=== PATIENT | female | born 1940 | race Caucasian/White ===

== ENCOUNTER → 2020-07-12 13:21 | Outpatient (CLI) | payer MEDICARE, OTHER, SELFPAY ==
--- NOTE | ~2020-07-12 | XR_ITS ---
XR_[id number]_CR DATE: 07/12/2020 13:42 INDICATION: Neck pain TECHNIQUE: AP, open-mouth, lateral, swimmer views COMPARISON: None FINDINGS: C1 and C2 are normally aligned and the odontoid process is intact. There is approximately 2.7 mm anterolisthesis at C3-4. No fracture or dislocation or locked facet or prevertebral soft tissue swelling is detected. Moderate degenerative disc disease at C4-5 and C5-6 and C7. There is degenerative change at the apophyseal and uncovertebral joints. Osteopenia. Aortic arch calcification. IMPRESSION: Prominent degenerative change Reviewed, dictated and finalized at [facility]. Reviewed, dictated and finalized at [facility]. [employer]
== END ==
PROVIDERS: PCP Internal Medicine; Visit Provider Nurse Practitioner
DX: M50.30 Other cervical disc degeneration, unspecified cervical region (principal)
CPT/HCPCS: 72040

== ENCOUNTER 2020-08-29 09:57 | Inpatient (IN) | payer MEDICARE, OTHER, SELFPAY ==
[2020-08-29] VITALS (17 sets, daily range): BP systolic 159–245; BP diastolic 49–95; PULSE 72–86; RESP 14–29; TEMP 35.9–36.9; O2SAT 89–100; BMI 42.7
--- NOTE | ~2020-08-29 | XR_ITS ---
XR chest 2V 08/29/2020 10:26 Indication: Shortness of breath. CHF Procedure: 2 view chest Comparison: Comparison to multiple prior studies sequentially, with oldest reviewed study dated /oh 07/2017. Findings: Borderline heart size. There is airspace disease throughout the right lung. Small right ple ural effusion. No pneumothorax. There is atherosclerosis. No acute osseous abnormality. Impression: 1: Diffuse right-sided airspace disease, which most likely represents pneumonia versus asymmetric tl ma. Reviewed, dictated and finalized at [facility]. Impression: 1: Diffuse right-sided airspace disease, which most likely represents pneumonia versus asymmetric edema.
--- NOTE | ~2020-08-29 | US_ITS ---
EXAMINATION: US venous doppler [facility] DATE: 08/30/2020 10:04 INDICATION: Lower limb swelling TECHNIQUE: Grayscale ultrasound images without and with compression and Doppler ultrasound images of the bilateral lower extremity veins were obtained. COMPARISON: None. FINDINGS: The visualized portions of right common femoral vein, profunda (deep) femoral vein, femoral vein, pop liteal vein, posterior tibial veins, peroneal veins, gastrocnemius vein and greater saphenous vein ou tflow are patent. The visualized portions of left common femoral vein, profunda femoral vein, femoral vein, popliteal v ein, posterior tibial veins, peroneal veins, gastrocnemius vein and greater saphenous vein outflow ar e patent. IMPRESSION: 1. No deep venous thrombosis in either lower limb. Reviewed, dictated and finalized at [facility].
--- NOTE | 2020-08-29 10:01 | ECG_ITS ---
Measurements Intervals [place] Rate: 82 P: 142 NE: 156 QRS: -24 QRSD: 81 T: 41 QT: 364 QTc: 426 Interpretive Statements SINUS OR ECTOPIC ATRIAL RHYTHM POOR R WAVE PROGRESSION, ANTERIOR LEADS BORDERLINE T WAVE ABNORMALITY- INF/HIGH LAT LEADS BASELINE ARTIFACT- I, III, AVR, AVL, AVF BORDERLINE ECG Electronically Signed On 08-29-2020 10:59:17 CDT by Bert Spence D.O.
--- NOTE | 2020-08-29 10:34 | ED.GENADULT ---
HPI - General Adult General Chief complaint: Shortness of Breath/Dyspnea Stated complaint: SOB Time Seen by Provider: 08/29/20 10:12 Source: RN notes reviewed History of Present Illness HPI narrative: Patient presents emergency department from home for shortness of breath. Patient states she has had progressive shortness of breath over the past 5 days associated with a nonproductive cough states shortness of breath is worse with exertion and laying flat. Patient states that she has been out of her medications for the past 5 days and has been unable to get them filled including her Lasix she denies any fevers or chills chest pain abdominal pain nausea vomiting or any other symptoms. Patient was satting in the upper 80s on room air Related Data Home Medications Medication Instructions Recorded Confirmed bumetanide 2 mg tablet 2 mg PO DAILY 05/11/19 07/12/20 cholecalciferol (vitamin D3) 1,250 50,000 unit PO MONTHLY tablet 05/11/19 07/12/20 mcg (50,000 unit) tablet metolazone 5 mg tablet 5 mg PO DAILY 05/11/19 07/12/20 Allergies Allergy/AdvReac Type Severity Reaction Status Date / Time adhesive tape Allergy Mild Unknown Verified 08/29/20 10:37 morphine Allergy Unknown Unknown Verified 08/29/20 10:37 Contrast Media Allergy Mild Unknown Uncoded 08/29/20 10:37 Review of Systems Review of Systems: Narrative: Gen.: Denies fevers or chills ENT: Denies congestion Respiratory: See HPI CV: Denies chest pain or palpitations GI: Denies abdominal pain nausea, emesis or diarrhea Musculoskeletal: Denies back pain or muscle pain Neuro: Denies numbness, tingling, weakness or focal weakness Skin: Denies rash Except as documented, all other systems reviewed and negative [facility] Past Medical History Medical History (Updated 08/29/20 @ 14:20 by Gee Atwood DO) Anemia in chronic kidney 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, NYHA class 1 Cholecystectomy planned Chronic kidney disease, stage 3 Diabetes mellitus with diabetic autonomic neuropathy, with long-term current use of insulin Diabetic retinopathy Essential tremor Hx of completed stroke Hypertension Secondary hyperparathyroidism Vitamin D deficiency Surgical History Surgical History H/O cataract extraction Total knee replacement status Family History Family History Mother Family history of diabetes mellitus in first degree relative Diabetes mellitus Sibling Family history of diabetes mellitus in first degree relative Diabetes mellitus Father Family history of heart disease in male family member before age 55 Patient's father is Family history of cardiovascular disease Social History Social History Tobacco type: cigarettes Smoking end date: 06/08/79 Alcohol intake: never Exam Narrative: Exam Narrative: APPEARANCE: No acute distress, nontoxic, resting in bed EYES: EOMI HEENT: Normocephalic, atraumatic, OMM RESPIRATORY: No respiratory distress crackles in bilateral lower lung barnes no wheezing CARDIOVASCULAR: Regular rate and rhythm without murmurs rubs or gallops. ABDOMINAL: Soft, nontender, nondistended, no rebound or guarding MUSCULOSKELETAl: Moves all extremities. No clubbing, cyanosis 3+ edema in bilateral lower extremities NEURO: Awake and alert. Following commands, speech normal, no focal deficits SKIN:: Warm, dry. No rashes lesions or abrasions PSYCHIATRIC: Normal affect/mood, Course Course Emergency Course: Discussed with Dr. Rivera presentation and work-up agrees with consult at this time Discussed with JULISSA Cárdenas for Dr. Coulter presentation work-up agrees with admission. At this time we discussed the lab results and patient been admitted for the past 5 days feels this is likely congestive heart failure not infectious process Discussed wit
--- NOTE | 2020-08-29 10:39 | PC.NURSE ---
Medications not updated as pt is unsure about current medications. Pt has a list but is unsure. Pt has not been taking medications past [address] won't refill them without seeing me . Pt has only been taking her Insulin.
[2020-08-29 11:06] LABS: Basophils Percent Auto 0.2 % (0.2-1.2); Eosinophils Absolute Auto 0.1 K/mm3 (0-0.3); Eosinophils Percent Auto 0.4 % (0-4.4); Hematocrit 31.9 % (37.0-47.0); Hemoglobin 10.3 g/dL (12.0-15.0); Immature Granulocyte Absolute 0.05 K/mm3 (0.00-0.031); Immature Granulocyte Percent A 0.4 % (0-0.5); Lymphocytes Percent Auto 5.9 % (18.3-44.2); Mean Corpuscular HGB Conc 32.3 g/dl (32-36); Mean Corpuscular Hemoglobin 31.4 pg (26-34); Mean Corpuscular Volume 97.3 fl (80-100); Mean Platelet Volume 10.1 fl (7.4-10.4); Monocytes Absolute Auto 0.8 K/mm3 (0.1-0.6); Monocytes Percent Auto 6.1 % (2.6-8.5); Neutrophils Absolute Auto 11.8 K/mm3 (1.3-6.7); Platelet Count Result 192 k/mm3 (150-375); Red Blood Count 3.28 M/mm3 (4.2-5.4); Red Cell Distribution Width 12.3 % (11.5-14.5); White Blood Count 13.6 K/mm3 (4.5-10.0)
[2020-08-29] MEDS: hydrALAZINE HCL 20 MG/ML VIAL 10 MG IV PUSH ×2 (11:08→23:21)
[2020-08-29 11:17] LABS: Anion Gap 5 mmol/L (8-16); Blood Urea Nitrogen 74 mg/dL (7-17); Calcium 8.3 mg/dL (8.4-10.2); Carbon Dioxide 28 mmol/L (22-30); Chloride 100 mmol/L (98-107); Estimated CRCL calculation 19 ml/min; Estimated Glomerular Filt Rate 19; Glucose 327 mg/dL (65-105); Lactic Acid Reflex 0.8 mmol/L (0.7-2.1); Potassium 4.7 mmol/L (3.4-5.0); Sodium 133 mmol/L (137-145)
[2020-08-29 12:12] LABS: Troponin I 0.286 ng/mL (0.000-0.034)
[2020-08-29 12:13] LABS: NT Pro B Type Natriuretic Pept 14500 PG/ML (5-100)
[2020-08-29] MEDS: ASPIRIN 81 MG CHEWABLE TABLET 324 MG PO (12:29)
[2020-08-29] MEDS: FUROSEMIDE INJ 40 MG/4 ML VIAL IV PUSH (12:30)
--- NOTE | 2020-08-29 14:00 | PC.NURSE ---
Addendum entered by Cecelia Rodriguez RN 08/29/20 14:43: Patient arrived on floor at 1420. Original Note: This patient, Waleska Tse, was admitted to IMU Room 205-02. Patient/family oriented to hospital policies and general routines including ID bracelet, bed and alarms, visiting hours, pain management, procedures, bathroom and other care routines, personal items, smoking policy, room service/diet, and visiting hours. Information on how to activate the Rapid Response Team has been discussed. Patient/Family are encouraged to report perceived risks to care and to ask questions if they do not understand what they are told or what they should do.
--- NOTE | 2020-08-29 17:26 | PM.CNCAR ---
Assessment and Plan Assessment and plan (1) Acute diastolic CHF (congestive heart failure): Code(s): I50.31 - Acute diastolic (congestive) heart failure Status: Acute Assessment and Plan: Patient prevents volume overload with SOB secondary to CHF, secondary to running out of her medications and also uncontrolled hypertension. IV diuretics; agree e=w/ Bumex 1 mg BID. Daily BMP (2) Uncontrolled hypertension: Code(s): I10 - Essential (primary) hypertension Status: Acute Assessment and Plan: Resume home meds and follow. (3) Elevated troponin: Code(s): R77.8 - Other specified abnormalities of plasma proteins Status: Acute Assessment and Plan: Elevated troponins but flat, noncardiac troponin rise secondary to physiologic stress. (4) Noncompliance with medication regimen: Code(s): Z91.14 - Patient's other noncompliance with medication regimen Status: Acute Assessment and Plan: Patient states she was unable to refill her medications. I think there must of been a miscommunication but encouraged the patient to enlist the help of her son if she when she hastrouble getting medications, and call again the doctor's office to obtain medications. Discuss the deleterious effects of uncontrolled hypertension on heart and kidney function. (5) Chronic kidney disease, stage 4 (severe): Code(s): N18.4 - Chronic kidney disease, stage 4 (severe) Status: Acute Assessment and Plan: Followed by Dr. Pemberton, appears stable. History of Present Illness History of Present Illness Consult date/time: 08/29/20 17:26 Consult reason: congestive heart failure Reason For Visit: CHF, elevated troponin, hypertensive urgency Narrative: Ms. Waleska Tse is a 79-year-old white female whom I was asked to see at the request of hospitalist for my advice and opinion regarding her congestive heart failure in consultation. Ms. Tse came to the emergency room this morning for shortness of breath over the last 5 days with ARRIAGA walking from room to room, a non productive cough and orthopnea. She has had a lot of swelling in the last few weeks and thinks she has gained 20 lb in the last 1 or 2 months.. She ran out of her diuretic and blood pressure medications 7 days ago. Per the patient, she sees Dr. Pemberton every 3 months but when she ran out of her medications his office refused to fill them without seeing her again. On admission she had an O2 sat in the 80s, an initial blood pressure was 245/85 mmHg. She was given 10 mg hydralazine IV push, aspirin and 40 mg of furosemide IV push. Blood pressure is now 184/53 and O2 sat is 100%. She was originally seen in March 2018 and acute CHF when she stopped taking her diuretics. I have followed the patient in the past, last being seen in June 2018, for chronic systolic and diastolic heart failure. Ejection fraction was 33% but had improved to 51%. History of hypertension, diabetes, stroke taking aspirin and Plavix, CKD stage [address] Pemberton. Has had some drug intolerances in the past, with swelling on amlodipine, did not tolerate hydralazine or clonidine from certain reasons, and reluctant to use Jose inhibitors ARB because of the renal insufficiency. Review of Systems Constitutional: Constitutional: Reports fatigue, Reports lethargy and Reports weakness Eyes: Eyes: Reports no additional eye complaints ENT: Denies nasal congestion Cardiovascular: Cardiovascular: Denies chest pain, Reports pedal edema, Reports leg edema and Denies lightheadedness Gastrointestina
[2020-08-29 18:02] LABS: Troponin I 0.232 ng/mL (0.000-0.034)
[2020-08-29 18:35] LABS: Alanine Aminotransferase 13 U/L (4-35); Albumin Level 3.5 g/dL (3.5-5.1); Alkaline Phosphatase 106 U/L (38-126); Aspartate Amino Transferase 17 U/L (14-36); Bilirubin,Total 1.1 mg/dL (0.2-1.3); Magnesium 2.6 mg/dL (1.6-2.3)
[2020-08-29 18:40] LABS: CRP 21.8 mg/dL (<1.0)
[2020-08-29] MEDS: BUMETANIDE INJ 1 MG/4 ML VIAL IV PUSH (18:44)
--- NOTE | 2020-08-29 18:45 | PM.IMHP ---
H&P: HPI History of Present Illness Date/Time: 08/29/20 18:45 <Melia Quezada PA-C - Last Filed: 08/29/20 21:40> Chief Complaint: Shortness of breath. <Melia Quezada PA-C - Last Filed: 08/29/20 21:40> Narrative: This is a 79-year-old female with combined systolic and diastolic congestive heart failure, chronic kidney disease, diabetes, hypertension, anemia, and several other comorbidities who presented to the emergency department earlier today from home with complaints of shortness of breath. She has been out of her medications for about 4 to 5 days as reportedly her doctor would not refill them until she is seen in the office though she apparently does not have an appointment until January! In any event over the past 6 to 8 weeks she has gained nearly 25 pounds and she also reports orthopnea, progressive dyspnea on lesser and lesser exertion, and increasing lower extremity edema. In the emergency department a chest x-ray showed right-sided airspace disease compatible with asymmetric edema versus pneumonia. With further questioning she does endorse a mild, nonproductive cough, occasional rhinorrhea, and a decrease in appetite. She had loose stools for a couple of days recently but that has since resolved. She denies fever, chills, and sweats. No headache, sinus congestion, otalgia, or odynophagia. No dysphagia or concerns for aspiration. She has not had chest or pleuritic pain, palpitations, nausea, or vomiting. No myalgias or arthralgias. She denies sick contacts and exposure to those positive for COVID-19. <Melia Quezada PA-C - Last Filed: 08/29/20 21:40> Review of Systems Review of Systems: Narrative: Twelve systems were reviewed with pertinent positives and negatives as per HPI. She denies fall. No syncope or near syncope. Urine output has been unchanged. No dysuria hematuria. Except as documented, all other systems were reviewed and are negative. <Melia Quezada PA-C - Last Filed: 08/29/20 21:40> [facility] Past Medical History Medical History: Medical History Anemia in chronic kidney disease Anxiety Arthritis Cerebrovascular accident With mild right-sided weakness and expressive aphasia. Chronic kidney disease, stage 4 (severe) Combined systolic and diastolic congestive heart failure Echocardiogram in 03/27/2018 showed moderate global LV systolic dysfunction with a measured EF of 33%, grade 2 diastolic dysfunction, moderate RV hypokinesis, and severe pulmonary hypertension (65 mmHg). Diabetic retinopathy Essential tremor Gastroesophageal reflux disease Hiatal hernia Hypertension Insulin dependent type 2 diabetes mellitus Hemoglobin A1c was 9.1% in 05/2020. Secondary hyperparathyroidism Vitamin D deficiency <Melia Quezada PA-C - Last Filed: 08/29/20 21:40> Surgical History Surgical History: Surgical History History of appendectomy History of cataract extraction History of cholecystectomy History of left knee replacement History of tonsillectomy Status post LASIK surgery <Melia Quezada PA-C - Last Filed: 08/29/20 21:40> Family History Family History: Family History Mother Family history of diabetes mellitus in first degree relative Diabetes mellitus Sibling Family history of diabetes mellitus in first degree relative Diabetes mellitus Father Family history of heart disease in male family member before age 55 Patient's father is Family history of cardiovascular disease <Melia Quezada PA-C - Last Filed: 08/29/20 21:40> Social History Social History: Social History (Updated 08/29/20 @ 21:33 by Melia Quezada PA-C) Social History: Surrogate decision maker: tanya Rodney. Code status: Full code. Lives with son and [id number] in [facility]
[2020-08-29] MEDS: HEPARIN SODIUM 5,000 UNITS/ML VIAL 5000 UNITS SUB-Q (20:22)
[2020-08-29] MEDS: carvediloL 25 MG TABLET PO (20:23)
[2020-08-29] MEDS: LORazepam (*CRX) 1 MG TABLET PO (20:23)
[2020-08-29] MEDS: INSULIN GLARGINE (*BKC) 100 UNITS/ML 6 UNITS SUB-Q (20:29)
[2020-08-29 20:39] LABS: Glucose Point of Care 328 (65-105)
[2020-08-29 23:47] LABS: Add Urine Microscopic? YES; Appearance Urine Clear (Clear); Bilirubin Urine Negative (Negative); Blood Urine Negative (Negative); Color Urine Straw (Yellow); Glucose Urine UA 3+ mg/dL (Negative); Ketones Urine Negative (Negative); Leukocyte Esterase Ur Negative LEU/UL (Negative); Mucus Urine Rare /lpf; Nitrate Urine Negative (Negative); Protein Urine 2+ mg/dL (Negative); RBC Urine 0-2 /hpf (0-2); Specific Grav Ur 1.007 (1.001-1.035); Squamous Epithelial Cell Urine Occasional /hpf (Few); Urobilinogen Urine Negative mg/dL (<2.0); WBC Urine 0-3 /hpf
[2020-08-30] VITALS (13 sets, daily range): BP systolic 135–168; BP diastolic 41–62; PULSE 68–78; RESP 18–20; TEMP 36.1–36.8; O2SAT 93–98
[2020-08-30 05:10] LABS: Hematocrit 30.3 % (37.0-47.0); Hemoglobin 9.7 g/dL (12.0-15.0); Mean Corpuscular Hemoglobin 31.4 pg (26-34); Mean Corpuscular Volume 98.1 fl (80-100); Mean Platelet Volume 10.5 fl (7.4-10.4); Platelet Count Result 200 k/mm3 (150-375); Red Blood Count 3.09 M/mm3 (4.2-5.4); Red Cell Distribution Width 12.5 % (11.5-14.5); White Blood Count 9.7 K/mm3 (4.5-10.0)
[2020-08-30 05:47] LABS: Alanine Aminotransferase 11 U/L (4-35); Albumin Level 3.1 g/dL (3.5-5.1); Alkaline Phosphatase 90 U/L (38-126); Anion Gap 6 mmol/L (8-16); Aspartate Amino Transferase 13 U/L (14-36); Bilirubin,Total 0.7 mg/dL (0.2-1.3); Blood Urea Nitrogen 79 mg/dL (7-17); CRP 23.5 mg/dL (<1.0); Calcium 8.1 mg/dL (8.4-10.2); Carbon Dioxide 30 mmol/L (22-30); Chloride 99 mmol/L (98-107); Estimated CRCL calculation 22 ml/min; Estimated Glomerular Filt Rate 19; Glucose 372 mg/dL (65-105); Lactate Dehydrogenase 329 U/L (313-618); Magnesium 2.6 mg/dL (1.6-2.3); Phosphorus 3.6 mg/dL (2.5-4.5); Potassium 4.4 mmol/L (3.4-5.0); Sodium 135 mmol/L (137-145)
[2020-08-30] MEDS: metOLazone 5 MG TABLET PO (08:02)
[2020-08-30] MEDS: HEPARIN SODIUM 5,000 UNITS/ML VIAL 5000 UNITS SUB-Q ×2 (08:02→20:39)
[2020-08-30] MEDS: carvediloL 25 MG TABLET PO ×2 (08:02→20:38)
[2020-08-30] MEDS: BUMETANIDE INJ 1 MG/4 ML VIAL IV PUSH ×2 (08:02→17:30)
[2020-08-30] MEDS: INSULIN GLARGINE (*BKC) 100 UNITS/ML 51 UNITS SUB-Q (08:04)
[2020-08-30] MEDS: INSULIN ASPART (*BKC) 100 UNITS/ML SUB-Q ×2 (08:04→12:29)
[2020-08-30 08:08] LABS: Glucose Point of Care 333 (65-105)
--- NOTE | 2020-08-30 08:46 | PM.PNCARD ---
Progress Note: A&P Assessment and Plan (1) Acute diastolic CHF (congestive heart failure): Code(s): I50.31 - Acute diastolic (congestive) heart failure Status: Acute Assessment and Plan: Patient prevents volume overload with SOB secondary to CHF, secondary to running out of her medications and also uncontrolled hypertension. Continue Bumex 1 mg IV push BID. Daily BMP Increase activity. Out of bed. (2) Uncontrolled hypertension: Code(s): I10 - Essential (primary) hypertension Status: Acute Assessment and Plan: Resumed home meds and follow. Just takes carvedilol and Bumex /metolazone at home for hypertension. Will not be enough to control hypertension in this range. Will add hydralazine 25 mg p.o. b.i.d.. (3) Elevated troponin: Code(s): R77.8 - Other specified abnormalities of plasma proteins Status: Acute Assessment and Plan: Elevated troponins but flat, noncardiac troponin rise secondary to physiologic stress. Echo pending but no other cardiac testing recommended at this point. (4) Noncompliance with medication regimen: Code(s): Z91.14 - Patient's other noncompliance with medication regimen Status: Acute Assessment and Plan: Patient states she was unable to refill her medications. I think there must of been a miscommunication but encouraged the patient to enlist the help of her son if she when she hastrouble getting medications, and call again the doctor's office to obtain medications. Discuss the deleterious effects of uncontrolled hypertension on heart and kidney function. (5) Chronic kidney disease, stage 4 (severe): Code(s): N18.4 - Chronic kidney disease, stage 4 (severe) Status: Acute Assessment and Plan: Followed by Dr. Pemberton, appears stable so far with IV diuretics. Subjective Date/time seen: 08/30/20 08:46 Interval history: Follow-up for CHF, volume overload, and uncontrolled hypertension due to medication noncompliance. She was unable to refill her medications for 7 days prior to admission. Elevated troponins but flat curve thought to be in a noncardiac troponin rise secondary to physiologic stress. Possible community-acquired pneumonia. CKD stage [address] Pemberton. Home meds resumed, started on Bumex 1 mg IV push b.i.d. Date of service 08/30/2020: Slept better last night, no orthopnea. Urinating more. Arthritis is bothering her. Appears unsure of her home medications. Blood pressure 140-180/50-60. Remains on O2. Diuresed some. Review of Systems Constitutional: Constitutional: Denies difficulty sleeping and Reports weakness Eyes: Eyes: Reports no additional eye complaints ENT: Denies nasal congestion Cardiovascular: Cardiovascular: Denies chest pain, Reports pedal edema and Reports leg edema Respiratory: Respiratory: Reports cough and Denies dyspnea Gastrointestinal: Gastrointestinal: Denies abdominal pain Genitourinary: Genitourinary: Denies hematuria Musculoskeletal: Musculoskeletal: Reports back pain and Reports arthralgias Integumentary/Breasts: Skin/Breast: Denies rash Neurologic: Denies confusion Psychiatric: Psychiatric: Reports no additional psychiatric complaints Exam Narrative: Exam Narrative: No distress, getting echo done. Const: General: comfortable and no acute distress HENMT: General nose exam: no epistaxis Eyes: EOM: EOMs intact bilaterally Neck: Neck: supple Resp: Effort & Inspection: normal respiratory effort Auscultation: rales (Scattered rales in bases) Cardio: Rate: regular rate GI: GI Palp: Yes Soft to palpation and Yes Firmness to palpation present (GI) (Obese) Skin: General skin exam: no rashes
[2020-08-30] MEDS: hydrALAZINE HCL 25 MG TABLET PO ×2 (10:21→17:30)
[2020-08-30 12:59] LABS: Glucose Point of Care 278 (65-105)
--- NOTE | 2020-08-30 14:10 | PC.NURSE ---
This patient, Waleska Tse, was transferred to [[id number] ] on 08/30/20 at 1411. Personal belongings sent with patient. Report given to [QUYEN Jones @ [phone] ]. Appropriate documentation sent with patient.
--- NOTE | 2020-08-30 14:15 | PC.NURSE ---
This patient, Waleska Tse, was received from IMU on 08/30/20 at 1415 Reprot received from Mervat . Patient/family oriented to unit policies and routines
--- NOTE | 2020-08-30 15:15 | PM.IMPN ---
Progress Note: A&P Assessment and Plan (1) Hypoxia: Code(s): R09.02 - Hypoxemia Status: Acute Assessment and Plan: Secondary to right-sided airspace disease, pulmonary edema verses pneumonia or combination thereof. Diurese with Bumex 1 milligram b.i.d. Wean oxygen as tolerated. 08/30/20 15:15 patient is 79-year-old female with history of CHF chronic kidney disease and hypertension apparently patient had not been on her medication as he was not able to see her physician and had not taken any of her medication presented emergency depart with complaint shortness of breath lower extremity swelling and and orthopnea, patient was satting in the 80s on room air patient denies any complains of chest pain palpitation fever or chills, patient was seen by water purifier suspect patient has acute diastolic congestive heart failure and started the patient on IV Bumex to diurese the patient, and also had elevated hypertension as she had not taken her medications for sometime, her home medications were resumed, and cardiac echo is ordered, today patient states is feeling much better compared to when she arrived, will follow-up cardiac echo, will have a PT OT evaluate the patient and further recommendation to follow, will continue to monitor (2) Combined systolic and diastolic congestive heart failure: Code(s): I50.40 - Unspecified combined systolic (congestive) and diastolic (congestive) heart failure Status: Inactive Assessment and Plan: Decompensated CHF likely secondary to missed medications and uncontrolled high blood pressure. Judicious IV diuresis. Monitor volume status with I/O and daily weights. (3) Hypertensive urgency: Code(s): I16.0 - Hypertensive urgency Status: Acute Assessment and Plan: The patient has been out of her medications for the last 4 days. Blood pressures should improve with diuresis and resuming antihypertensives. Continue to monitor blood pressures closely to ensure improvement. (4) Elevated troponin: Code(s): R77.8 - Other specified abnormalities of plasma proteins Status: Acute Assessment and Plan: The patient is not having chest pain, likely elevated due to hypertensive urgency and CHF in the setting of renal failure. Trend troponins to peak. Echocardiogram in a.m. Monitor on telemetry overnight. (5) Chronic kidney disease, stage 4 (severe): Code(s): N18.4 - Chronic kidney disease, stage 4 (severe) Status: Deleted Assessment and Plan: Baseline creatinine seems to be around 2.30. Monitor renal function closely while diuresing. Followed by Dr. Pemberton. (6) Anemia in chronic kidney disease: Code(s): N18.9 - Chronic kidney disease, unspecified; D63.1 - Anemia in chronic kidney disease Status: Acute Assessment and Plan: Hemoglobin and hematocrit are stable on review of previous labs. (7) Insulin dependent type 2 diabetes mellitus: Code(s): E11.9 - Type 2 diabetes mellitus without complications; Z79.4 - penitentiary (current) use of insulin Status: Acute Assessment and Plan: Hemoglobin A1c was 9.1% in 05/2020. Continue basal insulin. Initiate sliding scale insulin, Accu-Cheks, and hypoglycemic protocol. (8) Community acquired pneumonia: Code(s): J18.9 - Pneumonia, unspecified organism Status: Acute Assessment and Plan: Chest x-ray shows asymmetrical edema versus pneumonia or combination there of. Given elevated WBC and CRP will start antibiotics. Subjective Date/time seen: 08/30/20 15:15 patient is 79-year-old female with history of CHF chronic kidney disease and hypertension apparently patient had not been on her medication as he was not able to see her physician and had not taken any of her medication presented emergency depart with complaint shortness of breath lower extremity swelling and and orthopnea, patient was satting in the 80s o
[2020-08-30 17:15] LABS: Glucose Point of Care 173 (65-105)
--- NOTE | 2020-08-30 18:04 | ECHO_ITS ---
Patient Info Name: Waleska Tse Age: 79 years : 1940 Gender: Female Ht: 65 in Wt: 257 lbs BSA: 2.37 m2 HR: 1 bpm BP: 138 / 47 mmHg Technical Quality: Good Exam Date: 08/30/2020 8:26 AM Exam Location: [facility] Patient Status: Outpatient Admit Date: 08/29/2020 Staff Ordering Physician: Melia Quezada PA-C Radar Repairer: David Hightower RDCS, RT Attending Provider: Brook Coulter MD Referring Physician: Pilar WATTS; Exam Type: CA echo dop color flow w con Study Info Indications I10 - Essential (primary) hypertension I50.9 - Heart failure, unspecified Complete two-dimensional, color flow and Doppler transthoracic echocardiogram is performed with contrast to opacify the left ventricle and to improve the deliniation of the left ventricle endocardial borders. Contrast/Agitated Saline Contrast/Ag. Saline: Definity Amount: 1.00 ml Administered By: Rhonda Schmid RN Summary 1. Left ventricular systolic function is hyperdynamic, estimated at >70%. 2. There is moderately increased left ventricular wall thickness. 3. Left atrial chamber dimension is severely enlarged. 4. There is moderate aortic valve sclerosis. 5. There is no aortic valve stenosis. 6. There is mild mitral valve regurgitation. Also moderate mitral stenosis. Mean gradient 6 mmHg. 7. There is severe mitral valve calcification. 8. There is mild tricuspid valve regurgitation. 9. Moderate pulmonary hypertension, estimated pulmonary arterial systolic pressure is 57 mmHg. 10. There is moderate mitral valve stenosis. Left Ventricle Left ventricular chamber dimension is normal. Left ventricular systolic function is hyperdynamic, estimated at >70%. There is moderately increased left ventricular wall thickness. Left ventricular septal wall motion is normal. The left ventricular diastolic function is abnormal. Right Ventricle Right ventricular chamber dimension is normal. Right ventricular systolic function is normal. Left Atria Left atrial chamber dimension is severely enlarged. Right Atria Right atrial chamber dimension is normal. Atrial Septum Intact interatrial septum visualized by color flow imaging. Aortic Valve The aortic valve is trileaflet. There is moderate aortic valve sclerosis. There is no aortic valve stenosis. There is no aortic valve regurgitation. Pulmonic Valve The pulmonic valve is normal. There is no pulmonic valve stenosis. There is no pulmonic regurgitation. Mitral Valve The mitral valve has normal leaflets. There is moderate mitral valve stenosis. There is mild mitral valve regurgitation. Also moderate mitral stenosis. Mean gradient 6 mmHg. There is severe mitral valve calcification. Tricuspid Valve The tricuspid valve leaflets are normal. There is no significant tricuspid valve stenosis. There is mild tricuspid valve regurgitation. Moderate pulmonary hypertension, estimated pulmonary arterial systolic pressure is 57 mmHg. Pericardium/Pleural The pericardium appears normal. There is no pericardial effusion. Inferior Vena Cava Dilated inferior vena cava with >50% collapse upon inspiration consistent with elevated right atrial pressure, 10 mmHg. Aorta The aortic root size at the sinus of Valsalva is normal. The prox ascending aorta size is normal. Left Ventricular Outflow Tract Na
[2020-08-30] MEDS: INSULIN GLARGINE (*BKC) 100 UNITS/ML 6 UNITS SUB-Q (20:41)
[2020-08-30] MEDS: LORazepam (*CRX) 1 MG TABLET PO (20:44)
[2020-08-30 21:02] LABS: Glucose Point of Care 170 (65-105)
[2020-08-31 05:47] LABS: Hematocrit 29.9 % (37.0-47.0); Hemoglobin 9.5 g/dL (12.0-15.0); Mean Corpuscular HGB Conc 31.8 g/dl (32-36); Mean Corpuscular Hemoglobin 30.7 pg (26-34); Mean Corpuscular Volume 96.8 fl (80-100); Platelet Count Result 232 k/mm3 (150-375); Red Blood Count 3.09 M/mm3 (4.2-5.4); Red Cell Distribution Width 12.3 % (11.5-14.5)
[2020-08-31 05:59] LABS: Anion Gap 5 mmol/L (8-16); Blood Urea Nitrogen 86 mg/dL (7-17); Calcium 8.1 mg/dL (8.4-10.2); Carbon Dioxide 31 mmol/L (22-30); Chloride 102 mmol/L (98-107); Estimated CRCL calculation 19 ml/min; Estimated Glomerular Filt Rate 16; Glucose 106 mg/dL (65-105); Sodium 138 mmol/L (137-145)
[2020-08-31 06:00] VITALS: BP 124/53; PULSE 66; RESP 18; TEMP 36.2; O2SAT 96
[2020-08-31 07:13] LABS: Glucose Point of Care 113 (65-105)
[2020-08-31 08:00] VITALS: BP 153/45; PULSE 69; RESP 17; TEMP 35.9; O2SAT 97
[2020-08-31] MEDS: metOLazone 5 MG TABLET PO (08:02)
[2020-08-31] MEDS: BUMETANIDE INJ 1 MG/4 ML VIAL IV PUSH ×2 (08:03→17:09)
[2020-08-31] MEDS: hydrALAZINE HCL 25 MG TABLET PO ×2 (08:03→17:08)
[2020-08-31] MEDS: carvediloL 25 MG TABLET PO ×2 (08:03→20:33)
[2020-08-31] MEDS: HEPARIN SODIUM 5,000 UNITS/ML VIAL 5000 UNITS SUB-Q ×2 (08:03→20:33)
[2020-08-31 08:14] VITALS: PULSE 64; RESP 18; O2SAT 95
[2020-08-31] MEDS: LORazepam (*CRX) 0.5 MG TABLET PO ×3 (09:15→20:32)
[2020-08-31] MEDS: INSULIN GLARGINE (*BKC) 100 UNITS/ML 51 UNITS SUB-Q (09:17)
[2020-08-31 12:27] LABS: Glucose Point of Care 197 (65-105)
--- NOTE | 2020-08-31 13:01 | PM.PNCARD ---
Progress Note: A&P Additional Plan A 79-year-old woman with: Hypertension chronic kidney disease and admission with volume overload due to noncompliance with medication. Patient does not have LV systolic dysfunction on recent echo. Medications have been resumed and she is responding although still somewhat volume overloaded. Hydralazine added for additional antihypertensive benefit. The patient follows with Dr. Pemberton regarding her chronic kidney disease and the principal issue here is I believe related to her chronic renal failure rather than heart failure. In any event I will recommend transitioning her back to oral Bumex starting tomorrow. She is on room air and hopefully can be discharged in the next 24-48 hours. Amauri Jones MD [facility] Subjective Date/time seen: Date of service: 08/31/20 13:01 Interval history: Follow-up for CHF, volume overload, and uncontrolled hypertension due to medication noncompliance. She was unable to refill her medications for 7 days prior to admission. Elevated troponins but flat curve thought to be in a noncardiac troponin rise secondary to physiologic stress. Possible community-acquired pneumonia. CKD stage [address] Pemberton. Home meds resumed, started on Bumex 1 mg IV push b.i.d. Date of service 08/30/2020: Slept better last night, no orthopnea. Urinating more. Arthritis is bothering her. Appears unsure of her home medications. Blood pressure 140-180/50-60. Remains on O2. Diuresed some. Date of service: Patient is eating her lunch does not have any cardiovascular complaints she is noticing some occasional muscle cramping. Exam Narrative: Exam Narrative: No distress, getting echo done. Const: General: comfortable, no acute distress and uncomfortable (Anxious); No confusion Orientation/consciousness: No confusion HENMT: General nose exam: no epistaxis Eyes: EOM: EOMs intact bilaterally Neck: Neck: supple and no JVD (Obese neck, difficult to examine) Thyroid: thyroid normal Carotids: no bruits Lymphatic: lymphadenopathy not noted Resp: Effort & Inspection: normal respiratory effort Auscultation: rales (Scattered rales in bases) and diminished lung sounds Cardio: Rate: regular rate Rhythm: regular rhythm Heart sounds: no murmurs Other: Pedal pulses are diminished GI: Inspection: non-distended Skin: General skin exam: normal color and no rashes or lesions noted Neuro: General: No confusion Cognition (Neuro): normal cognition Speech: normal speech Motor exam (neuro): Normal motor muscle tone present throughout Other: Unsure of her medications, may have some cognitive dysfunction. Extrem: General: edema and pedal edema Other: Moderate lower extremity edema Psych: Affect: Anxious affect present Objective Data Vital Signs Vital Signs: Vital Signs - 24 hr 08/30/20 17:30 08/30/20 17:32 08/30/20 20:00 Temperature Pulse Rate 69 71 Respiratory Rate Blood Pressure 167/51 H Pulse Oximetry 95 98 08/30/20 20:17 08/30/20 20:38 08/30/20 22:00 Temperature 36.1 C L Pulse Rate 71 71 Respiratory Rate 20 Blood Pressure 152/41 H Pulse Oximetry 93 98 08/31/20 06:00 08/31/20 08:00 08/31/20 08:14 Temperature 36.2 C L 35.9 C L Pulse Rate 66 69 64 Respiratory Rate 18 17 18 Blood Pressure 124/53 L 153/45 H Pulse Oximetry 96 97 95 Intake/Output Intake/Output: Intake & Output 08/28/20 08/29/20 08/30/20 08/31/20 23:59 23:59 23:59 23:59 Intake Total 490 1110 500 Output Total 1150 100 500 Balance -660 1010 0 Meds/Results Medications: Active Medications Generic Name Dose Route Start Last Admin Trade Name Freq PRN Reason Stop Dose Admin Bumetanide 1 mg 08/29/20 18:30 08/31/20 08:03 Bumetanide Inj 1 Mg/4 Ml Vial IV PUSH 1 mg BID JULIO Administration Carvedilol 25 mg 08/29/20 21:00 08/31/20 08:03 Carvedilol 25 Mg Tablet PO 25 mg Q12HR JULIO Administration Dextrose 12.5 gm 08/29/20 17:54 Dextros
--- NOTE | 2020-08-31 13:12 | PM.IMPN ---
Progress Note: A&P Assessment and Plan (1) Combined systolic and diastolic congestive heart failure: Qualifiers: Heart failure chronicity: acute on chronic Qualified Code(s): I50.43 - Acute on chronic combined systolic (congestive) and diastolic (congestive) heart failure Code(s): I50.40 - Unspecified combined systolic (congestive) and diastolic (congestive) heart failure Status: Acute Assessment and Plan: Decompensated CHF likely secondary to missed medications and uncontrolled high blood pressure. Appreciate cardiology recommendations. Has been diuresed with IV bumex. Noted plan to transition back to oral Bumex tomorrow. Monitor volume status with I/O and daily weights. (2) Hypoxia: Code(s): R09.02 - Hypoxemia Status: Resolved Assessment and Plan: Tolerating room air during my encounter. Suspect related to volume overload, see above. Improving with the current treatment. (3) Hypertensive urgency: Code(s): I16.0 - Hypertensive urgency Status: Acute Assessment and Plan: Suspect related to patient being out of her medications for several days prior to arrival. BPs reviewed. Have improved with diuresis and hydralazine has been added. Appreciate cardiology input. (4) Elevated troponin: Code(s): R77.8 - Other specified abnormalities of plasma proteins Status: Acute Assessment and Plan: The patient is not having chest pain, likely elevated due to hypertensive urgency and CHF in the setting of renal failure. Cardiology following. ACS not suspected. Will monitor. (5) Chronic kidney disease, stage 4 (severe): Code(s): N18.4 - Chronic kidney disease, stage 4 (severe) Status: Deleted Assessment and Plan: CKD followed by Dr Pemberton. Continue to monitor renal function, fluctuating. (6) Anemia in chronic kidney disease: Qualifiers: Chronic kidney disease stage: stage 4 (severe) Qualified Code(s): N18.4 - Chronic kidney disease, stage 4 (severe); D63.1 - Anemia in chronic kidney disease Code(s): N18.9 - Chronic kidney disease, unspecified; D63.1 - Anemia in chronic kidney disease Status: Acute Assessment and Plan: H&H low but stable. No evidence of acute bleeding. Monitor CBC. 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 Blood sugars appropriate this morning. Continue basal insulin. Continue sliding scale insulin, Accu-Cheks, and hypoglycemic protocol. (8) Community acquired pneumonia: Qualifiers: Laterality: unspecified laterality Qualified Code(s): J18.9 - Pneumonia, unspecified organism Code(s): J18.9 - Pneumonia, unspecified organism Status: Suspected Assessment and Plan: Chest x-ray shows asymmetrical edema versus pneumonia or combination there of. Leukocytosis on admission is now resolved. Afebrile. Continue azithromycin and rocephin (day 3). Subjective Date/time seen: 08/31/20 1200 Interval history: Ms. Tse is a 79yo F admitted with CHF, volume overload, uncontrolled hypertension. She reports feeling better today. She feels her shortness of breath and swelling are improving. Has not yet been up with therapy. She denies chest pain. Able to sleep some last night. No nausea, vomiting. Notified later by RN patient has increased anxiety. Review of Systems Review of Systems: All systems reviewed & are unremarkab
[2020-08-31] MEDS: ACETAMINOPHEN 325 MG TABLET 650 MG PO (14:17)
--- NOTE | 2020-08-31 15:09 | PC.NURSE ---
On 08/31/20, the student, [Arian Jaffe], provided care and completed [facility]. I have reviewed the student's documentation and agree with the findings.
[2020-08-31 16:48] LABS: Glucose Point of Care 235 (65-105)
[2020-08-31] MEDS: INSULIN ASPART (*BKC) 100 UNITS/ML SUB-Q (17:09)
[2020-08-31 19:25] VITALS: BP 155/86; PULSE 66; RESP 20; TEMP 36.1; O2SAT 94
[2020-08-31 20:29] LABS: Glucose Point of Care 287 (65-105)
[2020-08-31 20:33] VITALS: PULSE 68
[2020-08-31] MEDS: INSULIN GLARGINE (*BKC) 100 UNITS/ML 6 UNITS SUB-Q (20:37)
[2020-08-31 22:00] VITALS: BP 118/42; PULSE 68; RESP 18; TEMP 36.7; O2SAT 97
[2020-09-01 05:11] LABS: Basophils Percent Auto 0.5 % (0.2-1.2); Eosinophils Absolute Auto 0.3 K/mm3 (0-0.3); Eosinophils Percent Auto 3.5 % (0-4.4); Hematocrit 30.6 % (37.0-47.0); Hemoglobin 9.8 g/dL (12.0-15.0); Immature Granulocyte Absolute 0.03 K/mm3 (0.00-0.031); Immature Granulocyte Percent A 0.4 % (0-0.5); Lymphocytes Absolute Auto 1.27 K/mm3 (0.9-3.2); Lymphocytes Percent Auto 15.4 % (18.3-44.2); Mean Corpuscular Hemoglobin 31.3 pg (26-34); Mean Corpuscular Volume 97.8 fl (80-100); Mean Platelet Volume 10.1 fl (7.4-10.4); Monocytes Absolute Auto 0.7 K/mm3 (0.1-0.6); Neutrophils Absolute Auto 5.9 K/mm3 (1.3-6.7); Neutrophils Percent Auto 72.2 % (45.5-73.1); Platelet Count Result 234 k/mm3 (150-375); Red Blood Count 3.13 M/mm3 (4.2-5.4); Red Cell Distribution Width 12.5 % (11.5-14.5); White Blood Count 8.2 K/mm3 (4.5-10.0)
[2020-09-01 05:22] LABS: Alanine Aminotransferase 10 U/L (4-35); Alkaline Phosphatase 82 U/L (38-126); Anion Gap 6 mmol/L (8-16); Aspartate Amino Transferase 16 U/L (14-36); Bilirubin,Total 0.2 mg/dL (0.2-1.3); Blood Urea Nitrogen 88 mg/dL (7-17); Calcium 7.7 mg/dL (8.4-10.2); Carbon Dioxide 27 mmol/L (22-30); Chloride 100 mmol/L (98-107); Estimated CRCL calculation 20 ml/min; Estimated Glomerular Filt Rate 17; Glucose 215 mg/dL (65-105); Magnesium 2.6 mg/dL (1.6-2.3); Potassium 3.7 mmol/L (3.4-5.0); Sodium 133 mmol/L (137-145)
[2020-09-01 06:00] VITALS: BP 145/48; PULSE 64; RESP 18; TEMP 36.8; O2SAT 96
[2020-09-01 08:05] LABS: Glucose Point of Care 167 (65-105)
[2020-09-01 08:16] VITALS: PULSE 64
[2020-09-01] MEDS: carvediloL 25 MG TABLET PO ×2 (08:16→20:26)
[2020-09-01] MEDS: hydrALAZINE HCL 25 MG TABLET PO ×2 (08:16→16:37)
[2020-09-01] MEDS: metOLazone 5 MG TABLET PO (08:16)
[2020-09-01] MEDS: LORazepam (*CRX) 0.5 MG TABLET PO ×2 (08:20→20:26)
[2020-09-01] MEDS: INSULIN GLARGINE (*BKC) 100 UNITS/ML 51 UNITS SUB-Q (08:21)
[2020-09-01] MEDS: HEPARIN SODIUM 5,000 UNITS/ML VIAL 5000 UNITS SUB-Q ×2 (08:24→20:29)
[2020-09-01] MEDS: BUMETANIDE 1 MG TABLET PO ×2 (08:24→16:37)
--- NOTE | 2020-09-01 08:43 | PM.PNCARD ---
Progress Note: A&P Assessment and Plan (1) Acute diastolic CHF (congestive heart failure): Code(s): I50.31 - Acute diastolic (congestive) heart failure Status: Acute Assessment and Plan: Patient prevents volume overload with SOB secondary to CHF, secondary to running out of her medications and also uncontrolled hypertension. DC IV Bumex. Transition to oral Bumex 1 mg p.o. b.i.d. KCl 40 mEq p.o. x1 Daily BMP Increase activity. Out of bed. (2) Uncontrolled hypertension: Code(s): I10 - Essential (primary) hypertension Status: Acute Assessment and Plan: Resumed home meds and follow. Just takes carvedilol and Bumex /metolazone at home for hypertension. Will not be enough to control hypertension in this range. Blood pressure is better controlled (3) Elevated troponin: Code(s): R77.8 - Other specified abnormalities of plasma proteins Status: Acute Assessment and Plan: Elevated troponins but flat, noncardiac troponin rise secondary to physiologic stress. (4) Noncompliance with medication regimen: Code(s): Z91.14 - Patient's other noncompliance with medication regimen Status: Acute Assessment and Plan: Patient states she was unable to refill her medications. I think there must of been a miscommunication but encouraged the patient to enlist the help of her son if she when she hastrouble getting medications, and call again the doctor's office to obtain medications. Discuss the deleterious effects of uncontrolled hypertension on heart and kidney function. (5) Chronic kidney disease, stage 4 (severe): Code(s): N18.4 - Chronic kidney disease, stage 4 (severe) Status: Acute Assessment and Plan: Followed by Dr. Pemberton Subjective Date/time seen: 09/01/20 08:43 Interval history: Follow-up for CHF, volume overload, and uncontrolled hypertension due to medication noncompliance. She was unable to refill her medications for 7 days prior to admission. Elevated troponins but flat curve thought to be in a noncardiac troponin rise secondary to physiologic stress. Possible community-acquired pneumonia. CKD stage [address] Pemberton. Home meds resumed, started on Bumex 1 mg IV push b.i.d. Date of service 09/01 21: She continues to feel better. Her legs are less swollen. She denies any chest pain. Less short of breath. Review of Systems Constitutional: Constitutional: Denies difficulty sleeping, Reports fatigue, Reports lethargy and Reports weakness Eyes: Eyes: Reports no additional eye complaints ENT: Denies nasal congestion Cardiovascular: Cardiovascular: Denies chest pain, Reports pedal edema, Reports leg edema, Denies lightheadedness and Denies dyspnea Respiratory: Respiratory: Reports cough and Denies dyspnea Gastrointestinal: Gastrointestinal: Denies abdominal pain, Denies hematochezia and Reports diarrhea (Two days of diarrhea which have resolved) Genitourinary: Genitourinary: Denies hematuria and Denies dysuria Musculoskeletal: Musculoskeletal: Reports back pain and Reports arthralgias Integumentary/Breasts: Skin/Breast: Denies rash Neurologic: Denies confusion and Reports weakness Psychiatric: Psychiatric: Reports no additional psychiatric complaints, Reports anxiety and Denies confusion Endocrine: Endocrine: Reports fatigue Exam Narrative: Exam Narrative: No distress, getting echo done. Const: General: comfortable and no acute distress; No confusion Orientation/consciousness: No confusion HENMT: General nose exam: no epistaxis Eyes: EOM: EOMs intact bilaterally Neck: Neck: supple and no JVD (Obese neck, difficult to examine) Thyroid: thyroid normal Carot
[2020-09-01] MEDS: POTASSIUM CHLORIDE 20 MEQ TABLET 40 MEQ PO (09:52)
--- NOTE | 2020-09-01 12:10 | PM.IMPN ---
Progress Note: A&P Assessment and Plan (1) Combined systolic and diastolic congestive heart failure: Qualifiers: Heart failure chronicity: acute on chronic Qualified Code(s): I50.43 - Acute on chronic combined systolic (congestive) and diastolic (congestive) heart failure Code(s): I50.40 - Unspecified combined systolic (congestive) and diastolic (congestive) heart failure Status: Acute Assessment and Plan: Decompensated CHF likely secondary to missed medications and uncontrolled high blood pressure. Appreciate cardiology recommendations. Has been diuresed with IV bumex. Transition back to oral bumex tomorrow per cardiology recommendations. Monitor today, increase activity and anticipate possible discharge tomorrow. Monitor volume status with I/O and daily weights. (2) Hypoxia: Code(s): R09.02 - Hypoxemia Status: Resolved Assessment and Plan: Tolerating room air during my encounter. Suspect related to volume overload, see above. Improving with the current treatment. (3) Hypertensive urgency: Code(s): I16.0 - Hypertensive urgency Status: Acute Assessment and Plan: Suspect related to patient being out of her medications for several days prior to arrival. BPs reviewed. Have improved with diuresis and hydralazine has been added. Appreciate cardiology input. (4) Elevated troponin: Code(s): R77.8 - Other specified abnormalities of plasma proteins Status: Acute Assessment and Plan: The patient is not having chest pain, likely was elevated due to hypertensive urgency and CHF in the setting of renal failure. Cardiology following. ACS not suspected. Will monitor. (5) Chronic kidney disease, stage 4 (severe): Code(s): N18.4 - Chronic kidney disease, stage 4 (severe) Status: Deleted Assessment and Plan: CKD followed by Dr Pemberton. Continue to monitor renal function, fluctuating. (6) Anemia in chronic kidney disease: Qualifiers: Chronic kidney disease stage: stage 4 (severe) Qualified Code(s): N18.4 - Chronic kidney disease, stage 4 (severe); D63.1 - Anemia in chronic kidney disease Code(s): N18.9 - Chronic kidney disease, unspecified; D63.1 - Anemia in chronic kidney disease Status: Acute Assessment and Plan: H&H low but stable. No evidence of acute bleeding. Monitor CBC. (7) Insulin dependent type 2 diabetes mellitus: Code(s): E11.9 - Type 2 diabetes mellitus without complications; Z79.4 - snf (current) use of insulin Status: Acute Assessment and Plan: Hemoglobin A1c was 9.1% in 05/2020. Blood sugars appropriate this morning. Continue basal insulin. Continue sliding scale insulin, Accu-Cheks, and hypoglycemic protocol. (8) Community acquired pneumonia: Qualifiers: Laterality: unspecified laterality Qualified Code(s): J18.9 - Pneumonia, unspecified organism Code(s): J18.9 - Pneumonia, unspecified organism Status: Suspected Assessment and Plan: Chest x-ray shows asymmetrical edema versus pneumonia or combination there of. Leukocytosis on admission is now resolved. Afebrile. Continue azithromycin and rocephin (day 4). Subjective Date/time seen: 09/01/20 12:00 Interval history: Ms. Tse is a 79yo F admitted with CHF, volume overload, uncontrolled hypertension. She is feeling better. Shortness of breath improved. Swelling fluctuates; at present she has more swelling than yesterday but she is sitting in chair. No chest pain. Eating well, tolerating meals without nausea or vomiting. Review of Syst
[2020-09-01 12:29] LABS: Glucose Point of Care 289 (65-105)
[2020-09-01] MEDS: INSULIN ASPART (*BKC) 100 UNITS/ML SUB-Q ×2 (12:36→17:18)
[2020-09-01] MEDS: BENZONATATE 100 MG CAPSULE PO ×2 (12:36→16:37)
[2020-09-01 14:00] VITALS: BP 153/46; PULSE 71; RESP 16; TEMP 35.7; O2SAT 98
[2020-09-01 17:20] LABS: Glucose Point of Care 278 (65-105)
[2020-09-01] MEDS: INSULIN GLARGINE (*BKC) 100 UNITS/ML 6 UNITS SUB-Q (20:19)
[2020-09-01 20:26] VITALS: PULSE 68
[2020-09-01 21:12] LABS: Glucose Point of Care 305 (65-105)
[2020-09-01 22:00] VITALS: BP 131/40; PULSE 70; RESP 20; TEMP 36.2; O2SAT 98
[2020-09-01] MEDS: AZITHROMYCIN 250 MG TABLET PO (22:23)
[2020-09-02] MEDS: SALINE 0.65% NAS SOLN 44 ML BTL 1 SPRAY NASAL ×2 (01:57→09:32)
[2020-09-02 05:46] LABS: Anion Gap 7 mmol/L (8-16); Blood Urea Nitrogen 89 mg/dL (7-17); Calcium 7.6 mg/dL (8.4-10.2); Carbon Dioxide 29 mmol/L (22-30); Chloride 100 mmol/L (98-107); Estimated CRCL calculation 20 ml/min; Estimated Glomerular Filt Rate 17; Glucose 187 mg/dL (65-105); Potassium 3.8 mmol/L (3.4-5.0); Sodium 136 mmol/L (137-145)
[2020-09-02 06:00] VITALS: BP 151/54; PULSE 67; RESP 20; TEMP 36.1; O2SAT 98
--- NOTE | 2020-09-02 08:59 | PM.PNCARD ---
Progress Note: A&P Assessment and Plan (1) Acute diastolic CHF (congestive heart failure): Code(s): I50.31 - Acute diastolic (congestive) heart failure Status: Acute Assessment and Plan: Patient prevents volume overload with SOB secondary to CHF, secondary to running out of her medications and also uncontrolled hypertension. Continue oral Bumex 1 mg p.o. b.i.d. Will give a dose of IV Bumex 1 mg today. Legs are more swollen Daily BMP Increase activity. Out of bed. (2) Uncontrolled hypertension: Code(s): I10 - Essential (primary) hypertension Status: Acute Assessment and Plan: Resumed home meds and follow. Just takes carvedilol and Bumex /metolazone at home for hypertension. Will not be enough to control hypertension in this range. Blood pressure is better controlled (3) Elevated troponin: Code(s): R77.8 - Other specified abnormalities of plasma proteins Status: Acute Assessment and Plan: Elevated troponins but flat, noncardiac troponin rise secondary to physiologic stress. (4) Noncompliance with medication regimen: Code(s): Z91.14 - Patient's other noncompliance with medication regimen Status: Acute Assessment and Plan: Patient states she was unable to refill her medications. I think there must of been a miscommunication but encouraged the patient to enlist the help of her son if she when she hastrouble getting medications, and call again the doctor's office to obtain medications. Discuss the deleterious effects of uncontrolled hypertension on heart and kidney function. (5) Chronic kidney disease, stage 4 (severe): Code(s): N18.4 - Chronic kidney disease, stage 4 (severe) Status: Acute Assessment and Plan: Followed by Dr. Pemberton Subjective Date/time seen: 09/02/20 08:59 Interval history: Follow-up for CHF, volume overload, and uncontrolled hypertension due to medication noncompliance. She was unable to refill her medications for 7 days prior to admission. Elevated troponins but flat curve thought to be in a noncardiac troponin rise secondary to physiologic stress. Possible community-acquired pneumonia. CKD stage [address] Pemberton. Home meds resumed, started on Bumex 1 mg IV push b.i.d. Date of service 09/01 20: She continues to feel better. Her legs are less swollen. She denies any chest pain. Less short of breath. Date of service 09/02/2020: Her shortness of breath is better. Legs are still swollen significantly. No edema Review of Systems Constitutional: Constitutional: Denies difficulty sleeping, Reports fatigue, Reports lethargy and Reports weakness Eyes: Eyes: Reports no additional eye complaints ENT: Denies nasal congestion Cardiovascular: Cardiovascular: Denies chest pain, Reports pedal edema, Reports leg edema, Denies lightheadedness and Denies dyspnea Respiratory: Respiratory: Reports cough and Denies dyspnea Gastrointestinal: Gastrointestinal: Denies abdominal pain, Denies hematochezia and Reports diarrhea (Two days of diarrhea which have resolved) Genitourinary: Genitourinary: Denies hematuria and Denies dysuria Musculoskeletal: Musculoskeletal: Reports back pain and Reports arthralgias Integumentary/Breasts: Skin/Breast: Denies rash Neurologic: Denies confusion and Reports weakness Psychiatric: Psychiatric: Reports no additional psychiatric complaints, Reports anxiety and Denies confusion Endocrine: Endocrine: Reports fatigue Exam Narrative: Exam Narrative: No distress, getting echo done. Const: General: comfortable and no acute distress; No confusion Orientation/consciousness: No confusion HENMT: General nose exam: no epist
[2020-09-02 09:03] LABS: Glucose Point of Care 132 (65-105)
[2020-09-02 09:30] VITALS: BP 148/45; PULSE 67
[2020-09-02] MEDS: hydrALAZINE HCL 25 MG TABLET PO (09:31)
[2020-09-02] MEDS: BENZONATATE 100 MG CAPSULE PO ×2 (09:31→12:53)
[2020-09-02] MEDS: metOLazone 5 MG TABLET PO (09:31)
[2020-09-02] MEDS: LORazepam (*CRX) 0.5 MG TABLET PO (09:31)
[2020-09-02] MEDS: carvediloL 25 MG TABLET PO (09:31)
[2020-09-02] MEDS: BUMETANIDE 1 MG TABLET PO (09:32)
[2020-09-02] MEDS: HEPARIN SODIUM 5,000 UNITS/ML VIAL 5000 UNITS SUB-Q (09:43)
[2020-09-02] MEDS: INSULIN GLARGINE (*BKC) 100 UNITS/ML 51 UNITS SUB-Q (09:54)
[2020-09-02] MEDS: BUMETANIDE INJ 1 MG/4 ML VIAL IV PUSH (11:07)
[2020-09-02 12:47] LABS: Glucose Point of Care 295 (65-105)
[2020-09-02] MEDS: INSULIN ASPART (*BKC) 100 UNITS/ML SUB-Q (12:52)
--- NOTE | 2020-09-02 13:13 | PM.DS ---
DS: Admitting Diagnosis Admitting Diagnosis Admitting Diagnosis: CHF exacerbation DS: Discharge Diagnosis Discharge Diagnosis (1) Combined systolic and diastolic congestive heart failure: Qualifiers: Heart failure chronicity: acute on chronic Qualified Code(s): I50.43 - Acute on chronic combined systolic (congestive) and diastolic (congestive) heart failure Code(s): I50.40 - Unspecified combined systolic (congestive) and diastolic (congestive) heart failure Status: Acute Assessment and Plan: Date of Admission 08/29/20 Date of Discharge 09/02/20 Ms. Tse is an 80yo F with history of CHF, hypertension, CKD, chronic anemia, insulin dependent type 2 diabetes who presented to the ED for evaluation of shortness of breath. She admits she ran out of her blood pressure and diuretic medications several days prior to arrival and had not been taking them. She presented with shortness of breath and lower extremity edema. She was evaluated by cardiology and diuresed with IV bumex twice daily. Her swelling and shortness of breath improved. Blood pressures elevated on arrival, improved with resuming her home medications and cardiology added oral hydralazine as well for better BP control. She worked with PT/OT and home health services to continue such were arranged. She was overall improved with the therapy outlined above and hemodynamically stable for discharge 09/02/20. Decompensated CHF likely secondary to missed medications and uncontrolled high blood pressure. Medication changes managed by cardiology service. She was diuresed with IV bumex and transitioned back to her oral bumex prior to discharge. (2) Hypertensive urgency: Code(s): I16.0 - Hypertensive urgency Status: Acute Assessment and Plan: Suspect related to patient being out of her medications for several days prior to arrival. BP improved with diuresis and hydralazine was added by cardiology service. (3) Elevated troponin: Code(s): R77.8 - Other specified abnormalities of plasma proteins Status: Acute Assessment and Plan: The patient is not having chest pain, likely was elevated due to hypertensive urgency and CHF in the setting of renal failure. Cardiology followed. ACS not suspected. (4) Chronic kidney disease, stage 4 (severe): Code(s): N18.4 - Chronic kidney disease, stage 4 (severe) Status: Deleted Assessment and Plan: CKD followed by Dr Pemberton. Continue to monitor renal function, fluctuating. (5) Anemia in chronic kidney disease: Qualifiers: Chronic kidney disease stage: stage 4 (severe) Qualified Code(s): N18.4 - Chronic kidney disease, stage 4 (severe); D63.1 - Anemia in chronic kidney disease Code(s): N18.9 - Chronic kidney disease, unspecified; D63.1 - Anemia in chronic kidney disease Status: Acute Assessment and Plan: H&H low but stable. No evidence of acute bleeding. 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 Maintained on basal insulin and SSI, monitored with accu-cheks ACHS. (7) Community acquired pneumonia: Qualifiers: Laterality: unspecified laterality Qualified Code(s): J18.9 - Pneumonia, unspecified organism Code(s): J18.9 - Pneumonia, unspecified organism Status: Suspected Assessment and Plan: Chest x-ray shows asymmetrical edema versus pneumonia or combination there of. Leukocytosis on admission is now resolve
[2020-09-02 14:00] VITALS: BP 144/44; PULSE 69; RESP 16; TEMP 36.3; O2SAT 100
--- NOTE | 2020-09-06 13:38 | PC.NURSE ---
Blood cx are negative.
== END 2020-09-02 14:27 | disposition home health service (06) | DRG 291 ==
LOC: ANHED 12:27 → ANHIMU 13:34 → ANH2MED 08-30 15:51 → ANHIMU 09-03 17:46 → ANH2MED 09-03 17:46
PROVIDERS: Physician Assistant; Admitting Provider Family Medicine; Emergency Provider Emergency Medicine; PCP Internal Medicine; Visit Provider Physician Assistant
DX: I13.0 Hypertensive heart and chronic kidney disease with heart failure and stage 1 through stage 4 chronic kidney disease, or unspecified chronic kidney disease (principal); I50.43 Acute on chronic combined systolic (congestive) and diastolic (congestive) heart failure; J18.9 Pneumonia, unspecified organism; N18.4 Chronic kidney disease, stage 4 (severe); N25.81 Secondary hyperparathyroidism of renal origin; I69.351 Hemiplegia and hemiparesis following cerebral infarction affecting right dominant side; Z91.14 Patient's other noncompliance with medication regimen; I69.320 Aphasia following cerebral infarction; E11.22 Type 2 diabetes mellitus with diabetic chronic kidney disease; I16.0 Hypertensive urgency; D63.1 Anemia in chronic kidney disease; E11.43 Type 2 diabetes mellitus with diabetic autonomic (poly)neuropathy; E11.319 Type 2 diabetes mellitus with unspecified diabetic retinopathy without macular edema; R79.89 Other specified abnormal findings of blood chemistry; K21.9 Gastro-esophageal reflux disease without esophagitis; E55.9 Vitamin D deficiency, unspecified; Z96.652 Presence of left artificial knee joint; Z79.4 Long term (current) use of insulin; Z98.42 Cataract extraction status, left eye; Z98.41 Cataract extraction status, right eye; Z90.49 Acquired absence of other specified parts of digestive tract; Z87.891 Personal history of nicotine dependence
CPT/HCPCS: 36415; 71046; 80048; 80053; 80076; 81001; 82728; 82948; 83605; 83615; 83735; 83880; 84100; 84145; 84443; 84484; 85025; 85027; 86140; 87040; 93005; 93970; 96365; 96366; 96375; 96376; 97110; 97116; 97161; 97165; 97530; 99285; A9270; C8929; G0378; J0360; J0456; J0696; J1644; J1815; J1940

== ENCOUNTER 2021-02-21 01:21 | Inpatient (IN) | payer MEDICARE, OTHER, SELFPAY ==
[2021-02-21] VITALS (26 sets, daily range): BP systolic 150–206; BP diastolic 51–102; PULSE 64–108; RESP 18–31; TEMP 36.1–37; O2SAT 90–100; BMI 50.8
--- NOTE | ~2021-02-21 | XR_ITS ---
EXAMINATION: XR chest 1V portable DATE: 02/21/2021 02:12 INDICATION: Shortness of breath TECHNIQUE: frontal view of the chest was obtained. COMPARISON: Chest radiograph dated 08/29/2020 FINDINGS: Pulmonary vascular congestion and mild perihilar opacities an increased interstitial pattern in the r ight lower lung zone consistent with mild pulmonary edema. No pleural effusion or pneumothorax. The c ardiomediastinal silhouette is normal. IMPRESSION: 1. Pulmonary vascular congestion and likely pulmonary edema. Reviewed, dictated and finalized at location A.
--- NOTE | ~2021-02-21 | XR_ITS ---
EXAMINATION: XR chest 1V portable DATE: 02/22/2021 06:53 INDICATION: Shortness of breath. TECHNIQUE: frontal view of the chest was obtained. COMPARISON: Chest radiograph dated 02/21/2021 FINDINGS: Pulmonary vascular congestion with increased perihilar predominant interstitial pattern. Increasing o pacities in the right infrahilar region. No pneumothorax or definitive pleural effusion. The cardiome diastinal silhouette is normal. IMPRESSION: 1. Pulmonary vascular congestion with perihilar interstitial opacities and increasing right infrahila r opacity most likely related to increasing pulmonary edema although differential includes pneumonia. Reviewed, dictated and finalized at location A. IMPRESSION: 1. Pulmonary vascular congestion with perihilar interstitial opacities and incr easing right infrahilar opacity most likely related to increasing pulmonary tl ma although differential includes pneumonia.
--- NOTE | 2021-02-21 01:24 | ECG_ITS ---
Measurements Intervals [place] Rate: 94 P: 57 MD: 174 QRS: -19 QRSD: 77 T: 32 QT: 335 QTc: 421 Interpretive Statements SINUS RHYTHM POSSIBLE LEFT ATRIAL ENLARGEMENT DELAYED PRECORDIAL R/S TRANSITION LEFT VENTRICULAR HYPERTROPHY AND ST-T CHANGE BASELINE ARTIFACT- I, II, III, AVR, AVL, AVF, V1, V3-V6 BORDERLINE ECG Electronically Signed On 02-21-2021 7:52:32 CDT by Bert Spence D.O.
--- NOTE | 2021-02-21 01:27 | ED.SOB ---
HPI - SOB/Dyspnea General Chief Complaint: Shortness of Breath/Dyspnea Stated Complaint: difficulty breathing Time Seen by Provider: 02/21/21 01:24 Source: patient, family and EMS Mode of arrival: EMS Limitations: clinical condition History of Present Illness HPI Narrative: The patient is an 80 year old female with a past medical history of combined systolic and diastolic congestive heart failure, EF 33%, chronic kidney disease, diabetes, hypertension, anemia, who presents for evaluation of shortness of breath. Patient reportedly has had increasing lower extremity edema over past several days, with acute onset shortness of breath suddenly tonight, with audible wheezing noticed by family members. EMS was called when patient began to struggle to breathe per daughter in law at bedside. Patient lives at home with son and [id number]. Patient has been compliant with her antihypertensives. Patient follows with Dr. Rivera with cardiology. Last admission for congestive heart failure was in August 2020. Patient denies chest pain. She has wheezing and shortness of breath. Patient is in acute respiratory failure with tachypnea, hypoxemia, use of accessory muscles to breathe at the time of initial assessment, thus history is limited as patient is only able to respond in 1-2 words at a time. No known history of Covid infection. She is not vaccinated for Covid. No recent sick contacts. Family states that she is not vaccinated because she doesn't go anywhere. Patient was given albuterol treatment and placed on oxygen in route by EMS. Related Data Home Medications Medication Instructions Recorded Confirmed ergocalciferol (vitamin D2) 50,000 unit PO WEEKLY 08/29/20 01/15/21 fluticasone propionate 50 1 spray INTRANASAL DAILY g 09/20/20 01/15/21 mcg/actuation nasal spray,suspension furosemide 40 mg tablet 40 mg PO BID 09/20/20 01/15/21 potassium chloride 10 mEq 10 meq PO DAILY 01/15/21 01/15/21 capsule,extended release Allergies Allergy/AdvReac Type Severity Reaction Status Date / Time adhesive tape Allergy Mild Blister Verified 02/21/21 01:32 iohexol Allergy Unknown Vomiting Verified 02/21/21 01:32 [From contrast - CT, X-RAY] morphine AdvReac Intermediate Vomiting Verified 02/21/21 01:32 Review of Systems Review of Systems: ROS unobtainable: Yes unobtainable due to medical condition (Limited secondary to respiratory distress) [facility] Past Medical History Medical History Anemia in chronic kidney disease Anxiety Arthritis Cerebrovascular accident With mild right-sided weakness and expressive aphasia. Chronic kidney disease, stage 4 (severe) Combined systolic and diastolic congestive heart failure Echocardiogram in 03/27/2018 showed moderate global LV systolic dysfunction with a measured EF of 33%, grade 2 diastolic dysfunction, moderate RV hypokinesis, and severe pulmonary hypertension (65 mmHg). Diabetic retinopathy Essential tremor Gastroesophageal reflux disease Hiatal hernia Hypertension Insulin dependent type 2 diabetes mellitus Hemoglobin A1c was 9.1% in 05/2020. Secondary hyperparathyroidism Vitamin D deficiency Surgical History Surgical History History of appendectomy History of cataract extraction History of cholecystectomy History of left knee replacement History of tonsillectomy Status post LASIK surgery Family History Family History Mother Family history of diabetes mellitus in first degree relative Diabetes mellitus Sibling Family history of diabetes mellitus in first degree relative Diabetes mellitus Father Family history of heart disease in male family member before age 55 Patient's father is Family history of cardiovascular disease Social History Social History (Reviewed 02/21/21 @ 01:32 by Nicky Guerra MD
[2021-02-21] MEDS: NITROGLYCERIN SL 0.4 MG TABLET SUBLINGUAL (01:46)
[2021-02-21] MEDS: methylPREDNISolone SOD SUCC 125 MG VIAL IV PUSH (01:47)
[2021-02-21] MEDS: FUROSEMIDE INJ 40 MG/4 ML VIAL IV PUSH ×2 (01:51→12:27)
[2021-02-21] MEDS: MAGNESIUM SULF 2 GM/WATER 50ML 2 GM/50 ML BAG IVPB (01:55)
[2021-02-21 02:03] LABS: Alveolar/Arterial O2 Gradient 72.4 mmHg; Base Excess ABG -0.8 mEq/l (+/-2.0); Carboxyhemoglobin 0.2 % THb (0-2.0); Fractional Inspired Oxygen 32 %; HCO3 ABG 24.2 mEq/l (22.0-26.0); Methemoglobin ABG 0.2 %THb (0-1.5); Oxygen Content ABG 16.9 %vol (16.0-22.0); Oxygen Saturation ABG 97.9 % (95.0-100.0); Oxyhemoglobin 96.7 % THb (90.0-100.0); PCO2 ABG 41.2 mmHg (35.0-45.0); PO2 ABG 107.6 mmHg (80.0-100.0); PO2 FiO2 Ratio Arterial Blood 3.36 %; Reduced Hemoglobin 2.9 %THb (0-5.0); Total Hemoglobin 12.3 g/dL (12.0-18.0); pH ABG 7.386 (7.350-7.450)
[2021-02-21 02:04] LABS: Device NASAL CANNULA; Modified Allen's Test Pass; Site Drawn RIGHT RADIAL
[2021-02-21 02:11] LABS: Basophils Percent Auto 0.3 % (0.2-1.2); Eosinophils Absolute Auto 0.2 K/mm3 (0-0.3); Eosinophils Percent Auto 1.5 % (0-4.4); Hematocrit 31.6 % (37.0-47.0); Hemoglobin 9.9 g/dL (12.0-15.0); Immature Granulocyte Absolute 0.03 K/mm3 (0.00-0.031); Immature Granulocyte Percent A 0.3 % (0-0.5); Lymphocytes Absolute Auto 1.01 K/mm3 (0.9-3.2); Lymphocytes Percent Auto 8.7 % (18.3-44.2); Mean Corpuscular HGB Conc 31.3 g/dl (32-36); Mean Corpuscular Volume 102.3 fl (80-100); Mean Platelet Volume 9.5 fl (7.4-10.4); Monocytes Absolute Auto 0.7 K/mm3 (0.1-0.6); Monocytes Percent Auto 6.1 % (2.6-8.5); Neutrophils Absolute Auto 9.7 K/mm3 (1.3-6.7); Neutrophils Percent Auto 83.1 % (45.5-73.1); Platelet Count Result 220 k/mm3 (150-375); Red Blood Count 3.09 M/mm3 (4.2-5.4); Red Cell Distribution Width 12.6 % (11.5-14.5); White Blood Count 11.6 K/mm3 (4.5-10.0)
[2021-02-21 02:24] LABS: Lactic Acid Reflex 0.8 mmol/L (0.7-2.1)
[2021-02-21 02:25] LABS: Prothrombin Time 12.9 Seconds (11.1-14.7)
[2021-02-21 02:26] LABS: Partial Thromboplastin Time 37.1 SECONDS (22.3-36.8)
[2021-02-21 02:30] LABS: Alanine Aminotransferase 14 U/L (4-35); Albumin Level 4.3 g/dL (3.5-5.1); Alkaline Phosphatase 148 U/L (38-126); Anion Gap 11 mmol/L (8-16); Aspartate Amino Transferase 26 U/L (14-36); Bilirubin,Total 0.7 mg/dL (0.2-1.3); Blood Urea Nitrogen 57 mg/dL (7-17); Calcium 8.7 mg/dL (8.4-10.2); Carbon Dioxide 27 mmol/L (22-30); Chloride 102 mmol/L (98-107); Estimated Glomerular Filt Rate 19; Glucose 201 mg/dL (65-110); Potassium 4.9 mmol/L (3.4-5.0); Sodium 140 mmol/L (137-145)
[2021-02-21 02:41] LABS: NT Pro B Type Natriuretic Pept 8850 pg/mL (5-100); Troponin I 0.022 ng/mL (0.000-0.034)
[2021-02-21] MEDS: NITROGLYCERIN OINTMENT 1 INCH DOSE TRANSDERM (02:57)
--- NOTE | 2021-02-21 03:14 | PM.IMHP ---
H&P: HPI History of Present Illness Date/Time: 02/21/21 03:14 Chief Complaint: Shortness of breath Narrative: This is an 80-year-old female with past medical history significant for hypertension, coronary artery disease, chronic kidney disease, asthma, hypertension. Patient presented to the emergency room via EMS due to worsening shortness of breath. Upon arrival to emergency room patient was found to have a systolic blood pressure in the 200 and in severe respiratory distress. At the time of my visit patient was wearing BiPAP machine hence most of the history has been obtained upon reviewing emergency room medical records as well as from prior visits. Preliminary workup was significant for brain natriuretic peptide of 8000, creatinine of 2.5, chest x-ray with diffuse infiltrates. Patient was swabbed for COVID as well. Review of Systems Review of Systems: ROS unobtainable: Yes unobtainable due to medical condition (Wearing BiPAP) PMFSH Past Medical History Medical History Anemia in chronic kidney disease Anxiety Arthritis Cerebrovascular accident With mild right-sided weakness and expressive aphasia. Chronic kidney disease, stage 4 (severe) Combined systolic and diastolic congestive heart failure Echocardiogram in 03/27/2018 showed moderate global LV systolic dysfunction with a measured EF of 33%, grade 2 diastolic dysfunction, moderate RV hypokinesis, and severe pulmonary hypertension (65 mmHg). Diabetic retinopathy Essential tremor Gastroesophageal reflux disease Hiatal hernia Hypertension Insulin dependent type 2 diabetes mellitus Hemoglobin A1c was 9.1% in 05/2020. Secondary hyperparathyroidism Vitamin D deficiency Surgical History Surgical History History of appendectomy History of cataract extraction History of cholecystectomy History of left knee replacement History of tonsillectomy Status post LASIK surgery Family History Family History Mother Family history of diabetes mellitus in first degree relative Diabetes mellitus Sibling Family history of diabetes mellitus in first degree relative Diabetes mellitus Father Family history of heart disease in male family member before age 55 Patient's father is Family history of cardiovascular disease Social History Social History Social History: Surrogate decision maker: tanya Rodney. Code status: Full code. Lives with son and [id number] in [place], has at personal helper, Soha. 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 Smoking packs per day: 2 Smoking cigarettes per day: 40.0 Years smoked: 2 Smoking pack-years: 4.00 Smoking status: Former smoker Tobacco type: cigarettes Second hand tobacco smoke exposure: No Smoking end date: 06/08/79 Alcohol intake: never Substance use: never Additional living arrangements comments: The patient lives in [place]. Additional occupation/education comments: Retired. Spiritual care concerns: No Meds Home Medications and Allergies Home Medications Medication Instructions Recorded Confirmed Type ergocalciferol (vitamin D2) 50,000 unit PO WEEKLY 08/29/20 01/15/21 History metolazone 5 mg PO DAILY 30 Days #30 tablet 09/02/20 01/15/21 Rx fluticasone propionate 50 1 spray INTRANASAL DAILY g 09/20/20 01/15/21 History mcg/actuation nasal spray,suspension furosemide 40 mg tablet 40 mg PO BID 09/20/20 01/15/21 History clopidogrel 75 mg tablet 75 mg PO DAILY #90 tablet 12/17/20 01/15/21 Rx potassium chloride 10 mEq 10 meq PO DAILY 01/15/21 01/15/21 History capsule,extended release insulin glargine 100 unit/mL (3 See Rx Instructions .ROUTE 01/17/21 Rx mL) subcutaneous pe
[2021-02-21 04:03] LABS: Glucose Point of Care 210 mg/dl (65-105)
[2021-02-21] MEDS: methylPREDNISolone SOD SUCC 125 MG VIAL 60 MG IV PUSH ×4 (05:54→23:02)
--- NOTE | 2021-02-21 06:29 | PC.NURSE ---
This patient, Waleska Tse, was admitted to IMU Room 203-01. Patient/family oriented to hospital policies and general routines including ID bracelet, bed and alarms, visiting hours, pain management, procedures, bathroom and other care routines, personal items, smoking policy, room service/diet, and visiting hours. Information on how to activate the Rapid Response Team has been discussed. Patient/Family are encouraged to report perceived risks to care and to ask questions if they do not understand what they are told or what they should do.
[2021-02-21 07:10] LABS: Troponin I 0.037 ng/mL (0.000-0.034)
[2021-02-21] MEDS: HEPARIN SODIUM 5,000 UNITS/ML VIAL 5000 UNITS SUB-Q ×2 (08:53→21:08)
[2021-02-21] MEDS: CLOPIDOGREL BISULFATE 75 MG TABLET PO (08:53)
[2021-02-21] MEDS: carvediloL 25 MG TABLET PO ×2 (08:53→21:08)
[2021-02-21] MEDS: FLUTICASONE PROPIONATE 0.05% NA SPR 16 GM BTL (*BKC) 1 SPRAY NASAL (08:53)
[2021-02-21] MEDS: INSULIN GLARGINE (*BKC) 100 UNITS/ML 51 UNITS SUB-Q (08:57)
[2021-02-21] MEDS: IPRATROPIUM BR 0.02% INH SOLN 0.5 MG/2.5 ML VIAL INHALATION ×2 (09:16→20:44)
[2021-02-21] MEDS: ALBUTEROL SULFATE NEB 2.5 MG/0.5 ML INH 5 MG INHALATION ×2 (09:16→20:44)
--- NOTE | 2021-02-21 09:41 | P.PNIM_ITS ---
Progress Note: A&P Assessment and Plan (1) Hypertensive emergency: Code(s): I16.1 - Hypertensive emergency Status: Acute Assessment and Plan: * BP on admission 206/102 * Current blood pressure is 159/83 * Continue home carvedilol 25mg * Admit to IMU, may be able to transfer out * Nitro patch * Trend BP * Consider medications changes (2) Flash pulmonary edema: Code(s): J81.0 - Acute pulmonary edema Status: Acute Assessment and Plan: * Likely secondary to hypertension * Lasix 40mg IV BID * Daily I's and O's * Chest xray Pulmonary vascular congestion and likely pulmonary edema. (3) Acute exacerbation of CHF (congestive heart failure): Code(s): I50.9 - Heart failure, unspecified Status: Acute Assessment and Plan: * Echo from 08/30/20 shows EF of >70% with left vent wall thickening, left atrial dimension is severely enlarged * repeat echo * Cardiology consult thank you * urinary Lopes for accurate I&O * Aggressive diuresis * strict intake and output * Lasix 40mg IV BID * Bipap (4) Pneumonia: Code(s): J18.9 - Pneumonia, unspecified organism Status: Acute Assessment and Plan: * Not convinced about PNA * Chest xray shows pulmonary congestion * blood cultures pending * stop IV Rocephin and Zithromax for now * WBC slightly elevated at 11.6 * trend labs (5) Combined systolic and diastolic congestive heart failure: Qualifiers: Heart failure chronicity: acute on chronic Qualified Code(s): I50.43 - Acute on chronic combined systolic (congestive) and diastolic (congestive) heart failure Code(s): I50.40 - Unspecified combined systolic (congestive) and diastolic (congestive) heart failure Status: Acute Assessment and Plan: * Diuresing * See above (6) Chronic kidney disease, stage 4 (severe): Code(s): N18.4 - Chronic kidney disease, stage 4 (severe) Status: Acute Assessment and Plan: * BUN/CR 57/2.50 * BUN and creatinine at patient's baseline * trend labs * labs in the am (7) Insulin dependent type 2 diabetes mellitus: Code(s): E11.9 - Type 2 diabetes mellitus without complications; 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 Status: Acute Assessment and Plan: * Glucose on labs 201 * Accu-Cheks AC and HS * Resume Lantus 6 units HS * Hypoglycemia protocol * Trend labs * adjust medications as needed (8) Diabetes mellitus with diabetic autonomic neuropathy, with long-term current use of insulin: Code(s): E11.43 - Type 2 diabetes mellitus with diabetic autonomic (poly)neuropathy; 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 Patient is feeling a lot better. She was o
--- NOTE | 2021-02-21 09:41 | PM.IMPN ---
Progress Note: A&P Assessment and Plan (1) Hypertensive emergency: Code(s): I16.1 - Hypertensive emergency Status: Acute Assessment and Plan: BP on admission 206/102 Current blood pressure is 159/83 Continue home carvedilol 25mg Admit to IMU, may be able to transfer out Nitro patch Trend BP Consider medications changes (2) Flash pulmonary edema: Code(s): J81.0 - Acute pulmonary edema Status: Acute Assessment and Plan: Likely secondary to hypertension Lasix 40mg IV BID Daily I's and O's Chest xray Pulmonary vascular congestion and likely pulmonary edema. (3) Acute exacerbation of CHF (congestive heart failure): Code(s): I50.9 - Heart failure, unspecified Status: Acute Assessment and Plan: Echo from 08/30/20 shows EF of >70% with left vent wall thickening, left atrial dimension is severely enlarged repeat echo Cardiology consult thank you long Lopes for accurate I&O Aggressive diuresis strict intake and output Lasix 40mg IV BID Bipap (4) Pneumonia: Code(s): J18.9 - Pneumonia, unspecified organism Status: Acute Assessment and Plan: Not convinced about PNA Chest xray shows pulmonary congestion blood cultures pending stop IV Rocephin and Zithromax for now WBC slightly elevated at 11.6 trend labs (5) Combined systolic and diastolic congestive heart failure: Qualifiers: Heart failure chronicity: acute on chronic Qualified Code(s): I50.43 - Acute on chronic combined systolic (congestive) and diastolic (congestive) heart failure Code(s): I50.40 - Unspecified combined systolic (congestive) and diastolic (congestive) heart failure Status: Acute Assessment and Plan: Diuresing See above (6) Chronic kidney disease, stage 4 (severe): Code(s): N18.4 - Chronic kidney disease, stage 4 (severe) Status: Acute Assessment and Plan: BUN/CR 57/2.50 BUN and creatinine at patient's baseline trend labs labs in the am (7) Insulin dependent type 2 diabetes mellitus: Code(s): E11.9 - Type 2 diabetes mellitus without complications; 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 Status: Acute Assessment and Plan: Glucose on labs 201 Accu-Cheks AC and HS Resume Lantus 6 units HS Hypoglycemia protocol Trend labs adjust medications as needed (8) Diabetes mellitus with diabetic autonomic neuropathy, with long-term current use of insulin: Code(s): E11.43 - Type 2 diabetes mellitus with diabetic autonomic (poly)neuropathy; Z79.4 - nursing home (current) use of insulin Status: Acute Assessment and Plan: On no treatment Better glycemic control (9) Elevated troponin: Code(s): R77.8 - Other specified abnormalities of plasma proteins Status: Acute Assessment and Plan: Troponin 0.022 in ED, 0.037 this am repeat 0.0174 No cardiac ischemia Not cardiac related Probably from severe hypertension and CHF exacerbation Time Spent With Patient Time with patient: Greater than 35 minutes Subjective Date/time seen: 02/21/21 09:41 Interval history: Patient is an 80 year old female that is here for CHF exacerbation. Patient is feeling a lot better. She was on bipap prior to walking into the room. She was able to come off of bipap and placed on room air which she was sating 95% at that time. She explained to me that she has had three strokes 3 years ago. She denies being short of breath or having any chest pain. She did say that she had a slight headache. She also stated that the wheezing is getting better and that she was hungry. She also has not been out of bed and she was going to eat. she did have a cough that was not productive. She denied nausea, vomiting, abdominal pain, weakness, fatigue, fevers, sweats, or chills. Iteresting side note. Patient
[2021-02-21 09:49] LABS: Glucose Point of Care 265 mg/dl (65-105)
[2021-02-21 12:16] LABS: Troponin I 0.017 ng/mL (0.000-0.034)
--- NOTE | 2021-02-21 12:38 | PM.CNCAR ---
Assessment and Plan Assessment and plan (1) Chronic kidney disease, stage 4 (severe): Code(s): N18.4 - Chronic kidney disease, stage 4 (severe) Status: Acute Assessment and Plan: Stable (2) Combined systolic and diastolic congestive heart failure: Qualifiers: Heart failure chronicity: acute on chronic Qualified Code(s): I50.43 - Acute on chronic combined systolic (congestive) and diastolic (congestive) heart failure Code(s): I50.40 - Unspecified combined systolic (congestive) and diastolic (congestive) heart failure Status: Acute Assessment and Plan: Acute exacerbation worsened by not taking her diuretics. Also hypertensive BP likely another etiology. Continue IV diuretics. Continue carvedilol. No Jose or Arb at this point because of kidney disease. Echo is pending (3) Hypertensive emergency: Code(s): I16.1 - Hypertensive emergency Status: Acute Assessment and Plan: Improved (4) Elevated troponin: Code(s): R77.8 - Other specified abnormalities of plasma proteins Status: Acute Assessment and Plan: Not related to ACS/acute plaque rupture. Likely secondary to high blood pressure in kidney disease (5) Noncompliance with medication regimen: Code(s): Z91.14 - Patient's other noncompliance with medication regimen Status: Acute Assessment and Plan: Encourage compliance. She did not take her diuretics for at least 1 day a couple of days ago prior to becoming short of breath History of Present Illness History of Present Illness Consult date/time: 02/21/21 12:38 Requesting physician: Nicky Guerra MD Consult reason: congestive heart failure Reason For Visit: Flash pulmonary edema, Pneumonia Narrative: Date of service 02/21/2021 Reason for consultation flash pulmonary edema, CHF Requesting provider: Dr. Guerra History: Patient is an 80-year-old female who has a past history of hypertension coronary disease chronic kidney disease, hypertension, diastolic congestive Heart failure, noncompliance who presented to hospital because of 3 day history of worsening shortness of breath. She could not lay flat. She had orthopnea and paroxysmal nocturnal dyspnea. She was in severe respiratory distress by the time she arrived in the emergency department via EMS. She was started on BiPAP in her creatinine was 2.5 and chest x-ray showed diffuse infiltrates consistent with CHF. BNP was 8000. She denies any chest pain, syncope, presyncope, edema or palpitations. She was started on IV diuretics and she is feeling better today. She is still on BiPAP but wishes to taken off in order to eat. She does admit that she did not take her diuretics for at least 1 day a couple of days ago Review of Systems Review of Systems: All systems reviewed & are unremarkable except as noted in HPI and below Constitutional: Constitutional: Reports weakness Eyes: Eyes: Denies blurry vision ENT: Reports Normal hearing present Cardiovascular: Cardiovascular: Denies chest pain Respiratory: Respiratory: Reports dyspnea Gastrointestinal: Gastrointestinal: Denies abdominal pain Genitourinary: Genitourinary: Denies flank pain Musculoskeletal: Musculoskeletal: Denies neck pain Integumentary/Breasts: Skin/Breast: Denies dry skin Neurologic: Denies headache(s) Psychiatric: Psychiatric: Denies anxiety Endocrine: Endocrine: Denies fatigue Hematologic/Lymphatic: Hematologic/Lymphatic: Denies easy bleeding Allergic/Immunologic: Allergic/Immunologic: Denies GI upset with certain foods PMFSH Past Medical History Medical History Anemia in chronic kidney disease Anxiety Arthritis Cerebrovascular accident With mild right-sided weakness and expressive aphasia. Chronic kidney disease, stage 4 (severe) Combined systolic and diastolic congestive heart failure Echocardiogram in 03/27/2018 showed
--- NOTE | 2021-02-21 13:43 | PC.NURSE ---
[facility] flyer was given to patient.
[2021-02-21 14:12] LABS: Glucose Point of Care 297 mg/dl (65-105)
[2021-02-21 16:34] LABS: Troponin I 0.014 ng/mL (0.000-0.034)
[2021-02-21 17:42] LABS: Glucose Point of Care 314 mg/dl (65-105)
[2021-02-21 19:52] LABS: SARS-CoV-2 RNA PCR Negative
[2021-02-21 20:08] LABS: Glucose Point of Care 385 mg/dl (65-105)
[2021-02-21] MEDS: LORazepam (*CRX) 1 MG TABLET 2 MG PO (21:08)
[2021-02-21] MEDS: INSULIN GLARGINE (*BKC) 100 UNITS/ML 6 UNITS SUB-Q (21:16)
[2021-02-21] MEDS: amLODIPine BESYLATE 5 MG TABLET 10 MG PO (22:53)
[2021-02-21] MEDS: INSULIN ASPART (*BKC) 100 UNITS/ML 8 UNITS SUB-Q (22:54)
[2021-02-22] VITALS (23 sets, daily range): BP systolic 142–212; BP diastolic 52–96; PULSE 67–98; RESP 18–30; TEMP 36.2–37.2; O2SAT 86–98
--- NOTE | 2021-02-22 | ECHO_ITS ---
Patient Info Name: Waleska Tse Age: 80 years : 1940 Gender: Female Ht: 63 in Wt: 286 lbs BSA: 2.48 m2 HR: 88 bpm BP: 212 / 66 mmHg Heart Rhythm: Sinus Rhythm Exam Date: 02/22/2021 9:34 AM Exam Location: [facility] Patient Status: Inpatient Admit Date: 02/21/2021 Staff Ordering Physician: Lowell [place] [employer] Control Operator: David Hightower RDCS, RT Attending Provider: Melisa Dill MD Referring Physician: Aubrey SARAVIA; Exam Type: CA echo dop color flow w con Study Info Indications R06.00 - Dyspnea, unspecified Complete two-dimensional, color flow and Doppler transthoracic echocardiogram is performed with contrast to opacify the left ventricle and to improve the deliniation of the left ventricle endocardial borders. Summary 1. Left ventricular chamber dimension is normal. 2. Left ventricular systolic function is normal, estimated at 65-70%. 3. There is moderately increased left ventricular wall thickness. 4. The left ventricular diastolic function is abnormal. 5. Left atrial chamber dimension is mildly enlarged. 6. There is mild aortic valve stenosis with a peak velocity of 179.85 cm/s, mean gradient of 6 mmHg, and aortic valve area of 2.04 cm2. 7. There is mild aortic valve calcification. 8. There is moderate mitral valve stenosis. 9. There is mild to moderate mitral valve regurgitation. 10. The mitral valve annulus is severely calcified. 11. There is moderate tricuspid valve regurgitation. 12. Severe pulmonary hypertension, estimated pulmonary arterial systolic pressure is 94 mmHg. Left Ventricle Left ventricular chamber dimension is normal. Left ventricular systolic function is normal, estimated at 65-70%. There is moderately increased left ventricular wall thickness. The left ventricular diastolic function is abnormal. Right Ventricle Right ventricular chamber dimension is normal. Right ventricular systolic function is normal. Left Atria Left atrial chamber dimension is mildly enlarged. Right Atria Right atrial chamber dimension is normal. Atrial Septum Intact interatrial septum visualized by color flow imaging. Aortic Valve The aortic valve is trileaflet. There is mild aortic valve stenosis with a peak velocity of 179.85 cm/s, mean gradient of 6 mmHg, and aortic valve area of 2.04 cm2. There is trace aortic valve regurgitation. There is mild aortic valve calcification. Pulmonic Valve The pulmonic valve is normal. There is no pulmonic valve stenosis. There is trace pulmonic regurgitation. Mitral Valve The mitral valve has thickened leaflets. There is moderate mitral valve stenosis. There is mild to moderate mitral valve regurgitation. The mitral valve annulus is severely calcified. Tricuspid Valve The tricuspid valve leaflets are normal. There is no significant tricuspid valve stenosis. There is moderate tricuspid valve regurgitation. Severe pulmonary hypertension, estimated pulmonary arterial systolic pressure is 94 mmHg. Pericardium/Pleural The pericardium appears normal. There is no pericardial effusion. Inferior Vena Cava Dilated inferior vena cava with <50% collapse upon inspiration consistent with elevated right atrial pressure, 10 mmHg. Aorta The aortic root size at the sinus of Valsalva is normal. There is mild aortic atherosclerosis. Left Ventricular Outflow Tract Name Value
[2021-02-22] MEDS: IPRATROPIUM BR 0.02% INH SOLN 0.5 MG/2.5 ML VIAL INHALATION ×4 (01:41→20:29)
[2021-02-22] MEDS: ALBUTEROL SULFATE NEB 2.5 MG/0.5 ML INH 5 MG INHALATION ×4 (01:42→20:29)
[2021-02-22 04:00] LABS: Glucose Point of Care 326 mg/dl (65-105)
[2021-02-22 05:53] LABS: Hematocrit 28.6 % (37.0-47.0); Hemoglobin 9.1 g/dL (12.0-15.0); Immature Granulocyte Absolute 0.04 K/mm3 (0.00-0.031); Immature Granulocyte Percent A 0.7 % (0-0.5); Lymphocytes Absolute Auto 0.39 K/mm3 (0.9-3.2); Lymphocytes Percent Auto 7.2 % (18.3-44.2); Mean Corpuscular HGB Conc 31.8 g/dl (32-36); Mean Corpuscular Hemoglobin 32.2 pg (26-34); Mean Corpuscular Volume 101.1 fl (80-100); Mean Platelet Volume 9.8 fl (7.4-10.4); Monocytes Absolute Auto 0.1 K/mm3 (0.1-0.6); Monocytes Percent Auto 2.2 % (2.6-8.5); Neutrophils Absolute Auto 4.9 K/mm3 (1.3-6.7); Neutrophils Percent Auto 89.9 % (45.5-73.1); Platelet Count Result 223 k/mm3 (150-375); Red Blood Count 2.83 M/mm3 (4.2-5.4); Red Cell Distribution Width 12.3 % (11.5-14.5); White Blood Count 5.4 K/mm3 (4.5-10.0)
[2021-02-22] MEDS: methylPREDNISolone SOD SUCC 125 MG VIAL 60 MG IV PUSH ×4 (06:22→23:51)
[2021-02-22 06:23] LABS: Alanine Aminotransferase 18 U/L (4-35); Albumin Level 3.8 g/dL (3.5-5.1); Alkaline Phosphatase 102 U/L (38-126); Anion Gap 11 mmol/L (8-16); Aspartate Amino Transferase 21 U/L (14-36); Bilirubin,Total 0.5 mg/dL (0.2-1.3); Blood Urea Nitrogen 68 mg/dL (7-17); Calcium 8.5 mg/dL (8.4-10.2); Carbon Dioxide 27 mmol/L (22-30); Chloride 98 mmol/L (98-107); Estimated CRCL calculation 19 ml/min; Estimated Glomerular Filt Rate 16; Glucose 337 mg/dL (65-110); Magnesium 3.1 mg/dL (1.6-2.3); Potassium 4.5 mmol/L (3.4-5.0); Sodium 136 mmol/L (137-145)
[2021-02-22] MEDS: hydrALAZINE HCL 20 MG/ML VIAL 10 MG IV PUSH (07:27)
[2021-02-22 08:58] LABS: Glucose Point of Care 353 mg/dl (65-105)
--- NOTE | 2021-02-22 09:56 | P.PNIM_ITS ---
Progress Note: A&P Assessment and Plan (1) Hypertensive emergency: Code(s): I16.1 - Hypertensive emergency Status: Acute Assessment and Plan: * Seems to be more controlled at this time * BP on admission 206/102 * Current blood pressure is 153/53 * Continue home carvedilol 25mg * Admit to IMU, may be able to transfer out * Trend BP * Consider medications changes (2) Flash pulmonary edema: Code(s): J81.0 - Acute pulmonary edema Status: Acute Assessment and Plan: * Likely secondary to hypertension * Lasix 40mg IV BID * Daily I's and O's * Chest xray Pulmonary vascular congestion and likely pulmonary edema. (3) Acute exacerbation of CHF (congestive heart failure): Code(s): I50.9 - Heart failure, unspecified Status: Acute Assessment and Plan: * Acute on chronic combined systolic and diastolic heart failure * Noted to be noncompliant with medications * Echo from 08/30/20 shows EF of >70% with left vent wall thickening, left atrial dimension is severely enlarged * repeat echo EF >90%, left wall thickness, left atrial thickness * Cardiology consult thank you * urinary Lopes for accurate I&O * Aggressive diuresis * strict intake and output * Lasix 40mg IV BID * Bipap probably can be DC'd (4) Pneumonia: Code(s): J18.9 - Pneumonia, unspecified organism Status: Acute Assessment and Plan: * Not convinced about PNA * Chest xray shows pulmonary congestion * Repeat chest xray showed increasing pulmonary edema, possibly PNA. * No symptoms noted * blood cultures NGTD * stop IV Rocephin and Zithromax for now * WBC normal today at 5.4 * trend labs (5) Combined systolic and diastolic congestive heart failure: Qualifiers: Heart failure chronicity: acute on chronic Qualified Code(s): I50.43 - Acute on chronic combined systolic (congestive) and diastolic (congestive) heart failure Code(s): I50.40 - Unspecified combined systolic (congestive) and diastolic (congestive) heart failure Status: Acute Assessment and Plan: * Diuresing * See above (6) Chronic kidney disease, stage 4 (severe): Code(s): N18.4 - Chronic kidney disease, stage 4 (severe) Status: Acute Assessment and Plan: * BUN/CR 57/2.90 * BUN and creatinine at patient's baseline * Baseline 2.5-3 * Consider Nephrology if Cr continues to climb * trend labs * labs in the am (7) Insulin dependent type 2 diabetes mellitus: Code(s): E11.9 - Type 2 diabetes mellitus without complications; 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 Status: Acute Assessment and Plan: * Glucose on labs 337 * Accu-Cheks AC and HS * Resume Lantus 6 units HS, and 51 units am * Insulin sliding scale * Hypoglycemia protocol * Trend labs * adjust medications as needed (8) Diabetes mellitus with diabetic autonomic neuropathy, with long-term current use of insulin: Code(s): E11.43 - Type 2 diabetes mellitus with diabetic autonomic (poly)neuropathy; 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
--- NOTE | 2021-02-22 09:56 | PM.IMPN ---
Progress Note: A&P Assessment and Plan (1) Hypertensive emergency: Code(s): I16.1 - Hypertensive emergency Status: Acute Assessment and Plan: Seems to be more controlled at this time BP on admission 206/102 Current blood pressure is 153/53 Continue home carvedilol 25mg Admit to IMU, may be able to transfer out Trend BP Consider medications changes (2) Flash pulmonary edema: Code(s): J81.0 - Acute pulmonary edema Status: Acute Assessment and Plan: Likely secondary to hypertension Lasix 40mg IV BID Daily I's and O's Chest xray Pulmonary vascular congestion and likely pulmonary edema. (3) Acute exacerbation of CHF (congestive heart failure): Code(s): I50.9 - Heart failure, unspecified Status: Acute Assessment and Plan: Acute on chronic combined systolic and diastolic heart failure Noted to be noncompliant with medications Echo from 08/30/20 shows EF of >70% with left vent wall thickening, left atrial dimension is severely enlarged repeat echo EF >90%, left wall thickness, left atrial thickness Cardiology consult thank you long Lopes for accurate I&O Aggressive diuresis strict intake and output Lasix 40mg IV BID Bipap probably can be DC'd (4) Pneumonia: Code(s): J18.9 - Pneumonia, unspecified organism Status: Acute Assessment and Plan: Not convinced about PNA Chest xray shows pulmonary congestion Repeat chest xray showed increasing pulmonary edema, possibly PNA. No symptoms noted blood cultures NGTD stop IV Rocephin and Zithromax for now WBC normal today at 5.4 trend labs (5) Combined systolic and diastolic congestive heart failure: Qualifiers: Heart failure chronicity: acute on chronic Qualified Code(s): I50.43 - Acute on chronic combined systolic (congestive) and diastolic (congestive) heart failure Code(s): I50.40 - Unspecified combined systolic (congestive) and diastolic (congestive) heart failure Status: Acute Assessment and Plan: Diuresing See above (6) Chronic kidney disease, stage 4 (severe): Code(s): N18.4 - Chronic kidney disease, stage 4 (severe) Status: Acute Assessment and Plan: BUN/CR 57/2.90 BUN and creatinine at patient's baseline Baseline 2.5-3 Consider Nephrology if Cr continues to climb trend labs labs in the am (7) Insulin dependent type 2 diabetes mellitus: Code(s): E11.9 - Type 2 diabetes mellitus without complications; Z79.4 - group home (current) use of insulin Status: Acute Assessment and Plan: Glucose on labs 337 Accu-Cheks AC and HS Resume Lantus 6 units HS, and 51 units am Insulin sliding scale Hypoglycemia protocol Trend labs adjust medications as needed (8) Diabetes mellitus with diabetic autonomic neuropathy, with long-term current use of insulin: Code(s): E11.43 - Type 2 diabetes mellitus with diabetic autonomic (poly)neuropathy; Z79.4 - group home (current) use of insulin Status: Acute Assessment and Plan: On no treatment Better glycemic control (9) Elevated troponin: Code(s): R77.8 - Other specified abnormalities of plasma proteins Status: Acute Assessment and Plan: Troponin 0.022 in ED, 0.037 this am repeat 0.0174, and remained flat Cardiology following No cardiac ischemia Not cardiac related Probably from severe hypertension and CHF exacerbation Subjective Date/time seen: 02/22/21 07:00 Interval history: Patient is an 80 year old female that is here for shortness of breath. She is laying in bed rest at time of visit. She states that she is feeling ok. She denies having any nausea, vomiting, or abdominal pain. She did state that he appetite is better and that she has been eating. She denies having any chest pain or shortness of breath. She denies having
--- NOTE | 2021-02-22 10:00 | PM.PNCARD ---
Progress Note: A&P Assessment and Plan (1) Chronic kidney disease, stage 4 (severe): Code(s): N18.4 - Chronic kidney disease, stage 4 (severe) Status: Acute Assessment and Plan: Continue close monitoring with IV diuresis. BUN/Cr 68/2.9 (57/2.5). (2) Combined systolic and diastolic congestive heart failure: Qualifiers: Heart failure chronicity: acute on chronic Qualified Code(s): I50.43 - Acute on chronic combined systolic (congestive) and diastolic (congestive) heart failure Code(s): I50.40 - Unspecified combined systolic (congestive) and diastolic (congestive) heart failure Status: Acute Assessment and Plan: Acute exacerbation worsened by not taking her diuretics. Also hypertensive BP likely another etiology. Continue IV diuretics with close monitoring of renal function. Fluid balance -1.2L since admission. Continue carvedilol. No Jose or Arb at this point because of kidney disease. Echo is pending (3) Hypertensive emergency: Code(s): I16.1 - Hypertensive emergency Status: Acute Assessment and Plan: Improved (4) Elevated troponin: Code(s): R77.8 - Other specified abnormalities of plasma proteins Status: Acute Assessment and Plan: Not related to ACS/acute plaque rupture. Likely secondary to high blood pressure in kidney disease (5) Noncompliance with medication regimen: Code(s): Z91.14 - Patient's other noncompliance with medication regimen Status: Acute Assessment and Plan: Encourage compliance. She did not take her diuretics for at least 1 day a couple of days ago prior to becoming short of breath Subjective Date/time seen: 02/22/21 10:00 Date of service 02/22/21: Feeling better today. She is not experiencing shortness of breath. Mild LE edema. Complaining of cough. Review of Systems Review of Systems: All systems reviewed & are unremarkable except as noted in HPI and below Constitutional: Constitutional: Denies fatigue, Denies headache(s) and Reports weakness Eyes: Eyes: Denies blurry vision ENT: Reports Normal hearing present, Denies headache(s) and Denies neck pain Cardiovascular: Cardiovascular: Denies chest pain and Reports dyspnea Respiratory: Respiratory: Reports dyspnea Gastrointestinal: Gastrointestinal: Denies abdominal pain Genitourinary: Genitourinary: Denies flank pain Musculoskeletal: Musculoskeletal: Denies neck pain Integumentary/Breasts: Skin/Breast: Denies dry skin Neurologic: Reports Normal hearing present, Denies headache(s) and Reports weakness Psychiatric: Psychiatric: Denies anxiety Endocrine: Endocrine: Denies fatigue Hematologic/Lymphatic: Hematologic/Lymphatic: Denies easy bleeding Allergic/Immunologic: Allergic/Immunologic: Denies GI upset with certain foods Exam Narrative: Alert and oriented and appears stated age Const: General: comfortable and no acute distress HENMT: General nose exam: Normal nares present Eyes: Sclera: sclerae normal Neck: Neck: supple and no JVD Resp: Effort & Inspection: normal respiratory effort Auscultation: crackles (bases) bilateral Cardio: Rate: regular rate Rhythm: regular rhythm GI: Inspection: non-distended Skin: General skin exam: normal color Neuro: Cranial nerves: Yes Normal hearing present Speech: normal speech Extrem: General: normal to inspection and no edema Right lower extremity: edema (mild ) Details: non-pitting Left lower extremity: edema (mild) Details: non-pitting Psych: Mental Status: mental status grossly normal Objective Data Vital Signs Vital Signs: Vital Signs - 24 hr 02/21/21 12:00 02/21/21 13:51 02/21/21 14:00 Temperature 36.8 C Pulse Rate 77 82 81 Respiratory Rate 20 18 Blood Pressure 156/62 H Pulse Oximetry 95 97 02/21/21 16:00 02/21/21 18:00 02/21/21 20:00 Temperature 36.1 C L 36.5 C Pulse Rate 87 94 104 H Respiratory Rate 22 H 22 H Blood Pressure 17
[2021-02-22] MEDS: FLUTICASONE PROPIONATE 0.05% NA SPR 16 GM BTL (*BKC) 1 SPRAY NASAL (10:09)
[2021-02-22] MEDS: FUROSEMIDE INJ 40 MG/4 ML VIAL IV PUSH ×2 (10:10→17:24)
[2021-02-22] MEDS: CLOPIDOGREL BISULFATE 75 MG TABLET PO (10:10)
[2021-02-22] MEDS: carvediloL 25 MG TABLET PO ×2 (10:10→21:01)
[2021-02-22] MEDS: INSULIN GLARGINE (*BKC) 100 UNITS/ML 51 UNITS SUB-Q (10:16)
[2021-02-22] MEDS: HEPARIN SODIUM 5,000 UNITS/ML VIAL 5000 UNITS SUB-Q ×2 (10:25→21:01)
[2021-02-22] MEDS: PERFLUTREN LIPID MICROSPHERES 1.5 ML VIAL DILUTED TO 10 ML TOTAL VOLUME IV PUSH (10:27)
[2021-02-22 11:43] LABS: Glucose Point of Care 359 mg/dl (65-105)
[2021-02-22] MEDS: INSULIN ASPART (*BKC) 100 UNITS/ML SUB-Q ×2 (12:07→17:23)
--- NOTE | 2021-02-22 14:48 | PC.NURSE ---
This patient, Waleska Nadia Chelechrist, was received from [IMU ] on 02/22/21 at 1452. Patient oriented to unit policies and routines
[2021-02-22 16:50] LABS: Glucose Point of Care 441 mg/dl (65-105)
[2021-02-22] MEDS: INSULIN ASPART (*BKC) 100 UNITS/ML 6 UNITS SUB-Q (17:23)
[2021-02-22] MEDS: LORazepam (*CRX) 1 MG TABLET 2 MG PO (21:01)
[2021-02-22] MEDS: INSULIN GLARGINE (*BKC) 100 UNITS/ML 6 UNITS SUB-Q (21:02)
[2021-02-22] MEDS: INSULIN ASPART (*BKC) 100 UNITS/ML 10 UNITS SUB-Q (21:26)
[2021-02-22 21:37] LABS: Glucose Point of Care 416 mg/dl (65-105)
[2021-02-23] VITALS (19 sets, daily range): BP systolic 151–166; BP diastolic 51–59; PULSE 60–88; RESP 16–20; TEMP 35.3–36.9; O2SAT 92–97
[2021-02-23 00:01] LABS: Glucose Point of Care 326 mg/dl (65-105)
[2021-02-23] MEDS: IPRATROPIUM BR 0.02% INH SOLN 0.5 MG/2.5 ML VIAL INHALATION ×4 (01:56→19:53)
[2021-02-23] MEDS: ALBUTEROL SULFATE NEB 2.5 MG/0.5 ML INH 5 MG INHALATION ×4 (01:56→19:52)
[2021-02-23] MEDS: methylPREDNISolone SOD SUCC 125 MG VIAL 60 MG IV PUSH ×2 (05:56→12:33)
[2021-02-23] MEDS: hydrALAZINE HCL 20 MG/ML VIAL 10 MG IV PUSH (06:02)
[2021-02-23 06:23] LABS: Hematocrit 28.1 % (37.0-47.0); Immature Granulocyte Absolute 0.06 K/mm3 (0.00-0.031); Lymphocytes Absolute Auto 0.38 K/mm3 (0.9-3.2); Lymphocytes Percent Auto 6.2 % (18.3-44.2); Mean Corpuscular Hemoglobin 31.8 pg (26-34); Mean Corpuscular Volume 99.3 fl (80-100); Mean Platelet Volume 9.5 fl (7.4-10.4); Monocytes Absolute Auto 0.1 K/mm3 (0.1-0.6); Monocytes Percent Auto 1.9 % (2.6-8.5); Neutrophils Absolute Auto 5.6 K/mm3 (1.3-6.7); Neutrophils Percent Auto 90.9 % (45.5-73.1); Platelet Count Result 231 k/mm3 (150-375); Red Blood Count 2.83 M/mm3 (4.2-5.4); Red Cell Distribution Width 12.5 % (11.5-14.5); White Blood Count 6.2 K/mm3 (4.5-10.0)
[2021-02-23 06:34] LABS: Alanine Aminotransferase 13 U/L (4-35); Albumin Level 3.6 g/dL (3.5-5.1); Alkaline Phosphatase 87 U/L (38-126); Anion Gap 10 mmol/L (8-16); Aspartate Amino Transferase 15 U/L (14-36); Bilirubin,Total 0.3 mg/dL (0.2-1.3); Blood Urea Nitrogen 87 mg/dL (7-17); Calcium 8.4 mg/dL (8.4-10.2); Carbon Dioxide 28 mmol/L (22-30); Chloride 99 mmol/L (98-107); Estimated CRCL calculation 17 ml/min; Estimated Glomerular Filt Rate 14; Glucose 235 mg/dL (65-110); Potassium 4.2 mmol/L (3.4-5.0); Sodium 137 mmol/L (137-145)
[2021-02-23] MEDS: INSULIN ASPART (*BKC) 100 UNITS/ML SUB-Q ×3 (08:50→17:31)
[2021-02-23] MEDS: INSULIN GLARGINE (*BKC) 100 UNITS/ML 51 UNITS SUB-Q (08:51)
[2021-02-23] MEDS: CLOPIDOGREL BISULFATE 75 MG TABLET PO (08:54)
[2021-02-23] MEDS: carvediloL 25 MG TABLET PO ×2 (08:54→20:56)
[2021-02-23] MEDS: FUROSEMIDE INJ 40 MG/4 ML VIAL IV PUSH ×2 (08:55→17:33)
[2021-02-23] MEDS: HEPARIN SODIUM 5,000 UNITS/ML VIAL 5000 UNITS SUB-Q ×2 (08:55→20:57)
[2021-02-23 09:12] LABS: Glucose Point of Care 203 mg/dl (65-105)
--- NOTE | 2021-02-23 12:31 | PM.PNCARD ---
Progress Note: A&P Additional Plan 80-year-old woman with chronic kidney disease with the absence of diuretics become volume overloaded. Explained to the patient today that if she discontinues her diuretics like this this is the expected response. She thought her diuretics were causing her to have coughing and so she stopped her medication because she thought it was a side effect of that. I told her that her heart function looks fine on echo her of left ventricular systolic function is not depressed. We do not have any other specific cardiac recommendations. I would of course indicate that close follow-up with her certified nurse midwife after discharge is very important. Amauri Jones MD [facility] Subjective Date/time seen: Date of service: 02/23/21 12:31 Interval history: Follow-up visit in this 80-year-old woman with: Picture of recurrent volume overload primarily related to advanced chronic kidney disease and non adherence with diuretics. The patient had this same situation about 6 months ago when she was hospitalized. Her left ventricular function then and again the this time remains nicely preserved. She has very poor kidney disease and without diuretics she will become volume overloaded. Today she reports to be feeling better day by day her breathing is now comfortable lower extremity edema seems to be improving Exam Narrative: Alert and oriented and appears stated age Const: General: comfortable and no acute distress HENMT: General nose exam: Normal nares present Eyes: Sclera: sclerae normal Neck: Neck: supple and no JVD Chest: Other: No reproducible chest wall pain to palpation Resp: Effort & Inspection: normal respiratory effort Other: Breath sounds are diminished but otherwise largely clear Cardio: Rate: regular rate Rhythm: regular rhythm GI: Inspection: non-distended Skin: General skin exam: normal color Neuro: Cranial nerves: Yes Normal hearing present Speech: normal speech Extrem: General: normal to inspection and no edema Right lower extremity: edema (mild ) Details: non-pitting Left lower extremity: edema (mild) Details: non-pitting Psych: Mental Status: mental status grossly normal Objective Data Vital Signs Vital Signs: Vital Signs - 24 hr 02/22/21 12:46 02/22/21 14:05 02/22/21 14:17 Temperature 36.6 C Pulse Rate 75 82 81 Respiratory Rate 20 18 18 Blood Pressure 142/53 H Pulse Oximetry 96 02/22/21 16:00 02/22/21 20:00 02/22/21 20:32 Temperature 37.1 C Pulse Rate 81 84 83 Respiratory Rate 20 18 Blood Pressure 145/96 H Pulse Oximetry 86 L 95 02/22/21 20:41 02/22/21 20:54 02/22/21 21:01 Temperature 36.7 C Pulse Rate 82 85 85 Respiratory Rate 18 18 Blood Pressure 156/52 H Pulse Oximetry 95 96 02/22/21 23:51 02/23/21 00:00 02/23/21 01:55 Temperature 36.2 C L Pulse Rate 85 80 85 Respiratory Rate 18 18 Blood Pressure 159/71 H Pulse Oximetry 94 02/23/21 02:04 02/23/21 04:00 02/23/21 05:56 Temperature 36.3 C L Pulse Rate 78 75 80 Respiratory Rate 18 16 Blood Pressure 166/59 H Pulse Oximetry 96 02/23/21 08:00 02/23/21 08:54 02/23/21 09:41 Temperature Pulse Rate 74 60 88 Respiratory Rate 20 Blood Pressure Pulse Oximetry 92 02/23/21 09:52 Temperature Pulse Rate 76 Respiratory Rate 20 Blood Pressure Pulse Oximetry Intake/Output Intake/Output: Intake & Output 02/20/21 02/21/21 02/22/21 02/23/21 23:59 23:59 23:59 23:59 Intake Total 858 536 440 Output Total 1285 0080 606 [id number] -178 -670 -703 Meds/Results Medications: Active Medications Generic Name Dose Route Start Last Admin Trade Name Freq PRN Reason Stop Dose Admin Acetaminophen 650 mg 02/21/21 02:42 Acetaminophen 325 Mg Tablet PO Q4H PRN Mild Pain (1-3) or Fever Albuterol 5 mg 02/21/21 08:00 02/23/21 09:41 Albuterol Sulfate Neb 2.5 Mg/0.5 Ml Inh INHALATION 5 mg Q6HRT JULIO Administration Carvedilol 2
[2021-02-23 12:40] LABS: Glucose Point of Care 260 mg/dl (65-105)
--- NOTE | 2021-02-23 14:01 | P.PNIM_ITS ---
Progress Note: A&P Assessment and Plan (1) Hypertensive emergency: Code(s): I16.1 - Hypertensive emergency Status: Acute Assessment and Plan: * Seems to be more controlled at this time * BP on admission 206/102 * 02/23 BP 166/59 * Continue current regiemen (2) Acute exacerbation of CHF (congestive heart failure): Qualifiers: Heart failure type: diastolic Qualified Code(s): I50.33 - Acute on chronic diastolic (congestive) heart failure Code(s): I50.9 - Heart failure, unspecified Status: Acute Assessment and Plan: * Acute on chronic combined systolic and diastolic heart failure * Likely due to non-adherence to antihypertensive medications * Echo from 08/30/20 shows EF of >70% with left vent wall thickening, left atrial dimension is severely enlarged * repeat echo EF >90%, left wall thickness, left atrial thickness * 02/23 I/O since admission 1845/3650 * Lasix 40mg IV BID (3) Chronic kidney disease, stage 4 (severe): Code(s): N18.4 - Chronic kidney disease, stage 4 (severe) Status: Acute Assessment and Plan: * BUN/CR 57/2.90 * BUN and creatinine at patient's baseline * Baseline 2.5-3 * 02/23 creatinine 3.1 (4) Diabetes mellitus with diabetic autonomic neuropathy, with long-term current use of insulin: Qualifiers: Diabetes mellitus type: type 2 Qualified Code(s): E11.43 - Type 2 diabetes mellitus with diabetic autonomic (poly)neuropathy; Z79.4 - [facility] (current) use of insulin Code(s): E11.43 - Type 2 diabetes mellitus with diabetic autonomic (poly)neuropathy; Z79.4 - [facility] (current) use of insulin Status: Acute Assessment and Plan: * Basal and SSI * 02/23 BS reviewed and adequate (5) Elevated troponin: Code(s): R77.8 - Other specified abnormalities of plasma proteins Status: Acute Assessment and Plan: * Troponin 0.022 in ED, 0.037 this am * repeat 0.0174, and remained flat * Cardiology following * No cardiac ischemia * Not cardiac related * Probably from severe hypertension and CHF exacerbation Subjective Date/time seen: 02/23/21 14:01 Interval history: 02/23 visit: F/u for a/c diastolic chf in the setting of ckd and non-adherence to diuretic regimen. Feels much better. Denied pain. Tolerated diet. Much less sob with exertion. No gi/gu c/o. Review of Systems Review of Systems: All systems reviewed & are unremarkable except as noted in HPI and below Exam Narrative: HEENT: PERRL, sclerae nonicteric, pharyngeal mucosa pink and intact NECK: No JVD CHEST: Clear to auscultation. Normal effort. HEART: NL S1/S2, regular, no murmur ABDOMEN: BS+, soft, nontender, no mass, no bruits EXTREMITIES: No cyanosis, TRACE PRETIBIAL EDEMA NEUROLOGIC: CN intact and symmetric to inspection. MUSCULOSKELETAL: Tone and strength symmetric. PSYCH: Alert. Oriented to person, place, and time. Objective Data Vital Signs Vital Signs: Vital Signs - 24 hr 02/22/21 14:05 02/22/21 14:17 02/22/21 16:00 Temperature 98.8 F Pulse Rate 82 81 81 Respiratory Rate 18 18 20 Blood Pressure 145/96 H Pulse Oximetry 86 L 02/22/21 20:00 02/22/21 20:32 02/22/21 20:41 Temperature Pulse Rate 84 83 82 Respiratory Rate 18 18 Blood Pressure Pul
--- NOTE | 2021-02-23 14:01 | PM.IMPN ---
Progress Note: A&P Assessment and Plan (1) Hypertensive emergency: Code(s): I16.1 - Hypertensive emergency Status: Acute Assessment and Plan: Seems to be more controlled at this time BP on admission 206/102 02/23 BP 166/59 Continue current regiemen (2) Acute exacerbation of CHF (congestive heart failure): Qualifiers: Heart failure type: diastolic Qualified Code(s): I50.33 - Acute on chronic diastolic (congestive) heart failure Code(s): I50.9 - Heart failure, unspecified Status: Acute Assessment and Plan: Acute on chronic combined systolic and diastolic heart failure Likely due to non-adherence to antihypertensive medications Echo from 08/30/20 shows EF of >70% with left vent wall thickening, left atrial dimension is severely enlarged repeat echo EF >90%, left wall thickness, left atrial thickness 02/23 I/O since admission 1845/3650 Lasix 40mg IV BID (3) Chronic kidney disease, stage 4 (severe): Code(s): N18.4 - Chronic kidney disease, stage 4 (severe) Status: Acute Assessment and Plan: BUN/CR 57/2.90 BUN and creatinine at patient's baseline Baseline 2.5-3 02/23 creatinine 3.1 (4) Diabetes mellitus with diabetic autonomic neuropathy, with long-term current use of insulin: Qualifiers: Diabetes mellitus type: type 2 Qualified Code(s): E11.43 - Type 2 diabetes mellitus with diabetic autonomic (poly)neuropathy; 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 Code(s): E11.43 - Type 2 diabetes mellitus with diabetic autonomic (poly)neuropathy; Z79.4 - senior living (current) use of insulin Status: Acute Assessment and Plan: Basal and SSI 02/23 BS reviewed and adequate (5) Elevated troponin: Code(s): R77.8 - Other specified abnormalities of plasma proteins Status: Acute Assessment and Plan: Troponin 0.022 in ED, 0.037 this am repeat 0.0174, and remained flat Cardiology following No cardiac ischemia Not cardiac related Probably from severe hypertension and CHF exacerbation Subjective Date/time seen: 02/23/21 14:01 Interval history: 02/23 visit: F/u for a/c diastolic chf in the setting of ckd and non-adherence to diuretic regimen. Feels much better. Denied pain. Tolerated diet. Much less sob with exertion. No gi/gu c/o. Review of Systems Review of Systems: All systems reviewed & are unremarkable except as noted in HPI and below Exam Narrative: HEENT: PERRL, sclerae nonicteric, pharyngeal mucosa pink and intact NECK: No JVD CHEST: Clear to auscultation. Normal effort. HEART: NL S1/S2, regular, no murmur ABDOMEN: BS+, soft, nontender, no mass, no bruits EXTREMITIES: No cyanosis, TRACE PRETIBIAL EDEMA NEUROLOGIC: CN intact and symmetric to inspection. MUSCULOSKELETAL: Tone and strength symmetric. PSYCH: Alert. Oriented to person, place, and time. Objective Data Vital Signs Vital Signs: Vital Signs - 24 hr 02/22/21 14:05 02/22/21 14:17 02/22/21 16:00 Temperature 98.8 F Pulse Rate 82 81 81 Respiratory Rate 18 18 20 Blood Pressure 145/96 H Pulse Oximetry 86 L 02/22/21 20:00 02/22/21 20:32 02/22/21 20:41 Temperature Pulse Rate 84 83 82 Respiratory Rate 18 18 Blood Pressure Pulse Oximetry 95 95 02/22/21 20:54 02/22/21 21:01 02/22/21 23:51 Temperature 98.1 F 97.2 F L Pulse Rate 85 85 85 Respiratory Rate 18 18 Blood Pressure 156/52 H 159/71 H Pulse Oximetry 96 94 02/23/21 00:00 02/23/21 01:55 02/23/21 02:04 Temperature Pulse Rate 80 85 78 Respiratory Rate 18 18 Blood Pressure Pulse Oximetry 02/23/21 04:00 02/23/21 05:56 02/23/21 08:00 Temperature 97.3 F L Pulse Rate 75 80 74 Respiratory Rate 16 Blood Pressure 166/59 H Pulse Oximetry 96 02/23/21 08:54 02/23/21 09:41 02/23/21 09:52 Temperature Pulse Rate 60 88 76 Respiratory Rate 20 20 Blood Pressure Pulse Oximetry 92
[2021-02-23 17:47] LABS: Glucose Point of Care 298 mg/dl (65-105)
[2021-02-23] MEDS: LORazepam (*CRX) 1 MG TABLET 2 MG PO (20:56)
[2021-02-23 22:06] LABS: Glucose Point of Care 344 mg/dl (65-105)
[2021-02-23] MEDS: INSULIN GLARGINE (*BKC) 100 UNITS/ML 6 UNITS SUB-Q (22:20)
[2021-02-23] MEDS: INSULIN ASPART (*BKC) 100 UNITS/ML 6 UNITS SUB-Q (23:35)
[2021-02-24] VITALS (13 sets, daily range): BP systolic 156; BP diastolic 56; PULSE 64–81; RESP 16–18; TEMP 36.8; O2SAT 93–98
[2021-02-24] MEDS: ALBUTEROL SULFATE NEB 2.5 MG/0.5 ML INH 5 MG INHALATION ×3 (01:58→14:26)
[2021-02-24] MEDS: IPRATROPIUM BR 0.02% INH SOLN 0.5 MG/2.5 ML VIAL INHALATION ×3 (01:58→14:26)
[2021-02-24 06:04] LABS: Albumin Level 3.2 g/dL (3.5-5.1); Anion Gap 9 mmol/L (8-16); Blood Urea Nitrogen 105 mg/dL (7-17); Calcium 7.6 mg/dL (8.4-10.2); Carbon Dioxide 26 mmol/L (22-30); Chloride 100 mmol/L (98-107); Estimated CRCL calculation 17 ml/min; Estimated Glomerular Filt Rate 14; Glucose 257 mg/dL (65-110); Phosphorus 5.6 mg/dL (2.5-4.5); Potassium 3.8 mmol/L (3.4-5.0); Sodium 135 mmol/L (137-145)
[2021-02-24 08:12] LABS: Glucose Point of Care 204 mg/dl (65-105)
[2021-02-24] MEDS: FLUTICASONE PROPIONATE 0.05% NA SPR 16 GM BTL (*BKC) 1 SPRAY NASAL (08:36)
[2021-02-24] MEDS: carvediloL 25 MG TABLET PO (08:36)
[2021-02-24] MEDS: CLOPIDOGREL BISULFATE 75 MG TABLET PO (08:36)
[2021-02-24] MEDS: FUROSEMIDE INJ 40 MG/4 ML VIAL IV PUSH (08:36)
[2021-02-24] MEDS: INSULIN ASPART (*BKC) 100 UNITS/ML SUB-Q ×2 (08:37→12:10)
[2021-02-24] MEDS: INSULIN GLARGINE (*BKC) 100 UNITS/ML 51 UNITS SUB-Q (08:39)
[2021-02-24] MEDS: HEPARIN SODIUM 5,000 UNITS/ML VIAL 5000 UNITS SUB-Q (08:43)
--- NOTE | 2021-02-24 10:52 | P.DS_ITS ---
DS: Admitting Diagnosis Discharge Date February 24, 2021 Admitting Diagnosis Acute on chronic diastolic congestive heart failure with hypertensive urgency and pulmonary edema DS: Discharge Diagnosis Discharge Diagnosis (1) Hypertensive emergency: Code(s): I16.1 - Hypertensive emergency Status: Acute Assessment and Plan: * Seems to be more controlled at this time * BP on admission 206/102 * 02/23 BP 166/59, 02/24 156/56 * Continue current regiemen (2) Acute exacerbation of CHF (congestive heart failure): Qualifiers: Heart failure type: diastolic Qualified Code(s): I50.33 - Acute on chronic diastolic (congestive) heart failure Code(s): I50.9 - Heart failure, unspecified Status: Acute Assessment and Plan: * Acute on chronic combined systolic and diastolic heart failure * Likely due to non-adherence to antihypertensive medications * Echo from 08/30/20 shows EF of >70% with left vent wall thickening, left atrial dimension is severely enlarged * repeat echo EF >90%, left wall thickness, left atrial thickness * 02/23 I/O since admission 184/3649 * Lasix 40mg IV BID transitioned 02/24 to 40mg bid with prn metalozone (3) Chronic kidney disease, stage 4 (severe): Code(s): N18.4 - Chronic kidney disease, stage 4 (severe) Status: Acute Assessment and Plan: * BUN/CR 57/2.90 * BUN and creatinine at patient's baseline * Baseline 2.5-3 * 02/23 creatinine 3.1, 02/24 stable at 3.1 (4) Diabetes mellitus with diabetic autonomic neuropathy, with long-term current use of insulin: Qualifiers: Diabetes mellitus type: type 2 Qualified Code(s): E11.43 - Type 2 diabetes mellitus with diabetic autonomic (poly)neuropathy; Z79.4 - [facility] (current) use of insulin Code(s): E11.43 - Type 2 diabetes mellitus with diabetic autonomic (poly)neuropathy; 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 Status: Acute Assessment and Plan: * Basal and SSI * 02/23 BS reviewed and adequate (5) Elevated troponin: Code(s): R77.8 - Other specified abnormalities of plasma proteins Status: Acute Assessment and Plan: * Troponin 0.022 in ED, 0.037 this am * repeat 0.0174, and remained flat * Cardiology following * No cardiac ischemia * Not cardiac related * Probably from severe hypertension and CHF exacerbation DS: Summary Hospital Course Reason for hospitalization: Shortness of breath Hospital Course: Patient presented emergency department with shortness of breath was found to be in pulmonary edema with markedly elevated blood pressures noted below. She responded well to resumption of the medications she taking anti hypertensives she was given furosemide 40 mg IV. She diuresed total of over 2700 mL negative fluid balance during her hospital stay. By day of discharge she was tolerating her diet. She was not requiring supplemental oxygen. She was able to walk across the room with physical therapy without issues. Time Spent with Patient Time attestation: Total time spent providing and/or coordinating discharge services: Exam Narrative: HEENT: PERRL, sclerae nonicteric, pharyngeal mucosa pink and intact NECK: No JVD CHEST: Clear to auscultation. Normal effort. HEART: NL S1/S2, regular, no murmur ABDOMEN: BS+, soft, nontender, no mass, no bruits EXTREMITIES: No cyanosis, TRACE PRETIBIAL EDEMA NEUROLOGIC: CN intact and symmetric to inspection. MUSCULOSKELETAL: Tone and strength symmetric.
--- NOTE | 2021-02-24 10:52 | PM.DS ---
DS: Admitting Diagnosis Discharge Date February 24, 2021 Admitting Diagnosis Acute on chronic diastolic congestive heart failure with hypertensive urgency and pulmonary edema DS: Discharge Diagnosis Discharge Diagnosis (1) Hypertensive emergency: Code(s): I16.1 - Hypertensive emergency Status: Acute Assessment and Plan: Seems to be more controlled at this time BP on admission 206/102 02/23 BP 166/59, 02/24 156/56 Continue current regiemen (2) Acute exacerbation of CHF (congestive heart failure): Qualifiers: Heart failure type: diastolic Qualified Code(s): I50.33 - Acute on chronic diastolic (congestive) heart failure Code(s): I50.9 - Heart failure, unspecified Status: Acute Assessment and Plan: Acute on chronic combined systolic and diastolic heart failure Likely due to non-adherence to antihypertensive medications Echo from 08/30/20 shows EF of >70% with left vent wall thickening, left atrial dimension is severely enlarged repeat echo EF >90%, left wall thickness, left atrial thickness 02/23 I/O since admission 1845/3650 Lasix 40mg IV BID transitioned 02/24 to 40mg bid with prn metalozone (3) Chronic kidney disease, stage 4 (severe): Code(s): N18.4 - Chronic kidney disease, stage 4 (severe) Status: Acute Assessment and Plan: BUN/CR 57/2.90 BUN and creatinine at patient's baseline Baseline 2.5-3 02/23 creatinine 3.1, 02/24 stable at 3.1 (4) Diabetes mellitus with diabetic autonomic neuropathy, with long-term current use of insulin: Qualifiers: Diabetes mellitus type: type 2 Qualified Code(s): E11.43 - Type 2 diabetes mellitus with diabetic autonomic (poly)neuropathy; Z79.4 - long term 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 care 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 (current) use of insulin Code(s): E11.43 - Type 2 diabetes mellitus with diabetic autonomic (poly)neuropathy; Z79.4 - assisted (current) use of insulin Status: Acute Assessment and Plan: Basal and SSI 02/23 BS reviewed and adequate (5) Elevated troponin: Code(s): R77.8 - Other specified abnormalities of plasma proteins Status: Acute Assessment and Plan: Troponin 0.022 in ED, 0.037 this am repeat 0.0174, and remained flat Cardiology following No cardiac ischemia Not cardiac related Probably from severe hypertension and CHF exacerbation DS: Summary Hospital Course Reason for hospitalization: Shortness of breath Hospital Course: Patient presented emergency department with shortness of breath was found to be in pulmonary edema with markedly elevated blood pressures noted below. She responded well to resumption of the medications she taking antihypertensives she was given furosemide 40 mg IV. She diuresed total of over 2700 mL negative fluid balance during her hospital stay. By day of discharge she was tolerating her diet. She was not requiring supplemental oxygen. She was able to walk across the room with physical therapy without issues. Time Spent with Patient Time attestation: Total time spent providing and/or coordinating discharge services: Exam Narrative: HEENT: PERRL, sclerae nonicteric, pharyngeal mucosa pink and intact NECK: No JVD CHEST: Clear to auscultation. Normal effort. HEART: NL S1/S2, regular, no murmur ABDOMEN: BS+, soft, nontender, no mass, no bruits EXTREMITIES: No cyanosis, TRACE PRETIBIAL EDEMA NEUROLOGIC: CN intact and symmetric to inspection. MUSCULOSKELETAL: Tone and strength symmetric. PSYCH: Alert. Oriented to person, place, and time. DS: Data Data Completed and Pending Labs on day of discharge: Labs from last 24 hours 02/24/21 02/24/21 02/23/21 08:00 05:22 20:59 Sodium 135 L Potassium 3.8 Chloride 100 Carbon Dioxide 26 Anion Gap 9 BUN 105 H D Creatinine 3.10 H Estim Creat Clear Calc 17 Estimated GFR 14 L Glucose 257 H POC Capillary Glucose 204 H 344 H Calcium 7.6 L Phosphorus 5.6
[2021-02-24 12:07] LABS: Glucose Point of Care 201 mg/dl (65-105)
== END 2021-02-24 17:00 | disposition home or self-care (01) | DRG 291 ==
LOC: ANHED 02:32 → ANHIMU 06:33 → ANH3MED 02-23 00:47 → ANHIMU 02-27 09:31
PROVIDERS: Nurse Practitioner; Admitting Provider Internal Medicine; Emergency Provider Emergency Medicine; PCP Internal Medicine; Visit Provider Internal Medicine
DX: I13.0 Hypertensive heart and chronic kidney disease with heart failure and stage 1 through stage 4 chronic kidney disease, or unspecified chronic kidney disease (principal); I50.43 Acute on chronic combined systolic (congestive) and diastolic (congestive) heart failure; I16.1 Hypertensive emergency; N18.4 Chronic kidney disease, stage 4 (severe); G81.91 Hemiplegia, unspecified affecting right dominant side; N25.81 Secondary hyperparathyroidism of renal origin; E11.22 Type 2 diabetes mellitus with diabetic chronic kidney disease; E11.42 Type 2 diabetes mellitus with diabetic polyneuropathy; D63.1 Anemia in chronic kidney disease; M19.90 Unspecified osteoarthritis, unspecified site; E11.319 Type 2 diabetes mellitus with unspecified diabetic retinopathy without macular edema; K21.9 Gastro-esophageal reflux disease without esophagitis; K44.9 Diaphragmatic hernia without obstruction or gangrene; E55.9 Vitamin D deficiency, unspecified; I25.10 Atherosclerotic heart disease of native coronary artery without angina pectoris; Z96.652 Presence of left artificial knee joint; I69.320 Aphasia following cerebral infarction; Z79.4 Long term (current) use of insulin; Z90.49 Acquired absence of other specified parts of digestive tract; Z98.42 Cataract extraction status, left eye; Z98.41 Cataract extraction status, right eye; Z87.891 Personal history of nicotine dependence; Z91.14 Patient's other noncompliance with medication regimen
CPT/HCPCS: 36415; 36600; 71045; 80053; 80069; 82375; 82805; 82948; 83050; 83605; 83735; 83880; 84484; 85025; 85610; 85730; 87040; 93005; 93306; 94002; 94640; 96365; 96375; 97110; 97116; 97162; 97165; 97530; 97535; 99285; A9270; C8929; C9803; J0360; J0456; J0696; J1644; J1815; J1940; J2930; J3475; Q9957; U0003; U0005

== ENCOUNTER 2021-06-06 07:36 | Inpatient (IN) | payer MEDICARE, OTHER, SELFPAY ==
[2021-06-06] VITALS (14 sets, daily range): BP systolic 132–168; BP diastolic 72–110; PULSE 75–135; RESP 18–22; TEMP 36.7–37.2; O2SAT 98–100; BMI 52.0
--- NOTE | ~2021-06-06 | XR_ITS ---
EXAMINATION: XR chest 1V portable EXAM DATE: 06/14/2021 06:19 INDICATION: CHF. TECHNIQUE: Portable AP frontal chest x-ray was obtained. There is no prior study for comparison. FINDINGS: The cardiac silhouette is enlarged. Cardiac silhouette is stable in size compared to prior exam. Small bilateral pleural effusions. There is pulmonary vascular congestion. There may be mild pu lmonary edema. No pneumothorax. There is no significant interval change. IMPRESSION: Findings consistent with CHF exacerbation unchanged. Reviewed, dictated and finalized at location [facility]
--- NOTE | ~2021-06-06 | US_ITS ---
EXAMINATION: US venous doppler [facility] DATE: 06/14/2021 17:11 INDICATION: Congestive heart failure. Limb swelling. TECHNIQUE: Grayscale ultrasound images without and with compression and Doppler ultrasound images of the bilateral lower extremity veins were obtained. COMPARISON: None. FINDINGS: The visualized portions of right common femoral vein, profunda (deep) femoral vein, femoral vein, pop liteal vein, posterior tibial veins, peroneal veins, gastrocnemius vein and greater saphenous vein ou tflow are patent. The visualized portions of left common femoral vein, profunda femoral vein, femoral vein, popliteal v ein, posterior tibial veins, peroneal veins, gastrocnemius vein and greater saphenous vein outflow ar e patent. IMPRESSION: 1. No deep venous thrombosis in either lower limb. Reviewed, dictated and finalized at location B. L MACHINE TENDER
--- NOTE | ~2021-06-06 | XR_ITS ---
XR chest 2V DATE: 06/11/2021 08:01 INDICATION: Shortness of breath TECHNIQUE: AP and lateral views COMPARISON: 06/06/2021 portable AP chest FINDINGS: Cardiomegaly. Aortic calcification. Mild pulmonary vascular congestion is again noted. Ther e is mild infiltrate or atelectasis involving the mid and primarily lower lung zones and suggestion o f small pleural effusions. Diffuse osteopenia. IMPRESSION: No significant change since 06/06/2021 Reviewed, dictated and finalized at location A. ORATE ASSOCIATE ATTORNEY
--- NOTE | ~2021-06-06 | XR_ITS ---
EXAMINATION: XR fl guide central line place EXAM DATE: 06/20/2021 14:08 INDICATION: Insert Tunneled Dialysis Cath TECHNIQUE: Fluoroscopy used during Tunneled dialysis catheter placement performed by Dr. Kenny Nathan MD. Radiologist was not present for the imaging or procedure. Total fluoroscopic time of 2 4 seconds. The DAP for this procedure was 0.18 mGym2. A total of 2 images sent to PACS from the [facility]. FINDINGS: Frontal image demonstrates catheter tip projecting over the cavoatrial junction, expected position. Correlate with procedure note. IMPRESSION: Fluoroscopy used during XR fl guide central line place. Reviewed, dictated and finalized at location A. SORTER
--- NOTE | ~2021-06-06 | US_ITS ---
EXAMINATION: US venous doppler [facility] DATE: 06/14/2021 17:12 INDICATION: Left upper limb swelling. TECHNIQUE: Grayscale images without and with compression and Doppler images of the left upper extremi ty veins were obtained. COMPARISON: None. FINDINGS: The left internal jugular vein, subclavian vein, axillary vein, brachial vein, basilic vein, cephalic vein and ulnar vein are patent. The region of the left renal vein is unable to assess due to an IV a ccess site. IMPRESSION: 1. Patent left upper extremity veins. No evidence of venous thrombosis. Reviewed, dictated and finalized at location B. N APPRENTICE
--- NOTE | ~2021-06-06 | NM_ITS ---
EXAMINATION: NM pulmonary perfusion DATE: 06/14/2021 15:58 INDICATION: Shortness of breath. TECHNIQUE: 5 mCi Tc-99m MAA was administered intravenously for perfusion images. Scintigraphic image s of the chest were obtained. COMPARISON: Chest 06/14/2021 FINDINGS: Sensitivity and specificity are decreased by obesity. Perfusion images show matched small and moderat e sized defects in the right lower lobe. There are matched moderate sized and large defects in left l ower lobe. IMPRESSION: 1. Nondiagnostic (intermediate probability for pulmonary embolism). Reviewed, dictated and finalized at location A. MANAGER
--- NOTE | ~2021-06-06 | XR_ITS ---
EXAMINATION: XR chest port-a-cath/central DATE: 06/20/2021 14:47 INDICATION: Tunneled dialysis catheter insertion TECHNIQUE: frontal view of the chest was obtained. COMPARISON: Chest radiograph dated 06/24/2021 FINDINGS: Large-bore dual-lumen tunneled right internal jugular central venous catheter with distal tip near th e superior cavoatrial junction. Pulmonary vascular congestion without daily pulmonary edema. No pleur al effusion or pneumothorax. Cardiomegaly. IMPRESSION: 1. Right internal jugular central venous catheter tip at the superior cavoatrial junction. No pneumot horax. 2. Cardiomegaly with pulmonary vascular congestion. Reviewed, dictated and finalized at location A. ICAL FACULTY IMPRESSION: 1. Right internal jugular central venous catheter tip at the superior cavoatria l junction. No pneumothorax. 2. Cardiomegaly with pulmonary vascular congestion.
--- NOTE | ~2021-06-06 | XR_ITS ---
EXAMINATION: XR chest 1V portable EXAM DATE: 06/06/2021 08:25 INDICATION: Shortness of breath. TECHNIQUE: Portable AP frontal chest x-ray was obtained. Comparison is made to prior examination from 02/22/21. FINDINGS: There is mild cardiomegaly. Pulmonary vascular congestion. There is indistinct reticulation with a bibasal predominance which may indicate pulmonary edema. Small pleural effusion suspected. Fi ndings most consistent with CHF exacerbation. Pneumonia not excludable. No pneumothorax. There are mi ld bony degenerative changes. IMPRESSION: Findings consistent with CHF exacerbation. Reviewed, dictated and finalized at location A. R PLUMBER
--- NOTE | ~2021-06-06 | US_ITS ---
EXAMINATION: US renal BI DATE: 06/10/2021 12:10 INDICATION: Elevated creatinine. Abnormal kidney function tests. TECHNIQUE: Multiple ultrasound grayscale images of the kidneys were obtained. COMPARISON: Ultrasound 03/10/2018 FINDINGS: The right kidney measures 9.2 x 4.8 x 4.9 cm. The left kidney measures 12.0 x 6.0 x 5.7 cm. The left kidney is not well visualized. The kidneys demonstrate normal parenchymal echogenicity. There is no h ydronephrosis. The bladder is normal. IMPRESSION: 1. Normal kidney sizes. No hydronephrosis. Reviewed, dictated and finalized at location A. CONSULTANT
--- NOTE | 2021-06-06 07:44 | ECG_ITS ---
Rate 75 HI 156 QRSd 77 QT 388 QTc 436 --[place]-- P 66 QRS -16 T 12 SINUS RHYTHM BASELINE ARTIFACT- I, II, III, AVR, AVL, AVF, V1-V6 BORDERLINE ECG Electronically Signed On 06-06-2021 13:39:56 ENVIRONMENTAL INTERN by Bert WOODARD
[2021-06-06 08:05] LABS: Basophils Percent Auto 0.4 % (0.2-1.2); Eosinophils Absolute Auto 0.1 K/mm3 (0-0.3); Hematocrit 31.4 % (37.0-47.0); Hemoglobin 9.7 g/dL (12.0-15.0); Immature Granulocyte Absolute 0.05 K/mm3 (0.00-0.031); Immature Granulocyte Percent A 0.5 % (0-0.5); Lymphocytes Absolute Auto 1.01 K/mm3 (0.9-3.2); Mean Corpuscular HGB Conc 30.9 g/dl (32-36); Mean Corpuscular Hemoglobin 30.1 pg (26-34); Mean Corpuscular Volume 97.5 fl (80-100); Mean Platelet Volume 9.5 fl (7.4-10.4); Monocytes Absolute Auto 0.6 K/mm3 (0.1-0.6); Monocytes Percent Auto 5.9 % (2.6-8.5); Neutrophils Absolute Auto 8.3 K/mm3 (1.3-6.7); Neutrophils Percent Auto 82.2 % (45.5-73.1); Platelet Count Result 235 k/mm3 (150-375); Red Blood Count 3.22 M/mm3 (4.2-5.4); Red Cell Distribution Width 13.2 % (11.5-14.5); White Blood Count 10.1 K/mm3 (4.5-10.0)
[2021-06-06 08:06] LABS: INR 1.2; Prothrombin Time 15.4 Seconds (11.1-14.7)
[2021-06-06 08:08] LABS: Partial Thromboplastin Time 33.2 SECONDS (22.3-36.8)
[2021-06-06 08:12] LABS: Alanine Aminotransferase 16 U/L (4-35); Albumin Level 3.8 g/dL (3.5-5.1); Alkaline Phosphatase 117 U/L (38-126); Anion Gap 6 mmol/L (8-16); Aspartate Amino Transferase 24 U/L (14-36); Bilirubin,Total 0.8 mg/dL (0.2-1.3); Blood Urea Nitrogen 38 mg/dL (7-17); Calcium 8.3 mg/dL (8.4-10.2); Carbon Dioxide 28 mmol/L (22-30); Chloride 105 mmol/L (98-107); Estimated Glomerular Filt Rate 19; Glucose 214 mg/dL (65-110); Potassium 5.3 mmol/L (3.4-5.0); Sodium 139 mmol/L (137-145)
[2021-06-06 08:28] LABS: NT Pro B Type Natriuretic Pept 24100 pg/mL (5-100); Troponin I 0.038 ng/mL (0.000-0.034)
[2021-06-06] MEDS: FUROSEMIDE INJ 40 MG/4 ML VIAL IV PUSH ×2 (09:40→18:14)
--- NOTE | 2021-06-06 09:45 | ECG_ITS ---
Rate 133 KS 0 QRSd 78 QT 281 QTc 419 --[place]-- P QRS -13 T 41 ATRIAL FIBRILLATION WITH RAPID VENTRICULAR RESPONSE VENTRICULAR PREMATURE COMPLEX BORDERLINE ST-T WAVE ABNORMALITY- DIFFUSE LEADS BASELINE ARTIFACT- I, II, III, AVR, AVL ,AVF ABNORMAL ECG Electronically Signed On 06-06-2021 12:29:40 TAILOR FITTER by Bert WOODARD
--- NOTE | 2021-06-06 09:54 | PC.NURSE ---
Assessed patient vitals at this time. change to patient HR noted. Dr. Bo updated on this. New EKG ordered and obtained. Will continue to monitor.
[2021-06-06] MEDS: dilTIAZem HCl INJ 25 MG/5 ML VIAL 10 MG IV PUSH (10:07)
[2021-06-06] MEDS: dilTIAZem 100 MG/100 ML 100 MG/100 ML BAG IV CONT (10:52)
--- NOTE | 2021-06-06 10:59 | ED.SOB ---
HPI - SOB/Dyspnea General Chief Complaint: Shortness of Breath/Dyspnea Stated Complaint: sob Time Seen by Provider: 06/06/21 07:48 Source: patient Mode of arrival: EMS Limitations: no limitations History of Present Illness HPI Narrative: 80-year-old with a history of hypertension, CHF, diabetes presently residing at the shelter was brought in by ambulance with complaints of shortness of breath which started approximately a week ago but got worse this morning. As per the EMS her SPO2 was in the 80s. She was placed on a CPAP and later transferred her to the ER. Upon arrival she is states she is feeling much better she denied any chest pain. No history of fever or chills she states she has been taking her medications as prescribed. She also states her legs are been swollen and having difficulty in walking. MD elicited complaint: shortness of breath Pertinent past history: congestive heart failure Onset (ago): week(s) (1) Severity: moderate Exacerbating factors: lying flat Relieving factors: oxygen Known history of: congestive heart failure Associated symptoms: denies other symptoms Related Data Home oxygen amount: none Home Medications Medication Instructions Recorded Confirmed ergocalciferol (vitamin D2) 50,000 unit PO WEEKLY 08/29/20 03/13/21 fluticasone propionate 50 1 spray INTRANASAL DAILY g 09/20/20 03/13/21 mcg/actuation nasal spray,suspension furosemide 40 mg tablet 40 mg PO BID 09/20/20 03/13/21 Allergies Allergy/AdvReac Type Severity Reaction Status Date / Time adhesive tape Allergy Mild Blister Verified 03/13/21 09:46 iohexol Allergy Unknown Vomiting Verified 03/13/21 09:46 [From contrast - CT, X-RAY] morphine AdvReac Intermediate Vomiting Verified 03/13/21 09:46 Review of Systems Review of Systems: All systems reviewed & are unremarkable except as noted in HPI and below Constitutional: Constitutional: Reports no additional constitutional complaints Eyes: Eyes: Reports no additional eye complaints ENT: Reports system reviewed and no additional complaints, except as documented Cardiovascular: Cardiovascular: Reports as per HPI Respiratory: Respiratory: Reports as per HPI Gastrointestinal: Gastrointestinal: Reports no additional gastrointestinal complaints Musculoskeletal: Musculoskeletal: Reports as per HPI Neurologic: Reports system reviewed and no additional complaints, except as documented Psychiatric: Psychiatric: Reports no additional psychiatric complaints Hematologic/Lymphatic: Hematologic/Lymphatic: Reports no additional hematologic/lymphatic complaints PMF Past Medical History Medical History Anemia in chronic kidney disease Anxiety Arthritis Cerebrovascular accident With mild right-sided weakness and expressive aphasia. Chronic kidney disease, stage 4 (severe) Combined systolic and diastolic congestive heart failure Echocardiogram in 03/27/2018 showed moderate global LV systolic dysfunction with a measured EF of 33%, grade 2 diastolic dysfunction, moderate RV hypokinesis, and severe pulmonary hypertension (65 mmHg). Diabetic retinopathy Essential tremor Gastroesophageal reflux disease Hiatal hernia Hypertension Insulin dependent type 2 diabetes mellitus Hemoglobin A1c was 9.1% in 05/2020. Secondary hyperparathyroidism Vitamin D deficiency Surgical History Surgical History History of appendectomy History of cataract extraction History of cholecystectomy History of left knee replacement History of tonsillectomy Status post LASIK surgery Family History Family History Mother Family history of diabetes mellitus in first degree relative Diabetes mellitus Sibling Family history of diabetes mellitus in first degree relative Diabetes mellitus Father Family history of heart disease in male family member
[2021-06-06 11:27] LABS: Glucose Point of Care 200 mg/dl (65-105)
--- NOTE | 2021-06-06 13:38 | PM.CNCAR ---
Assessment and Plan Assessment and plan (1) Atrial fibrillation with rapid ventricular response: Code(s): I48.91 - Unspecified atrial fibrillation <ADRIANA Sanderson - Last Filed: 06/06/21 14:50> Status: Acute <Unique Autumn ADRIANA Mcgregor - Last Filed: 06/06/21 14:50> Assessment and Plan: This is a new problem. She presented to the emergency department in sinus rhythm and subsequently was noted to be in atrial fibrillation with rapid ventricular response. She is completely asymptomatic with this. She has been given a diltiazem bolus and now is on a diltiazem drip. Her rate is not controlled with this. Discontinue diltiazem Give amiodarone bolus followed by drip, hopefully this will convert her back to normal rhythm. [id number] score 8, high risk. Anticoagulation is recommended. Lovenox for anticoagulation for now. Confirmed dosing with pharmacy for patient with renal impairment, creatinine clearance less than 30. Dose recommended by pharmacy 30 mg daily. Transition to DOAC at some point. Check TSH Consider echocardiogram if she converts back to sinus rhythm or her rate is better controlled. Continue to monitor on telemetry <ADRIANA Sanderson - Last Filed: 06/06/21 14:50> (2) Combined systolic and diastolic congestive heart failure: Qualifiers: Heart failure chronicity: acute on chronic Qualified Code(s): I50.43 - Acute on chronic combined systolic (congestive) and diastolic (congestive) heart failure <ADRIANA Sanderson - Last Filed: 06/06/21 14:50> Code(s): I50.40 - Unspecified combined systolic (congestive) and diastolic (congestive) heart failure <ADRIANA Sanderson - Last Filed: 06/06/21 14:50> Status: Acute <ADRIANA Sanderson - Last Filed: 06/06/21 14:50> Assessment and Plan: History of systolic and diastolic dysfunction. Presents with symptoms of acute CHF exacerbation. Progressive shortness of breath, swelling, orthopnea over the past couple of weeks. She has been given IV diuretics in the emergency department and her breathing has improved. Continue IV furosemide, 40 mg IV b.i.d. for now. Monitor renal function electrolytes with daily BMP Daily weights Accurate I&O Compression stockings 1500 cc fluid restriction <ADRIANA Sanderson - Last Filed: 06/06/21 14:50> (3) Chronic kidney disease, stage 4 (severe): Code(s): N18.4 - Chronic kidney disease, stage 4 (severe) <ADRIANA Sanderson - Last Filed: 06/06/21 14:50> Status: Acute <ADRIANA Sanderson - Last Filed: 06/06/21 14:50> Assessment and Plan: Followed by Dr. Pemberton. <ADRIANA Sanderson - Last Filed: 06/06/21 14:50> (4) Uncontrolled hypertension: Code(s): I10 - Essential (primary) hypertension <ADRIANA Sanderson - Last Filed: 06/06/21 14:50> Status: Acute <ADRIANA Sanderson - Last Filed: 06/06/21 14:50> Assessment and Plan: She is significantly hypertensive with a systolic blood pressure in the 180s currently. On terazosin at home. This should be restarted. <ADRIANA Sanderson - Last Filed: 06/06/21 14:50> (5) Elevated troponin: Code(s): R77.8 - Other specified abnormalities of plasma proteins <ADRIANA Sanderson - Last Filed: 06/06/21 14:50> Status: Acute <ADRIANA Sanderson - Last Filed: 06/06/21 14:50> Assessment and Plan: Mildly elevated. Not likely to be related to ACS. Probably related to tachycardia and volume overload. She is not experiencing any chest pain at this time. EKG is without any ischemic changes <ADRIANA Sanderson - Last Filed: 06/06/21 14:50> Additional Plan I have seen and examined the patient and agree with the assessment and plan of the nurse practitioner. This is 80-year-old female with past history of congestive heart failure, chronic kidney disease, diabetes, hypertension and prev
[2021-06-06] MEDS: AMIODARONE 360 MG/D5W 200 ML 360 MG/200 ML BAG 33.33 MG IV CONT (14:38)
[2021-06-06] MEDS: AMIODARONE 150 MG/D5W 100 ML 150 MG/100 ML BAG 600 MG IV CONT (15:01)
--- NOTE | 2021-06-06 16:03 | ADMGEN ---
This patient, Waleska Tse, was admitted to IMU Room 200-01. Patient/family oriented to hospital policies and general routines including ID bracelet, bed and alarms, visiting hours, pain management, procedures, bathroom and other care routines, personal items, smoking policy, room service/diet, and visiting hours. Information on how to activate the Rapid Response Team has been discussed. Patient/Family are encouraged to report perceived risks to care and to ask questions if they do not understand what they are told or what they should do.
--- NOTE | 2021-06-06 16:56 | PM.IMHP ---
H&P: HPI History of Present Illness Date/Time: 06/06/21 16:56 Patient is a 80-year-old female with past medical history of insulin-dependent diabetes (A1c year ago was 9.1), multiple CVA with residual right-sided weakness, and congestive heart failure with reduced EF 33%, stage IV CKD following Dr. Pemberton presents to the ED with complaints of dyspnea on exertion. Patient has been feeling dyspneic over last 2 weeks and has noticed increased body weight. She had a scale to measure weight but does not take extra diuretics. She lives with her son and [id number]. She has not drive and activity is somewhat limited after multiple strokes. She uses a walker at baseline. She has multiple CVAs on Plavix. She does not recall ever having AFib diagnosis. Appears to be new onset. Patient has significant orthopnea. In the ED: Patient was started on diltiazem drip for AFib with RVR, Cardiology was consulted switching to amiodarone drip. Since placed on couple L of oxygen for O2 saturation 80s on room air. In the EMS she was placed on CPAP which ER provider weaned to 4 L oxygen by nasal cannula. Notes state that patient lives in a [facility]. Patient states she lives with her son and [id number]. Patient to be admitted to IMU for further management of AFib with RVR and congestive heart failure exacerbation. Chief Complaint: Dyspnea on exertion Review of Systems Review of Systems: Constitutional: No Fever, No Chills, No Night Sweats, endorses fatigue and malaise ENT/Mouth: No Hearing Changes, No Ear Pain, No Nasal Congestion, No Sinus Pain, No Hoarseness, No sore throat, No Rhinorrhea, No Swallowing Difficulty Eyes: No Eye Pain, No Redness, No Vision Changes Cardiovascular: No Chest Pain, No Palpitations, she endorses peripheral edema lower extremities, dyspnea on exertion, orthopnea Respiratory: No Cough, No Sputum, No Wheezing. Endorses shortness of breath Gastrointestinal: No Nausea, No Vomiting, No Diarrhea, No Constipation, No Abdominal Pain, No Heartburn, No Hematochezia, No Melena Genitourinary: No Dysuria, No Urinary Frequency, No Hematuria, No Urinary Incontinence, No Urgency Musculoskeletal: No Arthralgias, No Myalgias, No Joint Swelling, No Joint Stiffness, No Back Pain Skin: No Skin Lesions, No Pruritis, No Hair Changes Neuro: No Weakness, No Numbness, No Paresthesias, No Loss of Consciousness, No Syncope, No Dizziness, No Headache Psych: No Anxiety/Panic, No Depression, No Insomnia Heme: No Bruising, No Bleeding Lymph: No Adenopathy Endocrine: No Polyuria, No Polydipsia, No Temperature Intolerance PMF Past Medical History Medical History Anemia in chronic kidney disease Anxiety Arthritis Cerebrovascular accident With mild right-sided weakness and expressive aphasia. Chronic kidney disease, stage 4 (severe) Combined systolic and diastolic congestive heart failure Echocardiogram in 03/27/2018 showed moderate global LV systolic dysfunction with a measured EF of 33%, grade 2 diastolic dysfunction, moderate RV hypokinesis, and severe pulmonary hypertension (65 mmHg). Diabetic retinopathy Essential tremor Gastroesophageal reflux disease Hiatal hernia Hypertension Insulin dependent type 2 diabetes mellitus Hemoglobin A1c was 9.1% in 05/2020. Secondary hyperparathyroidism Vitamin D deficiency Surgical History Surgical History History of appendectomy History of cataract extraction History of cholecystectomy History of left knee replacement History of tonsillectomy Status post LASIK surgery Family History Family History Mother Family history of diabetes mellitus in first degree relative Diabetes mellitus Sibling Family history of diabetes mellitus in first degree relative Diabetes mellitus Father Family history of heart disease in male
[2021-06-06 17:02] LABS: Glucose Point of Care 282 mg/dl (65-105)
[2021-06-06 18:00] LABS: Hemoglobin A1C 6.6 % (<5.7)
[2021-06-06] MEDS: INSULIN ASPART (*BKC) 100 UNITS/ML SUB-Q (18:12)
[2021-06-06 18:53] LABS: Troponin I 0.044 ng/mL (0.000-0.034)
[2021-06-06 20:06] LABS: Anion Gap 7 mmol/L (8-16); Blood Urea Nitrogen 43 mg/dL (7-17); Calcium 8.2 mg/dL (8.4-10.2); Carbon Dioxide 24 mmol/L (22-30); Chloride 107 mmol/L (98-107); Cholesterol 131 mg/dL (0-200); Estimated CRCL calculation 21 ml/min; Estimated Glomerular Filt Rate 19; Glucose 290 mg/dL (65-110); HDL Direct 42 mg/dL; Potassium 5.8 mmol/L (3.4-5.0); Sodium 138 mmol/L (137-145); Triglycerides 94 mg/dL (<150)
[2021-06-06 20:17] LABS: LDL Cholesterol Direct 75 mg/dL
[2021-06-06 20:48] LABS: Glucose Point of Care 261 mg/dl (65-105)
[2021-06-06] MEDS: AMIODARONE 360 MG/D5W 200 ML 360 MG/200 ML BAG 16.67 MG IV CONT (21:09)
[2021-06-06] MEDS: LORazepam (*CRX) 1 MG TABLET 2 MG PO (21:34)
[2021-06-06] MEDS: APIXABAN 2.5 MG TABLET PO (21:35)
[2021-06-06] MEDS: TERAZOSIN HCL 1 MG CAPSULE 2 MG PO (21:35)
[2021-06-07] VITALS (15 sets, daily range): BP systolic 124–160; BP diastolic 70–101; PULSE 57–126; RESP 12–30; TEMP 36.2–37.2; O2SAT 96–100
[2021-06-07 07:01] LABS: Hematocrit 28.3 % (37.0-47.0); Hemoglobin 8.7 g/dL (12.0-15.0); Mean Corpuscular HGB Conc 30.7 g/dl (32-36); Mean Corpuscular Hemoglobin 30.9 pg (26-34); Mean Corpuscular Volume 100.4 fl (80-100); Mean Platelet Volume 9.6 fl (7.4-10.4); Platelet Count Result 169 k/mm3 (150-375); Red Blood Count 2.82 M/mm3 (4.2-5.4); Red Cell Distribution Width 13.3 % (11.5-14.5); White Blood Count 6.5 K/mm3 (4.5-10.0)
[2021-06-07 07:23] LABS: Anion Gap 7 mmol/L (8-16); Blood Urea Nitrogen 40 mg/dL (7-17); Carbon Dioxide 27 mmol/L (22-30); Chloride 105 mmol/L (98-107); Estimated CRCL calculation 21 ml/min; Estimated Glomerular Filt Rate 18; Glucose 223 mg/dL (65-110); Magnesium 2.3 mg/dL (1.6-2.3); Sodium 139 mmol/L (137-145)
[2021-06-07 08:01] LABS: Glucose Point of Care 189 mg/dl (65-105)
[2021-06-07] MEDS: AMIODARONE 360 MG/D5W 200 ML 360 MG/200 ML BAG 16.67 MG IV CONT ×2 (09:12→21:12)
[2021-06-07] MEDS: CLOPIDOGREL BISULFATE 75 MG TABLET PO (09:13)
[2021-06-07] MEDS: FUROSEMIDE INJ 40 MG/4 ML VIAL IV PUSH (09:13)
[2021-06-07] MEDS: APIXABAN 2.5 MG TABLET PO ×2 (09:13→21:11)
[2021-06-07] MEDS: metOLazone 5 MG TABLET PO (09:13)
[2021-06-07] MEDS: INSULIN GLARGINE (*BKC) 100 UNITS/ML 50 UNITS SUB-Q (09:14)
--- NOTE | 2021-06-07 10:56 | PM.PNCARD ---
Progress Note: A&P Additional Plan 80-year-old woman with diastolic noncompliance chronically who enters the hospital with worsening shortness of breath. She now also has been found to have paroxysmal atrial fibrillation. She is receiving intravenous amiodarone in hopes of converting her medically to sinus rhythm. Systemic anticoagulation with apixaban has been initiated as well. I believe today we can [place] transition her back to oral furosemide. I will plan to keep the IV amiodarone running as long she is in AFib. If she medically converse we will transition her to oral dosage. If she does not medically convert then we will anticipate electrical cardioversion on Thursday Amauri Jones MD [facility] Subjective Date/time seen: Date of service: 06/07/21 10:56 Interval history: Follow-up visit in this 80-year-old woman with: Chronic diastolic left ventricular systolic dysfunction. She entered the hospital with some shortness of breath mild fluid overload. Interestingly while she was in the emergency room she reverted from sinus rhythm to AFib with RVR. Intravenous amiodarone has been started yesterday to try to restore sinus rhythm. As of this time she still is in atrial fibrillation with controlled response. Systemic anticoagulation with apixaban has also been started. Today she looks and feels comfortable her breathing is better. Still receiving IV furosemide. Exam Const: General: comfortable and no acute distress Other: Pleasant morbidly obese lady head of the bed elevated at about 45? in no distress HENMT: Mouth: Yes moist mucous membranes Eyes: Sclera: sclerae normal Pupils: Equal, round and reactive pupils present Neck: Neck: supple Other: Cannot assess JVD given her body habitus Resp: Auscultation: clear to auscultation bilaterally Cardio: Rhythm: abnormal rhythm irregularly irregular GI: GI Palp: Yes Soft to palpation Auscultation: normal bowel sounds Skin: General skin exam: normal color Neuro: Cognition (Neuro): normal cognition Extrem: Other: Markedly obese little if any pitting edema Objective Data Vital Signs Vital Signs: Vital Signs - 24 hr 06/06/21 13:45 06/06/21 14:18 06/06/21 14:38 Temperature Pulse Rate 110 H 93 133 H Respiratory Rate 20 18 Blood Pressure 132/78 137/94 H 142/73 H Pulse Oximetry 99 99 06/06/21 15:01 06/06/21 16:00 06/06/21 16:16 Temperature 36.7 C Pulse Rate 122 H 99 135 H Respiratory Rate 18 Blood Pressure 151/94 H 156/75 H Pulse Oximetry 100 06/06/21 20:00 06/06/21 21:09 06/06/21 23:51 Temperature 36.9 C 37.2 C Pulse Rate 101 H 115 H 110 H Respiratory Rate 19 20 Blood Pressure 138/78 142/72 H Pulse Oximetry 100 100 06/07/21 00:00 06/07/21 03:45 06/07/21 04:00 Temperature 37.2 C Pulse Rate 115 H 101 H 108 H Respiratory Rate 20 Blood Pressure 124/81 Pulse Oximetry 100 98 06/07/21 08:00 06/07/21 10:10 Temperature 36.2 C L Pulse Rate 105 H 112 H Respiratory Rate 12 Blood Pressure 138/80 Pulse Oximetry 100 Intake/Output Intake/Output: Intake & Output 06/04/21 06/05/21 06/06/21 06/07/21 23:59 23:59 23:59 23:59 Intake Total 440 480 Output Total 450 Balance 440 30 Meds/Results Medications: Active Medications Generic Name Dose Route Start Last Admin Trade Name Freq PRN Reason Stop Dose Admin Acetaminophen 650 mg 06/06/21 17:27 Acetaminophen 325 Mg Tablet PO Q4H PRN Mild Pain (1-3) or Fever Apixaban 2.5 mg 06/06/21 21:00 06/07/21 09:13 Apixaban 2.5 Mg Tablet PO 2.5 mg Q12HR JULIO Administration Bisacodyl 5 mg 06/06/21 17:27 Bisacodyl 5 Mg Tablet Ec PO DAILY PRN Constipation Clopidogrel Bisulfate 75 mg 06/07/21 09:00 06/07/21 09:13 Clopidogrel Bisulfate 75 Mg Tablet PO 75 mg QAM JULIO Administration Dextrose 12.5 gm 06/06/21 16:55 Dextrose 50% 25 Gm/50 Ml Syringe IV PUSH PRN PRN Hypoglycemia Protocol Fl
[2021-06-07 12:55] LABS: Glucose Point of Care 269 mg/dl (65-105)
[2021-06-07] MEDS: INSULIN ASPART (*BKC) 100 UNITS/ML SUB-Q ×2 (13:00→17:41)
--- NOTE | 2021-06-07 14:34 | PM.IMPN ---
Progress Note: A&P Assessment and Plan (1) Elevated troponin: Code(s): R77.8 - Other specified abnormalities of plasma proteins Status: Acute (2) Atrial fibrillation with rapid ventricular response: Code(s): I48.91 - Unspecified atrial fibrillation Status: Acute (3) Hypertensive emergency: Code(s): I16.1 - Hypertensive emergency Status: Acute (4) Acute exacerbation of CHF (congestive heart failure): Qualifiers: Heart failure type: diastolic Qualified Code(s): I50.33 - Acute on chronic diastolic (congestive) heart failure Code(s): I50.9 - Heart failure, unspecified Status: Acute Additional Plan # AFib with RVR -likely secondary to fluid overload, continue amiodarone drip, if she converts was switched to p.o., if not plan for cardioversion Thursday -paroxysmal atrial fibrillation -anticoagulation started Eliquis -heart rate still AFib RVR 120 -likely etiology for previous strokes, paroxysmal atrial fibrillation. Has patient has history of multiple strokes # CHF exacerbation -fluid overloaded, continue diuresis IV Lasix changed to p.o. Lasix 40 mg b.i.d. -will get echocardiogram months AFib rate slows down # elevated troponin -no chest pain, troponin likely secondary to RVR # essential hypertension -likely worsening secondary to fluid overload, continue diuresis and anticipate blood pressure improved # other chronic conditions -insulin-dependent type 2 diabetes: Checking hemoglobin A1c, continue home Lantus 50 units q.a.m., 6 units q.h.s., sliding scale insulin, -history of CVA: Continue home Plavix Diet: Diabetic, heart healthy with 1500 cc fluid restriction DVT prophylaxis: Eliquis Code status: Full code Disposition: On amiodarone drip in IMU Subjective Date/time seen: 06/07/21 14:34 Patient seen and examined. Patient is still in AFib with RVR, continuing amiodarone. Diuretics have been changed from IV to p.o. 40 mg b.i.d.. Reviewed notes from Cardiology. If patient does not convert by Thursday, plan for cardioversion. Patient states her breathing is better, is diuresing well. Patient denies fever, chills, nausea, vomiting, diarrhea, chest pain, abdominal pain. Review of Systems Review of Systems: All systems reviewed & are unremarkable except as noted in HPI and below Exam Narrative: - GENERAL: Morbidly obese pleasant elderly woman breathing comfortably on 2 L oxygen via nasal cannula. - EYES: EOMI. Anicteric. - HENT: Moist mucous membranes. - LUNGS: Clear to auscultation bilaterally, breathing comfortably on 2 L oxygen by nasal cannula. - CARDIOVASCULAR: Heart rate irregularly irregular. - ABDOMEN: Soft, non-tender and non-distended. No palpable masses. - EXTREMITIES: 3+ peripheral edema lower extremities, thickening of skin from chronic edema - NEUROLOGIC: No focal neurological deficits. CN II-XII grossly intact. Right upper extremity strength is weaker than left upper extremity. - PSYCHIATRIC: Awake, Alert and oriented. Appropriate mood and affect. Sometime she is slow to respond, patient states that she has been that way since her strokes. - SKIN: No rashes or lesions. Warm. - LYMPH: No cervical lymphadenopathy. Objective Data Vital Signs Vital Signs: Vital Signs - 24 hr 06/06/21 14:38 06/06/21 15:01 06/06/21 16:00 Temperature 36.7 C Pulse Rate 133 H 122 H 99 Respiratory Rate 18 Blood Pressure 142/73 H 151/94 H 156/75 H Pulse Oximetry 100 06/06/21 16:16 06/06/21 20:00 06/06/21 21:09 Temperature 36.9 C Pulse Rate 135 H 101 H 115 H Respiratory Rate 19 Blood Pressure 138/78 Pulse Oximetry 100 06/06/21 23:51 06/07/21 00:00 06/07/21 03:45 Temperature 37.2 C 37.2 C Pulse Rate 110 H 115 H 101 H Respiratory Rate 20 20 Blood Pressure 142/72 H 124/81 Pulse Oximetry 100 100 06/07/21 04:00 06/07/21 08:00 06/07/21 10:10 Temperature 36.2 C L Pulse Rate 108 H 105 H 112 H Respiratory Rate 12 Blood Pressure
[2021-06-07 16:26] LABS: Anion Gap 6 mmol/L (8-16); Blood Urea Nitrogen 46 mg/dL (7-17); Calcium 7.9 mg/dL (8.4-10.2); Carbon Dioxide 30 mmol/L (22-30); Chloride 102 mmol/L (98-107); Estimated CRCL calculation 18 ml/min; Estimated Glomerular Filt Rate 15; Glucose 238 mg/dL (65-110); Potassium 5.1 mmol/L (3.4-5.0); Sodium 138 mmol/L (137-145)
[2021-06-07 17:37] LABS: Glucose Point of Care 201 mg/dl (65-105)
[2021-06-07] MEDS: FUROSEMIDE 40 MG TABLET PO (17:41)
[2021-06-07 19:59] LABS: Glucose Point of Care 184 mg/dl (65-105)
[2021-06-07] MEDS: LORazepam (*CRX) 1 MG TABLET 2 MG PO (21:10)
[2021-06-07] MEDS: TERAZOSIN HCL 1 MG CAPSULE 2 MG PO (21:11)
[2021-06-08] VITALS (16 sets, daily range): BP systolic 151–184; BP diastolic 46–71; PULSE 65–92; RESP 12–22; TEMP 36.1–37.1; O2SAT 97–100
[2021-06-08 01:37] LABS: Glucose Point of Care 81 mg/dl (65-105)
[2021-06-08 05:32] LABS: Hematocrit 26.9 % (37.0-47.0); Hemoglobin 8.2 g/dL (12.0-15.0); Mean Corpuscular HGB Conc 30.5 g/dl (32-36); Mean Corpuscular Hemoglobin 30.5 pg (26-34); Mean Platelet Volume 10.2 fl (7.4-10.4); Platelet Count Result 184 k/mm3 (150-375); Red Blood Count 2.69 M/mm3 (4.2-5.4); Red Cell Distribution Width 13.2 % (11.5-14.5); White Blood Count 7.2 K/mm3 (4.5-10.0)
[2021-06-08 05:44] LABS: Anion Gap 8 mmol/L (8-16); Blood Urea Nitrogen 48 mg/dL (7-17); Calcium 7.7 mg/dL (8.4-10.2); Carbon Dioxide 25 mmol/L (22-30); Chloride 105 mmol/L (98-107); Estimated CRCL calculation 17 ml/min; Estimated Glomerular Filt Rate 14; Glucose 115 mg/dL (65-110); Magnesium 2.4 mg/dL (1.6-2.3); Potassium 4.5 mmol/L (3.4-5.0); Sodium 138 mmol/L (137-145)
[2021-06-08 08:14] LABS: Glucose Point of Care 102 mg/dl (65-105)
[2021-06-08] MEDS: INSULIN GLARGINE (*BKC) 100 UNITS/ML 50 UNITS SUB-Q (08:47)
[2021-06-08] MEDS: CLOPIDOGREL BISULFATE 75 MG TABLET PO (08:48)
[2021-06-08] MEDS: FUROSEMIDE 40 MG TABLET PO (08:48)
[2021-06-08] MEDS: APIXABAN 2.5 MG TABLET PO ×2 (08:48→21:05)
[2021-06-08] MEDS: metOLazone 5 MG TABLET PO (08:48)
--- NOTE | 2021-06-08 10:48 | PM.PNCARD ---
Progress Note: A&P Additional Plan 80-year-old patient with diastolic dysfunction and development of acute atrial fibrillation. She has converted to sinus rhythm with amiodarone intravenously. Will switch her to an oral dosage of will 400 mg daily with an eye towards reducing that to 200 mg in 3 or 4 weeks. Systemic anticoagulation will be continued. Amauri Jones MD [facility] Subjective Date/time seen: Date of service: 06/08/21 10:48 Interval history: Follow-up visit in this 80-year-old woman with: Chronic diastolic left ventricular systolic dysfunction. She entered the hospital with some shortness of breath mild fluid overload. Interestingly while she was in the emergency room she reverted from sinus rhythm to AFib with RVR. Intravenous amiodarone has been started yesterday to try to restore sinus rhythm. As of this time she still is in atrial fibrillation with controlled response. Systemic anticoagulation with apixaban has also been started. 06/08/2021: Patient is feeling better today still short of breath with modest activity but has converted to sinus rhythm with intravenous amiodarone. She was very pleased to hear that she will not require DC cardioversion. Exam Const: General: comfortable and no acute distress; No confusion Orientation/consciousness: No confusion Other: Pleasant morbidly obese lady head of the bed elevated at about 45? in no distress HENMT: Head: normal to inspection and normocephalic Mouth: Yes moist mucous membranes Eyes: General: appearance normal, both eyes and all related structures Sclera: sclerae normal Pupils: Equal, round and reactive pupils present Neck: Neck: supple Carotids: no bruits Other: Cannot assess JVD given her body habitus Resp: Auscultation: clear to auscultation bilaterally and rales (1/[address] bilaterally) bilateral Cardio: Rate: regular rate Rhythm: regular rhythm GI: Auscultation: normal bowel sounds Skin: General skin exam: normal color Neuro: General: No confusion Cranial nerves: Yes Equal, round and reactive pupils present and Yes Normal hearing present Cognition (Neuro): normal cognition Extrem: General: abnormal to inspection, edema (Moderate bilateral pedal and pretibial edema) and pedal edema Other: Markedly obese little if any pitting edema Psych: Mental Status: mental status grossly normal Objective Data Vital Signs Vital Signs: Vital Signs - 24 hr 06/07/21 12:00 06/07/21 12:10 06/07/21 14:00 Temperature 36.6 C Pulse Rate 126 H 119 H 57 L Respiratory Rate 30 H Blood Pressure 149/101 H Pulse Oximetry 100 06/07/21 16:00 06/07/21 18:00 06/07/21 20:00 Temperature 36.8 C 37.1 C Pulse Rate 63 62 61 Respiratory Rate 26 H 24 H Blood Pressure 156/70 H 155/72 H Pulse Oximetry 100 98 06/07/21 21:05 06/07/21 21:12 06/07/21 22:00 Temperature Pulse Rate 62 64 72 Respiratory Rate Blood Pressure Pulse Oximetry 06/07/21 23:24 06/08/21 00:00 06/08/21 02:00 Temperature 36.9 C Pulse Rate 66 65 69 Respiratory Rate 22 H Blood Pressure 160/74 H Pulse Oximetry 97 98 06/08/21 04:00 06/08/21 04:15 06/08/21 06:00 Temperature 37.1 C Pulse Rate 71 71 67 Respiratory Rate 22 H Blood Pressure 158/71 H Pulse Oximetry 98 97 06/08/21 08:00 06/08/21 09:42 06/08/21 10:00 Temperature 36.1 C L Pulse Rate 67 77 Respiratory Rate 18 Blood Pressure 151/55 H Pulse Oximetry 97 99 Intake/Output Intake/Output: Intake & Output 06/05/21 06/06/21 06/07/21 06/08/21 23:59 23:59 23:59 23:59 Intake Total 440 1360 550 Output Total 750 700 Balance 440 610 -150 Meds/Results Medications: Active Medications Generic Name Dose Route Start Last Admin Trade Name Freq PRN Reason Stop Dose Admin Acetaminophen 650 mg 06/06/21 17:27 Acetaminophen 325 Mg Tablet PO Q4H PRN Mild Pain (1-3) or Fever Apixaban 2.5 mg 06/06/21 21:00 06/08/21 08:48 Apixaban 2.5 Mg Tablet
[2021-06-08] MEDS: AMIODARONE HCL 200 MG TABLET 400 MG PO (13:00)
[2021-06-08 13:04] LABS: Glucose Point of Care 175 mg/dl (65-105)
--- NOTE | 2021-06-08 14:56 | PM.IMPN ---
Progress Note: A&P Assessment and Plan (1) Elevated troponin: Code(s): R77.8 - Other specified abnormalities of plasma proteins Status: Acute (2) Atrial fibrillation with rapid ventricular response: Code(s): I48.91 - Unspecified atrial fibrillation Status: Acute (3) Hypertensive emergency: Code(s): I16.1 - Hypertensive emergency Status: Acute (4) Acute exacerbation of CHF (congestive heart failure): Qualifiers: Heart failure type: diastolic Qualified Code(s): I50.33 - Acute on chronic diastolic (congestive) heart failure Code(s): I50.9 - Heart failure, unspecified Status: Acute Additional Plan # paroxysmal atrial fibrillation, RVR resolved -likely secondary to fluid overload, now that she is in normal sinus rhythm stopping amiodarone drip and starting 400 mg amiodarone p.o. daily -anticoagulation continue Eliquis -heart rate converted to normal sinus rhythm low 60s -likely etiology for previous strokes, paroxysmal atrial fibrillation. Has patient has history of multiple strokes # CHF exacerbation -fluid overloaded, continue diuresis IV Lasix changed to p.o. Lasix 40 mg b.i.d., +230mL fluid balance -will get echocardiogram months AFib rate slows down # elevated troponin -no chest pain, troponin likely secondary to RVR # essential hypertension -likely worsening secondary to fluid overload, continue diuresis and anticipate blood pressure improved # other chronic conditions -insulin-dependent type 2 diabetes: Checking hemoglobin A1c, continue home Lantus 50 units q.a.m., 6 units q.h.s., sliding scale insulin, -history of CVA: Continue home Plavix Diet: Diabetic, heart healthy with 1500 cc fluid restriction DVT prophylaxis: Eliquis Code status: Full code Disposition: Moving to [facility], PT and OT evaluation for disposition Subjective Date/time seen: 06/08/21 14:56 Patient seen and examined. He is doing well today with no new complaints. He converted to normal sinus rhythm on the amiodarone drip. Stopping the amiodarone drip drip and starting p.o. amiodarone 400 mg daily. She will be moved out of the IMU to [facility]. She will work with PT and OT to help evaluate disposition plan. Patient denies fever, chills, nausea, vomiting, diarrhea, chest pain, shortness of breath. Review of Systems Review of Systems: All systems reviewed & are unremarkable except as noted in HPI and below Exam Narrative: - GENERAL: Morbidly obese pleasant elderly woman breathing comfortably on 2 L oxygen via nasal cannula. - EYES: EOMI. Anicteric. - HENT: Moist mucous membranes. - LUNGS: Clear to auscultation bilaterally, breathing comfortably on 2 L oxygen by nasal cannula. - CARDIOVASCULAR: Heart rate irregularly irregular. - ABDOMEN: Soft, non-tender and non-distended. No palpable masses. - EXTREMITIES: 3+ peripheral edema lower extremities, thickening of skin from chronic edema - NEUROLOGIC: No focal neurological deficits. CN II-XII grossly intact. Right upper extremity strength is weaker than left upper extremity. - PSYCHIATRIC: Awake, Alert and oriented. Appropriate mood and affect. - SKIN: No rashes or lesions. Warm. - LYMPH: No cervical lymphadenopathy. Objective Data Vital Signs Vital Signs: Vital Signs - 24 hr 06/07/21 16:00 06/07/21 18:00 06/07/21 20:00 Temperature 36.8 C 37.1 C Pulse Rate 63 62 61 Respiratory Rate 26 H 24 H Blood Pressure 156/70 H 155/72 H Pulse Oximetry 100 98 06/07/21 21:05 06/07/21 21:12 06/07/21 22:00 Temperature Pulse Rate 62 64 72 Respiratory Rate Blood Pressure Pulse Oximetry 06/07/21 23:24 06/08/21 00:00 06/08/21 02:00 Temperature 36.9 C Pulse Rate 66 65 69 Respiratory Rate 22 H Blood Pressure 160/74 H Pulse Oximetry 97 98 06/08/21 04:00 06/08/21 04:15 06/08/21 06:00 Temperature 37.1 C Pulse Rate 71 71 67 Respiratory Rate 22 H Blood Pressure 158/71 H Pulse Oximetry 98 97 06/08/21
[2021-06-08 15:13] LABS: Anion Gap 6 mmol/L (8-16); Blood Urea Nitrogen 51 mg/dL (7-17); Carbon Dioxide 28 mmol/L (22-30); Chloride 103 mmol/L (98-107); Estimated CRCL calculation 17 ml/min; Estimated Glomerular Filt Rate 14; Glucose 220 mg/dL (65-110); Potassium 4.5 mmol/L (3.4-5.0); Sodium 137 mmol/L (137-145)
[2021-06-08 16:49] LABS: Glucose Point of Care 205 mg/dl (65-105)
[2021-06-08 20:13] LABS: Glucose Point of Care 180 mg/dl (65-105)
[2021-06-08] MEDS: LORazepam (*CRX) 1 MG TABLET 2 MG PO (21:05)
[2021-06-08] MEDS: TERAZOSIN HCL 1 MG CAPSULE 2 MG PO (21:06)
[2021-06-09] VITALS (18 sets, daily range): BP systolic 118–167; BP diastolic 50–87; PULSE 69–158; RESP 16–26; TEMP 36.1–36.9; O2SAT 97–100
[2021-06-09 03:42] LABS: Glucose Point of Care 104 mg/dl (65-105)
[2021-06-09 04:54] LABS: Magnesium 2.1 mg/dL (1.6-2.3)
[2021-06-09] MEDS: AMIODARONE HCL 200 MG TABLET 400 MG PO ×3 (05:51→22:03)
--- NOTE | 2021-06-09 07:47 | PM.PNCARD ---
Progress Note: A&P Additional Plan 80-year-old lady with paroxysmal atrial fibrillation being loaded with amiodarone. Yesterday she was in sinus rhythm today she is back in AFib although asymptomatic with this. I am going to raise her amiodarone dosage up to 400 mg q.8 hours in hopes of affecting medical cardioversion. It looks like this lady will probably be going in and out of AFib for a while while amiodarone treatment is initiated. This will probably go on for the next month or 2. She does not have to be hospitalized while we are loading her with oral amiodarone. Consider discharge in the next 24-48 hours if she is clinically stable. While she is in the hospital we can advance the dosage of amiodarone to 1200 mg daily Amauri Jones MD [facility] Subjective Date/time seen: Date of service:06/09/21 07:47 Interval history: Follow-up visit in this 80-year-old woman with: Chronic diastolic left ventricular systolic dysfunction. She entered the hospital with some shortness of breath mild fluid overload. Interestingly while she was in the emergency room she reverted from sinus rhythm to AFib with RVR. Intravenous amiodarone has been started yesterday to try to restore sinus rhythm. As of this time she still is in atrial fibrillation with controlled response. Systemic anticoagulation with apixaban has also been started. 06/08/2021: Patient is feeling better today still short of breath with modest activity but has converted to sinus rhythm with intravenous amiodarone. She was very pleased to hear that she will not require DC cardioversion. 06/09/2021: Patient remains asymptomatic this morning. Apparently at about 0 500 she reverted back to atrial fibrillation. She is symptomaticaly unaware of this. No shortness of breath Exam Const: General: comfortable and no acute distress Other: Morbidly obese elderly lady wearing nasal cannula oxygen resting in bed no complaints HENMT: Mouth: Yes moist mucous membranes Eyes: Sclera: sclerae normal Neck: Neck: supple Carotids: bruit Other: Difficult to assess JVD given her body habitus. No bruits Resp: Effort & Inspection: normal respiratory effort Other: Breath sounds are relatively clear this morning Cardio: Rhythm: abnormal rhythm irregularly irregular GI: GI Palp: Yes Soft to palpation Auscultation: normal bowel sounds Skin: General skin exam: normal color Neuro: Cognition (Neuro): normal cognition Objective Data Vital Signs Vital Signs: Vital Signs - 24 hr 06/08/21 08:00 06/08/21 09:42 06/08/21 10:00 Temperature 36.1 C L Pulse Rate 67 77 Respiratory Rate 18 Blood Pressure 151/55 H Pulse Oximetry 97 99 06/08/21 12:00 06/08/21 14:00 06/08/21 16:00 Temperature 36.3 C L 36.4 C Pulse Rate 69 76 70 Respiratory Rate 12 18 Blood Pressure 161/65 H 184/46 H Pulse Oximetry 98 98 06/08/21 18:00 06/08/21 19:32 06/08/21 20:00 Temperature 36.4 C Pulse Rate 92 80 78 Respiratory Rate 17 Blood Pressure 166/67 H Pulse Oximetry 100 06/08/21 22:00 06/08/21 23:29 06/09/21 00:00 Temperature 36.6 C Pulse Rate 81 77 82 Respiratory Rate 18 Blood Pressure 153/46 H Pulse Oximetry 100 06/09/21 02:00 06/09/21 03:13 06/09/21 05:51 Temperature 36.9 C Pulse Rate 75 76 132 H Respiratory Rate 16 Blood Pressure 157/51 H Pulse Oximetry 97 Intake/Output Intake/Output: Intake & Output 06/06/21 06/07/21 06/08/21 06/09/21 23:59 23:59 23:59 23:59 Intake Total 440 1360 1270 330 Output Total 750 1050 650 Balance 440 610 220 -320 Meds/Results Medications: Active Medications Generic Name Dose Route Start Last Admin Trade Name Frandy PRN Reason Stop Dose Admin Acetaminophen 650 mg 06/06/21 17:27 Acetaminophen 325 Mg Tablet PO Q4H PRN Mild Pain (1-3) or Fever Amiodarone HCl 400 mg 06/09/21 07:45 Amiodarone Hcl 200 Mg Tablet PO Q8H [facility] Amlodipine Besylate 5 mg 06/08/21 16:25 Amlodipin
[2021-06-09 08:09] LABS: Glucose Point of Care 164 mg/dl (65-105)
[2021-06-09] MEDS: CLOPIDOGREL BISULFATE 75 MG TABLET PO (09:31)
[2021-06-09] MEDS: APIXABAN 2.5 MG TABLET PO ×2 (09:31→22:04)
[2021-06-09] MEDS: amLODIPine BESYLATE 5 MG TABLET PO (09:31)
[2021-06-09] MEDS: FUROSEMIDE 40 MG TABLET PO ×2 (09:31→17:45)
[2021-06-09] MEDS: INSULIN GLARGINE (*BKC) 100 UNITS/ML 50 UNITS SUB-Q (09:34)
[2021-06-09] MEDS: metOLazone 5 MG TABLET PO (09:34)
[2021-06-09 12:20] LABS: Glucose Point of Care 256 mg/dl (65-105)
[2021-06-09] MEDS: INSULIN ASPART (*BKC) 100 UNITS/ML SUB-Q (14:17)
--- NOTE | 2021-06-09 15:31 | PM.IMPN ---
Progress Note: A&P Assessment and Plan (1) Elevated troponin: Code(s): R77.8 - Other specified abnormalities of plasma proteins Status: Acute (2) Atrial fibrillation with rapid ventricular response: Code(s): I48.91 - Unspecified atrial fibrillation Status: Acute (3) Hypertensive emergency: Code(s): I16.1 - Hypertensive emergency Status: Acute (4) Acute exacerbation of CHF (congestive heart failure): Qualifiers: Heart failure type: diastolic Qualified Code(s): I50.33 - Acute on chronic diastolic (congestive) heart failure Code(s): I50.9 - Heart failure, unspecified Status: Acute Additional Plan # paroxysmal atrial fibrillation with RVR -likely secondary to fluid overload, she had converted to normal sinus rhythm on amiodarone drip then switched to 400 mg of p.o. amiodarone daily, then went back into AFib with RVR, now increasing to 400 mg t.i.d. as per Cardiology -anticoagulation continue Eliquis -when heart rate converted she was in 60s -likely etiology for previous strokes, paroxysmal atrial fibrillation. Has patient has history of multiple strokes # heart failure with preserved ejection fraction -fluid overloaded, continue diuresis IV Lasix changed to p.o. Lasix 40 mg b.i.d., +230mL fluid balance -will get echocardiogram months AFib rate slows down -previous echocardiogram 02/21/2021: Left ventricle systolic function 65-70%, abnormal left ventricular diastolic function # elevated troponin -no chest pain, troponin likely secondary to RVR, supply demand mismatch # essential hypertension -likely worsening secondary to fluid overload, continue diuresis and anticipate blood pressure improved # other chronic conditions -insulin-dependent type 2 diabetes: hemoglobin A1c 6.6, continue home Lantus 50 units q.a.m., 6 units q.h.s., sliding scale insulin, -history of CVA: Continue home Plavix Diet: Diabetic, heart healthy with 1500 cc fluid restriction DVT prophylaxis: Eliquis Code status: Full code Disposition: Med tele, PT and OT evaluation, will likely watch for next 24-48 hours while her heart rate still in AFib Subjective Date/time seen: 06/09/21 15:31 Patient seen examined. She has no new complaints. This morning she was went back into AFib with RVR at 5:30 a.m. cardiology increasing amiodarone to 400 mg t.i.d.. We will see if she can be controlled with this regimen. We will continue monitoring for next 24-48 hours. Her O2 saturation is 99% on 2 L oxygen by nasal cannula, hopefully we can come off the oxygen completely. She denies fever, chills, nausea, vomiting, diarrhea, chest pain, shortness of breath. Review of Systems Review of Systems: All systems reviewed & are unremarkable except as noted in HPI and below Exam Narrative: - GENERAL: Morbidly obese pleasant elderly woman breathing comfortably on 2 L oxygen via nasal cannula. - EYES: EOMI. Anicteric. - HENT: Moist mucous membranes. - LUNGS: Clear to auscultation bilaterally, breathing comfortably on 2 L oxygen by nasal cannula. - CARDIOVASCULAR: Heart rate irregularly irregular. - ABDOMEN: Soft, non-tender and non-distended. No palpable masses. - EXTREMITIES: 3+ peripheral edema lower extremities, thickening of skin from chronic edema - NEUROLOGIC: No focal neurological deficits. CN II-XII grossly intact. Right upper extremity strength is weaker than left upper extremity. - PSYCHIATRIC: Awake, Alert and oriented. Appropriate mood and affect. - SKIN: No rashes or lesions. Warm. - LYMPH: No cervical lymphadenopathy. Objective Data Vital Signs Vital Signs: Vital Signs - 24 hr 06/08/21 16:00 06/08/21 18:00 06/08/21 19:32 Temperature 36.4 C 36.4 C Pulse Rate 70 92 80 Respiratory Rate 18 17 Blood Pressure 184/46 H 166/67 H Pulse Oximetry 98 100 06/08/21 20:00 06/08/21 22:00 06/08/21 23:29 Temperature 36.6 C Pulse Rate 78 81 77 Respiratory Rate 18 Blood Pressure 153/46 H Pulse Oximetr
[2021-06-09 15:32] LABS: Anion Gap 4 mmol/L (8-16); Blood Urea Nitrogen 51 mg/dL (7-17); Calcium 7.9 mg/dL (8.4-10.2); Carbon Dioxide 31 mmol/L (22-30); Chloride 102 mmol/L (98-107); Estimated CRCL calculation 18 ml/min; Estimated Glomerular Filt Rate 15; Glucose 230 mg/dL (65-110); Potassium 4.2 mmol/L (3.4-5.0); Sodium 137 mmol/L (137-145)
[2021-06-09 17:06] LABS: Glucose Point of Care 192 mg/dl (65-105)
[2021-06-09 21:57] LABS: Glucose Point of Care 165 mg/dl (65-105)
[2021-06-09] MEDS: TERAZOSIN HCL 1 MG CAPSULE 2 MG PO (22:04)
[2021-06-09] MEDS: LORazepam (*CRX) 1 MG TABLET 2 MG PO (22:05)
[2021-06-10] VITALS (14 sets, daily range): BP systolic 140–186; BP diastolic 41–54; PULSE 65–85; RESP 16–24; TEMP 36.1–36.8; O2SAT 93–100
--- NOTE | 2021-06-10 | ECHO_ITS ---
Patient Info Name: Waleska Tse Age: 80 years : 1940 Gender: Female Ht: 62 in Wt: 289 lbs BSA: 2.48 m2 HR: 72 bpm BP: 186 / 61 mmHg Heart Rhythm: Sinus Rhythm Technical Quality: Poor, Other Exam Date: 06/10/2021 2:56 PM Exam Location: [facility] Exam Room: 200 Patient Status: Inpatient Admit Date: 06/06/2021 Staff Ordering Physician: Unique Mcgregor [employer]ns[employer] Analyst: Vandana Sifuentes RDCS Attending Provider: Gage Cole MD Referring Physician: Meche BRYAN; Exam Type: CA echo dop color flow w con Study Info Indications - CHF AFIB NEW ONSET Complete two-dimensional, color flow and Doppler transthoracic echocardiogram is performed with contrast to opacify the left ventricle and to improve the deliniation of the left ventricle endocardial borders. Contrast/Agitated Saline Contrast/Ag. Saline: Definity Amount: 1.00 ml Existing IV Access: Yes IV Access Condition: patent with no signs of infiltration Summary 1. Left ventricular chamber dimension is normal. 2. Left ventricular systolic function is normal, estimated at 65-70%. 3. There is moderately increased left ventricular wall thickness. 4. The left ventricular diastolic function is grade II diastolic dysfunction. 5. Right ventricular chamber dimension is mildly enlarged. 6. Left atrial chamber dimension is severely enlarged. 7. Right atrial chamber dimension is moderately enlarged. 8. There is mild mitral valve stenosis. 9. There is mild mitral valve regurgitation. 10. There is mild tricuspid valve regurgitation. 11. Severe pulmonary hypertension, estimated pulmonary arterial systolic pressure is 84 mmHg. 12. Dilated inferior vena cava with <50% collapse upon inspiration consistent with elevated right atrial pressure, 10 mmHg. Left Ventricle Left ventricular chamber dimension is normal. Left ventricular systolic function is normal, estimated at 65-70%. There is moderately increased left ventricular wall thickness. The left ventricular diastolic function is grade II diastolic dysfunction. Right Ventricle Right ventricular chamber dimension is mildly enlarged. Right ventricular systolic function is normal. Left Atria Left atrial chamber dimension is severely enlarged. Right Atria Right atrial chamber dimension is moderately enlarged. Aortic Valve The aortic valve is not well visualized. There is no aortic valve stenosis. There is no aortic valve regurgitation. There is mild aortic valve calcification. Pulmonic Valve The pulmonic valve is not well visualized. There is trace pulmonic regurgitation. Mitral Valve The mitral valve has calcified leaflets. There is mild mitral valve stenosis. There is mild mitral valve regurgitation. The mitral valve annulus is severely calcified. Tricuspid Valve The tricuspid valve leaflets are normal. There is mild tricuspid valve regurgitation. Severe pulmonary hypertension, estimated pulmonary arterial systolic pressure is 84 mmHg. Pericardium/Pleural The pericardium appears not well visualized. Inferior Vena Cava Dilated inferior vena cava with <50% collapse upon inspiration consistent with elevated right atrial pressure, 10 mmHg. Aorta The aortic root size at the sinus of Valsalva is normal. There is moderate aortic atherosclerosis. Left Ventricular Outflow Tract Name
[2021-06-10] MEDS: AMIODARONE HCL 200 MG TABLET 400 MG PO ×3 (05:58→21:32)
[2021-06-10] MEDS: amLODIPine BESYLATE 5 MG TABLET PO ×2 (08:58→12:48)
[2021-06-10] MEDS: CLOPIDOGREL BISULFATE 75 MG TABLET PO (08:58)
[2021-06-10] MEDS: FUROSEMIDE 40 MG TABLET PO ×2 (08:58→17:11)
[2021-06-10] MEDS: APIXABAN 2.5 MG TABLET PO ×2 (08:59→20:05)
[2021-06-10] MEDS: metOLazone 5 MG TABLET PO (08:59)
--- NOTE | 2021-06-10 09:11 | P.PNCA_ITS ---
Progress Note: A&P Assessment and Plan (1) Atrial fibrillation with rapid ventricular response: Code(s): I48.91 - Unspecified atrial fibrillation <ADRIANA Sanderson - Last Filed: 06/10/21 10:22> Status: Acute <ADRIANA Sanderson - Last Filed: 06/10/21 10:22> Assessment and Plan: This is a new problem. She presented to the emergency department in sinus rhythm and subsequently was noted to be in atrial fibrillation with rapid ventricular response. Initially converted to normal sinus rhythm on IV amiodarone but reverted back to atrial fibrillation with RVR yesterday. She was asymptomatic with this. Her oral amiodarone dosage was increased in hopes of chemically converting her back to normal sinus rhythm which has been successful. * Continue loading dose of amiodarone today * Decrease amiodarone to 200mg daily starting tomorrow * Continue anticoagulation with apixaban 2.5mg b.i.d (dose adjusted for age, renal function) * Monitor for bleeding (also on plavix for h/o strokes) * Continue to monitor on telemetry <ADRIANA Sanderson - Last Filed: 06/10/21 10:22> (2) Combined systolic and diastolic congestive heart failure: Qualifiers: Heart failure chronicity: acute on chronic Qualified Code(s): I50.43 - Acute on chronic combined systolic (congestive) and diastolic (congestive) heart failure <ADRIANA Sanderson - Last Filed: 06/10/21 10:22> Code(s): I50.40 - Unspecified combined systolic (congestive) and diastolic (congestive) heart failure <ADRIANA Sanderson - Last Filed: 06/10/21 10:22> Status: Acute <ADRIANA Sanderson - Last Filed: 06/10/21 10:22> Assessment and Plan: History of systolic and diastolic dysfunction. Presents with symptoms of acute CHF exacerbation. Progressive shortness of breath, swelling, orthopnea over the past couple of weeks. * Improved with diuresis * Continue diuresis with furosemide 40mg b.i.d. * Monitor renal function electrolytes with daily BMP * Daily weights * Accurate I&O * Compression stockings * 1500cc fluid restriction <ADRIANA Sanderson - Last Filed: 06/10/21 10:22> (3) Chronic kidney disease, stage 4 (severe): Code(s): N18.4 - Chronic kidney disease, stage 4 (severe) <ADRIANA Sanderson - Last Filed: 06/10/21 10:22> Status: Acute <ADRIANA Sanderson - Last Filed: 06/10/21 10:22> Assessment and Plan: Followed by Dr. Pemberton. <ADRIANA Sanderson - Last Filed: 0 06/10/21 10:22> (4) Uncontrolled hypertension: Code(s): I10 - Essential (primary) hypertension <ADRIANA Sanderson - Last Filed: 06/10/21 10:22> Status: Acute <ADRIANA Sanderson - Last Filed: 06/10/21 10:22> Assessment and Plan: Improved since admission with resumption of home meds, but remains above goal. Increase amlodipine to 10 mg daily. <ADRIANA Sanderson - Last Filed: 06/10/21 10:22> (5) Elevated troponin: Code(s): R77.8 - Other specified abnormalities of plasma proteins <ADRIANA Sanderson - Last Filed: 06/10/21 10:22> Status: Acute <ADRIANA Sanderson - Last Filed: 06/10/21 10:22> Assessment and Plan: Mildly elevated. Not likely to be related to ACS. Probably related to tachycardia and volume overload. She is not experiencing any chest pain at this time. EKG is without any ischemic changes <ADRIANA Sanderson - Last Filed: 06/10/21 10:22> Additional Plan Attending Addendum: I personally seen and examined this patient at bedside. I agree with the above documentation and plan of care as outlined.
--- NOTE | 2021-06-10 09:11 | PM.PNCARD ---
Progress Note: A&P Assessment and Plan (1) Atrial fibrillation with rapid ventricular response: Code(s): I48.91 - Unspecified atrial fibrillation <ADRIANA Sanderson - Last Filed: 06/10/21 10:22> Status: Acute <ADRIANA Sanderson - Last Filed: 06/10/21 10:22> Assessment and Plan: This is a new problem. She presented to the emergency department in sinus rhythm and subsequently was noted to be in atrial fibrillation with rapid ventricular response. Initially converted to normal sinus rhythm on IV amiodarone but reverted back to atrial fibrillation with RVR yesterday. She was asymptomatic with this. Her oral amiodarone dosage was increased in hopes of chemically converting her back to normal sinus rhythm which has been successful. Continue loading dose of amiodarone today Decrease amiodarone to 200mg daily starting tomorrow Continue anticoagulation with apixaban 2.5mg b.i.d (dose adjusted for age, renal function) Monitor for bleeding (also on plavix for h/o strokes) Continue to monitor on telemetry <ADRIANA Sanderson - Last Filed: 06/10/21 10:22> (2) Combined systolic and diastolic congestive heart failure: Qualifiers: Heart failure chronicity: acute on chronic Qualified Code(s): I50.43 - Acute on chronic combined systolic (congestive) and diastolic (congestive) heart failure <ADRIANA Sanderson - Last Filed: 06/10/21 10:22> Code(s): I50.40 - Unspecified combined systolic (congestive) and diastolic (congestive) heart failure <ADRIANA Sanderson - Last Filed: 06/10/21 10:22> Status: Acute <ADRIANA Sanderson - Last Filed: 06/10/21 10:22> Assessment and Plan: History of systolic and diastolic dysfunction. Presents with symptoms of acute CHF exacerbation. Progressive shortness of breath, swelling, orthopnea over the past couple of weeks. Improved with diuresis Continue diuresis with furosemide 40mg b.i.d. Monitor renal function electrolytes with daily BMP Daily weights Accurate I&O Compression stockings 1500cc fluid restriction <ADRIANA Sanderson Last Filed: 06/10/21 10:22> (3) Chronic kidney disease, stage 4 (severe): Code(s): N18.4 - Chronic kidney disease, stage 4 (severe) <Unique CoxERICA maloneDiana - Last Filed: 06/10/21 10:22> Status: Acute <Unique CoxERICA maloneDiana - Last Filed: 06/10/21 10:22> Assessment and Plan: Followed by Dr. Pemberton. <Unique ZunigaHerb MecheERICA maloneEliseoC - Last Filed: 06/10/21 10:22> (4) Uncontrolled hypertension: Code(s): I10 - Essential (primary) hypertension <Unique ZunigaHerb MecheERICA maloneDiana - Last Filed: 06/10/21 10:22> Status: Acute <Unique CoxERICA maloneDiana - Last Filed: 06/10/21 10:22> Assessment and Plan: Improved since admission with resumption of home meds, but remains above goal. Increase amlodipine to 10 mg daily. <Unique ZunigaHerb MecheERICA maloneDiana - Last Filed: 06/10/21 10:22> (5) Elevated troponin: Code(s): R77.8 - Other specified abnormalities of plasma proteins <Unique ZunigaHerb MecheERICA maloneDiana - Last Filed: 06/10/21 10:22> Status: Acute <Unique CoxERICA maloneDiana - Last Filed: 06/10/21 10:22> Assessment and Plan: Mildly elevated. Not likely to be related to ACS. Probably related to tachycardia and volume overload. She is not experiencing any chest pain at this time. EKG is without any ischemic changes <Unique Autumn MecheERICA maloneEliseoAlisa - Last Filed: 06/10/21 10:22> Additional Plan Attending Addendum: I personally seen and examined this patient at bedside. I agree with the above documentation and plan of care as outlined. -patient feeling a little better since this morning still feels quite tired and shortness of breath with activity. Her O2 was weaned off earlier today, however. No chest pain or palpitations. BP remains elevated, terazosin increased. She remains on amlodipine 10 mg daily, metolazone 5 mg daily, furosemide 4
[2021-06-10 09:15] LABS: Glucose Point of Care 75 mg/dl (65-105)
[2021-06-10] MEDS: INSULIN GLARGINE (*BKC) 100 UNITS/ML 50 UNITS SUB-Q (09:15)
--- NOTE | 2021-06-10 10:23 | PM.CNNEP ---
Assessment and Plan Assessment and plan (1) Chronic kidney disease, stage 4 (severe): Code(s): N18.4 - Chronic kidney disease, stage 4 (severe) Status: Acute Assessment and Plan: the patient has chronic kidney disease. This is most likely due to hypertension and diabetes. Her baseline creatinine runs between 2.4 and 2.7. The patient has acute kidney injury. Her creatinine dat with diuretics. It remains high at 3.0. There may be a component of pre renal azotemia due to the atrial fibrillation and the decreased cardiac output. Even without the atrial fibrillation her ejection fraction was low at 33% so with the atrial fibrillation her EF is probably even lower. This may lead to chronic pre renal azotemia. Under this circumstance diuretics would be expected to make the creatinine go up but we can't let her walk around in heart failure either so we would have to be satisfied with a higher creatinine to keep her out of heart failure. On the other hand if she stays in sinus rhythm her function may be better and so we may be able to decrease the diuretics once she is back in the euvolemic state. There other causes of elevated creatinine as well including obstruction, rhabdomyolysis, and We can get tests to check for these. allergic interstitial nephritis is less likely in this clinical scenario. Glomerulonephritis is also unlikely in this clinical scenario. Will check urine for electrolytes and check a renal ultrasound. Will see how she does since she is back in sinus rhythm now (2) Atrial fibrillation with rapid ventricular response: Code(s): I48.91 - Unspecified atrial fibrillation Status: Acute Assessment and Plan: rate is well controlled. She was in sinus rhythm at the moment I saw her. (3) Uncontrolled hypertension: Code(s): I10 - Essential (primary) hypertension Status: Acute Assessment and Plan: Blood pressure is high. She is currently on amlodipine 10 mg per day. Heart rate is too low to add a beta-phil. She is already on diuretics including metolazone which should help her blood pressure. With the higher creatinine I hesitate to add an ROLANDO-inhibitor or ARB. Will add clonidine. (4) Acute exacerbation of CHF (congestive heart failure): Qualifiers: Heart failure type: diastolic Qualified Code(s): I50.33 - Acute on chronic diastolic (congestive) heart failure Code(s): I50.9 - Heart failure, unspecified Status: Acute Assessment and Plan: On diuretics. 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 She also has anemia of chronic kidney disease, arthritis, vitamin-D deficiency, diabetes, hypertension, GERD, congestive heart failure with an EF of 33%, tremor, stroke. The patient came in the hospital because of shortness of breath. she had associated edema as well. No chest pain. She says that the swelling had been gradually worsening for the last couple of weeks or so but then the shortness of breath worsened as well and so came to the ER. In the ER she was was found to have volume overload by exam and x-ray. She was in atrial fibrillation which is new and this had a rapid ventricular rate. She was treated with diltiazem drip, amiodarone, given oxygen, and supportive care. I for she needed a CPAP but after diuretics her oxygenation improved and so now she is just on nasal cannula. Her baseline cre
--- NOTE | 2021-06-10 11:27 | PM.IMPN ---
Progress Note: A&P Additional Plan # paroxysmal atrial fibrillation, converted to normal sinus rhythm -likely secondary to fluid overload, she had converted to normal sinus rhythm on amiodarone drip then switched to 400 mg of p.o. amiodarone daily, then went back into AFib with RVR, now 400 mg t.i.d. as per Cardiology, likely due for 1 more day then switched back down to 200 mg daily amiodarone -anticoagulation continue Eliquis, renal dose -converted to normal sinus rhythm on the higher dose of amiodarone -likely etiology for previous strokes, paroxysmal atrial fibrillation. Has patient has history of multiple strokes # exacerbation of heart failure with preserved ejection fraction -fluid overloaded, continue P.O. Lasix 40 mg b.i.d. -previous echocardiogram 02/21/2021: Left ventricle systolic function 65-70%, abnormal left ventricular diastolic function # elevated troponin -no chest pain, troponin likely secondary to RVR, supply demand mismatch # essential hypertension -likely worsening secondary to fluid overload -we have added amlodipine 10 mg daily, now adding clonidine as her Nephrology. Patient unable to have Jose or Arb because of her kidney function, heart rate is too slow for beta-phil. # CKD stage 4 now 5? -consult Dr. Pemberton nephrology -as patient's kidney function worsens she may need dialysis soon -unclear how much of this is acute pre renal from the diuresis -nephrology ordering renal ultrasound and urine lytes # other chronic conditions -insulin-dependent type 2 diabetes: hemoglobin A1c 6.6, continue home Lantus 50 units q.a.m., 6 units q.h.s., sliding scale insulin, -history of CVA: Continue home Plavix Diet: Diabetic, heart healthy with 1500 cc fluid restriction DVT prophylaxis: Eliquis Code status: Full code Disposition: Med tele, PT and OT evaluation, will likely watch for next 24 hours while her heart rate still in AFib Subjective Date/time seen: 06/10/21 11:27 Patient seen and examined. She converted back to sinus rhythm this morning on the loading amiodarone dose of 1200 mg daily, possibly switch to 200 mg tomorrow as per Cardiology. She is on anticoagulation with Eliquis. Dr. Pemberton consulted for her CKD stage 4 now stage 5 may be needing dialysis soon. Otherwise she has been weaned down to room air. Patient is hypertensive which we started her on amlodipine 10 mg daily. Her heart rate is low 60s, holding off on adding beta-phil, with her creatinine unable to do Jose or Arb, mutuel teller adding clonidine. Patient denies fever, chills, nausea, vomiting, diarrhea. She feels some dyspnea on exertion. Review of Systems Review of Systems: All systems reviewed & are unremarkable except as noted in HPI and below Exam Narrative: - GENERAL: Morbidly obese pleasant elderly woman breathing comfortably on 2 L oxygen via nasal cannula. - EYES: EOMI. Anicteric. - HENT: Moist mucous membranes. - LUNGS: Clear to auscultation bilaterally, breathing comfortably on 2 L oxygen by nasal cannula. - CARDIOVASCULAR: Regular rate regular rhythm, no murmurs auscultated - ABDOMEN: Soft, non-tender and non-distended. No palpable masses. - EXTREMITIES: 3+ peripheral edema lower extremities, thickening of skin from chronic edema - NEUROLOGIC: No focal neurological deficits. CN II-XII grossly intact. Right upper extremity strength is weaker than left upper extremity. - PSYCHIATRIC: Awake, Alert and oriented. Appropriate mood and affect. - SKIN: No rashes or lesions. Warm. - LYMPH: No cervical lymphadenopathy. Objective Data Vital Signs Vital Signs: Vital Signs - 24 hr 06/09/21 12:00 06/09/21 14:00 06/09/21 14:18 Temperature 36.2 C L Pulse Rate 123 H 85 79 Respiratory Rate 20 Blood Pressure 118/81 Pulse Oximetry 99 06/09/21 16:00 06/09/21 20:00 06/09/21 21:00 Temperature 36.3 C L 36.7 C Pulse Rate 69 70 Respiratory Rate 26 H 24 H Blood Pressure 149/76 H 167/50 H Pulse Oximetry 100 99 98 06/09/21
[2021-06-10 12:02] LABS: Creatine Kinase 47 U/L (30-135)
[2021-06-10] MEDS: TERAZOSIN HCL 1 MG CAPSULE 2 MG PO ×2 (12:48→17:11)
[2021-06-10 12:52] LABS: Iron 28 ug/dL (37-170)
[2021-06-10 12:56] LABS: Glucose Point of Care 109 mg/dl (65-105)
[2021-06-10 13:07] LABS: Percent Iron Saturation 10 % (20-50)
[2021-06-10] MEDS: PERFLUTREN LIPID MICROSPHERES 1.5 ML VIAL DILUTED TO 10 ML TOTAL VOLUME (15:31)
[2021-06-10 16:16] LABS: Creatinine Urine 70.6 mg/dL; Total Protein Urine Random 76 mg/dL; Ur Ttl Prot Creatinine Ratio 1.08 mg/mg (0-0.20)
[2021-06-10 16:21] LABS: Sodium Urine Random 75 meq/L
[2021-06-10 17:27] LABS: Glucose Point of Care 100 mg/dl (65-105)
--- NOTE | 2021-06-10 18:25 | PC.NURSE ---
This patient, Waleska Tse, was transferred to [[id number]] on 06/10/21 at 1825. Personal belongings sent with patient. Report given to [QUYEN Jones @ [phone] ]. Appropriate documentation sent with patient.
--- NOTE | 2021-06-10 18:58 | PC.NURSE ---
This patient, Waleska Tse, was received from IMU on 06/10/21 at 1858. Patient/family oriented to unit policies and routines
[2021-06-10] MEDS: LORazepam (*CRX) 1 MG TABLET 2 MG PO (20:05)
[2021-06-10 20:37] LABS: Glucose Point of Care 93 mg/dl (65-105)
[2021-06-11] VITALS (14 sets, daily range): BP systolic 119–156; BP diastolic 50–62; PULSE 68–143; RESP 16–18; TEMP 36.1–36.3; O2SAT 92–94
[2021-06-11 01:46] LABS: Glucose Point of Care 80 mg/dl (65-105)
[2021-06-11] MEDS: METOPROLOL TARTRATE INJ 5 MG/5 ML VIAL IV PUSH ×2 (01:56→14:28)
[2021-06-11 05:26] LABS: Hematocrit 27.1 % (37.0-47.0); Hemoglobin 8.3 g/dL (12.0-15.0); Mean Corpuscular HGB Conc 30.6 g/dl (32-36); Mean Corpuscular Hemoglobin 30.4 pg (26-34); Mean Corpuscular Volume 99.3 fl (80-100); Mean Platelet Volume 9.8 fl (7.4-10.4); Platelet Count Result 202 k/mm3 (150-375); Red Blood Count 2.73 M/mm3 (4.2-5.4); Red Cell Distribution Width 13.4 % (11.5-14.5)
[2021-06-11] MEDS: AMIODARONE HCL 200 MG TABLET 400 MG PO ×3 (05:39→21:18)
[2021-06-11 05:40] LABS: Anion Gap 6 mmol/L (8-16); Blood Urea Nitrogen 53 mg/dL (7-17); Calcium 7.8 mg/dL (8.4-10.2); Carbon Dioxide 31 mmol/L (22-30); Chloride 101 mmol/L (98-107); Estimated CRCL calculation 17 ml/min; Estimated Glomerular Filt Rate 14; Glucose 107 mg/dL (65-110); Magnesium 2.3 mg/dL (1.6-2.3); Phosphorus 3.9 mg/dL (2.5-4.5); Sodium 138 mmol/L (137-145)
--- NOTE | 2021-06-11 05:56 | PM.PNNEP ---
Progress Note: A&P Assessment and Plan (1) Chronic kidney disease, stage 4 (severe): Code(s): N18.4 - Chronic kidney disease, stage 4 (severe) Status: Acute Assessment and Plan: the patient has chronic kidney disease. This is most likely due to hypertension and diabetes. Her baseline creatinine runs between 2.4 and 2.7. The patient has acute kidney injury. Her creatinine dat with diuretics. it dat a bit from yesterday to 3.2. Renal ultrasound is normal. Urine electrolytes are non pre renal , however she is on diuretics. there a couple of possibilities. One is at her atrial fibrillation has cause decreased cardiac output and is causing pre renal azotemia. Increase diuretics necessitated by her volume overload has made her creatinine go up. The other is that her renal function has deteriorated and that is why she developed volume overload and this is what caused her atrial fibrillation. At this point will see how she does with sinus rhythm for a couple of days. We may need to be satisfied with a higher creatinine to keep her out of fluid overload. At this point her GFR is 14. If she is able to function at this level then that would be fine. We will need dialysis education and plans for access but this can all be done as an outpatient. Depending on fluid status, if she needs more diuretics, this may drive her GFR down further and necessitate inpatient dialysis. I am hoping to avoid this. Will check a chest x-ray. She continues on diuretics. (2) Atrial fibrillation with rapid ventricular response: Code(s): I48.91 - Unspecified atrial fibrillation Status: Acute Assessment and Plan: rate is well controlled. She was in sinus rhythm at the moment I saw her. (3) Uncontrolled hypertension: Code(s): I10 - Essential (primary) hypertension Status: Acute Assessment and Plan: Blood pressure is improved this a.m.. She is currently on amlodipine 10 mg per day. she is on terazosin as well. This dose was increased yesterday and her blood pressure seems better (4) Acute exacerbation of CHF (congestive heart failure): Qualifiers: Heart failure type: diastolic Qualified Code(s): I50.33 - Acute on chronic diastolic (congestive) heart failure Code(s): I50.9 - Heart failure, unspecified Status: Acute Assessment and Plan: On diuretics. Will recheck a chest x-ray (5) Insulin dependent type 2 diabetes mellitus: Code(s): E11.9 - Type 2 diabetes mellitus without complications; Z79.4 - [facility] (current) use of insulin Status: Acute Assessment and Plan: on Accu-Cheks and sliding-scale insulin Subjective Date/time seen: 06/11/21 05:56 Interval history: Patient says she feels a little better. She did have a run of fast heart rate last night and received some medication for that this morning her rhythm is regular and her rate is good. she is still swollen but she says she is much better than she had been at home. Breathing is okay Review of Systems Cardiovascular: Cardiovascular: Reports no additional cardiovascular complaints Respiratory: Respiratory: Reports no additional respiratory complaints Gastrointestinal: Gastrointestinal: Reports no additional gastrointestinal complaints Genitourinary: Genitourinary: Reports no additional female genitourinary complaints Exam Narrative: WDWN in NAD skin no rash head ncat lungs clear cor reg no rub or gallop abd BS+ nontender and soft ext 2+ edema. Objective Data Vital Signs Vital Signs: Vital Signs - 24 hr 06/10/21 05:58 06/10/21 06:00 06/10/21 08:00 Temperature 36.2 C L Pulse Rate 80 80 67 Respiratory Rate 24 H Blood Pressure 186/48 H Pulse Oximetry 94 06/10/21 12:00 06/10/21 13:51 06/10/21 16:00 Temperature 36.5 C 36.1 C L Pulse Rate 77 73 76 Respiratory Rate 20 24 H Blood Pressure 186
[2021-06-11 07:47] LABS: Glucose Point of Care 85 mg/dl (65-105)
[2021-06-11] MEDS: TERAZOSIN HCL 1 MG CAPSULE 2 MG PO ×2 (08:58→17:51)
[2021-06-11] MEDS: APIXABAN 2.5 MG TABLET PO ×2 (08:58→21:19)
[2021-06-11] MEDS: CLOPIDOGREL BISULFATE 75 MG TABLET PO (08:58)
[2021-06-11] MEDS: amLODIPine BESYLATE 5 MG TABLET 10 MG PO (08:58)
[2021-06-11] MEDS: metOLazone 5 MG TABLET PO (08:59)
[2021-06-11] MEDS: FUROSEMIDE 40 MG TABLET PO ×2 (08:59→17:51)
[2021-06-11] MEDS: INSULIN GLARGINE (*BKC) 100 UNITS/ML 15 UNITS SUB-Q (10:16)
[2021-06-11 11:31] LABS: Glucose Point of Care 152 mg/dl (65-105)
--- NOTE | 2021-06-11 13:03 | PCPTNOTE ---
Pt refused treatment this afternoon. She stated that she just doesnt' feel too well after eating lunch and asked if she could be seen tomorrow instead.
--- NOTE | 2021-06-11 14:10 | PM.IMPN ---
Progress Note: A&P Assessment and Plan (1) Elevated troponin: Code(s): R77.8 - Other specified abnormalities of plasma proteins Status: Acute (2) Atrial fibrillation with rapid ventricular response: Code(s): I48.91 - Unspecified atrial fibrillation Status: Acute (3) Hypertensive emergency: Code(s): I16.1 - Hypertensive emergency Status: Acute (4) Acute exacerbation of CHF (congestive heart failure): Qualifiers: Heart failure type: diastolic Qualified Code(s): I50.33 - Acute on chronic diastolic (congestive) heart failure Code(s): I50.9 - Heart failure, unspecified Status: Acute Additional Plan # paroxysmal atrial fibrillation, converted to normal sinus rhythm -likely secondary to fluid overload and obstructive sleep apnea, patient required IV labetalol overnight to help her go back to sinus rhythm. Was on 1200 mg of amiodarone daily -anticoagulation continue Eliquis, renal dose -converted to normal sinus rhythm on the higher dose of amiodarone -likely etiology for previous strokes, paroxysmal atrial fibrillation. Has patient has history of multiple strokes -ApneaLink ordered for tonight, likely needs CPAP for obstructive sleep apnea # exacerbation of heart failure with preserved ejection fraction -fluid overloaded, continue P.O. Lasix 40 mg b.i.d. with 5 mg metolazone daily -previous echocardiogram 02/21/2021: Left ventricle systolic function 65-70%, abnormal left ventricular diastolic function # elevated troponin -no chest pain, troponin likely secondary to RVR, supply demand mismatch # essential hypertension -likely worsening secondary to fluid overload -now amlodipine 10 mg daily. Patient unable to have Jose or Arb because of her kidney function, heart rate is too slow for beta-phil. -terazosin 2 mg b.i.d. # CKD stage 4 now 5? -consult Dr. Pemberton nephrology -as patient's kidney function worsens she may need dialysis soon -likely worsening from the diuresis -nephrology ordering renal ultrasound and urine lytes -worsening Cr up to 3.2 # other chronic conditions -insulin-dependent type 2 diabetes: hemoglobin A1c 6.6, continue insulin Lantus 6 units q.h.s., sliding scale insulin, changing home Lantus 50 units q.a.m. (yesterday got 25U in AM) to 15 units as patient is having lowering blood sugars -history of CVA: Continue home Plavix Diet: Diabetic, heart healthy with 1500 cc fluid restriction DVT prophylaxis: Eliquis Code status: Full code Disposition: Probably need skilled placement, PT OT to evaluate, continue telemetry on medical floor Subjective Date/time seen: 06/11/21 14:10 Patient seen examined. She has no new complaints. Overnight she needed IV push of labetalol as she was tachycardic in the 150s, this is despite being on the higher dose of amiodarone. He may not be safe to send her home on the lower dose of amiodarone today. Will continue therapy as is and follow Cardiology recommendations. She had negative fluid balance -310 last 24 hours. Creatinine continues to worsen up to 3.2, nephrology following. Patient denies fever, chills, nausea, vomiting, diarrhea. PT and OT to work with patient today help with disposition plan. Review of Systems Review of Systems: All systems reviewed & are unremarkable except as noted in HPI and below Exam Narrative: - GENERAL: Morbidly obese pleasant elderly woman breathing comfortably on room air - EYES: EOMI. Anicteric. - HENT: Moist mucous membranes. - LUNGS: Clear to auscultation bilaterally, no wheezing or rhonchi - CARDIOVASCULAR: Regular rate regular rhythm, no murmurs auscultated - ABDOMEN: Soft, non-tender and non-distended. No palpable masses. - EXTREMITIES: 3+ peripheral edema lower extremities, thickening of skin from chronic edema - NEUROLOGIC: No focal neurological deficits. CN II-XII grossly intact. Chronic right upper extremity weakness - PSYCHIATRIC: Awake, Alert and oriented. Appropriate mood a
--- NOTE | 2021-06-11 14:10 | PM.PNCARD ---
Progress Note: A&P Assessment and Plan (1) Atrial fibrillation with rapid ventricular response: Code(s): I48.91 - Unspecified atrial fibrillation Status: Acute Assessment and Plan: This is a new problem. She presented to the emergency department in sinus rhythm and subsequently was noted to be in atrial fibrillation with rapid ventricular response. Initially converted to normal sinus rhythm on IV amiodarone but reverted back to atrial fibrillation with RVR yesterday. She was asymptomatic with this. Her oral amiodarone dosage was increased in hopes of chemically converting her back to normal sinus rhythm which has been successful. Continue amiodarone 400 mg t.i.d. for now. She had recurrence of AFib with RVR symptomatic overnight now returning to sinus rhythm. Continue telemetry observation overnight. If recurrent atrial fibrillation may need to cautiously add beta-phil therapy. Continue anticoagulation with apixaban 2.5mg b.i.d (dose adjusted for age, renal function) Monitor for bleeding (also on plavix for h/o strokes) Screen for HO with apnea link overnight. Severe pulmonary hypertension noted on 2D echocardiogram today. LV systolic function is preserved. I would not advocate for discharge today particularly if she has recurrent atrial fibrillation with RVR. (2) Combined systolic and diastolic congestive heart failure: Qualifiers: Heart failure chronicity: acute on chronic Qualified Code(s): I50.43 - Acute on chronic combined systolic (congestive) and diastolic (congestive) heart failure Code(s): I50.40 - Unspecified combined systolic (congestive) and diastolic (congestive) heart failure Status: Acute Assessment and Plan: History of systolic and diastolic dysfunction. Presents with symptoms of acute CHF exacerbation. Progressive shortness of breath, swelling, orthopnea over the past couple of weeks. Improved with diuresis still mildly volume overloaded but fair. Continue diuresis with furosemide 40mg b.i.d. and metolazone 5 mg daily Monitor renal function electrolytes with daily BMP Daily weights Accurate I&O Compression stockings (3) Pulmonary HTN: Code(s): I27.20 - Pulmonary hypertension, unspecified Status: Acute Assessment and Plan: History of moderate pulmonary hypertension RVSP 57 mm Hg prior echocardiogram currently severe at 84 mm Hg. As above, will screen for HO with apnea link overnight. This may also be contributing to patient's shortness of breath. Recommendations to follow. (4) Chronic kidney disease, stage 4 (severe): Code(s): N18.4 - Chronic kidney disease, stage 4 (severe) Status: Acute Assessment and Plan: Followed by Dr. Pemberton. Creatinine slightly higher compared to yesterday 3.2 BUN 53. (5) Uncontrolled hypertension: Code(s): I10 - Essential (primary) hypertension Status: Acute Assessment and Plan: Improved since admission with resumption of home meds, but remains above goal. Continue Amlodipine 10 mg daily. (6) Elevated troponin: Code(s): R77.8 - Other specified abnormalities of plasma proteins Status: Acute Assessment and Plan: Mildly elevated. Not likely to be related to ACS. Probably related to tachycardia and volume overload. She is not experiencing any chest pain at this time. EKG is without any ischemic changes Subjective Date/time seen: Date of service: 06/11/21 14:10 Interval history: Follow-up visit in this 80-year-old woman with: Chronic diastolic left ventricular systolic dysfunction. She entered the hospital with some shortness of breath mild fluid overload. Interestingly while she was in the emergency room she reverted from sinus rhythm to AFib with RVR. Intravenous amiodarone has been started yesterday to try to restore sinus rhythm. As of this time she still is in atrial fibrillation with controlled response. Systemic anticoagulation with api
[2021-06-11 17:09] LABS: Glucose Point of Care 242 mg/dl (65-105)
[2021-06-11] MEDS: INSULIN ASPART (*BKC) 100 UNITS/ML SUB-Q (17:50)
[2021-06-11] MEDS: INSULIN GLARGINE (*BKC) 100 UNITS/ML 6 UNITS SUB-Q (21:17)
[2021-06-11] MEDS: LORazepam (*CRX) 1 MG TABLET 2 MG PO (21:18)
[2021-06-11 21:26] LABS: Glucose Point of Care 174 mg/dl (65-105)
[2021-06-12] VITALS (14 sets, daily range): BP systolic 146–164; BP diastolic 41–47; PULSE 60–77; RESP 16–20; TEMP 36.2–36.6; O2SAT 92–96
[2021-06-12 03:14] LABS: Glucose Point of Care 146 mg/dl (65-105)
[2021-06-12] MEDS: LORazepam INJ (*CRX) 2 MG/ML VIAL 1 MG IV PUSH (03:30)
[2021-06-12] MEDS: AMIODARONE HCL 200 MG TABLET 400 MG PO ×3 (06:04→21:08)
[2021-06-12 06:15] LABS: Albumin Level 3.2 g/dL (3.5-5.1); Anion Gap 8 mmol/L (8-16); Blood Urea Nitrogen 56 mg/dL (7-17); Calcium 7.7 mg/dL (8.4-10.2); Carbon Dioxide 27 mmol/L (22-30); Chloride 101 mmol/L (98-107); Estimated CRCL calculation 19 ml/min; Estimated Glomerular Filt Rate 16; Glucose 152 mg/dL (65-110); Magnesium 2.2 mg/dL (1.6-2.3); Phosphorus 4.1 mg/dL (2.5-4.5); Potassium 3.8 mmol/L (3.4-5.0); Sodium 136 mmol/L (137-145)
[2021-06-12 06:37] LABS: Hematocrit 27.4 % (37.0-47.0); Hemoglobin 8.4 g/dL (12.0-15.0); Mean Corpuscular HGB Conc 30.7 g/dl (32-36); Mean Corpuscular Volume 97.9 fl (80-100); Mean Platelet Volume 10.3 fl (7.4-10.4); Platelet Count Result 226 k/mm3 (150-375); Red Cell Distribution Width 13.5 % (11.5-14.5); White Blood Count 5.7 K/mm3 (4.5-10.0)
[2021-06-12 07:54] LABS: Glucose Point of Care 137 mg/dl (65-105)
[2021-06-12] MEDS: APIXABAN 2.5 MG TABLET PO ×2 (08:09→21:09)
[2021-06-12] MEDS: metOLazone 5 MG TABLET PO (08:09)
[2021-06-12] MEDS: TERAZOSIN HCL 1 MG CAPSULE 2 MG PO ×2 (08:09→16:35)
[2021-06-12] MEDS: CLOPIDOGREL BISULFATE 75 MG TABLET PO (08:09)
[2021-06-12] MEDS: FUROSEMIDE 40 MG TABLET PO ×2 (08:10→16:35)
[2021-06-12] MEDS: amLODIPine BESYLATE 5 MG TABLET 10 MG PO (08:10)
[2021-06-12] MEDS: INSULIN GLARGINE (*BKC) 100 UNITS/ML 15 UNITS SUB-Q (08:16)
--- NOTE | 2021-06-12 10:38 | PCOTNOTE ---
Attempted OT treatment, patient reports to tired to work with OT at this time and just wants to rest. Will follow and attempt at later time, RN notified.
[2021-06-12] MEDS: EPOETIN ALFA-EPBX 10,000 UNITS/ML VIAL 10000 UNITS SUB-Q (11:42)
--- NOTE | 2021-06-12 11:44 | PM.CNPUL ---
Assessment and Plan Assessment and plan (1) Pulmonary HTN: Code(s): I27.20 - Pulmonary hypertension, unspecified Status: Acute Assessment and Plan: Patient with a history of morbid obesity, BMI 52.8, diastolic and systolic heart failure with a history of fluid overload, new onset atrial fibrillation and history of pulmonary hypertension with PASP of 94 on 02/22/2021 and 57 on 08/30/2020. she currently is admitted for fluid overload and echocardiogram demonstrates PA SP of 84. She has improved with diuresis although her cumulative ins and outs demonstrates she has +180. Diuresis is limited by her chronic renal insufficiency and her creatinine is 2.9 today. She is followed by the renal team. She has no history of asthma. She has minimal tobacco use at 5 pack years quit 40 years ago and has no history of COPD. She has no history of daytime hypercarbia with a blood gas today demonstrating a pH of 7.44/44/63 and her serum bicarb Has remain less than 32 . she does not have obesity hypoventilation syndrome. Given her body habitus I suspect she does have obstructive sleep apnea but she will need an outpatient sleep study to confirm this to qualify for PAP therapy. I will not empirically start any PAP therapy as I have no way to monitor for treatment emergent central apnea. She does have nocturnal hypoxemia with saturations less than or equal to 88% at 17 minutes. I will initiate 2 L nasal cannula oxygen at night and repeat an overnight oximetry tonight. her TSH was 1.07 on 08/30/2020. I will repeat this. Will follow with you. History of Present Illness History of Present Illness Consult date: 06/12/21 Requesting physician: Wandy Hanson DO Reason for consult: dyspnea and obstructive sleep apnea Chief complaint: new opnset afib with tvt,chf Narrative: 06/12/2021: This is a new Pulmonary consultation for atrial fibrillation, pulmonary hypertension and possible obstructive sleep apnea. 80-year-old woman with a history of hypertension, CKD, congestive heart failure, morbid obesity with a BMI of 52.8, pulmonary hypertension with a PASP of 94 on 02/22/2021 and 57 on 08/30/2020 presented to the hospital o 06/06/2021 with 2 weeks worsening shortness of breath. Patient was found to be in fluid overload and new onset atrial fibrillation with rapid ventricular response. Cardiology has been managing her atrial fibrillation and now she is controlled with amiodarone. She has been diuresed with Lasix. She had an echo on 06/10/2021 with an LVEF of 65-70%, grade 2 diastolic dysfunction, mildly enlarged right ventricle, severely enlarged left atrium, moderately enlarged right atrium mild mitral valve stenosis, mild mitral valve regurgitation, mild tricuspid valve regurgitation with an estimated PA SP of 84. With the morbid obesity, atrial fibrillation and pulmonary hypertension I was consulted for possible obstructive sleep apnea. On 06/11/2021 patient had an apnea link on room air with an average saturation of 91%, lowest saturation was 79%. Time with saturation less than or equal to 88% was 17 minutes or 3% of the monitored time. Of note patient's AHI was 36.4. 06/12/2021: Today the patient tells me that she is breathing much better than when she was admitted. She is walking in her room in eating. She says her swelling is decreased. Her room air saturations are 93%. Patient had a room air blood gas with a pH of 7.44/44/63. The patient does have some daytime hypersomnia and takes 1 nap a day. She does not fall asleep when talking to people. She does not know if she snores. She lives with her son and daughter and she has never been told she stops breathing in her sleep. She has never been prescribed home oxygen. She has no morning headaches. And she has never had a sleep study. The patient has no infectious complaints. She denies fever, chills, rigors, chest pain, cough, phlegm production. The
[2021-06-12 12:03] LABS: Alveolar/Arterial O2 Gradient 34.3 mmHg; Base Excess ABG 4.2 mEq/l (+/-2.0); Carboxyhemoglobin 0.3 % THb (0-2.0); Fractional Inspired Oxygen 21 %; HCO3 ABG 28.8 mEq/l (22.0-26.0); Methemoglobin ABG 0.1 %THb (0-1.5); Oxygen Content ABG 12.5 %vol (16.0-22.0); Oxygen Saturation ABG 92.8 % (95.0-100.0); Oxyhemoglobin 91.6 % THb (90.0-100.0); PCO2 ABG 43.6 mmHg (35.0-45.0); PO2 ABG 63.2 mmHg (80.0-100.0); PO2 FiO2 Ratio Arterial Blood 3.01 %; Total Hemoglobin 9.7 g/dL (12.0-18.0); pH ABG 7.438 (7.350-7.450)
[2021-06-12 12:05] LABS: Device ROOM AIR; Site Drawn RIGHT BRACHIAL
[2021-06-12 12:12] LABS: Glucose Point of Care 188 mg/dl (65-105)
--- NOTE | 2021-06-12 12:28 | PM.PNCARD ---
Progress Note: A&P Assessment and Plan (1) Atrial fibrillation with rapid ventricular response: Code(s): I48.91 - Unspecified atrial fibrillation Status: Acute Assessment and Plan: New diagnosis. She presented to the emergency department in sinus rhythm and subsequently was noted to be in atrial fibrillation with rapid ventricular response. Initially converted to normal sinus rhythm on IV amiodarone but reverted back to atrial fibrillation with RVR yesterday. She was asymptomatic with this. Her oral amiodarone dosage was increased in hopes of chemically converting her back to normal sinus rhythm which has been successful. Continue amiodarone 400 mg but reduce to b.i.d. tomorrow heart rate permitting. Due to more frequent AFib recurrences add metoprolol 25 mg b.i.d.. Up titrate as tolerated. Continue telemetry. I expect she will continue with paroxysm is a of atrial fibrillation, however, will attempt to control rate as tolerated and frequency. Continue telemetry. Continue anticoagulation with apixaban 2.5mg b.i.d (dose adjusted for age, renal function) Monitor for bleeding (also on plavix for h/o strokes) Apnea link suggestive of severe HO. Importance of treatment explained with regards to CHF, atrial fibrillation, as well as pulmonary hypertension and quality of life. Patient verbalized understanding. LV systolic function is preserved. (2) Combined systolic and diastolic congestive heart failure: Qualifiers: Heart failure chronicity: acute on chronic Qualified Code(s): I50.43 - Acute on chronic combined systolic (congestive) and diastolic (congestive) heart failure Code(s): I50.40 - Unspecified combined systolic (congestive) and diastolic (congestive) heart failure Status: Acute Assessment and Plan: History of systolic and diastolic dysfunction. Presents with symptoms of acute CHF exacerbation. Progressive shortness of breath, swelling, orthopnea over the past couple of weeks. Improved with diuresis still mildly volume overloaded but fair. Continue diuresis but would prefer to increase Furosemide if Nephrology would be okay with this as she is essentially neutral if not slightly positive overall. Continue Metolazone 5 mg daily Monitor renal function electrolytes with daily BMP Daily weights Accurate I&O Compression stockings (3) Pulmonary HTN: Code(s): I27.20 - Pulmonary hypertension, unspecified Status: Acute Assessment and Plan: History of moderate pulmonary hypertension RVSP 57 mmHg on prior echocardiogram progressed currently severe at 84 mmHg. -Apnea link suggestive severe HO AHI 36. Given severe pulmonary hypertension, untreated HO and ongoing shortness of breath recommend pulmonology evaluation as she will require longitudinal care as an outpatient. Perhaps of indicated if any possibility of expediting support with noninvasive positive-pressure ventilation and discharge. (4) Chronic kidney disease, stage 4 (severe): Code(s): N18.4 - Chronic kidney disease, stage 4 (severe) Status: Acute Assessment and Plan: Followed by Dr. Pemberton. Appreciate his involvement and recommendations. Creatinine slightly improved to 2.9 today. Will prefer to increase diuretics, however, concern with regards to exacerbation renal failure. (5) Uncontrolled hypertension: Code(s): I10 - Essential (primary) hypertension Status: Acute Assessment and Plan: Improved since admission with resumption of home meds, but remains above goal. Continue Amlodipine 10 mg daily. (6) Elevated troponin: Code(s): R77.8 - Other specified abnormalities of plasma proteins Status: Acute Assessment and Plan: Mildly elevated. Not likely to be related to ACS. Probably related to tachycardia and volume overload. She is not experiencing any chest pain at this time. EKG is without any ischemic changes Subjective Date/time seen: Date of s
--- NOTE | 2021-06-12 13:20 | PM.IMPN ---
Progress Note: A&P Assessment and Plan (1) Pulmonary HTN: Code(s): I27.20 - Pulmonary hypertension, unspecified Status: Acute (2) Elevated troponin: Code(s): R77.8 - Other specified abnormalities of plasma proteins Status: Acute (3) Atrial fibrillation with rapid ventricular response: Code(s): I48.91 - Unspecified atrial fibrillation Status: Acute (4) Hypertensive emergency: Code(s): I16.1 - Hypertensive emergency Status: Acute (5) Flash pulmonary edema: Code(s): J81.0 - Acute pulmonary edema Status: Acute (6) Acute exacerbation of CHF (congestive heart failure): Qualifiers: Heart failure type: diastolic Qualified Code(s): I50.33 - Acute on chronic diastolic (congestive) heart failure Code(s): I50.9 - Heart failure, unspecified Status: Acute (7) Pneumonia: Code(s): J18.9 - Pneumonia, unspecified organism Status: Acute Additional Plan # paroxysmal atrial fibrillation, back and forth with normal sinus rhythm -likely secondary to obstructive sleep apnea and pulmonary hypertension -discuss bilingual manager, adding metoprolol 25 mg b.i.d., continue amiodarone t.i.d. and wean tomorrow -anticoagulation continue Eliquis, renal dose -likely etiology for previous strokes, paroxysmal atrial fibrillation -ApneaLink ordered for tonight, likely needs CPAP for obstructive sleep apnea -echocardiogram shows grade 2 diastolic dysfunction, normal EF 65-70% # severe obstructive sleep apnea # severe pulmonary hypertension -apnea link severe score AHI 36 -echocardiogram shows pulmonary hypertension estimated pulmonary arterial systolic pressure is 84 mmHg -consulted Dr. Epstein to help with CPAP and pulmonary hypertension -ABG ordered to see if patient has obesity hypoventilation syndrome # exacerbation of heart failure with preserved ejection fraction -fluid overloaded, continue P.O. Lasix 40 mg b.i.d. with 5 mg metolazone daily -previous echocardiogram 02/21/2021: Left ventricle systolic function 65-70%, abnormal left ventricular diastolic function -continue diuresis per Cardiology, will need to be careful as her kidney function is poor stage 4-5, Dr. Niecy donaldson -chest x-ray 06/11/2021 shows no significant change # elevated troponin, resolved -no chest pain, troponin likely secondary to RVR, supply demand mismatch # essential hypertension -likely worsening secondary to fluid overload -now amlodipine 10 mg daily. Patient unable to have Jose or Arb because of her kidney function, heart rate is too slow for beta-phil. -terazosin 2 mg b.i.d. # CKD stage 4 now 5? -consult Dr. Pemberton nephrology -as patient's kidney function worsens she may need dialysis soon -likely worsening from the diuresis -renal ultrasound: Normal kidneys, -stable creatinine, down 2.9 -kidney function appears to be secondary to the diuresis # other chronic conditions -insulin-dependent type 2 diabetes: hemoglobin A1c 6.6, continue insulin Lantus 6 units q.h.s., sliding scale insulin, changing home Lantus 50 units q.a.m. to 15 units as patient is having lowering blood sugars (doing well on 15u) -history of CVA: Continue home Plavix Diet: Diabetic, heart healthy with 1500 cc fluid restriction DVT prophylaxis: Eliquis Code status: Full code Disposition: Needs SNF, PT/OT to continue working, continue telemetry on medical floor Subjective Date/time seen: 06/12/21 13:20 Patient seen and examined. She states she is feeling okay no problems overnight. This morning when working with physical therapy every time she stands up her heart rate goes up to 150s. I discussed case with bilingual manager and the plan will be to start low-dose beta-phil on top of amiodarone, likely start weaning amiodarone tomorrow. Patient has pulmonary hypertension and obstructive sleep apnea is likely worsening her AFib making it difficult to control. Consulted bump grader operator Agustin about the pulmonary hype
[2021-06-12] MEDS: METOPROLOL TARTRATE 25 MG TABLET PO ×2 (14:29→21:09)
[2021-06-12 16:26] LABS: Glucose Point of Care 210 mg/dl (65-105)
--- NOTE | 2021-06-12 17:00 | PM.PNNEP ---
Progress Note: A&P Assessment and Plan (1) Chronic kidney disease, stage 4 (severe): Code(s): N18.4 - Chronic kidney disease, stage 4 (severe) Status: Acute Assessment and Plan: the patient has chronic kidney disease. This is most likely due to hypertension and diabetes. Her baseline creatinine runs between 2.4 and 2.7. The patient has acute kidney injury. Renal ultrasound is normal. Urine electrolytes are non pre renal , however she is on diuretics. Most likely this is due to decreased cardiac output from the atrial fibrillation, and affects from the diuretics. she is still on diuretics but her creatinine is down to 2.9 now. Her rhythm is better now. Perhaps that is why the creatinine is better. No symptoms of uremia. Hopefully renal function will improve with better cardiac rhythm. Chest x-ray still shows some fluid so will keep the diuretics going. If she develops uremia or creatinine worsened substantially then we can consider dialysis at that point but will hold off for now. (2) Atrial fibrillation with rapid ventricular response: Code(s): I48.91 - Unspecified atrial fibrillation Status: Acute Assessment and Plan: rate is well controlled. She was in sinus rhythm at the moment I saw her. (3) Uncontrolled hypertension: Code(s): I10 - Essential (primary) hypertension Status: Acute Assessment and Plan: Blood pressure is improved this a.m. She is currently on amlodipine 10 mg daily, and terazosin 2 mg twice a day. (4) Acute exacerbation of CHF (congestive heart failure): Qualifiers: Heart failure type: diastolic Qualified Code(s): I50.33 - Acute on chronic diastolic (congestive) heart failure Code(s): I50.9 - Heart failure, unspecified Status: Acute Assessment and Plan: On diuretics. 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 She still has some swelling. No shortness of breath or chest pain Exam Narrative: WDWN in NAD skin no rash or subcu nodules head ncat lungs clear to auscultation but decreased breath sounds at the bases cor reg no rub or gallop abd BS+ nontender and soft ext 2+ edema. Objective Data Vital Signs Vital Signs: Vital Signs - 24 hr 06/11/21 20:00 06/11/21 21:18 06/11/21 22:00 Temperature 36.2 C L Pulse Rate 71 70 73 Respiratory Rate 16 Blood Pressure 156/62 H Pulse Oximetry 94 06/11/21 22:58 06/12/21 00:00 06/12/21 04:00 Temperature Pulse Rate 69 73 Respiratory Rate Blood Pressure Pulse Oximetry 94 06/12/21 06:00 06/12/21 06:04 06/12/21 08:00 Temperature 36.3 C L Pulse Rate 77 73 75 Respiratory Rate 16 Blood Pressure 164/47 H Pulse Oximetry 93 06/12/21 12:00 06/12/21 14:28 06/12/21 14:29 Temperature 36.2 C L Pulse Rate 77 75 75 Respiratory Rate 20 Blood Pressure 155/42 H Pulse Oximetry 92 06/12/21 14:30 Temperature Pulse Rate 75 Respiratory Rate Blood Pressure Pulse Oximetry Intake/Output Intake/Output: Intake & Output 06/09/21 06/10/21 06/11/21 06/12/21 23:59 23:59 23:59 23:59 Intake Total 810 1020 640 830 Output Total 9838 004 3026 700 Balance -440 120 -660 130 Meds/Results Medications: Active Medications Generic Name Dose Route Start Last Admin Trade Name Freq PRN Reason Stop Dose Admin Acetaminophen 650 mg 06/06/21 17:27 Acetaminophen 325 Mg Tablet PO Q4H PRN Mild Pain (1-3) or Fever Amiodarone HCl 400 mg 06/09/21 14:00 06/12/21 14:30 Amiodarone Hcl 200 Mg Tablet PO 06/12/21 23:55 400 mg Q8H JULIO Admini
[2021-06-12] MEDS: INSULIN ASPART (*BKC) 100 UNITS/ML SUB-Q (18:18)
[2021-06-12] MEDS: INSULIN GLARGINE (*BKC) 100 UNITS/ML 6 UNITS SUB-Q (21:05)
[2021-06-12] MEDS: LORazepam (*CRX) 1 MG TABLET 2 MG PO (21:09)
[2021-06-12 21:41] LABS: Glucose Point of Care 204 mg/dl (65-105)
[2021-06-13] VITALS (17 sets, daily range): BP systolic 126–149; BP diastolic 54–83; PULSE 57–70; RESP 17–22; TEMP 35.9–37.1; O2SAT 87–100
--- NOTE | 2021-06-13 00:51 | PCRCNOTE ---
Pt was ordered overnight pulse oximetry night of 06/12/21. RT was unable to put apnea link on pt in time to get a full study due to emergencies elsewhere in hospital. Study to be performed night of 06/13/21.
[2021-06-13 07:44] LABS: Glucose Point of Care 134 mg/dl (65-105)
--- NOTE | 2021-06-13 08:17 | PCNWS ---
Weekly nutritional screen. Patient is tolerating current diet with adequate intake. No weight loss reported. No nutritional needs at this time.
[2021-06-13 08:27] LABS: Hemoglobin 8.2 g/dL (12.0-15.0); Mean Corpuscular HGB Conc 30.4 g/dl (32-36); Mean Corpuscular Hemoglobin 30.3 pg (26-34); Mean Corpuscular Volume 99.6 fl (80-100); Platelet Count Result 211 k/mm3 (150-375); Red Blood Count 2.71 M/mm3 (4.2-5.4); Red Cell Distribution Width 13.7 % (11.5-14.5); White Blood Count 5.3 K/mm3 (4.5-10.0)
[2021-06-13] MEDS: AMIODARONE HCL 200 MG TABLET 400 MG PO ×2 (08:32→16:42)
[2021-06-13] MEDS: TERAZOSIN HCL 1 MG CAPSULE 2 MG PO ×2 (08:32→16:42)
[2021-06-13] MEDS: metOLazone 5 MG TABLET PO (08:33)
[2021-06-13] MEDS: APIXABAN 2.5 MG TABLET PO ×2 (08:33→20:15)
[2021-06-13] MEDS: CLOPIDOGREL BISULFATE 75 MG TABLET PO (08:33)
[2021-06-13] MEDS: METOPROLOL TARTRATE 25 MG TABLET PO ×2 (08:33→20:15)
[2021-06-13] MEDS: FUROSEMIDE 40 MG TABLET PO ×2 (08:33→16:43)
[2021-06-13] MEDS: amLODIPine BESYLATE 5 MG TABLET 10 MG PO (08:33)
[2021-06-13] MEDS: INSULIN GLARGINE (*BKC) 100 UNITS/ML 15 UNITS SUB-Q (08:34)
[2021-06-13 08:41] LABS: Albumin Level 3.1 g/dL (3.5-5.1); Anion Gap 7 mmol/L (8-16); Blood Urea Nitrogen 58 mg/dL (7-17); Calcium 7.6 mg/dL (8.4-10.2); Carbon Dioxide 30 mmol/L (22-30); Chloride 101 mmol/L (98-107); Estimated CRCL calculation 15 ml/min; Estimated Glomerular Filt Rate 12; Glucose 130 mg/dL (65-110); Magnesium 2.3 mg/dL (1.6-2.3); Phosphorus 4.8 mg/dL (2.5-4.5); Potassium 3.9 mmol/L (3.4-5.0); Sodium 138 mmol/L (137-145)
[2021-06-13 09:30] LABS: Free T4 Free Thyroxine 1.68 ng/mL (0.78-2.19)
--- NOTE | 2021-06-13 09:45 | PM.PNCARD ---
Progress Note: A&P Assessment and Plan (1) Atrial fibrillation with rapid ventricular response: Code(s): I48.91 - Unspecified atrial fibrillation Status: Acute Assessment and Plan: New diagnosis. She presented to the emergency department in sinus rhythm and subsequently was noted to be in atrial fibrillation with rapid ventricular response. Initially converted to normal sinus rhythm on IV amiodarone but reverted back to atrial fibrillation with RVR yesterday. She was asymptomatic with this. Her oral amiodarone dosage was increased in hopes of chemically converting her back to normal sinus rhythm which has been successful. Continue amiodarone 400 mg b.i.d.. Reduce to 400mg daily in 3 days for 1 week then 200mg daily thereafter. Continue metoprolol 25 mg b.i.d. which has significantly reduced AFib recurrence. I expect she will continue with paroxysms of atrial fibrillation. Continue anticoagulation with apixaban 2.5mg b.i.d (dose adjusted for age, renal function) Monitor for bleeding (also on plavix for h/o strokes) Apnea link suggestive of severe HO. Importance of treatment once again discussed with regards to CHF, atrial fibrillation, as well as pulmonary hypertension and quality of life. Patient verbalized understanding. LV systolic function is preserved. (2) Combined systolic and diastolic congestive heart failure: Qualifiers: Heart failure chronicity: acute on chronic Qualified Code(s): I50.43 - Acute on chronic combined systolic (congestive) and diastolic (congestive) heart failure Code(s): I50.40 - Unspecified combined systolic (congestive) and diastolic (congestive) heart failure Status: Acute Assessment and Plan: History of systolic and diastolic dysfunction. Presents with symptoms of acute CHF exacerbation. Progressive shortness of breath, swelling, orthopnea over the past couple of weeks. Improved with diuresis still mildly volume overloaded but fair. Continue diuresis with furosemide 40 mg p.o. b.i.d. and metolazone 5 mg daily. Would prefer to increase but true intravascular volume status more difficult to assess as no urine output documented overnight which is inaccurate. Furthermore, balance of exacerbating her renal function which is slightly improved yet previous fluid balance suggests she has slightly positive overall. If Nephrology would be okay with this pushing diuretics may be of additional benefit to her. Monitor renal function electrolytes with daily BMP Daily weights Accurate I&O. This was not performed as ordered. Compression stockings (3) Pulmonary HTN: Code(s): I27.20 - Pulmonary hypertension, unspecified Status: Acute Assessment and Plan: History of moderate pulmonary hypertension RVSP 57 mmHg on prior echocardiogram progressed currently severe at 84 mmHg. -Apnea link suggestive severe HO AHI 36. Greatly appreciate involvement and recommendations from pulmonology. She feels better 2 L nasal cannula at night. Outpatient sleep study. (4) Chronic kidney disease, stage 4 (severe): Code(s): N18.4 - Chronic kidney disease, stage 4 (severe) Status: Acute Assessment and Plan: Followed by Dr. Pemberton. Appreciate his involvement and recommendations. Creatinine stable at 2.9 today. As above, would prefer to increase diuretics. However, renal function remains a concern. (5) Uncontrolled hypertension: Code(s): I10 - Essential (primary) hypertension Status: Acute Assessment and Plan: Improved since admission with resumption of home meds, but remains above goal. Continue Amlodipine 10 mg daily and terazosin. (6) Elevated troponin: Code(s): R77.8 - Other specified abnormalities of plasma proteins Status: Acute Assessment and Plan: Type 2 infarction demand ischemia with mild elevation not likely to be related to ACS. Probably related to tachycardia and volume overload. She is not exper
--- NOTE | 2021-06-13 10:33 | PM.PNPUL ---
Progress Note: A&P Assessment and Plan (1) Pulmonary HTN: Code(s): I27.20 - Pulmonary hypertension, unspecified Status: Acute Assessment and Plan: Patient with a history of morbid obesity, BMI 52.8, diastolic and systolic heart failure with a history of fluid overload, new onset atrial fibrillation and history of pulmonary hypertension with PASP of 94 on 02/22/2021 and 57 on 08/30/2020. she currently is admitted for fluid overload and echocardiogram demonstrates PA SP of 84. She has improved with diuresis although her cumulative ins and outs demonstrates she has +180. Diuresis is limited by her chronic renal insufficiency and her creatinine is 2.9 today. She is followed by the renal team. She has no history of asthma. She has minimal tobacco use at 5 pack years quit 40 years ago and has no history of COPD. She has no history of daytime hypercarbia with a blood gas today demonstrating a pH of 7.44/44/63 and her serum bicarb Has remain less than 32 . she does not have obesity hypoventilation syndrome. Given her body habitus I suspect she does have obstructive sleep apnea but she will need an outpatient sleep study to confirm this to qualify for PAP therapy. I will not empirically start any PAP therapy as I have no way to monitor for treatment emergent central apnea. She does have nocturnal hypoxemia with saturations less than or equal to 88% at 17 minutes. I will initiate 2 L nasal cannula oxygen at night and repeat an overnight oximetry tonight. her TSH was 1.07 on 08/30/2020. I will repeat this. 06/13 patient wore 2 L nasal cannula last night but an overnight oximetry was not performed due to limited staffing resources. will repeat overnight oximetry tonight on 2 L. TSH is 2.53 and free T4 is 1.68 both of which are normal. Will follow with you. Subjective Date/time seen: 06/13/21 10:33 Interval history: 06/12/2021: This is a new Pulmonary consultation for atrial fibrillation, pulmonary hypertension and possible obstructive sleep apnea. 80-year-old woman with a history of hypertension, CKD, congestive heart failure, morbid obesity with a BMI of 52.8, pulmonary hypertension with a PASP of 94 on 02/22/2021 and 57 on 08/30/2020 presented to the hospital o 06/06/2021 with 2 weeks worsening shortness of breath. Patient was found to be in fluid overload and new onset atrial fibrillation with rapid ventricular response. Cardiology has been managing her atrial fibrillation and now she is controlled with amiodarone. She has been diuresed with Lasix. She had an echo on 06/10/2021 with an LVEF of 65-70%, grade 2 diastolic dysfunction, mildly enlarged right ventricle, severely enlarged left atrium, moderately enlarged right atrium mild mitral valve stenosis, mild mitral valve regurgitation, mild tricuspid valve regurgitation with an estimated PA SP of 84. With the morbid obesity, atrial fibrillation and pulmonary hypertension I was consulted for possible obstructive sleep apnea. On 06/11/2021 patient had an apnea link on room air with an average saturation of 91%, lowest saturation was 79%. Time with saturation less than or equal to 88% was 17 minutes or 3% of the monitored time. Of note patient's AHI was 36.4. 06/12/2021: Today the patient tells me that she is breathing much better than when she was admitted. She is walking in her room in eating. She says her swelling is decreased. Her room air saturations are 93%. Patient had a room air blood gas with a pH of 7.44/44/63. The patient does have some daytime hypersomnia and takes 1 nap a day. She does not fall asleep when talking to people. She does not know if she snores. She lives with her son and daughter and she has never been told she stops breathing in her sleep. She has never been prescribed home oxygen. She has no morning headaches. And she has never had a sleep study. The patient has no infectious complaints. She denies fever, chi
--- NOTE | 2021-06-13 11:03 | PM.PNNEP ---
Progress Note: A&P Assessment and Plan (1) Chronic kidney disease, stage 4 (severe): Code(s): N18.4 - Chronic kidney disease, stage 4 (severe) Status: Acute Assessment and Plan: the patient has chronic kidney disease. This is most likely due to hypertension and diabetes. Her baseline creatinine runs between 2.4 and 2.7. The patient has acute kidney injury. Renal ultrasound is normal. Urine electrolytes are non pre renal , however she is on diuretics. Most likely this is due to decreased cardiac output from the atrial fibrillation, and affects from the diuretics. her creatinine dat to 3.7 out of the blue. it had been improving slowly. u.o. not r ecorded as there was no hat in the toilet No symptoms of uremia. Chest x-ray still shows some fluid so will keep the diuretics going. recheck the labs tomorrow. may need dialysis if it doens't improve soon. (2) Atrial fibrillation with rapid ventricular response: Code(s): I48.91 - Unspecified atrial fibrillation Status: Acute Assessment and Plan: rate is well controlled. (3) Uncontrolled hypertension: Code(s): I10 - Essential (primary) hypertension Status: Acute Assessment and Plan: Blood pressure is better with a systolic in the 140s She is currently on amlodipine 10 mg daily, and terazosin 2 mg twice a day. (4) Acute exacerbation of CHF (congestive heart failure): Qualifiers: Heart failure type: diastolic Qualified Code(s): I50.33 - Acute on chronic diastolic (congestive) heart failure Code(s): I50.9 - Heart failure, unspecified Status: Acute Assessment and Plan: On diuretics. 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 The patient slept okay. She had some shortness of breath last night. Exam Narrative: WDWN in NAD skin no rash or subcu nodules head ncat lungs clear to auscultation but decreased breath sounds at the bases cor reg no rub or gallop abd BS+ nontender and soft ext 2+ edema. Objective Data Vital Signs Vital Signs: Vital Signs - 24 hr 06/12/21 12:00 06/12/21 14:28 06/12/21 14:29 Temperature 36.2 C L Pulse Rate 77 75 75 Respiratory Rate 20 Blood Pressure 155/42 H Pulse Oximetry 92 06/12/21 14:30 06/12/21 16:00 06/12/21 20:00 Temperature Pulse Rate 75 60 72 Respiratory Rate 16 Blood Pressure Pulse Oximetry 96 06/12/21 20:37 06/12/21 21:08 06/12/21 21:09 Temperature 36.6 C Pulse Rate 68 68 68 Respiratory Rate 16 Blood Pressure 146/41 H Pulse Oximetry 96 06/13/21 00:00 06/13/21 04:00 06/13/21 05:16 Temperature 36.4 C Pulse Rate 58 L 57 L 61 Respiratory Rate 18 Blood Pressure 149/58 H Pulse Oximetry 100 06/13/21 08:32 06/13/21 08:33 Temperature Pulse Rate 66 66 Respiratory Rate Blood Pressure Pulse Oximetry Intake/Output Intake/Output: Intake & Output 06/10/21 06/11/21 06/12/21 06/13/21 23:59 23:59 23:59 23:59 Intake Total 3647 363 6796 380 Output Total 900 1300 700 Balance 120 -660 560 380 Meds/Results Medications: Active Medications Generic Name Dose Route Start Last Admin Trade Name Freq PRN Reason Stop Dose Admin Acetaminophen 650 mg 06/06/21 17:27 Acetaminophen 325 Mg Tablet PO Q4H PRN Mild Pain (1-3) or Fever Amiodarone HCl 400 mg 06/13/21 09:00 06/13/21 08:32 Amiodarone Hcl 200 Mg Tablet PO 400 mg BID JULIO Administration Amlodipine Besylate 10 mg 06/11/21 09:00 06/13/21 08:33 Amlodipine Besylate 5 Mg Tablet PO 10 mg DAILY JULIO Administration Apixaban 2.
[2021-06-13 11:36] LABS: Glucose Point of Care 249 mg/dl (65-105)
[2021-06-13] MEDS: INSULIN ASPART (*BKC) 100 UNITS/ML SUB-Q ×2 (11:46→16:43)
--- NOTE | 2021-06-13 13:51 | PM.IMPN ---
Progress Note: A&P Assessment and Plan (1) Atrial fibrillation with rapid ventricular response: Code(s): I48.91 - Unspecified atrial fibrillation Status: Acute Assessment and Plan: Patient new diagnosis of atrial fibrillation. She was started on amiodarone has converted to normal sinus rhythm. She is also on Eliquis for stroke prophylaxis. Metoprolol has been added. Echocardiogram showing grade 2 diastolic dysfunction with EF of 65-70%. Cardiology following along and appreciate their input. Maintaining sinus rhythm for the most part. Continue to monitor on telemetry. (2) Pulmonary HTN: Code(s): I27.20 - Pulmonary hypertension, unspecified Status: Acute Assessment and Plan: Echocardiogram showing severe pulmonary hypertension. Pulmonary was consulted an ApneaLink ordered. The duration of the test was over 8 hours showing an AHI of 36 and a RI of 37. She only spent 17 minutes (3%) less than 88%. Patient started on O2 2 L nasal cannula at night. Follow-up apnea link is planned for tonight. (3) Acute exacerbation of CHF (congestive heart failure): Qualifiers: Heart failure type: diastolic Qualified Code(s): I50.33 - Acute on chronic diastolic (congestive) heart failure Code(s): I50.9 - Heart failure, unspecified Status: Acute Assessment and Plan: Ada presents with SOB. CXR consistent with CHF exacerbation. BNP was 24K. I/O is inaccurate but weight down about 5kg. She was diuresed with lasix IV. Echo showing EF 65% with Grade II diastolic dysfunction. Still edematous and CXR 06/11/21 showing no changed from admission. Has been changed to oral lasix; she was continued on metolazone. Continue to monitor (4) RAKAN (acute kidney injury): Code(s): N17.9 - Acute kidney failure, unspecified Status: Acute Assessment and Plan: Baseline creatinine mostly runs in the 2 range. Creatinine is 2.5 on admission but she was fluid overloaded. Creatinine climbed to 3.1 diuresis and has been trending downward to 2.9 yesterday. However for unclear reasons, creatinine is now 3.7 today. Renal ultrasound 06/10 was unrevealing. We will check a bladder ultrasound to rule out urine retention. Appreciate Nephrology input. (5) Chronic kidney disease, stage 4 (severe): Code(s): N18.4 - Chronic kidney disease, stage 4 (severe) Status: Acute Assessment and Plan: As above (6) Elevated troponin: Code(s): R77.8 - Other specified abnormalities of plasma proteins Status: Acute Assessment and Plan: Very mild bump 0.044 felt related to the new onset AFib with RVR consistent with type 2 related to demand ischemia. Not felt patient had acute coronary syndrome. Appreciate cardiology input. Continue medical management. (7) Hypertension: Qualifiers: Hypertension type: primary hypertension Qualified Code(s): I10 - Essential (primary) hypertension Code(s): I10 - Essential (primary) hypertension Status: Acute Assessment and Plan: BP elevated on admission to 168/110 felt to have HTN emergency. BP overall has improved. Continue Hytrin, Norvasc and metoprolol. Adjust medications as needed. Subjective Date/time seen: 06/13/21 13:51 Interval history: 80yo female with CKD, CHF, DM and HTN here for SOB and found to have new-onset AFib. Assuming care. Chart reviewed. Patient has been requiring oxygen off and on. She is currently on 1 L at 96% at rest. Therapist in the room said that she dropped to 93% with 1 L with activity. Patient denies any odynophagia or dysphagia. She is dyspneic on exertion still. No chest pain. Slight cough. She has not had a COVID vaccine. Exam Narrative: AF 97.6 149/58 62 18 94% 1L Gen - NARD lying semi recumbent in bed Chest -by base inspiratory crackles otherwise distant breath sounds. CV - RRR S1/S2. Telemetry showing brief run of a flutter. Abd -sof
[2021-06-13 16:40] LABS: Glucose Point of Care 211 mg/dl (65-105)
[2021-06-13] MEDS: INSULIN GLARGINE (*BKC) 100 UNITS/ML 6 UNITS SUB-Q (20:12)
[2021-06-13] MEDS: LORazepam (*CRX) 1 MG TABLET 2 MG PO (20:15)
[2021-06-13 22:05] LABS: Glucose Point of Care 155 mg/dl (65-105)
[2021-06-14] VITALS (13 sets, daily range): BP systolic 135–149; BP diastolic 45–58; PULSE 55–106; RESP 14–20; TEMP 36.4–36.6; O2SAT 89–100
[2021-06-14 05:44] LABS: Hematocrit 26.7 % (37.0-47.0); Hemoglobin 8.1 g/dL (12.0-15.0); Mean Corpuscular HGB Conc 30.3 g/dl (32-36); Mean Corpuscular Hemoglobin 30.1 pg (26-34); Mean Corpuscular Volume 99.3 fl (80-100); Mean Platelet Volume 10.2 fl (7.4-10.4); Platelet Count Result 193 k/mm3 (150-375); Red Blood Count 2.69 M/mm3 (4.2-5.4); Red Cell Distribution Width 13.3 % (11.5-14.5); White Blood Count 5.8 K/mm3 (4.5-10.0)
[2021-06-14 05:57] LABS: Albumin Level 3.1 g/dL (3.5-5.1); Anion Gap 8 mmol/L (8-16); Blood Urea Nitrogen 60 mg/dL (7-17); Calcium 7.5 mg/dL (8.4-10.2); Carbon Dioxide 31 mmol/L (22-30); Chloride 100 mmol/L (98-107); Estimated CRCL calculation 14 ml/min; Estimated Glomerular Filt Rate 11; Glucose 149 mg/dL (65-110); Magnesium 2.4 mg/dL (1.6-2.3); Phosphorus 4.8 mg/dL (2.5-4.5); Potassium 3.7 mmol/L (3.4-5.0); Sodium 139 mmol/L (137-145)
[2021-06-14 08:27] LABS: Glucose Point of Care 150 mg/dl (65-105)
[2021-06-14] MEDS: AMIODARONE HCL 200 MG TABLET 400 MG PO ×2 (09:14→18:00)
[2021-06-14] MEDS: APIXABAN 2.5 MG TABLET PO ×2 (09:14→20:54)
[2021-06-14] MEDS: amLODIPine BESYLATE 5 MG TABLET 10 MG PO (09:14)
[2021-06-14] MEDS: CLOPIDOGREL BISULFATE 75 MG TABLET PO (09:15)
[2021-06-14] MEDS: TERAZOSIN HCL 1 MG CAPSULE 2 MG PO ×2 (09:15→18:00)
[2021-06-14] MEDS: FUROSEMIDE 40 MG TABLET PO (09:15)
[2021-06-14] MEDS: METOPROLOL TARTRATE 25 MG TABLET PO ×2 (09:15→20:54)
[2021-06-14] MEDS: metOLazone 5 MG TABLET PO (09:15)
[2021-06-14] MEDS: INSULIN GLARGINE (*BKC) 100 UNITS/ML 15 UNITS SUB-Q (09:26)
--- NOTE | 2021-06-14 09:53 | PM.PNNEP ---
Progress Note: A&P Assessment and Plan (1) Chronic kidney disease, stage 4 (severe): Code(s): N18.4 - Chronic kidney disease, stage 4 (severe) Status: Acute Assessment and Plan: the patient has chronic kidney disease. This is most likely due to hypertension and diabetes. Her baseline creatinine runs between 2.4 and 2.7. The patient has acute kidney injury. Renal ultrasound is normal. Urine electrolytes are non pre renal , however she is on diuretics. Most likely this is due to decreased cardiac output from the atrial fibrillation, and affects from the diuretics. I discussed with Dr. Velez. She probably has sleep apnea as well which may be contributing. Her creatinine is up to 3.9 her urine output was 1200. No symptoms of uremia. Chest x-ray is still wet I discussed with Dr. Velez. He is going to empirically place her on CPAP. The patient's rhythm seems regular today. I will try diuretics today because of the fluid. If her renal function continues to deteriorate we may need to start dialysis on Thursday. Discussed with the patient. (2) Atrial fibrillation with rapid ventricular response: Code(s): I48.91 - Unspecified atrial fibrillation Status: Acute Assessment and Plan: rate is well controlled. Rhythm seems regular (3) Uncontrolled hypertension: Code(s): I10 - Essential (primary) hypertension Status: Acute Assessment and Plan: Blood pressure is better with a systolic in the 140s She is currently on amlodipine 10 mg daily, and terazosin 2 mg twice a day. purposefully leaving blood pressure in the 140s or so to help with the renal failure. (4) Acute exacerbation of CHF (congestive heart failure): Qualifiers: Heart failure type: diastolic Qualified Code(s): I50.33 - Acute on chronic diastolic (congestive) heart failure Code(s): I50.9 - Heart failure, unspecified Status: Acute Assessment and Plan: Increase diuretics (5) Insulin dependent type 2 diabetes mellitus: Code(s): E11.9 - Type 2 diabetes mellitus without complications; Z79.4 - alf (current) use of insulin Status: Acute Assessment and Plan: on Accu-Cheks and sliding-scale insulin Subjective Date/time seen: 06/14/21 09:53 Interval history: Patient Is up in a chair. The patient slept okay. She requires oxygen off and on. Exam Narrative: WDWN in NAD skin no rash or subcu nodules head ncat lungs decreased breath sounds at the bases cor reg no rub or gallop abd BS+ nontender and soft ext 2+ edema. Objective Data Vital Signs Vital Signs: Vital Signs - 24 hr 06/13/21 11:40 06/13/21 12:00 06/13/21 14:15 Temperature 35.9 C L Pulse Rate 62 61 Respiratory Rate 22 H Blood Pressure 143/83 H Pulse Oximetry 94 98 06/13/21 16:00 06/13/21 16:42 06/13/21 19:29 Temperature 37.1 C Pulse Rate 59 L 70 65 Respiratory Rate 17 Blood Pressure 126/54 L Pulse Oximetry 94 06/13/21 20:00 06/13/21 20:15 06/13/21 23:13 Temperature Pulse Rate 65 63 Respiratory Rate 17 Blood Pressure Pulse Oximetry 94 96 06/14/21 00:00 06/14/21 03:21 06/14/21 04:00 Temperature 36.6 C Pulse Rate 60 58 L 55 L Respiratory Rate 16 Blood Pressure 142/48 H Pulse Oximetry 99 06/14/21 08:00 Temperature Pulse Rate 66 Respiratory Rate Blood Pressure Pulse Oximetry Intake/Output Intake/Output: Intake & Output 06/11/21 06/12/21 06/13/21 06/14/21 23:59 23:59 23:59 23:59 Intake Total 640 1260 990 240 Output Total 5502 192 0286 400 Balance -660 560 -210 -160 Meds/Results Medications: Active Medications Generic Name Dose Route Start Last Admin Trade Name Freq PRN Reason Stop Dose Admin Acetaminophen 650 mg 06/06/21 17:27 Acetaminophen 325 Mg Tablet PO Q4H PRN Mild Pain (1-3) or Fever Amiodarone HCl 400 mg 0
--- NOTE | 2021-06-14 09:55 | PM.PNCARD ---
Progress Note: A&P Assessment and Plan (1) Atrial fibrillation with rapid ventricular response: Code(s): I48.91 - Unspecified atrial fibrillation <ADRIANA Sanderson - Last Filed: 06/14/21 10:40> Status: Acute <ADRIANA Sanderson - Last Filed: 06/14/21 10:40> Assessment and Plan: New diagnosis. She presented to the emergency department in sinus rhythm and subsequently was noted to be in atrial fibrillation with rapid ventricular response. Initially converted to normal sinus rhythm on IV amiodarone but reverted back to atrial fibrillation with RVR yesterday. She was asymptomatic with this. Her oral amiodarone dosage was increased in hopes of chemically converting her back to normal sinus rhythm which has been successful. Continue amiodarone 400 mg b.i.d.. Reduce to 400mg daily in 2 days for 1 week then 200mg daily thereafter. Continue metoprolol 25 mg b.i.d. Continue anticoagulation with apixaban 2.5mg b.i.d (dose adjusted for age, renal function) Monitor for bleeding (also on plavix for h/o strokes) Apnea link suggestive of severe HO. She will need outpatient sleep study. Pulmonology is following and she will be empirically placed on CPAP tonight. <ADRIANA Sanderson - Last Filed: 06/14/21 10:40> (2) Combined systolic and diastolic congestive heart failure: Qualifiers: Heart failure chronicity: acute on chronic Qualified Code(s): I50.43 - Acute on chronic combined systolic (congestive) and diastolic (congestive) heart failure <ADRIANA Sanderson - Last Filed: 06/14/21 10:40> Code(s): I50.40 - Unspecified combined systolic (congestive) and diastolic (congestive) heart failure <ADRIANA Sanderson - Last Filed: 06/14/21 10:40> Status: Acute <ADRIANA Sanderson - Last Filed: 06/14/21 10:40> Assessment and Plan: History of systolic and diastolic dysfunction. Presents with symptoms of acute CHF exacerbation. Progressive shortness of breath, swelling, orthopnea over the past couple of weeks. Unfortunately, she is becoming more volume overloaded and creatinine has increased from 2.2 to 3.9 today. She sounds wet on pulmonary exam. Become short of breath with very minimal activity. Currently on 2 L of oxygen. Spoke to Dr. Pemberton regarding plan for diuresis. He is going to add terazosin 2 mg p.o. b.i.d. to her current regimen of Bumex 1 mg IV b.i.d. and Zaroxolyn 5 mg p.o. daily. Monitor renal function electrolytes with daily BMP Daily weights Accurate I&O Compression stockings <ADRIANA Sanderson - Last Filed: 06/14/21 10:40> (3) Pulmonary HTN: Code(s): I27.20 - Pulmonary hypertension, unspecified <ADRIANA Sanderson - Last Filed: 06/14/21 10:40> Status: Acute <ADRIANA Sanderson - Last Filed: 06/14/21 10:40> Assessment and Plan: History of moderate pulmonary hypertension RVSP 57 mmHg on prior echocardiogram progressed currently severe at 84 mmHg. -Apnea link suggestive severe HO AHI 36. Greatly appreciate involvement and recommendations from pulmonology. Starting CPAP empirically tonight. She will need an outpatient sleep study. <ADRIANA Sanderson - Last Filed: 06/14/21 10:40> (4) Chronic kidney disease, stage 4 (severe): Code(s): N18.4 - Chronic kidney disease, stage 4 (severe) <ADRIANA Sanderson - Last Filed: 06/14/21 10:40> Status: Acute <ADRIANA Sanderson - Last Filed: 06/14/21 10:40> Assessment and Plan: Followed by Dr. Pemberton. As above. <ADRIANA Sanderson - Last Filed: 06/14/21 10:40> (5) Uncontrolled hypertension: Code(s): I10 - Essential (primary) hypertension <ADRIANA Sanderson - Last Filed: 06/14/21 10:40> Status: Acute <ADRIANA Sanderson - Last Filed: 06/14/21 10:40> Assessment and Plan: Improved since admission with resumption of home meds, but remains above goal.
--- NOTE | 2021-06-14 10:29 | PM.PNPUL ---
Progress Note: A&P Assessment and Plan (1) Pulmonary HTN: Code(s): I27.20 - Pulmonary hypertension, unspecified Status: Acute Assessment and Plan: Patient with a history of morbid obesity, BMI 52.8, diastolic and systolic heart failure with a history of fluid overload, new onset atrial fibrillation and history of pulmonary hypertension with PASP of 94 on 02/22/2021 and 57 on 08/30/2020. she currently is admitted for fluid overload and echocardiogram demonstrates PA SP of 84. She has improved with diuresis although her cumulative ins and outs demonstrates she has +180. Diuresis is limited by her chronic renal insufficiency and her creatinine is 2.9 today. She is followed by the renal team. She has no history of asthma. She has minimal tobacco use at 5 pack years quit 40 years ago and has no history of COPD. She has no history of daytime hypercarbia with a blood gas today demonstrating a pH of 7.44/44/63 and her serum bicarb Has remain less than 32 . she does not have obesity hypoventilation syndrome. Given her body habitus I suspect she does have obstructive sleep apnea but she will need an outpatient sleep study to confirm this to qualify for PAP therapy. I will not empirically start any PAP therapy as I have no way to monitor for treatment emergent central apnea. She does have nocturnal hypoxemia with saturations less than or equal to 88% at 17 minutes. I will initiate 2 L nasal cannula oxygen at night and repeat an overnight oximetry tonight. her TSH was 1.07 on 08/30/2020. I will repeat this. 06/13 patient wore 2 L nasal cannula last night but an overnight oximetry was not performed due to limited staffing resources. will repeat overnight oximetry tonight on 2 L. TSH is 2.53 and free T4 is 1.68 both of which are normal. 06/14 Patient remains unchanged clinically with dyspnea on exertion and no rest shortness of breath. She remains on 2 L nasal cannula during the day with saturations 94%. Patient had an overnight oximetry on 2 L nasal cannula with average saturations 98%, lowest saturation 93%, time with saturation less than or equal to 88% was 0 minutes. Remains on diuretics with creatinine at 3.9. Hospitalist, renal and Cardiology teams following. Although patient will require an outpatient sleep study prior to initiation of home PAP treatment, she likely has obstructive sleep apnea and possibly right heart failure that may be contributing to her acute kidney injury for which she is approaching dialysis. This may respond to PAP therapy in the hospital. I have reached out to the director the sleep lab for her assistance regarding the empiric initiation of PAP therapy. Given patient's high likelihood of obstructive sleep apnea and her clinical deteriorating renal function will empirically start auto Pap 5-15 while she is in the hospital on 2 L bleed in. Patient also with severe pulmonary hypertension which is out of proportion to just uncontrolled sleep apnea. I will send a D-dimer and if positive will perform lower extremity Dopplers as well as a perfusion scan. Discussed with Dr. Pemberton Inpatient Pulmonary Services will resume on 06/17/21, call with questions. Subjective Date/time seen: 06/14/21 10:29 Interval history: 06/12/2021: This is a new Pulmonary consultation for atrial fibrillation, pulmonary hypertension and possible obstructive sleep apnea. 80-year-old woman with a history of hypertension, CKD, congestive heart failure, morbid obesity with a BMI of 52.8, pulmonary hypertension with a PASP of 94 on 02/22/2021 and 57 on 08/30/2020 presented to the hospital o 06/06/2021 with 2 weeks worsening shortness of breath. Patient was found to be in fluid overload and new onset atrial fibrillation with rapid ventricular response. Cardiology has been managing her atrial fibrillation and now she is controlled with amiodarone. She has been diuresed with Lasix. She had an echo on
[2021-06-14 11:15] LABS: D Dimer 0.98 ug/mL (<0.48)
[2021-06-14] MEDS: EPOETIN ALFA-EPBX 10,000 UNITS/ML VIAL 10000 UNITS SUB-Q (11:38)
[2021-06-14] MEDS: BUMETANIDE INJ 1 MG/4 ML VIAL IV PUSH ×2 (11:38→18:00)
[2021-06-14 12:03] LABS: Glucose Point of Care 203 mg/dl (65-105)
[2021-06-14] MEDS: INSULIN ASPART (*BKC) 100 UNITS/ML SUB-Q ×2 (12:58→18:01)
--- NOTE | 2021-06-14 14:08 | PM.IMPN ---
Progress Note: A&P Assessment and Plan (1) Atrial fibrillation with rapid ventricular response: Code(s): I48.91 - Unspecified atrial fibrillation Status: Acute Assessment and Plan: Patient new diagnosis of atrial fibrillation. She was started on amiodarone and converted to normal sinus rhythm. She is also on Eliquis for stroke prophylaxis. Metoprolol was added. Echo showing grade 2 diastolic dysfunction with EF of 65-70%. Maintaining sinus rhythm. Continue to monitor on telemetry. Appreciate Cardiology input. Weaning down the Amio. (2) Pulmonary HTN: Code(s): I27.20 - Pulmonary hypertension, unspecified Status: Acute Assessment and Plan: Echocardiogram showing severe pulmonary hypertension (84 mmHg). Pulmonary was consulted an ApneaLink ordered. The duration of the test was over 8 hours showing an AHI of 36 and a RI of 37. She only spent 17 minutes (3%) less than 88%. Patient started on O2 2 L nasal cannula at night. Follow-up apnea link was not accurate. Perfusion scan ordered as well. This shows intermediate probability for PE. Appreciate pulmonary input. She remains on Eliquis for her AFib. (3) Acute exacerbation of CHF (congestive heart failure): Qualifiers: Heart failure type: diastolic Qualified Code(s): I50.33 - Acute on chronic diastolic (congestive) heart failure Code(s): I50.9 - Heart failure, unspecified Status: Acute Assessment and Plan: Patient presents with SOB. CXR consistent with CHF exacerbation. BNP was 24K. I/O is inaccurate. She was diuresed with lasix IV. Echo showing EF 65% with Grade II diastolic dysfunction. Still edematous and CXR today again showing no changed from admission. Was changed to oral lasix but now on Bumex IV; she is continued on metolazone. Continue to monitor (4) RAKAN (acute kidney injury): Code(s): N17.9 - Acute kidney failure, unspecified Status: Acute Assessment and Plan: Baseline creatinine mostly runs in the 2 range. Creatinine is 2.5 on admission but she was fluid overloaded. Creatinine climbed to 3.1 with diuresis and has been trending downward until yesterday when it was 3.7 for unclear reasons. Cr 3.9 today - dehydration? progression of CKD? Preload dependent due to her severe Pulmonary HTN? Renal ultrasound 06/10/21 was unrevealing. Lasix changed to Bumex IV. Appreciate Nephrology input. (5) Chronic kidney disease, stage 4 (severe): Code(s): N18.4 - Chronic kidney disease, stage 4 (severe) Status: Acute Assessment and Plan: As above (6) Elevated troponin: Code(s): R77.8 - Other specified abnormalities of plasma proteins Status: Acute Assessment and Plan: Very mild bump 0.044 felt related to the new onset AFib with RVR consistent with type 2 related to demand ischemia. Not felt patient had acute coronary syndrome. Appreciate cardiology input. Continue medical management. (7) Hypertension: Qualifiers: Hypertension type: primary hypertension Qualified Code(s): I10 - Essential (primary) hypertension Code(s): I10 - Essential (primary) hypertension Status: Acute Assessment and Plan: BP elevated on admission to 168/110 felt to have HTN emergency. BP overall has improved. Continue Hytrin, Norvasc and metoprolol. Adjust medications as needed. Subjective Date/time seen: 06/14/21 14:08 Interval history: 80yo female with CKD, CHF, DM and HTN here for SOB and found to have new-onset AFib. She is anxious about testing planned for later today. She feels slightly SOB felt related to anxious. She jose alfredo CP. No n/v. Exam Narrative: AF 97.6 137/45 60 14 100% 2L Gen - NARD lying semi recumbent in bed Chest - decreased BS in the bases CV - RRR S1/S2. Telemetry showing no significant dysrhythmias Abd - soft, obese, +BS, flank edema Ext - marked bilateral upper and lower extremity pitting edema. Psych - anxi
[2021-06-14] MEDS: acetaZOLAMIDE TAB 250 MG TABLET 500 MG PO (18:00)
[2021-06-14 18:12] LABS: Glucose Point of Care 251 mg/dl (65-105)
[2021-06-14] MEDS: LORazepam (*CRX) 1 MG TABLET 2 MG PO (20:54)
[2021-06-14] MEDS: INSULIN GLARGINE (*BKC) 100 UNITS/ML 6 UNITS SUB-Q (20:56)
[2021-06-14 21:27] LABS: Glucose Point of Care 218 mg/dl (65-105)
[2021-06-15] VITALS (13 sets, daily range): BP systolic 127–141; BP diastolic 43–54; PULSE 54–74; RESP 18–32; TEMP 35.9–36.6; O2SAT 96–100
[2021-06-15 05:59] LABS: Basophils Percent Auto 0.5 % (0.2-1.2); Eosinophils Absolute Auto 0.2 K/mm3 (0-0.3); Eosinophils Percent Auto 2.9 % (0-4.4); Hematocrit 26.4 % (37.0-47.0); Hemoglobin 7.9 g/dL (12.0-15.0); Immature Granulocyte Absolute 0.03 K/mm3 (0.00-0.031); Immature Granulocyte Percent A 0.5 % (0-0.5); Lymphocytes Absolute Auto 0.81 K/mm3 (0.9-3.2); Lymphocytes Percent Auto 14.5 % (18.3-44.2); Mean Corpuscular HGB Conc 29.9 g/dl (32-36); Mean Corpuscular Hemoglobin 30.3 pg (26-34); Mean Corpuscular Volume 101.1 fl (80-100); Mean Platelet Volume 10.4 fl (7.4-10.4); Monocytes Absolute Auto 0.5 K/mm3 (0.1-0.6); Monocytes Percent Auto 8.2 % (2.6-8.5); Neutrophils Absolute Auto 4.1 K/mm3 (1.3-6.7); Neutrophils Percent Auto 73.4 % (45.5-73.1); Platelet Count Result 201 k/mm3 (150-375); Red Blood Count 2.61 M/mm3 (4.2-5.4); Red Cell Distribution Width 13.2 % (11.5-14.5); White Blood Count 5.6 K/mm3 (4.5-10.0)
[2021-06-15 06:22] LABS: Albumin Level 3.2 g/dL (3.5-5.1); Anion Gap 6 mmol/L (8-16); Blood Urea Nitrogen 60 mg/dL (7-17); Calcium 7.4 mg/dL (8.4-10.2); Carbon Dioxide 31 mmol/L (22-30); Chloride 100 mmol/L (98-107); Estimated CRCL calculation 13 ml/min; Estimated Glomerular Filt Rate 10; Glucose 158 mg/dL (65-110); Potassium 3.7 mmol/L (3.4-5.0); Sodium 137 mmol/L (137-145)
[2021-06-15 08:10] LABS: Glucose Point of Care 152 mg/dl (65-105)
--- NOTE | 2021-06-15 09:30 | PM.PNCARD ---
Progress Note: A&P Assessment and Plan (1) Atrial fibrillation with rapid ventricular response: Code(s): I48.91 - Unspecified atrial fibrillation Status: Acute Assessment and Plan: Paroxysmal versus persistent. She presented to the emergency department in sinus rhythm and subsequently was noted to be in atrial fibrillation with rapid ventricular response. Initially converted to normal sinus rhythm on IV amiodarone but reverted back to atrial fibrillation with RVR. Currently back in sinus rhythm. -continue oral amiodarone. -anticoagulation with low-dose apixaban based on age and renal function. -continue metoprolol tartrate. - Apnea link suggestive of severe HO. She will need outpatient sleep study. (2) Combined systolic and diastolic congestive heart failure: Qualifiers: Heart failure chronicity: acute on chronic Qualified Code(s): I50.43 - Acute on chronic combined systolic (congestive) and diastolic (congestive) heart failure Code(s): I50.40 - Unspecified combined systolic (congestive) and diastolic (congestive) heart failure Status: Acute Assessment and Plan: CHF with preserved ejection fraction, with volume overload precipitated by renal failure. Monitor renal function electrolytes with daily BMP Daily weights Accurate I&O Compression stockings, keep legs elevated as much as possible during the day (3) Pulmonary HTN: Code(s): I27.20 - Pulmonary hypertension, unspecified Status: Acute Assessment and Plan: Treatment of sleep apnea, CHF. (4) Chronic kidney disease, stage 4 (severe): Code(s): N18.4 - Chronic kidney disease, stage 4 (severe) Status: Acute Assessment and Plan: Followed by nephrology. May need renal replacement therapy. (5) Uncontrolled hypertension: Code(s): I10 - Essential (primary) hypertension Status: Acute Assessment and Plan: Continue current antihypertensives (6) Elevated troponin: Code(s): R77.8 - Other specified abnormalities of plasma proteins Status: Acute Assessment and Plan: In the setting of CHF, renal failure. Subjective Date/time seen: 06/15/21 09:30 Interval history: 80yo female with CKD, CHF, DM and HTN here for SOB and found to have new-onset AFib. Date of service 06/15/2021: Patient was sitting in the chair. She reported improvement in her shortness of breath. Denied any chest pain. On telemetry, patient has been in sinus rhythm/sinus bradycardia. Her renal function has worsened. Exam Narrative: PHYSICAL EXAMINATION: GENERAL: Obese female, Alert, oriented, no acute distress MENTAL STATUS: affect appropriate to mood EYES: Extraocular movements intact, no pallor EARS: External ears appear normal, hearing grossly normal NOSE: Normal and patent, no discharge MOUTH: Mucous membranes moist, tongue normal NECK: Supple, no JVD CHEST: Diminished breath sounds due to body habitus HEART: Normal rate, regular rhythm ABDOMEN: Soft, nontender, obese NEUROLOGICAL: Alert, oriented, normal speech MUSCULOSKELETAL: No major deformity, no amputation EXTREMITIES: Bilateral pedal edema, no clubbing, no cyanosis SKIN: no rash on the exposed area, no cyanosis PSYCHIATRIC: Normal mood, appropriate affect Objective Data Vital Signs Vital Signs: Vital Signs - 24 hr 06/14/21 10:00 06/14/21 12:00 06/14/21 16:00 Temperature 36.4 C Pulse Rate 62 60 71 Respiratory Rate 14 Blood Pressure 137/45 L Pulse Oximetry 100 06/14/21 18:25 06/14/21 20:00 06/14/21 20:54 Temperature 36.4 C Pulse Rate 106 H 60 106 H Respiratory Rate 16 Blood Pressure 149/58 H Pulse Oximetry 98 06/14/21 21:00 06/14/21 22:00 06/15/21 00:00 Temperature 36.5 C Pulse Rate 63 59 L Respiratory Rate 20 Blood Pressure 135/51 L Pulse Oximetry 99 99 06/15/21 04:00 06/15/21 06:00 Temperature 36.2 C L Pulse Rate 54 L 58 L Respiratory Ra
[2021-06-15] MEDS: metOLazone 5 MG TABLET PO (09:31)
[2021-06-15] MEDS: AMIODARONE HCL 200 MG TABLET 400 MG PO (09:31)
[2021-06-15] MEDS: amLODIPine BESYLATE 5 MG TABLET 10 MG PO (09:31)
[2021-06-15] MEDS: acetaZOLAMIDE TAB 250 MG TABLET 500 MG PO ×2 (09:31→16:38)
[2021-06-15] MEDS: APIXABAN 2.5 MG TABLET PO ×2 (09:31→20:09)
[2021-06-15] MEDS: BUMETANIDE INJ 1 MG/4 ML VIAL IV PUSH ×2 (09:31→16:37)
[2021-06-15] MEDS: METOPROLOL TARTRATE 25 MG TABLET PO ×2 (09:31→20:09)
[2021-06-15] MEDS: CLOPIDOGREL BISULFATE 75 MG TABLET PO (09:31)
[2021-06-15] MEDS: TERAZOSIN HCL 1 MG CAPSULE 2 MG PO ×2 (09:31→16:38)
[2021-06-15] MEDS: INSULIN GLARGINE (*BKC) 100 UNITS/ML 15 UNITS SUB-Q (09:32)
--- NOTE | 2021-06-15 10:07 | PM.PNNEP ---
Progress Note: A&P Assessment and Plan (1) RAKAN (acute kidney injury): Code(s): N17.9 - Acute kidney failure, unspecified Status: Acute Assessment and Plan: etiology not clear evaluation to date: renal ultrasound without any acute issues urine electrolytes non-prerenal (but she is on diuretics) making urine with diuretics but at the expense of her kidney function no overt uremic symptoms and no critical electrolytes at this time HOWEVER, breathing still not at baseline, fluid on CXR, and significant swelling/edema present follow labs and UOP she remains at risk for needing LANDSCAPE MANAGER/dialysis (Dr. Pemberton discussed with patient already) (2) Chronic kidney disease, stage 4 (severe): Code(s): N18.4 - Chronic kidney disease, stage 4 (severe) Status: Acute Assessment and Plan: baseline creatinine runs ~ 2.4 - 2.7mg/dl secondary to combination of HTN and diabetes suspect HO maybe a contributing factor as well (3) Acute exacerbation of CHF (congestive heart failure): Qualifiers: Heart failure type: diastolic Qualified Code(s): I50.33 - Acute on chronic diastolic (congestive) heart failure Code(s): I50.9 - Heart failure, unspecified Status: Acute Assessment and Plan: most recent Echo noted suspect more related to worsening renal failure than overt CHF daily weights follow I/Os continue diuretics remains at risk for needing LANDSCAPE MANAGER/dialysis (4) Atrial fibrillation with rapid ventricular response: Code(s): I48.91 - Unspecified atrial fibrillation Status: Acute Assessment and Plan: rate control strategy on anticoagulation (5) Uncontrolled hypertension: Code(s): I10 - Essential (primary) hypertension Status: Chronic Assessment and Plan: reasonable control at this time continues current medications would avoid overcontrol for fear this could worsen renal failure more (6) Insulin dependent type 2 diabetes mellitus: Code(s): E11.9 - Type 2 diabetes mellitus without complications; 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 Subjective Date/time seen: 06/15/21 10:07 Chart reviewed - assuming care from Dr. Pemberton; she states her breathing is a little better but her renal function continues to deteriorate; still has significant swelling/edema present in spite of current diuretic therapy; no issues/events overnight or earlier this AM. Exam Narrative: General: WD/WN female in NAD Heart: normal S1 and S2; no rub Lungs: decreased at the bases Abdomen: soft, nontender, nondistended, positive bowel sounds Extremities: no cyanosis or clubbing; 2+ edema Skin: warm and dry Objective Data Vital Signs Vital Signs: Vital Signs Temp Pulse Resp BP Pulse Ox 06/15/21 06:00 36.2 C L 58 L 21 H 128/43 L 100 06/15/21 04:00 54 L 06/15/21 00:00 59 L 06/14/21 22:00 36.5 C 63 20 135/51 L 99 06/14/21 21:00 99 06/14/21 20:54 106 H 06/14/21 20:00 60 06/14/21 18:25 36.4 C 106 H 16 149/58 H 98 06/14/21 16:00 71 06/14/21 12:00 60 Intake/Output Intake/Output: Intake & Output 06/12/21 06/13/21 06/14/21 06/15/21 23:59 23:59 23:59 23:59 Intake Total 1260 990 720 580 Output Total 700 1200 400 700 Balance 560 -210 320 -120 Meds/Results Medications: Active Medications Generic Name Dose Route Start Last Admin Trade Name Freq PRN Reason Stop Dose Admin Acetaminophen 650 mg 06/06/21 17:27 Acetaminophen 325 Mg Tablet PO Q4H PRN Mild Pain (1-3) or Fever Acetazolamide 500 mg 06/14/21 17:00 06/15/21 09:31 Acetazolamide Tab 250 Mg Tablet PO 500 mg BID [facility] Administration Amiodarone HCl 400 mg 06/15/21 08:00 06/15/21 09:31 Amiodarone Hcl 200 Mg Tablet PO 400 mg DAILY@0800 [facility] Adminis
--- NOTE | 2021-06-15 10:07 | P.PNNP_ITS ---
Progress Note: A&P Assessment and Plan (1) RAKAN (acute kidney injury): Code(s): N17.9 - Acute kidney failure, unspecified Status: Acute Assessment and Plan: * etiology not clear * evaluation to date: * renal ultrasound without any acute issues * urine electrolytes non-prerenal (but she is on diuretics) * making urine with diuretics but at the expense of her kidney function * no overt uremic symptoms and no critical electrolytes at this time * HOWEVER, breathing still not at baseline, fluid on CXR, and significant swelling/edema present * follow labs and UOP * she remains at risk for needing ROPE TIER/dialysis (Dr. Pemberton discussed with patient already) (2) Chronic kidney disease, stage 4 (severe): Code(s): N18.4 - Chronic kidney disease, stage 4 (severe) Status: Acute Assessment and Plan: * baseline creatinine runs ~ 2.4 - 2.7mg/dl * secondary to combination of HTN and diabetes * suspect HO maybe a contributing factor as well (3) Acute exacerbation of CHF (congestive heart failure): Qualifiers: Heart failure type: diastolic Qualified Code(s): I50.33 - Acute on chronic diastolic (congestive) heart failure Code(s): I50.9 - Heart failure, unspecified Status: Acute Assessment and Plan: * most recent Echo noted * suspect more related to worsening renal failure than overt CHF * daily weights * follow I/Os * continue diuretics * remains at risk for needing ROPE TIER/dialysis (4) Atrial fibrillation with rapid ventricular response: Code(s): I48.91 - Unspecified atrial fibrillation Status: Acute Assessment and Plan: * rate control strategy * on anticoagulation (5) Uncontrolled hypertension: Code(s): I10 - Essential (primary) hypertension Status: Chronic Assessment and Plan: * reasonable control at this time * continues current medications * would avoid overcontrol for fear this could worsen renal failure more (6) Insulin dependent type 2 diabetes mellitus: Code(s): E11.9 - Type 2 diabetes mellitus without complications; 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 Subjective Date/time seen: 06/15/21 10:07 Chart reviewed - assuming care from Dr. Pemberton; she states her breathing is a little better but her renal function continues to deteriorate; still has s ignificant swelling/edema present in spite of current diuretic therapy; no issues/events overnight or earlier this AM. Exam Narrative: General: WD/WN female in NAD Heart: normal S1 and S2; no rub Lungs: decreased at the bases Abdomen: soft, nontender, nondistended, positive bowel sounds Extremities: no cyanosis or clubbing; 2+ edema Skin: warm and dry Objective Data Vital Signs Vital Signs: Vital Signs Temp Pulse Resp BP Pulse Ox 06/15/21 06:00 36.2 C L 58 L 21 H 128/43 L 100 06/15/21 04:00 54 L 06/15/21 00:00 59 L 06/14/21 22:00 36.5 C 63 20 135/51 L 99 06/14/21 21:00 99 06/14/21 20:54 106 H 06/14/21 20:00 60 06/14/21 18:25 36.4 C 106 H 16 149/58 H 98 06/14/21 16:00 71 06/14/21 12:00 60 Intake/Output Intake/Output: Intake & Output
[2021-06-15 12:05] LABS: Glucose Point of Care 234 mg/dl (65-105)
[2021-06-15] MEDS: INSULIN ASPART (*BKC) 100 UNITS/ML SUB-Q ×2 (12:14→16:40)
--- NOTE | 2021-06-15 13:14 | PM.IMPN ---
Progress Note: A&P Assessment and Plan (1) Atrial fibrillation with rapid ventricular response: Code(s): I48.91 - Unspecified atrial fibrillation Status: Acute Assessment and Plan: Patient new diagnosis of atrial fibrillation. She was started on amiodarone and converted to normal sinus rhythm. She is also on Eliquis for stroke prophylaxis. Metoprolol was added. Echo showing grade 2 diastolic dysfunction with EF of 65-70%. Maintaining sinus rhythm. Continue to monitor on telemetry. Appreciate Cardiology input. Weaning down the Amio. (2) Pulmonary HTN: Code(s): I27.20 - Pulmonary hypertension, unspecified Status: Acute Assessment and Plan: Echocardiogram showing severe pulmonary hypertension (84 mmHg). Pulmonary was consulted an ApneaLink ordered. The duration of the test was over 8 hours showing an AHI of 36 and a RI of 37. She only spent 17 minutes (3%) less than 88%. Patient started on O2 2 L nasal cannula at night. Follow-up apnea link was not accurate. Perfusion scan ordered as well. This shows intermediate probability for PE. Appreciate pulmonary input. She remains on Eliquis for her AFib. (3) Acute exacerbation of CHF (congestive heart failure): Qualifiers: Heart failure type: diastolic Qualified Code(s): I50.33 - Acute on chronic diastolic (congestive) heart failure Code(s): I50.9 - Heart failure, unspecified Status: Acute Assessment and Plan: Patient presents with SOB. CXR consistent with CHF exacerbation. BNP was 24K. I/O is inaccurate. She was diuresed with lasix IV. Echo showing EF 65% with Grade II diastolic dysfunction. Still edematous and CXR today again showing no changed from admission. Was changed to oral lasix but now on Bumex IV; she is continued on metolazone. Continue to monitor (4) RAKAN (acute kidney injury): Code(s): N17.9 - Acute kidney failure, unspecified Status: Acute Assessment and Plan: Baseline creatinine mostly runs in the 2 range. Creatinine is 2.5 on admission but she was fluid overloaded. Creatinine climbed to 3.1 with diuresis and has been trending downward until yesterday when it was 3.7 for unclear reasons. Cr 3.9 today - dehydration? progression of CKD? Preload dependent due to her severe Pulmonary HTN? Renal ultrasound 06/10/21 was unrevealing. Lasix changed to Bumex IV. Appreciate Nephrology input. (5) Chronic kidney disease, stage 4 (severe): Code(s): N18.4 - Chronic kidney disease, stage 4 (severe) Status: Acute Assessment and Plan: As above (6) Elevated troponin: Code(s): R77.8 - Other specified abnormalities of plasma proteins Status: Acute Assessment and Plan: Very mild bump 0.044 felt related to the new onset AFib with RVR consistent with type 2 related to demand ischemia. Not felt patient had acute coronary syndrome. Appreciate cardiology input. Continue medical management. (7) Hypertension: Qualifiers: Hypertension type: primary hypertension Qualified Code(s): I10 - Essential (primary) hypertension Code(s): I10 - Essential (primary) hypertension Status: Acute Assessment and Plan: BP elevated on admission to 168/110 felt to have HTN emergency. BP overall has improved. Continue Hytrin, Norvasc and metoprolol. Adjust medications as needed. Additional Plan Diet: Diabetic, heart healthy with 1500 cc fluid restriction DVT prophylaxis: Roseyquis Code status: Full code Disposition: Needs SNF, PT/OT to continue working, continue telemetry on medical floor Subjective Date/time seen: 06/15/21 13:14 Interval history: 80yo female with CKD, CHF, DM and HTN here for SOB and found to have new-onset AFib. 06/15/2021 no overnight events. She feels a bit better today shortness of breath is improving. Denies any chest pain. Review of Systems Review of Systems: All systems reviewed & are unremarkable except as n
[2021-06-15 16:38] LABS: Glucose Point of Care 205 mg/dl (65-105)
[2021-06-15] MEDS: INSULIN GLARGINE (*BKC) 100 UNITS/ML 6 UNITS SUB-Q (20:09)
[2021-06-15 21:16] LABS: Glucose Point of Care 236 mg/dl (65-105)
[2021-06-15] MEDS: LORazepam (*CRX) 1 MG TABLET 2 MG PO (21:47)
[2021-06-16] VITALS (13 sets, daily range): BP systolic 127–147; BP diastolic 44–52; PULSE 60–67; RESP 18–20; TEMP 36.6–37.1; O2SAT 96–100
[2021-06-16 05:56] LABS: Basophils Percent Auto 0.6 % (0.2-1.2); Eosinophils Absolute Auto 0.2 K/mm3 (0-0.3); Eosinophils Percent Auto 2.4 % (0-4.4); Hematocrit 27.3 % (37.0-47.0); Immature Granulocyte Absolute 0.03 K/mm3 (0.00-0.031); Immature Granulocyte Percent A 0.4 % (0-0.5); Lymphocytes Absolute Auto 1.16 K/mm3 (0.9-3.2); Lymphocytes Percent Auto 17.2 % (18.3-44.2); Mean Corpuscular HGB Conc 29.3 g/dl (32-36); Mean Corpuscular Hemoglobin 29.7 pg (26-34); Mean Corpuscular Volume 101.5 fl (80-100); Mean Platelet Volume 10.5 fl (7.4-10.4); Monocytes Absolute Auto 0.5 K/mm3 (0.1-0.6); Monocytes Percent Auto 7.1 % (2.6-8.5); Neutrophils Absolute Auto 4.9 K/mm3 (1.3-6.7); Neutrophils Percent Auto 72.3 % (45.5-73.1); Platelet Count Result 213 k/mm3 (150-375); Red Blood Count 2.69 M/mm3 (4.2-5.4); Red Cell Distribution Width 13.3 % (11.5-14.5); White Blood Count 6.7 K/mm3 (4.5-10.0)
[2021-06-16 06:08] LABS: Alanine Aminotransferase 11 U/L (4-35); Albumin Level 3.3 g/dL (3.5-5.1); Alkaline Phosphatase 89 U/L (38-126); Anion Gap 11 mmol/L (8-16); Aspartate Amino Transferase 12 U/L (14-36); Bilirubin,Total 0.4 mg/dL (0.2-1.3); Blood Urea Nitrogen 64 mg/dL (7-17); Calcium 7.1 mg/dL (8.4-10.2); Carbon Dioxide 26 mmol/L (22-30); Chloride 99 mmol/L (98-107); Estimated CRCL calculation 12 ml/min; Estimated Glomerular Filt Rate 9; Glucose 157 mg/dL (65-110); Magnesium 2.5 mg/dL (1.6-2.3); Potassium 3.8 mmol/L (3.4-5.0); Sodium 136 mmol/L (137-145)
[2021-06-16 07:45] LABS: Glucose Point of Care 131 mg/dl (65-105)
--- NOTE | 2021-06-16 09:19 | PM.PNCARD ---
Progress Note: A&P Assessment and Plan (1) Atrial fibrillation with rapid ventricular response: Code(s): I48.91 - Unspecified atrial fibrillation Status: Acute Assessment and Plan: Paroxysmal versus persistent. She presented to the emergency department in sinus rhythm and subsequently was noted to be in atrial fibrillation with rapid ventricular response. Initially converted to normal sinus rhythm on IV amiodarone but reverted back to atrial fibrillation with RVR with subsequent judaism of sinus rhythm. Currently in sinus rhythm on telemetry. -continue oral amiodarone. -anticoagulation with low-dose apixaban based on age and renal function. -continue metoprolol tartrate. - Apnea link suggestive of severe HO. She will need outpatient sleep study. (2) Combined systolic and diastolic congestive heart failure: Qualifiers: Heart failure chronicity: acute on chronic Qualified Code(s): I50.43 - Acute on chronic combined systolic (congestive) and diastolic (congestive) heart failure Code(s): I50.40 - Unspecified combined systolic (congestive) and diastolic (congestive) heart failure Status: Acute Assessment and Plan: CHF with preserved ejection fraction, with volume overload precipitated by renal failure. Monitor renal function electrolytes with daily BMP Daily weights Accurate I&O Compression stockings, keep legs elevated as much as possible during the day (3) Pulmonary HTN: Code(s): I27.20 - Pulmonary hypertension, unspecified Status: Acute Assessment and Plan: Treatment of sleep apnea, CHF. (4) Chronic kidney disease, stage 4 (severe): Code(s): N18.4 - Chronic kidney disease, stage 4 (severe) Status: Acute Assessment and Plan: Renal function has worsened. Followed by nephrology. Anticipating renal replacement therapy. (5) Uncontrolled hypertension: Code(s): I10 - Essential (primary) hypertension Status: Acute Assessment and Plan: Continue current antihypertensives (6) Elevated troponin: Code(s): R77.8 - Other specified abnormalities of plasma proteins Status: Acute Assessment and Plan: In the setting of CHF, renal failure. Subjective Date/time seen: 06/16/21 09:19 Date of service 06/16/2021: Interval history: 80yo female with CKD, CHF, DM and HTN here for SOB and found to have new-onset AFib. Date of service 06/15/2021: Patient was sitting in the chair. She reported improvement in her shortness of breath. Denied any chest pain. On telemetry, patient has been in sinus rhythm/sinus bradycardia. Her renal function has worsened. Date of service 06/16/2021-patient was sitting up in the chair and undergoing physical therapy at the time of evaluation. Denied any resting shortness of breath or chest pain. On telemetry, patient has been in sinus rhythm. Renal function has worsened. Exam Narrative: PHYSICAL EXAMINATION: GENERAL: Obese female, Alert, oriented, no acute distress MENTAL STATUS: affect appropriate to mood EYES: Extraocular movements intact, no pallor EARS: External ears appear normal, hearing grossly normal NOSE: Normal and patent, no discharge MOUTH: Mucous membranes moist, tongue normal NECK: Supple, no JVD CHEST: Diminished breath sounds due to body habitus HEART: Normal rate, regular rhythm ABDOMEN: Soft, nontender, obese NEUROLOGICAL: Alert, oriented, normal speech MUSCULOSKELETAL: No major deformity, no amputation EXTREMITIES: Bilateral pedal edema, no clubbing, no cyanosis SKIN: no rash on the exposed area, no cyanosis PSYCHIATRIC: Normal mood, appropriate affect Objective Data Vital Signs Vital Signs: Vital Signs - 24 hr 06/15/21 12:00 06/15/21 15:30 06/15/21 16:00 Temperature 36.6 C Pulse Rate 60 56 L 56 L Respiratory Rate 32 H Blood Pressure 127/46 L Pulse Oximetry 100 06/15/21 19:50 06/15/21 20:00 06/15/21 20:09
[2021-06-16] MEDS: APIXABAN 2.5 MG TABLET PO ×2 (10:10→20:14)
[2021-06-16] MEDS: METOPROLOL TARTRATE 25 MG TABLET PO ×2 (10:10→20:14)
[2021-06-16] MEDS: TERAZOSIN HCL 1 MG CAPSULE 2 MG PO ×2 (10:10→18:25)
[2021-06-16] MEDS: metOLazone 5 MG TABLET PO (10:10)
[2021-06-16] MEDS: CLOPIDOGREL BISULFATE 75 MG TABLET PO (10:11)
[2021-06-16] MEDS: BUMETANIDE INJ 1 MG/4 ML VIAL IV PUSH ×2 (10:11→18:25)
[2021-06-16] MEDS: AMIODARONE HCL 200 MG TABLET 400 MG PO (10:11)
[2021-06-16] MEDS: amLODIPine BESYLATE 5 MG TABLET 10 MG PO (10:11)
[2021-06-16] MEDS: acetaZOLAMIDE TAB 250 MG TABLET 500 MG PO ×2 (10:11→18:25)
[2021-06-16] MEDS: INSULIN GLARGINE (*BKC) 100 UNITS/ML 15 UNITS SUB-Q (10:11)
--- NOTE | 2021-06-16 11:00 | P.PNNP_ITS ---
Progress Note: A&P Assessment and Plan (1) RAKAN (acute kidney injury): Code(s): N17.9 - Acute kidney failure, unspecified Status: Acute Assessment and Plan: * etiology not clear - perhaps just simple progression of disease(?) * evaluation to date: * renal ultrasound without any acute issues * urine electrolytes non-prerenal (but she is on diuretics) * making urine with diuretics but at the expense of her kidney function * no overt uremic symptoms and no critical electrolytes at this time * HOWEVER, breathing still not at baseline, fluid on CXR, and significant swelling/edema present * follow labs and UOP * she remains at risk for needing 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 Pemberton discussed with patient already) (2) Chronic kidney disease, stage 4 (severe): Code(s): N18.4 - Chronic kidney disease, stage 4 (severe) Status: Acute Assessment and Plan: * baseline creatinine runs ~ 2.4 - 2.7mg/dl * secondary to combination of HTN and diabetes * suspect HO maybe a contributing factor as well (3) Acute exacerbation of CHF (congestive heart failure): Qualifiers: Heart failure type: diastolic Qualified Code(s): I50.33 - Acute on chronic diastolic (congestive) heart failure Code(s): I50.9 - Heart failure, unspecified Status: Acute Assessment and Plan: * most recent Echo noted * suspect more related to worsening renal failure than overt CHF * daily weights * follow I/Os * continue diuretics * remains at risk for needing JACKHAMMER OPERATOR/dialysis (4) Atrial fibrillation with rapid ventricular response: Code(s): I48.91 - Unspecified atrial fibrillation Status: Acute Assessment and Plan: * rate control strategy * on anticoagulation (5) Uncontrolled hypertension: Code(s): I10 - Essential (primary) hypertension Status: Chronic Assessment and Plan: * reasonable control at this time * continues current medications * would avoid overcontrol for fear this could worsen renal failure more (6) Insulin dependent type 2 diabetes mellitus: Code(s): E11.9 - Type 2 diabetes mellitus without complications; 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 Subjective Date/time seen: 06/16/21 11:00 Despite some mild improvement in her breathing/shortness of breath, her kidney function continues to deteriorate; sitting up in her chair at the time of my visit; still report some shortness of breath with physical activity; no acute issues/events overnight or earlier this morning; no acute distress voiced. Exam Narrative: General: WD/WN female in NAD Heart: normal S1 and S2; no rub Lungs: decreased at the bases Abdomen: soft, nontender, nondistended, positive bowel sounds Extremities: no cyanosis or clubbing; 2+ edema Skin: no rash Objective Data Vital Signs Vital Signs: Vital Signs Temp Pulse Resp BP Pulse Ox 06/16/21 10:11 67 06/16/21 10:10 67 06/16/21 08:00 64 96 06/16/21 04:00 61 06/16/21 03:39 37.1 C 62 20 130/44 L 96 06/16/21 00:00 60 06/15/21 23:03 62 26 H 96 06/15/21 22:22 96 06/15/21 20:14 100 06/15/21 20:09 74 06/15/21 20:00 62 06/15/21 19:50 35.9 C L 74 18 1
--- NOTE | 2021-06-16 11:00 | PM.PNNEP ---
Progress Note: A&P Assessment and Plan (1) RAKAN (acute kidney injury): Code(s): N17.9 - Acute kidney failure, unspecified Status: Acute Assessment and Plan: etiology not clear - perhaps just simple progression of disease(?) evaluation to date: renal ultrasound without any acute issues urine electrolytes non-prerenal (but she is on diuretics) making urine with diuretics but at the expense of her kidney function no overt uremic symptoms and no critical electrolytes at this time HOWEVER, breathing still not at baseline, fluid on CXR, and significant swelling/edema present follow labs and UOP she remains at risk for needing LAYBOY TENDER/dialysis (Dr. Pemberton discussed with patient already) (2) Chronic kidney disease, stage 4 (severe): Code(s): N18.4 - Chronic kidney disease, stage 4 (severe) Status: Acute Assessment and Plan: baseline creatinine runs ~ 2.4 - 2.7mg/dl secondary to combination of HTN and diabetes suspect HO maybe a contributing factor as well (3) Acute exacerbation of CHF (congestive heart failure): Qualifiers: Heart failure type: diastolic Qualified Code(s): I50.33 - Acute on chronic diastolic (congestive) heart failure Code(s): I50.9 - Heart failure, unspecified Status: Acute Assessment and Plan: most recent Echo noted suspect more related to worsening renal failure than overt CHF daily weights follow I/Os continue diuretics remains at risk for needing LAYBOY TENDER/dialysis (4) Atrial fibrillation with rapid ventricular response: Code(s): I48.91 - Unspecified atrial fibrillation Status: Acute Assessment and Plan: rate control strategy on anticoagulation (5) Uncontrolled hypertension: Code(s): I10 - Essential (primary) hypertension Status: Chronic Assessment and Plan: reasonable control at this time continues current medications would avoid overcontrol for fear this could worsen renal failure more (6) Insulin dependent type 2 diabetes mellitus: Code(s): E11.9 - Type 2 diabetes mellitus without complications; 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 Subjective Date/time seen: 06/16/21 11:00 Despite some mild improvement in her breathing/shortness of breath, her kidney function continues to deteriorate; sitting up in her chair at the time of my visit; still report some shortness of breath with physical activity; no acute issues/events overnight or earlier this morning; no acute distress voiced. Exam Narrative: General: WD/WN female in NAD Heart: normal S1 and S2; no rub Lungs: decreased at the bases Abdomen: soft, nontender, nondistended, positive bowel sounds Extremities: no cyanosis or clubbing; 2+ edema Skin: no rash Objective Data Vital Signs Vital Signs: Vital Signs Temp Pulse Resp BP Pulse Ox 06/16/21 10:11 67 06/16/21 10:10 67 06/16/21 08:00 64 96 06/16/21 04:00 61 06/16/21 03:39 37.1 C 62 20 130/44 L 96 06/16/21 00:00 60 06/15/21 23:03 62 26 H 96 06/15/21 22:22 96 06/15/21 20:14 100 06/15/21 20:09 74 06/15/21 20:00 62 06/15/21 19:50 35.9 C L 74 18 141/54 H 100 06/15/21 16:00 56 L 06/15/21 15:30 36.6 C 56 L 32 H 127/46 L 100 Intake/Output Intake/Output: Intake & Output 06/13/21 06/14/21 06/15/21 06/16/21 23:59 23:59 23:59 23:59 Intake Total 990 720 700 290 Output Total 7221 127 4113 300 Balance -210 320 -400 -10 Meds/Results Medications: Active Medications Generic Name Dose Route Start Last Admin Trade Name Freq PRN Reason Stop Dose Admin Acetaminophen 650 mg 06/06/21 17:27 Acetaminophen 325 Mg Tablet PO Q4H PRN Mild Pain (1-3) or Fever Acetazolamide 500 mg 06/14/21 17:00 06/16/21 10:11 Acetazolamide Tab
[2021-06-16 11:28] LABS: Glucose Point of Care 222 mg/dl (65-105)
--- NOTE | 2021-06-16 11:42 | PM.IMPN ---
Progress Note: A&P Assessment and Plan (1) Atrial fibrillation with rapid ventricular response: Code(s): I48.91 - Unspecified atrial fibrillation Status: Acute Assessment and Plan: Patient new diagnosis of atrial fibrillation. She was started on amiodarone and converted to normal sinus rhythm. She is also on Eliquis for stroke prophylaxis. Metoprolol was added. Echo showing grade 2 diastolic dysfunction with EF of 65-70%. Maintaining sinus rhythm. Continue to monitor on telemetry. Appreciate Cardiology input. Weaning down the Amio. (2) Pulmonary HTN: Code(s): I27.20 - Pulmonary hypertension, unspecified Status: Acute Assessment and Plan: Echocardiogram showing severe pulmonary hypertension (84 mmHg). Pulmonary was consulted an ApneaLink ordered. The duration of the test was over 8 hours showing an AHI of 36 and a RI of 37. She only spent 17 minutes (3%) less than 88%. Patient started on O2 2 L nasal cannula at night. Follow-up apnea link was not accurate. Perfusion scan ordered as well. This shows intermediate probability for PE. Appreciate pulmonary input. She remains on Eliquis for her AFib. (3) Acute exacerbation of CHF (congestive heart failure): Qualifiers: Heart failure type: diastolic Qualified Code(s): I50.33 - Acute on chronic diastolic (congestive) heart failure Code(s): I50.9 - Heart failure, unspecified Status: Acute Assessment and Plan: Patient presents with SOB. CXR consistent with CHF exacerbation. BNP was 24K. I/O is inaccurate. She was diuresed with lasix IV. Echo showing EF 65% with Grade II diastolic dysfunction. Still edematous and CXR today again showing no changed from admission. Was changed to oral lasix but now on Bumex IV; she is continued on metolazone. Continue to monitor (4) RAKAN (acute kidney injury): Code(s): N17.9 - Acute kidney failure, unspecified Status: Acute Assessment and Plan: Baseline creatinine mostly runs in the 2 range. Creatinine is 2.5 on admission but she was fluid overloaded. Creatinine climbed to 3.1 with diuresis and has been trending downward until yesterday when it was 3.7 for unclear reasons. Cr 3.9 today - dehydration? progression of CKD? Preload dependent due to her severe Pulmonary HTN? Renal ultrasound 06/10/21 was unrevealing. Lasix changed to Bumex IV. Appreciate Nephrology input. (5) Chronic kidney disease, stage 4 (severe): Code(s): N18.4 - Chronic kidney disease, stage 4 (severe) Status: Acute Assessment and Plan: As above (6) Elevated troponin: Code(s): R77.8 - Other specified abnormalities of plasma proteins Status: Acute Assessment and Plan: Very mild bump 0.044 felt related to the new onset AFib with RVR consistent with type 2 related to demand ischemia. Not felt patient had acute coronary syndrome. Appreciate cardiology input. Continue medical management. (7) Hypertension: Qualifiers: Hypertension type: primary hypertension Qualified Code(s): I10 - Essential (primary) hypertension Code(s): I10 - Essential (primary) hypertension Status: Acute Assessment and Plan: BP elevated on admission to 168/110 felt to have HTN emergency. BP overall has improved. Continue Hytrin, Norvasc and metoprolol. Adjust medications as needed. Additional Plan 06/16/2021 Patient is feeling slightly better today. Getting physical therapy. No new overnight complaints. Plan is to continue current treatment. Increase activity as tolerated. [facility]. Subjective Date/time seen: 06/16/21 11:42 Patient was seen during the morning rounds today. Patient has mild shortness of breath. No chest pain. No abdominal pain, nausea, no vomiting. Mood stable. Review of Systems Review of Systems: All systems reviewed & are unremarkable except as noted in HPI and below Exam Narrative
[2021-06-16] MEDS: INSULIN ASPART (*BKC) 100 UNITS/ML SUB-Q ×2 (12:34→18:25)
[2021-06-16 17:38] LABS: Glucose Point of Care 207 mg/dl (65-105)
[2021-06-16] MEDS: INSULIN GLARGINE (*BKC) 100 UNITS/ML 6 UNITS SUB-Q (20:15)
[2021-06-16 21:28] LABS: Glucose Point of Care 183 mg/dl (65-105)
[2021-06-16] MEDS: LORazepam (*CRX) 1 MG TABLET 2 MG PO (22:00)
[2021-06-17] VITALS (15 sets, daily range): BP systolic 128–145; BP diastolic 45–67; PULSE 60–96; RESP 20–26; TEMP 36.3–36.8; O2SAT 93–99
[2021-06-17 08:03] LABS: Glucose Point of Care 143 mg/dl (65-105)
[2021-06-17] MEDS: AMIODARONE HCL 200 MG TABLET 400 MG PO (08:13)
[2021-06-17] MEDS: METOPROLOL TARTRATE 25 MG TABLET PO ×2 (08:14→21:51)
[2021-06-17] MEDS: acetaZOLAMIDE TAB 250 MG TABLET 500 MG PO ×2 (08:15→17:03)
[2021-06-17] MEDS: TERAZOSIN HCL 1 MG CAPSULE 2 MG PO ×2 (08:15→17:03)
[2021-06-17] MEDS: metOLazone 5 MG TABLET PO (08:15)
[2021-06-17] MEDS: amLODIPine BESYLATE 5 MG TABLET 10 MG PO (08:15)
[2021-06-17] MEDS: CLOPIDOGREL BISULFATE 75 MG TABLET PO (08:15)
[2021-06-17] MEDS: APIXABAN 2.5 MG TABLET PO ×2 (08:15→21:51)
[2021-06-17] MEDS: BUMETANIDE INJ 1 MG/4 ML VIAL IV PUSH ×2 (08:16→17:03)
[2021-06-17] MEDS: INSULIN GLARGINE (*BKC) 100 UNITS/ML 15 UNITS SUB-Q (08:25)
--- NOTE | 2021-06-17 09:05 | PM.PNCARD ---
Progress Note: A&P Assessment and Plan (1) Atrial fibrillation with rapid ventricular response: Code(s): I48.91 - Unspecified atrial fibrillation Status: Acute Assessment and Plan: Paroxysmal versus persistent. She presented to the emergency department in sinus rhythm and subsequently was noted to be in atrial fibrillation with rapid ventricular response. Initially converted to normal sinus rhythm on IV amiodarone but reverted back to atrial fibrillation with RVR with subsequent jew of sinus rhythm. Currently in sinus rhythm on telemetry. -continue oral amiodarone 400mg daily. Decrease to 200mg daily 06/22/21 -anticoagulation with low-dose apixaban ( dose adjusted for age, renal function). -continue metoprolol tartrate. - Apnea link suggestive of severe HO. Empiric CPAP while hospitalized. She will need outpatient sleep study. (2) Combined systolic and diastolic congestive heart failure: Qualifiers: Heart failure chronicity: acute on chronic Qualified Code(s): I50.43 - Acute on chronic combined systolic (congestive) and diastolic (congestive) heart failure Code(s): I50.40 - Unspecified combined systolic (congestive) and diastolic (congestive) heart failure Status: Acute Assessment and Plan: CHF with preserved ejection fraction, with volume overload precipitated by renal failure. Monitor renal function electrolytes with daily BMP Continue current diuretic regimen...creatinine is worsening. Anticipate HD Daily weights Accurate I&O Compression stockings, keep legs elevated as much as possible during the day (3) Pulmonary HTN: Code(s): I27.20 - Pulmonary hypertension, unspecified Status: Acute Assessment and Plan: Treatment of sleep apnea, CHF. (4) Chronic kidney disease, stage 4 (severe): Code(s): N18.4 - Chronic kidney disease, stage 4 (severe) Status: Acute Assessment and Plan: Renal function has worsened. Followed by nephrology. Anticipating renal replacement therapy. (5) Uncontrolled hypertension: Code(s): I10 - Essential (primary) hypertension Status: Acute Assessment and Plan: Continue current antihypertensives (6) Elevated troponin: Code(s): R77.8 - Other specified abnormalities of plasma proteins Status: Acute Assessment and Plan: In the setting of CHF, renal failure. Subjective Date/time seen: 06/17/21 09:05 Interval history: 80yo female with CKD, CHF, DM and HTN here for SOB and found to have new-onset AFib. Date of service 06/15/2021: Patient was sitting in the chair. She reported improvement in her shortness of breath. Denied any chest pain. On telemetry, patient has been in sinus rhythm/sinus bradycardia. Her renal function has worsened. Date of service 06/16/2021-patient was sitting up in the chair and undergoing physical therapy at the time of evaluation. Denied any resting shortness of breath or chest pain. On telemetry, patient has been in sinus rhythm. Renal function has worsened. Date of service 06/17 2021: She feels about the same today. Still becoming short of breath with very minimal activity. On 1 L of oxygen per nasal cannula. Denies any chest pain, palpitations Review of Systems Constitutional: Constitutional: Reports difficulty sleeping, Denies excessive sweating, Denies fatigue, Denies headache(s), Denies lethargy and Denies weakness ENT: Reports Normal hearing present, Denies dysphagia, Denies headache(s), Denies epistaxis and Denies neck pain Cardiovascular: Cardiovascular: Denies chest pain, Reports pedal edema, Reports leg edema, Denies palpitations, Reports dyspnea and Reports dyspnea on exertion Respiratory: Respiratory: Denies cough, Denies hemoptysis, Reports dyspnea, Reports dyspnea on exertion and Denies wheezing Gastrointestinal: Gastrointestinal: Denies melena, Denies hematochezia, Denies dysphagia and Denies hematemesis Genitourin
--- NOTE | 2021-06-17 09:42 | PM.PNPUL ---
Progress Note: A&P Assessment and Plan (1) Pulmonary HTN: Code(s): I27.20 - Pulmonary hypertension, unspecified Status: Acute Assessment and Plan: Patient with a history of morbid obesity, BMI 52.8, diastolic and systolic heart failure with a history of fluid overload, new onset atrial fibrillation and history of pulmonary hypertension with PASP of 94 on 02/22/2021 and 57 on 08/30/2020. she currently is admitted for fluid overload and echocardiogram demonstrates PA SP of 84. She has improved with diuresis although her cumulative ins and outs demonstrates she has +180. Diuresis is limited by her chronic renal insufficiency and her creatinine is 2.9 today. She is followed by the renal team. She has no history of asthma. She has minimal tobacco use at 5 pack years quit 40 years ago and has no history of COPD. She has no history of daytime hypercarbia with a blood gas today demonstrating a pH of 7.44/44/63 and her serum bicarb Has remain less than 32 . she does not have obesity hypoventilation syndrome. Given her body habitus I suspect she does have obstructive sleep apnea but she will need an outpatient sleep study to confirm this to qualify for PAP therapy. I will not empirically start any PAP therapy as I have no way to monitor for treatment emergent central apnea. She does have nocturnal hypoxemia with saturations less than or equal to 88% at 17 minutes. I will initiate 2 L nasal cannula oxygen at night and repeat an overnight oximetry tonight. her TSH was 1.07 on 08/30/2020. I will repeat this. 06/13 patient wore 2 L nasal cannula last night but an overnight oximetry was not performed due to limited staffing resources. will repeat overnight oximetry tonight on 2 L. TSH is 2.53 and free T4 is 1.68 both of which are normal. 06/14 Patient remains unchanged clinically with dyspnea on exertion and no rest shortness of breath. She remains on 2 L nasal cannula during the day with saturations 94%. Patient had an overnight oximetry on 2 L nasal cannula with average saturations 98%, lowest saturation 93%, time with saturation less than or equal to 88% was 0 minutes. Remains on diuretics with creatinine at 3.9. Hospitalist, renal and Cardiology teams following. Although patient will require an outpatient sleep study prior to initiation of home PAP treatment, she likely has obstructive sleep apnea and possibly right heart failure that may be contributing to her acute kidney injury for which she is approaching dialysis. This may respond to PAP therapy in the hospital. I have reached out to the director the sleep lab for her assistance regarding the empiric initiation of PAP therapy. Given patient's high likelihood of obstructive sleep apnea and her clinical deteriorating renal function will empirically start auto Pap 5-15 while she is in the hospital on 2 L bleed in. Patient also with severe pulmonary hypertension which is out of proportion to just uncontrolled sleep apnea. I will send a D-dimer and if positive will perform lower extremity Dopplers as well as a perfusion scan. Discussed with Dr. Pemberton 06/17 patient has worn auto Pap 5-15 on the night of 06/15 and 06/16. Overall she states she is doing about the same from her breathing perspective. She is on 2 L nasal cannula with saturations 93. Patient's creatinine yesterday was 4.5. I was hoping that the auto PAP would improve her cardiac and renal issues but it does not appear to be doing that although I have no creatinine from today. At this point I would continue auto Pap 5-15 with 2 L bleed in at night while she is in the hospital. Patient will not qualify for any PAP therapy until she has an outpatient sleep study. On discharge: When sleeps: 2 L NC oxygen Oxygen and at rest and with ambulation per formal O2 home assessment on the day of discharge Outpatient split night sleep study to diagnose and determine optimal PAP settings. Follow-up in Pulmonary
[2021-06-17] MEDS: EPOETIN ALFA-EPBX 10,000 UNITS/ML VIAL 10000 UNITS SUB-Q (11:08)
--- NOTE | 2021-06-17 11:23 | PM.IMPN ---
Progress Note: A&P Assessment and Plan (1) Atrial fibrillation with rapid ventricular response: Code(s): I48.91 - Unspecified atrial fibrillation Status: Acute Assessment and Plan: Patient new diagnosis of atrial fibrillation. She was started on amiodarone and converted to normal sinus rhythm. She is also on Eliquis for stroke prophylaxis. Metoprolol was added. Echo showing grade 2 diastolic dysfunction with EF of 65-70%. Maintaining sinus rhythm for the most part. Continue to monitor on telemetry. Continue Amio and Eliquis. Appreciate Cardiology input. (2) Pulmonary HTN: Code(s): I27.20 - Pulmonary hypertension, unspecified Status: Acute Assessment and Plan: Echocardiogram showing severe pulmonary hypertension (84 mmHg). Pulmonary was consulted an ApneaLink ordered. The duration of the test was over 8 hours showing an AHI of 36 and a RI of 37. Patient started on O2 2 L nasal cannula at night. Follow-up apnea link was not accurate. Perfusion scan shows intermediate probability for PE. LE venous doppler negative for DVT. Appreciate pulmonary input. She remains on Eliquis for her AFib. (3) Acute exacerbation of CHF (congestive heart failure): Qualifiers: Heart failure type: diastolic Qualified Code(s): I50.33 - Acute on chronic diastolic (congestive) heart failure Code(s): I50.9 - Heart failure, unspecified Status: Acute Assessment and Plan: Patient presents with SOB. CXR consistent with CHF exacerbation. BNP was 24K. I/O is inaccurate. She was diuresed with lasix IV. Echo showing EF 65% with Grade II diastolic dysfunction. Still edematous and CXR 06/14 again showing CHF with no changed from admission. Lasix changed to Bumex IV; she is continued on metolazone. Continue to monitor. (4) RAKAN (acute kidney injury): Code(s): N17.9 - Acute kidney failure, unspecified Status: Acute Assessment and Plan: Baseline creatinine mostly runs in the 2 range. Creatinine is 2.4 on admission but she was fluid overloaded. Creatinine climbed to 3.2 with diuresis then climbed daily to 4.9 today. Intravascular dehydration? progression of CKD? Preload dependent due to her severe Pulmonary HTN? Renal ultrasound 06/10/21 was unrevealing. She remains on Metolazone and Bumex IV. Appreciate Nephrology input. Dialysis is being considered. (5) Chronic kidney disease, stage 4 (severe): Code(s): N18.4 - Chronic kidney disease, stage 4 (severe) Status: Acute Assessment and Plan: As above (6) Elevated troponin: Code(s): R77.8 - Other specified abnormalities of plasma proteins Status: Acute Assessment and Plan: Very mild bump 0.044 felt related to the new onset AFib with RVR consistent with type 2 related to demand ischemia. Not felt patient had acute coronary syndrome. Appreciate cardiology input. Continue medical management. (7) Hypertension: Qualifiers: Hypertension type: primary hypertension Qualified Code(s): I10 - Essential (primary) hypertension Code(s): I10 - Essential (primary) hypertension Status: Acute Assessment and Plan: BP elevated on admission to 168/110 felt to have HTN emergency. BP overall has improved. Continue Hytrin, Norvasc and metoprolol. Adjust medications as needed. (8) Anemia: Code(s): D64.9 - Anemia, unspecified Status: Acute Assessment and Plan: Patient with chronic anemia hemoglobin normally run 9-10 range last year. Here, hemoglobin mostly in the 7-8 range. Iron studies are consistent with iron deficiency anemia. Check B12 and folate levels. Will start iron replacement. Check stool guaiac. Continue to monitor H&H. Subjective Date/time seen: 06/17/21 11:23 Interval history: 80yo female with CKD, CHF, DM and HTN here for SOB and found to have new-onset AFib. Resuming care. Chart reviewed. No SOB but [place]. Able to come off O2 t
[2021-06-17 11:30] LABS: Hematocrit 27.4 % (37.0-47.0); Hemoglobin 8.2 g/dL (12.0-15.0); Mean Corpuscular HGB Conc 29.9 g/dl (32-36); Mean Corpuscular Hemoglobin 30.4 pg (26-34); Mean Corpuscular Volume 101.5 fl (80-100); Mean Platelet Volume 10.3 fl (7.4-10.4); Platelet Count Result 188 k/mm3 (150-375); Red Cell Distribution Width 13.4 % (11.5-14.5); White Blood Count 6.6 K/mm3 (4.5-10.0)
[2021-06-17 11:42] LABS: Glucose Point of Care 192 mg/dl (65-105)
[2021-06-17 11:43] LABS: Albumin Level 3.6 g/dL (3.5-5.1); Anion Gap 11 mmol/L (8-16); Blood Urea Nitrogen 70 mg/dL (7-17); Calcium 6.8 mg/dL (8.4-10.2); Carbon Dioxide 29 mmol/L (22-30); Chloride 97 mmol/L (98-107); Estimated CRCL calculation 11 ml/min; Estimated Glomerular Filt Rate 9; Glucose 192 mg/dL (65-110); Phosphorus 5.1 mg/dL (2.5-4.5); Potassium 3.8 mmol/L (3.4-5.0); Sodium 137 mmol/L (137-145)
[2021-06-17 12:49] LABS: Folic Acid 10.8 ng/mL (2.76->20)
[2021-06-17] MEDS: FERROUS SULFATE 324 MG TABLET PO ×2 (13:57→17:03)
--- NOTE | 2021-06-17 15:16 | PM.PNNEP ---
Progress Note: A&P Assessment and Plan (1) RAKAN (acute kidney injury): Code(s): N17.9 - Acute kidney failure, unspecified Status: Acute Assessment and Plan: etiology not clear - perhaps just simple progression of disease(?) evaluation to date: renal ultrasound without any acute issues urine electrolytes non-prerenal (but she is on diuretics) making urine with diuretics but at the expense of her kidney function no overt uremic symptoms and no critical electrolytes at this time HOWEVER, breathing still not at baseline, fluid on CXR, and significant swelling/edema present follow labs and UOP discussed with patient that given her respiratory status, her rising BUN/creatinine, and her significant swelling/edema - all of which that seems to have not improved all that much in the last several days, we will likely need to proceed with dialysis initiation; Dr. Pemberton had discuss this with last week and and I do again today will give another 24 hours to see what her labs show and if her UOP is any better and make final decision tomorrow... (2) Chronic kidney disease, stage 4 (severe): Code(s): N18.4 - Chronic kidney disease, stage 4 (severe) Status: Acute Assessment and Plan: baseline creatinine runs ~ 2.4 - 2.7mg/dl secondary to combination of HTN and diabetes suspect HO maybe a contributing factor as well (3) Acute exacerbation of CHF (congestive heart failure): Qualifiers: Heart failure type: diastolic Qualified Code(s): I50.33 - Acute on chronic diastolic (congestive) heart failure Code(s): I50.9 - Heart failure, unspecified Status: Acute Assessment and Plan: most recent Echo noted suspect more related to worsening renal failure than overt CHF daily weights follow I/Os continue diuretics remains at risk for needing PHYSICIAN/INTERNIST/dialysis (4) Atrial fibrillation with rapid ventricular response: Code(s): I48.91 - Unspecified atrial fibrillation Status: Acute Assessment and Plan: rate control strategy on anticoagulation (5) Uncontrolled hypertension: Code(s): I10 - Essential (primary) hypertension Status: Chronic Assessment and Plan: reasonable control at this time continues current medications would avoid overcontrol for fear this could worsen renal failure more (6) Insulin dependent type 2 diabetes mellitus: Code(s): E11.9 - Type 2 diabetes mellitus without complications; Z79.4 - skilled nursing (current) use of insulin Status: Chronic Assessment and Plan: follow accuchecks glycemic control Will continue to follow. Subjective Date/time seen: 06/17/21 15:16 No real significant change reported - breathing is about the same and reports still having dyspnea on exertion even with mild activity; supplemental oxygen has been weaned down to 1L though; eating and drinking okay; still with significant swelling/edema at this time; no events overnight or earlier this AM. Exam Narrative: General: WD/WN female in NAD Heart: normal S1 and S2; no rub Lungs: decreased at the bases Abdomen: soft, nontender, nondistended, positive bowel sounds Extremities: no cyanosis or clubbing; 2+ edema Skin: no nodules Objective Data Vital Signs Vital Signs: Vital Signs Temp Pulse Resp BP Pulse Ox 06/17/21 14:44 36.8 C 64 20 145/48 H 95 06/17/21 12:00 61 06/17/21 10:21 93 06/17/21 08:14 64 06/17/21 08:13 64 06/17/21 08:10 93 06/17/21 08:03 67 06/17/21 04:03 36.4 C 63 20 142/45 H 99 06/17/21 04:00 61 06/17/21 00:00 60 06/16/21 20:15 100 06/16/21 20:14 65 06/16/21 20:08 36.6 C 65 18 147/47 H 100 06/16/21 20:00 63 Intake/Output Intake/Output: Intake & Output 06/14/21 06/15/21 06/16/21 06/17/21 23:59 23:59 23:59 23:59 Intake Total 586 254 7584 370 Output Total 400 1100 1000 350 Balance 320 -4
--- NOTE | 2021-06-17 15:16 | P.PNNP_ITS ---
Progress Note: A&P Assessment and Plan (1) RAKAN (acute kidney injury): Code(s): N17.9 - Acute kidney failure, unspecified Status: Acute Assessment and Plan: * etiology not clear - perhaps just simple progression of disease(?) * evaluation to date: * renal ultrasound without any acute issues * urine electrolytes non-prerenal (but she is on diuretics) * making urine with diuretics but at the expense of her kidney function * no overt uremic symptoms and no critical electrolytes at this time * HOWEVER, breathing still not at baseline, fluid on CXR, and significant swelling/edema present * follow labs and UOP * discussed with patient that given her respiratory status, her rising BUN/creatinine, and her significant swelling/edema - all of which that seems to have not improved all that much in the last several days, we will likely need to proceed with dialysis initiation; Dr. Pemberton had discuss this with last week and and I do again today * will give another 24 hours to see what her labs show and if her UOP is any better and make final decision tomorrow... (2) Chronic kidney disease, stage 4 (severe): Code(s): N18.4 - Chronic kidney disease, stage 4 (severe) Status: Acute Assessment and Plan: * baseline creatinine runs ~ 2.4 - 2.7mg/dl * secondary to combination of HTN and diabetes * suspect HO maybe a contributing factor as well (3) Acute exacerbation of CHF (congestive heart failure): Qualifiers: Heart failure type: diastolic Qualified Code(s): I50.33 - Acute on chronic diastolic (congestive) heart failure Code(s): I50.9 - Heart failure, unspecified Status: Acute Assessment and Plan: * most recent Echo noted * suspect more related to worsening renal failure than overt CHF * daily weights * follow I/Os * continue diuretics * remains at risk for needing MACHINE II TRIMMER/dialysis (4) Atrial fibrillation with rapid ventricular response: Code(s): I48.91 - Unspecified atrial fibrillation Status: Acute Assessment and Plan: * rate control strategy * on anticoagulation (5) Uncontrolled hypertension: Code(s): I10 - Essential (primary) hypertension Status: Chronic Assessment and Plan: * reasonable control at this time * continues current medications * would avoid overcontrol for fear this could worsen renal failure more (6) Insulin dependent type 2 diabetes mellitus: Code(s): E11.9 - Type 2 diabetes mellitus without complications; Z79.4 - USP (current) use of insulin Status: Chronic Assessment and Plan: * follow accuchecks * glycemic control Will continue to follow. Subjective Date/time seen: 06/17/21 15:16 No real significant change reported - breathing is about the same and reports still having dyspnea on exertion even with mild activity; supplemental oxygen has been weaned down to 1L though; eating and drinking okay; still with significant swelling/edema at this time; no events overnight or earlier this AM. Exam Narrative: General: WD/WN female in NAD Heart: normal S1 and S2; no rub Lungs: decreased at the bases Abdomen: soft, nontender, nondistended, positive bowel sounds Extremities: no cyanosis or clubbing; 2+ edema Skin: no nodules Objective Data Vital Signs Vital Signs: Vital Signs Temp Pulse Resp BP Pulse Ox 06/17/21 14:44 36.8 C 64 20 145/48 H 95 06/17/21 1
[2021-06-17 16:41] LABS: Glucose Point of Care 251 mg/dl (65-105)
[2021-06-17] MEDS: INSULIN ASPART (*BKC) 100 UNITS/ML SUB-Q (16:59)
[2021-06-17] MEDS: INSULIN GLARGINE (*BKC) 100 UNITS/ML 6 UNITS SUB-Q (21:01)
[2021-06-17] MEDS: LORazepam (*CRX) 1 MG TABLET 2 MG PO (21:51)
[2021-06-17 22:09] LABS: Glucose Point of Care 202 mg/dl (65-105)
[2021-06-18] VITALS (15 sets, daily range): BP systolic 115–139; BP diastolic 39–61; PULSE 56–110; RESP 16–25; TEMP 36–36.4; O2SAT 95–99
--- NOTE | 2021-06-18 03:07 | PC.NURSE ---
Pt refusing CPAP at this time, pt placed on 2L NC while sleeping
[2021-06-18 05:48] LABS: Hematocrit 26.6 % (37.0-47.0); Hemoglobin 8.1 g/dL (12.0-15.0); Mean Corpuscular HGB Conc 30.5 g/dl (32-36); Mean Corpuscular Volume 98.5 fl (80-100); Mean Platelet Volume 10.9 fl (7.4-10.4); Platelet Count Result 197 k/mm3 (150-375); Red Cell Distribution Width 13.3 % (11.5-14.5); White Blood Count 6.9 K/mm3 (4.5-10.0)
[2021-06-18 06:08] LABS: Albumin Level 3.5 g/dL (3.5-5.1); Anion Gap 11 mmol/L (8-16); Blood Urea Nitrogen 75 mg/dL (7-17); Calcium 6.7 mg/dL (8.4-10.2); Carbon Dioxide 28 mmol/L (22-30); Chloride 97 mmol/L (98-107); Estimated CRCL calculation 11 ml/min; Estimated Glomerular Filt Rate 9; Glucose 170 mg/dL (65-110); Phosphorus 5.1 mg/dL (2.5-4.5); Potassium 3.5 mmol/L (3.4-5.0); Sodium 136 mmol/L (137-145)
[2021-06-18 07:48] LABS: Glucose Point of Care 180 mg/dl (65-105)
[2021-06-18] MEDS: TERAZOSIN HCL 1 MG CAPSULE 2 MG PO ×2 (08:19→16:50)
[2021-06-18] MEDS: CLOPIDOGREL BISULFATE 75 MG TABLET PO (08:19)
[2021-06-18] MEDS: amLODIPine BESYLATE 5 MG TABLET 10 MG PO (08:19)
[2021-06-18] MEDS: metOLazone 5 MG TABLET PO (08:19)
[2021-06-18] MEDS: METOPROLOL TARTRATE 25 MG TABLET PO ×2 (08:20→21:29)
[2021-06-18] MEDS: BUMETANIDE INJ 1 MG/4 ML VIAL IV PUSH ×2 (08:21→16:49)
[2021-06-18] MEDS: acetaZOLAMIDE TAB 250 MG TABLET 500 MG PO ×2 (08:21→16:49)
[2021-06-18] MEDS: FERROUS SULFATE 324 MG TABLET PO ×2 (08:22→16:48)
[2021-06-18] MEDS: AMIODARONE HCL 200 MG TABLET 400 MG PO (08:22)
[2021-06-18] MEDS: INSULIN GLARGINE (*BKC) 100 UNITS/ML 15 UNITS SUB-Q (08:35)
--- NOTE | 2021-06-18 09:07 | PM.PNCARD ---
Progress Note: A&P Assessment and Plan (1) Atrial fibrillation with rapid ventricular response: Code(s): I48.91 - Unspecified atrial fibrillation <ADRIANA Sanderson - Last Filed: 06/18/21 13:33> Status: Acute <ADRIANA Sanderson - Last Filed: 06/18/21 13:33> Assessment and Plan: Paroxysmal versus persistent. She presented to the emergency department in sinus rhythm and subsequently was noted to be in atrial fibrillation with rapid ventricular response. Initially converted to normal sinus rhythm on IV amiodarone but reverted back to atrial fibrillation with RVR with subsequent mormonism of sinus rhythm. Now back in atrial fibrillation this morning with rate controlled in the 90s to low 100s. -continue oral amiodarone 400mg daily. Decrease to 200mg daily 06/22/21 -anticoagulation With apixaban has been put on placed per Nephrology in anticipation for HD catheter placement later this week. -continue metoprolol tartrate. - Apnea link suggestive of severe HO. Empiric CPAP while hospitalized. She will need outpatient sleep study. <ADRIANA Sanderson - Last Filed: 06/18/21 13:33> (2) Combined systolic and diastolic congestive heart failure: Qualifiers: Heart failure chronicity: acute on chronic Qualified Code(s): I50.43 - Acute on chronic combined systolic (congestive) and diastolic (congestive) heart failure <ADRIANA Sanderson - Last Filed: 06/18/21 13:33> Code(s): I50.40 - Unspecified combined systolic (congestive) and diastolic (congestive) heart failure <ADRIANA Sanderson - Last Filed: 06/18/21 13:33> Status: Acute <ADRIANA Sanderson - Last Filed: 06/18/21 13:33> Assessment and Plan: CHF with preserved ejection fraction, with volume overload precipitated by renal failure. Monitor renal function electrolytes with daily BMP Continue current diuretic regimen...creatinine has worsened. Anticipate HD. Daily weights Accurate I&O Compression stockings, keep legs elevated as much as possible during the day <ADRIANA Sanderson - Last Filed: 06/18/21 13:33> (3) Pulmonary HTN: Code(s): I27.20 - Pulmonary hypertension, unspecified <ADRIANA Sanderson - Last Filed: 06/18/21 13:33> Status: Acute <ADRIANA Sanderson - Last Filed: 06/18/21 13:33> Assessment and Plan: Treatment of sleep apnea, CHF. <ADRIANA Sanderson - Last Filed: 06/18/21 13:33> (4) Chronic kidney disease, stage 4 (severe): Code(s): N18.4 - Chronic kidney disease, stage 4 (severe) <ADRIANA Sanderson - Last Filed: 06/18/21 13:33> Status: Acute <ADRIANA Sanderson - Last Filed: 06/18/21 13:33> Assessment and Plan: Renal function has worsened. Followed by nephrology. Anticipating renal replacement therapy. <ADRIANA Sanderson - Last Filed: 06/18/21 13:33> (5) Uncontrolled hypertension: Code(s): I10 - Essential (primary) hypertension <ADRIANA Sanderson - Last Filed: 06/18/21 13:33> Status: Chronic <ADRIANA Sanderson - Last Filed: 06/18/21 13:33> Assessment and Plan: Continue current antihypertensives <ADRIANA Sanderson - Last Filed: 06/18/21 13:33> (6) Elevated troponin: Code(s): R77.8 - Other specified abnormalities of plasma proteins <ADRIANA Sanderson - Last Filed: 06/18/21 13:33> Status: Acute <ADRIANA Sanderson - Last Filed: 06/18/21 13:33> Assessment and Plan: In the setting of CHF, renal failure. <ADRIANA Sanderson - Last Filed: 06/18/21 13:33> Additional Plan Cardiology Attending: Patient seen and examined, chart reviewed. Admitted with progressive renal failure which will require hemodialysis, and acute diastolic heart failure. Has new onset AFib RVR, Eliquis change to Lovenox in anticipation of hemodialysis catheter later this week. AFib rate was con
--- NOTE | 2021-06-18 10:31 | P.PNNP_ITS ---
Progress Note: A&P Assessment and Plan (1) RAKAN (acute kidney injury): Code(s): N17.9 - Acute kidney failure, unspecified Status: Acute Assessment and Plan: * etiology not clear - perhaps just simple progression of disease(?) * evaluation to date: * renal ultrasound without any acute issues * urine electrolytes non-prerenal (but she is on diuretics) * making urine with diuretics but at the expense of her kidney function * no overt uremic symptoms and no critical electrolytes at this time * HOWEVER, breathing still not at baseline, fluid on CXR, and significant swelling/edema present * follow labs and UOP * discussed with patient again -- will need to start dialysis given worsening creatinine in association with volume overload with minimal improvement with diuretic therapy * hold eliquis and consult Surgery for tunneled HD catheter placement (2) Chronic kidney disease, stage 4 (severe): Code(s): N18.4 - Chronic kidney disease, stage 4 (severe) Status: Acute Assessment and Plan: * baseline creatinine runs ~ 2.4 - 2.7mg/dl * secondary to combination of HTN and diabetes * suspect HO maybe a contributing factor as well (3) Acute exacerbation of CHF (congestive heart failure): Qualifiers: Heart failure type: diastolic Qualified Code(s): I50.33 - Acute on chronic diastolic (congestive) heart failure Code(s): I50.9 - Heart failure, unspecified Status: Acute Assessment and Plan: * most recent Echo noted * suspect more related to worsening renal failure than overt CHF * daily weights * follow I/Os * continue diuretics * remains at risk for needing [employer]/dialysis (4) Atrial fibrillation with rapid ventricular response: Code(s): I48.91 - Unspecified atrial fibrillation Status: Acute Assessment and Plan: * rate control strategy * on anticoagulation (5) Uncontrolled hypertension: Code(s): I10 - Essential (primary) hypertension Status: Chronic Assessment and Plan: * reasonable control at this time * continues current medications * would avoid overcontrol for fear this could worsen renal failure more (6) Insulin dependent type 2 diabetes mellitus: Code(s): E11.9 - Type 2 diabetes mellitus without complications; 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 Griggs earlier today. Will continue to follow. Subjective Date/time seen: 06/18/21 09:31 Weaned off oxygen but she appears to have some shortness of breath just with taking with me; still with significant swelling and edema at this time and her urine output has declined/dropped off in the last 24 hours; appears to be back in afib as well but remains rate controlled; I discussed with the patient that I think we need to proceed with dialysis/renal replacement therapy. Exam Narrative: General: WD/WN female in NAD Heart: normal S1 and S2; no rub Lungs: decreased at the bases Abdomen: soft, nontender, nondistended, positive bowel sounds Extremities: no cyanosis or clubbing; 2+ edema Skin: warm and dry Objective Data Vital Signs Vital Signs: Vital Signs Temp Pulse Resp BP Pulse Ox 06/18/21 08:22 70 06/18/21 08:20 70 06/18/21 08:15 86 06/18/21 04:32 36.0 C L 75 22 H 115/61 99
--- NOTE | 2021-06-18 10:31 | PM.PNNEP ---
Progress Note: A&P Assessment and Plan (1) RAKAN (acute kidney injury): Code(s): N17.9 - Acute kidney failure, unspecified Status: Acute Assessment and Plan: etiology not clear - perhaps just simple progression of disease(?) evaluation to date: renal ultrasound without any acute issues urine electrolytes non-prerenal (but she is on diuretics) making urine with diuretics but at the expense of her kidney function no overt uremic symptoms and no critical electrolytes at this time HOWEVER, breathing still not at baseline, fluid on CXR, and significant swelling/edema present follow labs and UOP discussed with patient again -- will need to start dialysis given worsening creatinine in association with volume overload with minimal improvement with diuretic therapy hold eliquis and consult Surgery for tunneled HD catheter placement (2) Chronic kidney disease, stage 4 (severe): Code(s): N18.4 - Chronic kidney disease, stage 4 (severe) Status: Acute Assessment and Plan: baseline creatinine runs ~ 2.4 - 2.7mg/dl secondary to combination of HTN and diabetes suspect HO maybe a contributing factor as well (3) Acute exacerbation of CHF (congestive heart failure): Qualifiers: Heart failure type: diastolic Qualified Code(s): I50.33 - Acute on chronic diastolic (congestive) heart failure Code(s): I50.9 - Heart failure, unspecified Status: Acute Assessment and Plan: most recent Echo noted suspect more related to worsening renal failure than overt CHF daily weights follow I/Os continue diuretics remains at risk for needing [employer]/dialysis (4) Atrial fibrillation with rapid ventricular response: Code(s): I48.91 - Unspecified atrial fibrillation Status: Acute Assessment and Plan: rate control strategy on anticoagulation (5) Uncontrolled hypertension: Code(s): I10 - Essential (primary) hypertension Status: Chronic Assessment and Plan: reasonable control at this time continues current medications would avoid overcontrol for fear this could worsen renal failure more (6) Insulin dependent type 2 diabetes mellitus: Code(s): E11.9 - Type 2 diabetes mellitus without complications; Z79.4 - [facility] (current) use of insulin Status: Chronic Assessment and Plan: follow accuchecks glycemic control Discussed case with Dr. Griggs earlier today. Will continue to follow. Subjective Date/time seen: 06/18/21 09:31 Weaned off oxygen but she appears to have some shortness of breath just with taking with me; still with significant swelling and edema at this time and her urine output has declined/dropped off in the last 24 hours; appears to be back in afib as well but remains rate controlled; I discussed with the patient that I think we need to proceed with dialysis/renal replacement therapy. Exam Narrative: General: WD/WN female in NAD Heart: normal S1 and S2; no rub Lungs: decreased at the bases Abdomen: soft, nontender, nondistended, positive bowel sounds Extremities: no cyanosis or clubbing; 2+ edema Skin: warm and dry Objective Data Vital Signs Vital Signs: Vital Signs Temp Pulse Resp BP Pulse Ox 06/18/21 08:22 70 06/18/21 08:20 70 06/18/21 08:15 86 06/18/21 04:32 36.0 C L 75 22 H 115/61 99 06/18/21 04:00 94 06/18/21 03:23 66 24 H 96 06/18/21 03:05 97 06/18/21 00:00 96 06/17/21 22:49 68 26 H 95 06/17/21 21:51 96 06/17/21 21:28 36.3 C L 96 22 H 128/67 96 06/17/21 20:00 64 06/17/21 16:03 64 06/17/21 14:44 36.8 C 64 20 145/48 H 95 06/17/21 12:00 61 Intake/Output Intake/Output: Intake & Output 06/15/21 06/16/21 06/17/21 06/18/21 23:59 23:59 23:59 23:59 Intake Total 700 1352 570 440 Output Total 1100 1000 350 Balance -400 352 220 440 Meds/Results Medications: Active Me
[2021-06-18 11:48] LABS: Glucose Point of Care 218 mg/dl (65-105)
[2021-06-18] MEDS: INSULIN ASPART (*BKC) 100 UNITS/ML SUB-Q ×2 (11:59→16:46)
--- NOTE | 2021-06-18 12:14 | PM.IMPN ---
Progress Note: A&P Assessment and Plan (1) RAKAN (acute kidney injury): Code(s): N17.9 - Acute kidney failure, unspecified Status: Acute Assessment and Plan: Baseline creatinine mostly runs in the 2 range. Creatinine is 2.4 on admission but she was fluid overloaded. Creatinine climbed to 3.2 with diuresis then climbed daily to 4.9 today. Intravascular dehydration? progression of CKD? Preload dependent due to her severe Pulmonary HTN? Renal ultrasound 06/10/21 was unrevealing. She remains on Metolazone and Bumex IV. Discussed with nephrology with plans for possible HD. Will hold Eliquis (last dose was 06/17/21 at 2151). Appreciate Nephrology input. (2) Atrial fibrillation with rapid ventricular response: Code(s): I48.91 - Unspecified atrial fibrillation Status: Acute Assessment and Plan: Patient with new diagnosis of atrial fibrillation. She was started on amiodarone and converted to normal sinus rhythm. She is also on Eliquis for stroke prophylaxis. Metoprolol was added. Echo showing grade 2 diastolic dysfunction with EF of 65-70%. Maintaining sinus rhythm for the most part. Continue to monitor on telemetry. Continue Amio and Eliquis. Hold Eliquis if HD catheter needs to be placed. Appreciate Cardiology input. (3) Pulmonary HTN: Code(s): I27.20 - Pulmonary hypertension, unspecified Status: Acute Assessment and Plan: Echocardiogram showing severe pulmonary hypertension (84 mmHg). Pulmonary was consulted an ApneaLink ordered. The duration of the test was over 8 hours showing an AHI of 36 and a RI of 37. Patient started on O2 2 L nasal cannula at night. Follow-up apnea link was not accurate. Perfusion scan shows intermediate probability for PE. LE venous doppler negative for DVT. Continue NIV at night and with naps; will need at least 2L O2 at night if unable to have NIV. Appreciate pulmonary input. (4) Acute exacerbation of CHF (congestive heart failure): Qualifiers: Heart failure type: diastolic Qualified Code(s): I50.33 - Acute on chronic diastolic (congestive) heart failure Code(s): I50.9 - Heart failure, unspecified Status: Acute Assessment and Plan: Patient presents with SOB. CXR consistent with CHF exacerbation. BNP was 24K. I/O is inaccurate. She was diuresed with lasix IV. Echo showing EF 65% with Grade II diastolic dysfunction. Still very edematous and CXR 06/14 again showing CHF with no changed from admission. Lasix changed to Bumex IV; she is continued on metolazone. Continue to monitor. Fluid status may not imprve until she starts on HD (5) Chronic kidney disease, stage 4 (severe): Code(s): N18.4 - Chronic kidney disease, stage 4 (severe) Status: Acute Assessment and Plan: As above (6) Elevated troponin: Code(s): R77.8 - Other specified abnormalities of plasma proteins Status: Acute Assessment and Plan: Very mild bump 0.044 felt related to the new onset AFib with RVR consistent with type 2 related to demand ischemia. Not felt patient had acute coronary syndrome. Appreciate cardiology input. Continue medical management. (7) Hypertension: Qualifiers: Hypertension type: primary hypertension Qualified Code(s): I10 - Essential (primary) hypertension Code(s): I10 - Essential (primary) hypertension Status: Acute Assessment and Plan: BP elevated on admission to 168/110 felt to have HTN emergency. BP overall has improved. Continue Hytrin, Norvasc and metoprolol. Adjust medications as needed. (8) Anemia: Code(s): D64.9 - Anemia, unspecified Status: Acute Assessment and Plan: Patient with chronic anemia hemoglobin normally run 9-10 range last year. Here, hemoglobin mostly in the 7-8 range. Iron studies are consistent with iron deficiency anemia. B12 and folate levels normal. Continue iron replacement. Subjective Date/time seen:
[2021-06-18 16:27] LABS: Glucose Point of Care 205 mg/dl (65-105)
[2021-06-18] MEDS: LORazepam (*CRX) 1 MG TABLET 2 MG PO (21:29)
[2021-06-18] MEDS: INSULIN GLARGINE (*BKC) 100 UNITS/ML 6 UNITS SUB-Q (21:30)
[2021-06-18 22:52] LABS: Glucose Point of Care 257 mg/dl (65-105)
[2021-06-19] VITALS (14 sets, daily range): BP systolic 134–151; BP diastolic 44–55; PULSE 54–68; RESP 16–22; TEMP 36.4–36.5; O2SAT 92–97
[2021-06-19 06:08] LABS: Hematocrit 26.2 % (37.0-47.0); Mean Corpuscular HGB Conc 30.5 g/dl (32-36); Mean Corpuscular Hemoglobin 30.4 pg (26-34); Mean Corpuscular Volume 99.6 fl (80-100); Mean Platelet Volume 10.7 fl (7.4-10.4); Platelet Count Result 207 k/mm3 (150-375); Red Blood Count 2.63 M/mm3 (4.2-5.4); Red Cell Distribution Width 13.6 % (11.5-14.5); White Blood Count 7.2 K/mm3 (4.5-10.0)
[2021-06-19 06:18] LABS: Albumin Level 3.3 g/dL (3.5-5.1); Anion Gap 12 mmol/L (8-16); Blood Urea Nitrogen 80 mg/dL (7-17); Calcium 6.5 mg/dL (8.4-10.2); Carbon Dioxide 28 mmol/L (22-30); Chloride 95 mmol/L (98-107); Estimated CRCL calculation 11 ml/min; Estimated Glomerular Filt Rate 8; Glucose 179 mg/dL (65-110); Magnesium 2.6 mg/dL (1.6-2.3); Phosphorus 5.4 mg/dL (2.5-4.5); Potassium 3.4 mmol/L (3.4-5.0); Sodium 135 mmol/L (137-145)
[2021-06-19 08:10] LABS: Glucose Point of Care 163 mg/dl (65-105)
[2021-06-19] MEDS: METOPROLOL TARTRATE 25 MG TABLET PO ×2 (08:11→21:30)
[2021-06-19] MEDS: TERAZOSIN HCL 1 MG CAPSULE 2 MG PO ×2 (08:11→16:38)
[2021-06-19] MEDS: AMIODARONE HCL 200 MG TABLET 400 MG PO (08:11)
[2021-06-19] MEDS: FERROUS SULFATE 324 MG TABLET PO ×2 (08:11→16:37)
[2021-06-19] MEDS: metOLazone 5 MG TABLET PO (08:11)
[2021-06-19] MEDS: amLODIPine BESYLATE 5 MG TABLET 10 MG PO (08:11)
[2021-06-19] MEDS: acetaZOLAMIDE TAB 250 MG TABLET 500 MG PO ×2 (08:11→16:37)
[2021-06-19] MEDS: BUMETANIDE INJ 1 MG/4 ML VIAL IV PUSH ×2 (08:12→16:37)
[2021-06-19] MEDS: INSULIN GLARGINE (*BKC) 100 UNITS/ML 15 UNITS SUB-Q (08:29)
[2021-06-19] MEDS: INSULIN ASPART (*BKC) 100 UNITS/ML SUB-Q (08:31)
[2021-06-19] MEDS: CALCIUM GLUCONATE 1,000 MG/10 ML VIAL 1000 MG IV PUSH (09:10)
--- NOTE | 2021-06-19 10:34 | PCOTNOTE ---
Attempted to see patient this date at 10:28am. Patient refused OT services this date due to being too tiered . Attempted to educate on benefits of OT, patient continued to decline. Continue per OT POC.
--- NOTE | 2021-06-19 10:36 | PCNWS ---
Weekly nutritional screen. Patient is tolerating DBCC/Heart Healthy diet. Eating greater than 75% of most meals. For breakfast today, eating everything but her toast. Weight-stable. Plans for NPO after midnight for tunneled dialysis catheter. No further nutritional needs at this time.
--- NOTE | 2021-06-19 10:39 | PM.PNCARD ---
Progress Note: A&P Assessment and Plan (1) Atrial fibrillation with rapid ventricular response: Code(s): I48.91 - Unspecified atrial fibrillation Status: Acute Assessment and Plan: New onset paroxysmal atrial fibrillation. -She presented to the emergency department in sinus rhythm and subsequently was noted to be in atrial fibrillation with rapid ventricular response. Had paroxysmal atrial fibrillation on amiodarone; has maintained NSR for the last 18 hours. continue oral amiodarone daily. Decreased to 200mg daily 06/22/21 anticoagulation with apixaban has been put on Hold per Nephrology in anticipation for HD catheter placement probably . I gave a dose of Lovenox x1 today for DVT prophylaxis. continue metoprolol tartrate. (2) Combined systolic and diastolic congestive heart failure: Qualifiers: Heart failure chronicity: acute on chronic Qualified Code(s): I50.43 - Acute on chronic combined systolic (congestive) and diastolic (congestive) heart failure Code(s): I50.40 - Unspecified combined systolic (congestive) and diastolic (congestive) heart failure Status: Acute Assessment and Plan: CHF with preserved ejection fraction, with volume overload precipitated by renal failure. Monitor renal function electrolytes with daily BMP Continue current diuretic regimen...creatinine has worsened. Anticipate HD. Daily weights Accurate I&O Compression stockings, keep legs elevated as much as possible during the day (3) Pulmonary HTN: Code(s): I27.20 - Pulmonary hypertension, unspecified Status: Acute Assessment and Plan: Apnea link suggestive of severe HO. Empiric CPAP while hospitalized. She will need outpatient sleep study. (4) Chronic kidney disease, stage 4 (severe): Code(s): N18.4 - Chronic kidney disease, stage 4 (severe) Status: Acute Assessment and Plan: Renal function has worsened. Followed by nephrology. Anticipating renal replacement therapy. (5) Uncontrolled hypertension: Code(s): I10 - Essential (primary) hypertension Status: Chronic Assessment and Plan: Continue current antihypertensives with amlodipine and metoprolol (6) Elevated troponin: Code(s): R77.8 - Other specified abnormalities of plasma proteins Status: Acute Assessment and Plan: Nonischemic myocardial injury in the setting of CHF, renal failure. Subjective Date/time seen: 06/19/21 10:39 Interval history: 80yo female with CKD, CHF, DM and HTN here for SOB and found to have new-onset AFib. Date of service 06/15/2021: Patient was sitting in the chair. She reported improvement in her shortness of breath. Denied any chest pain. On telemetry, patient has been in sinus rhythm/sinus bradycardia. Her renal function has worsened. Date of service 06/16/2021-patient was sitting up in the chair and undergoing physical therapy at the time of evaluation. Denied any resting shortness of breath or chest pain. On telemetry, patient has been in sinus rhythm. Renal function has worsened. Date of service 06/17/2021: She feels about the same today. Still becoming short of breath with very minimal activity. On 1 L of oxygen per nasal cannula. Denies any chest pain, palpitations Date of service 06/18/2021: Feeling a little bit better this morning. She is on room air , does have some conversational dyspnea back in atrial fibrillation but she denies any palpitations, chest pain, shortness of breath. Date of service 06/19/2021: Feels better today, sitting up in a chair. ARRIAGA with activity and orthopneic. Making some urine. Telemetry shows that she has maintained sinus rhythm since yesterday. Creatinine up to 5 today. Review of Systems Constitutional: Constitutional: Reports fatigue and Reports weakness Eyes: Eyes: Reports no additional eye complaints ENT: Denies epistaxis Cardiovascular: Cardiovascular
[2021-06-19 11:14] LABS: Vitamin D 25 Hydroxy 14.4 ng/mL
[2021-06-19] MEDS: ENOXAPARIN 30 MG/0.3 ML SYRINGE SUB-Q (11:34)
--- NOTE | 2021-06-19 11:36 | PM.IMPN ---
Progress Note: A&P Assessment and Plan (1) RAKAN (acute kidney injury): Code(s): N17.9 - Acute kidney failure, unspecified Status: Acute Assessment and Plan: Baseline creatinine mostly runs in the 2 range. Creatinine was 2.4 on admission but she was fluid overloaded. Creatinine climbed to 3.2 with diuresis then climbed daily to 5.0 today. Intravascular dehydration? progression of CKD? Preload dependent due to her severe Pulmonary HTN? Renal ultrasound 06/10/21 was unrevealing. She remains on Metolazone and Bumex IV. Discussed with nephrology with plans for HD with catheter being placed tomorrow. Plavix and Eliquis on hold. Appreciate GenSurg and Nephrology input. (2) Atrial fibrillation with rapid ventricular response: Code(s): I48.91 - Unspecified atrial fibrillation Status: Acute Assessment and Plan: Patient with new diagnosis of atrial fibrillation. She was started on amiodarone and converted to normal sinus rhythm. She is also on Eliquis for stroke prophylaxis. Metoprolol was added. Echo showing grade 2 diastolic dysfunction with EF of 65-70%. Maintaining sinus rhythm for the most part. Continue to monitor on telemetry. Continue Amio. Hold Eliquis for HD catheter placement. Appreciate Cardiology input. (3) Pulmonary HTN: Code(s): I27.20 - Pulmonary hypertension, unspecified Status: Acute Assessment and Plan: Echo showing severe pulmonary hypertension (84 mmHg). ApneaLink 1/5 with duration of the test was over 8 hours showing an AHI of 36 and a RI of 37. Patient started on O2 2 L nasal cannula at night and follow-up apnea link ordered but it was not accurate. Perfusion scan shows intermediate probability for PE. LE venous doppler negative for DVT. Started on NIV at night and with naps which she is tolerating at times. Will need at least 2L O2 at night if unable to have NIV. Appreciate pulmonary input. (4) Acute exacerbation of CHF (congestive heart failure): Qualifiers: Heart failure type: diastolic Qualified Code(s): I50.33 - Acute on chronic diastolic (congestive) heart failure Code(s): I50.9 - Heart failure, unspecified Status: Acute Assessment and Plan: Patient presents with SOB. CXR consistent with CHF exacerbation. BNP was 24K. I/O is inaccurate. She was diuresed with lasix IV. Echo showing EF 65% with Grade II diastolic dysfunction. Still very edematous and CXR 06/14 again showing CHF with no changed from admission. Lasix changed to Bumex IV; she is continued on metolazone. Fluid status may not improve until she starts on HD. Continue to monitor. (5) Chronic kidney disease, stage 4 (severe): Code(s): N18.4 - Chronic kidney disease, stage 4 (severe) Status: Acute Assessment and Plan: As above (6) Elevated troponin: Code(s): R77.8 - Other specified abnormalities of plasma proteins Status: Acute Assessment and Plan: Very mild bump 0.044 felt related to the new onset AFib with RVR consistent with type 2 related to demand ischemia and possibly from her CKD. Not felt patient had acute coronary syndrome. Appreciate cardiology input. Continue medical management. (7) Hypertension: Qualifiers: Hypertension type: primary hypertension Qualified Code(s): I10 - Essential (primary) hypertension Code(s): I10 - Essential (primary) hypertension Status: Acute Assessment and Plan: BP elevated on admission to 168/110 felt to have HTN emergency. BP overall has improved. Continue Hytrin, Norvasc and metoprolol. Adjust medications as needed. (8) Anemia: Code(s): D64.9 - Anemia, unspecified Status: Acute Assessment and Plan: Patient with chronic anemia hemoglobin normally run 9-10 range last year. Here, hemoglobin mostly in the 7-8 range. Iron studies are consistent with iron deficiency anemia. B12 and folate levels normal. Stool guaiac remains uncoll
[2021-06-19 11:50] LABS: Glucose Point of Care 184 mg/dl (65-105)
[2021-06-19] MEDS: PANTOPRAZOLE 40 MG TABLET PO (12:31)
[2021-06-19] MEDS: EPOETIN ALFA-EPBX 10,000 UNITS/ML VIAL 10000 UNITS SUB-Q (12:31)
[2021-06-19] MEDS: EUCERIN CREAM 120 GM JAR 1 APPLIC TOPICAL (12:31)
[2021-06-19 13:28] LABS: Hepatitis B Surface Antigen Negative (Negative)
[2021-06-19 13:34] LABS: HAV RESULT Negative (Negative); Hepatitis B Core IgM Result Negative (Negative)
[2021-06-19 13:46] LABS: Hepatitis B Surface Anti Res Negative; Hepatitis C Virus Antibody Negative (Negative)
--- NOTE | 2021-06-19 16:11 | PM.PNNEP ---
Progress Note: A&P Assessment and Plan (1) RAKAN (acute kidney injury): Code(s): N17.9 - Acute kidney failure, unspecified Status: Acute Assessment and Plan: etiology not clear - perhaps just simple progression of disease(?) evaluation to date: renal ultrasound without any acute issues urine electrolytes non-prerenal (but she is on diuretics) making urine with diuretics but at the expense of her kidney function no overt uremic symptoms and no critical electrolytes at this time HOWEVER, breathing still not at baseline, fluid on CXR, and significant swelling/edema present plan initiation of renal replacement therapy/dialysis once HD catheter placement completed (2) Chronic kidney disease, stage 4 (severe): Code(s): N18.4 - Chronic kidney disease, stage 4 (severe) Status: Acute Assessment and Plan: baseline creatinine runs ~ 2.4 - 2.7mg/dl secondary to combination of HTN and diabetes suspect HO maybe a contributing factor as well (3) Acute exacerbation of CHF (congestive heart failure): Qualifiers: Heart failure type: diastolic Qualified Code(s): I50.33 - Acute on chronic diastolic (congestive) heart failure Code(s): I50.9 - Heart failure, unspecified Status: Acute Assessment and Plan: most recent Echo noted suspect more related to worsening renal failure than overt CHF daily weights follow I/Os continue diuretics (since making some urine) plan dialysis once HD catheter placed (4) Atrial fibrillation with rapid ventricular response: Code(s): I48.91 - Unspecified atrial fibrillation Status: Acute Assessment and Plan: rate control strategy on anticoagulation (5) Uncontrolled hypertension: Code(s): I10 - Essential (primary) hypertension Status: Chronic Assessment and Plan: reasonable control at this time continues current medications (6) Insulin dependent type 2 diabetes mellitus: Code(s): E11.9 - Type 2 diabetes mellitus without complications; Z79.4 - [facility] (current) use of insulin Status: Chronic Assessment and Plan: follow accuchecks glycemic control Will continue to follow. Subjective Date/time seen: 06/19/21 16:11 Sitting in chair in no apparent distress; still has shortness of breath with any activity and with laying flat; renal function continues to deteriorate although making some urine; on schedule for tunneled HD catheter placement tomorrow afternoon; no acute distress noted. Exam Narrative: General: WD/WN female in NAD Heart: normal S1 and S2; no rub Lungs: decreased at the bases Abdomen: soft, nontender, nondistended, positive bowel sounds Extremities: no cyanosis or clubbing; 2+ edema Skin: warm and intact Objective Data Vital Signs Vital Signs: Vital Signs Temp Pulse Resp BP Pulse Ox 06/19/21 16:00 58 L 06/19/21 14:20 36.5 C 68 18 134/44 L 97 06/19/21 12:58 92 06/19/21 12:00 58 L 06/19/21 08:11 65 06/19/21 08:00 62 06/19/21 05:01 36.4 C 65 18 151/55 H 95 06/19/21 04:00 55 L 06/19/21 03:32 22 H 06/19/21 00:00 54 L 06/18/21 22:15 63 25 H 95 06/18/21 21:40 36.4 C 63 16 139/47 L 95 06/18/21 21:29 72 06/18/21 20:00 63 95 Intake/Output Intake/Output: Intake & Output 06/16/21 06/17/21 06/18/21 06/19/21 23:59 23:59 23:59 23:59 Intake Total 4155 554 3880 680 Output Total 1000 350 Balance 328 962 8031 680 Meds/Results Medications: Active Medications Generic Name Dose Route Start Last Admin Trade Name Freq PRN Reason Stop Dose Admin Acetaminophen 650 mg 06/06/21 17:27 Acetaminophen 325 Mg Tablet PO Q4H PRN Mild Pain (1-3) or Fever Acetazolamide 500 mg 06/14/21 17:00 06/19/21 16:37 Acetazolamide Tab 250 Mg Tablet PO 500 mg BID JULIO Administration Amiodarone HCl 400 mg 06/15/21 08:00 06/19/21 08:
--- NOTE | 2021-06-19 16:11 | P.PNNP_ITS ---
Progress Note: A&P Assessment and Plan (1) RAKNA (acute kidney injury): Code(s): N17.9 - Acute kidney failure, unspecified Status: Acute Assessment and Plan: * etiology not clear - perhaps just simple progression of disease(?) * evaluation to date: * renal ultrasound without any acute issues * urine electrolytes non-prerenal (but she is on diuretics) * making urine with diuretics but at the expense of her kidney function * no overt uremic symptoms and no critical electrolytes at this time * HOWEVER, breathing still not at baseline, fluid on CXR, and significant swelling/edema present * plan initiation of renal replacement therapy/dialysis once HD catheter placement completed (2) Chronic kidney disease, stage 4 (severe): Code(s): N18.4 - Chronic kidney disease, stage 4 (severe) Status: Acute Assessment and Plan: * baseline creatinine runs ~ 2.4 - 2.7mg/dl * secondary to combination of HTN and diabetes * suspect HO maybe a contributing factor as well (3) Acute exacerbation of CHF (congestive heart failure): Qualifiers: Heart failure type: diastolic Qualified Code(s): I50.33 - Acute on chronic diastolic (congestive) heart failure Code(s): I50.9 - Heart failure, unspecified Status: Acute Assessment and Plan: * most recent Echo noted * suspect more related to worsening renal failure than overt CHF * daily weights * follow I/Os * continue diuretics (since making some urine) * plan dialysis once HD catheter placed (4) Atrial fibrillation with rapid ventricular response: Code(s): I48.91 - Unspecified atrial fibrillation Status: Acute Assessment and Plan: * rate control strategy * on anticoagulation (5) Uncontrolled hypertension: Code(s): I10 - Essential (primary) hypertension Status: Chronic Assessment and Plan: * reasonable control at this time * continues current medications (6) Insulin dependent type 2 diabetes mellitus: Code(s): E11.9 - Type 2 diabetes mellitus without complications; 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 Subjective Date/time seen: 06/19/21 16:11 Sitting in chair in no apparent distress; still has shortness of breath with any activity and with laying flat; renal function continues to deteriorate although making some urine; on schedule for tunneled HD catheter placement tomorrow afternoon; no acute distress noted. Exam Narrative: General: WD/WN female in NAD Heart: normal S1 and S2; no rub Lungs: decreased at the bases Abdomen: soft, nontender, nondistended, positive bowel sounds Extremities: no cyanosis or clubbing; 2+ edema Skin: warm and intact Objective Data Vital Signs Vital Signs: Vital Signs Temp Pulse Resp BP Pulse Ox 06/19/21 16:00 58 L 06/19/21 14:20 36.5 C 68 18 134/44 L 97 06/19/21 12:58 92 06/19/21 12:00 58 L 06/19/21 08:11 65 06/19/21 08:00 62 06/19/21 05:01 36.4 C 65 18 151/55 H 95 06/19/21 04:00 55 L 06/19/21 03:32 22 H 06/19/21 00:00 54 L 06/18/21 22:15 63 25 H 95 06/18/21 21:40 36.4 C 63 16 139/47 L 95 06/18/21 21:29 72 06/18/21 20:00 63 95
[2021-06-19 16:26] LABS: Glucose Point of Care 168 mg/dl (65-105)
[2021-06-19] MEDS: LORazepam (*CRX) 1 MG TABLET 2 MG PO (21:31)
[2021-06-19 22:16] LABS: Glucose Point of Care 214 mg/dl (65-105)
[2021-06-20] VITALS (39 sets, daily range): BP systolic 104–166; BP diastolic 34–72; PULSE 51–80; RESP 18–35; TEMP 35.9–36.6; O2SAT 92–100
[2021-06-20 05:48] LABS: Hematocrit 25.2 % (37.0-47.0); Hemoglobin 7.7 g/dL (12.0-15.0); Mean Corpuscular HGB Conc 30.6 g/dl (32-36); Mean Corpuscular Hemoglobin 30.6 pg (26-34); Mean Platelet Volume 10.8 fl (7.4-10.4); Platelet Count Result 189 k/mm3 (150-375); Red Blood Count 2.52 M/mm3 (4.2-5.4); Red Cell Distribution Width 13.7 % (11.5-14.5); White Blood Count 6.2 K/mm3 (4.5-10.0)
[2021-06-20 05:51] LABS: INR 1.3; Prothrombin Time 16.4 Seconds (11.1-14.7)
[2021-06-20 05:52] LABS: Partial Thromboplastin Time 32.6 SECONDS (22.3-36.8)
[2021-06-20 06:04] LABS: Albumin Level 3.1 g/dL (3.5-5.1); Anion Gap 12 mmol/L (8-16); Blood Urea Nitrogen 84 mg/dL (7-17); Calcium 6.7 mg/dL (8.4-10.2); Carbon Dioxide 28 mmol/L (22-30); Chloride 94 mmol/L (98-107); Estimated CRCL calculation 10 ml/min; Estimated Glomerular Filt Rate 8; Glucose 184 mg/dL (65-110); Magnesium 2.6 mg/dL (1.6-2.3); Phosphorus 5.5 mg/dL (2.5-4.5); Potassium 3.3 mmol/L (3.4-5.0); Sodium 134 mmol/L (137-145)
--- NOTE | 2021-06-20 07:41 | P.HPUP_ITS ---
History and Physical Update Update Date/Time: 06/20/21 07:41 History and Physical has been reviewed, including an updated exam of the patient. There are changes in the patient's condition. The patient had RVR with her A-Fib on admission but this has settled with medications. Her renal fu nction even with medical treatment has continued to deteriorate. Therefore Nephrology has asked for placement of a tunneled dialysis catheter in the patient will begin dialysis once it is in. Because the patient at times seems to be not completely mentally with it I have talked to her son and informed him of her current situation and the plan for placement of tunneled dialysis catheter with the risks including bleeding, pneumothorax, and difficulty with bleeding along the tract because of her anticoagulation in the recent past. Risks, benefits, and alternatives of placement of a tunneled dialysis catheter have been discussed and questions answered. Patient agrees to proceed with procedure.
[2021-06-20 07:45] LABS: Glucose Point of Care 192 mg/dl (65-105)
[2021-06-20 07:45] LABS: Glucose Point of Care 176 mg/dl (65-105)
[2021-06-20] MEDS: TERAZOSIN HCL 1 MG CAPSULE 2 MG PO (08:25)
[2021-06-20] MEDS: acetaZOLAMIDE TAB 250 MG TABLET 500 MG PO (08:26)
[2021-06-20] MEDS: amLODIPine BESYLATE 5 MG TABLET 10 MG PO (08:26)
[2021-06-20] MEDS: PANTOPRAZOLE 40 MG TABLET PO (08:26)
[2021-06-20] MEDS: AMIODARONE HCL 200 MG TABLET 400 MG PO (08:26)
[2021-06-20] MEDS: FERROUS SULFATE 324 MG TABLET PO ×2 (08:26→16:45)
[2021-06-20] MEDS: metOLazone 5 MG TABLET PO (08:27)
[2021-06-20] MEDS: BUMETANIDE INJ 1 MG/4 ML VIAL IV PUSH (08:27)
[2021-06-20] MEDS: METOPROLOL TARTRATE 25 MG TABLET PO ×2 (08:27→21:57)
[2021-06-20] MEDS: EUCERIN CREAM 120 GM JAR 1 APPLIC TOPICAL (08:28)
--- NOTE | 2021-06-20 10:36 | PCOTNOTE ---
Attempted to see patient this date at 9:20 am. Patient refused OT services this date due to being too nervous for surgery . Attempted to educate on benefits of OT, patient continued to decline. Continue per OT POC.
--- NOTE | 2021-06-20 11:06 | PM.PNCARD ---
Progress Note: A&P Assessment and Plan (1) Atrial fibrillation with rapid ventricular response: Code(s): I48.91 - Unspecified atrial fibrillation Status: Acute Assessment and Plan: New onset paroxysmal atrial fibrillation. -She presented to the emergency department in sinus rhythm and subsequently went into atrial fibrillation with rapid ventricular response. Had paroxysmal atrial fibrillation, now on amiodarone and has maintained NSR since 06/18/2021. Continue oral amiodarone daily. Will decrease to 200 mg daily due to mild bradycardia. Anticoagulation with apixaban has been put on hold in anticipation for HD catheter placement 06/20/2021. Continue metoprolol. (2) Combined systolic and diastolic congestive heart failure: Qualifiers: Heart failure chronicity: acute on chronic Qualified Code(s): I50.43 - Acute on chronic combined systolic (congestive) and diastolic (congestive) heart failure Code(s): I50.40 - Unspecified combined systolic (congestive) and diastolic (congestive) heart failure Status: Acute Assessment and Plan: CHF with preserved ejection fraction, with volume overload precipitated by renal failure. Monitor renal function electrolytes with daily BMP Continue current diuretic regimen...creatinine has worsened. Anticipate HD. Daily weights Accurate I&O Compression stockings, keep legs elevated as much as possible during the day (3) Pulmonary HTN: Code(s): I27.20 - Pulmonary hypertension, unspecified Status: Acute Assessment and Plan: Apnea link suggestive of severe HO. Empiric CPAP while hospitalized. She will need outpatient sleep study. (4) Chronic kidney disease, stage 4 (severe): Code(s): N18.4 - Chronic kidney disease, stage 4 (severe) Status: Acute Assessment and Plan: Renal function has worsened. Followed by nephrology. Anticipating renal replacement therapy. (5) Uncontrolled hypertension: Code(s): I10 - Essential (primary) hypertension Status: Chronic Assessment and Plan: Continue current antihypertensives with amlodipine, metoprolol, terazosin. (6) Elevated troponin: Code(s): R77.8 - Other specified abnormalities of plasma proteins Status: Acute Assessment and Plan: Nonischemic myocardial injury in the setting of CHF, renal failure. Subjective Date/time seen: 06/20/21 11:06 Interval history: 80yo female with CKD, CHF, DM and HTN here for SOB and found to have new-onset AFib. Date of service 06/15/2021: Patient was sitting in the chair. She reported improvement in her shortness of breath. Denied any chest pain. On telemetry, patient has been in sinus rhythm/sinus bradycardia. Her renal function has worsened. Date of service 06/16/2021-patient was sitting up in the chair and undergoing physical therapy at the time of evaluation. Denied any resting shortness of breath or chest pain. On telemetry, patient has been in sinus rhythm. Renal function has worsened. Date of service 06/17/2021: She feels about the same today. Still becoming short of breath with very minimal activity. On 1 L of oxygen per nasal cannula. Denies any chest pain, palpitations Date of service 06/18/2021: Feeling a little bit better this morning. She is on room air , does have some conversational dyspnea back in atrial fibrillation but she denies any palpitations, chest pain, shortness of breath. Date of service 06/19/2021: Feels better today, sitting up in a chair. ARRIAGA with activity and orthopneic. Making some urine. Telemetry shows that she has maintained sinus rhythm since yesterday. Creatinine up to 5 today. Date of service 06/20/2021: Doing OK, ARRIAGA w/ activity and has weak legs. Getting tunneled dialysis catheter placed today. Creat up to 5.4. Tele: NSR Review of Systems Constitutional: Constitutional: Reports fatigue and Reports weakness Eyes: Eyes: Report
[2021-06-20 11:48] LABS: Glucose Point of Care 174 mg/dl (65-105)
--- NOTE | 2021-06-20 12:04 | PC.NURSE ---
Patient to OR per bed. 06/20/20 1202
[2021-06-20] MEDS: SODIUM CHLORIDE 0.9% IV 500 ML 30 ML IV CONT (12:20)
[2021-06-20 12:29] LABS: Glucose Point of Care 178 mg/dl (65-105)
--- NOTE | 2021-06-20 12:56 | WPDANESEPPF ---
Anes - Initial Pre Proc Eval Procedure: Operation Date: 06/20/21 13:00 Proposed Procedures p Insertion Tunneled Dialysis Catheter - Kenny Nathan MD Date/Time: 06/20/21 12:56 Surgeon: Gage Cole MD Pre Op Diagnosis: new opnset afib with tvt,chf Patient Data Age: 80 Gender: F Height: 1.57 m Weight: 133 kg Last Vital Signs Temp 97.6 F 06/20/21 12:10 Pulse 57 L 06/20/21 12:10 Resp 20 06/20/21 12:10 BP 146/46 H 06/20/21 12:10 Pulse Ox 96 06/20/21 12:10 Allergies Allergy/AdvReac Type Severity Reaction Status Date / Time adhesive tape Allergy Mild Blister Verified 03/13/21 09:46 iohexol Allergy Unknown Vomiting Verified 03/13/21 09:46 [From contrast - CT, X-RAY] morphine AdvReac Intermediate Vomiting Verified 03/13/21 09:46 Home Medications Medication Instructions Recorded Confirmed Type ergocalciferol (vitamin D2) 50,000 unit PO WEEKLY 08/29/20 06/06/21 History fluticasone propionate 50 1 spray INTRANASAL DAILY PRN g 09/20/20 06/06/21 History mcg/actuation nasal spray,suspension furosemide 40 mg tablet 40 mg PO BID 09/20/20 06/06/21 History carvedilol 25 mg tablet 25 mg PO Q12H #180 tablet 01/21/21 06/06/21 Rx pen needle, diabetic 32 gauge x #100 each 01/21/21 06/06/21 Rx acetaminophen [Mapap 650 mg PO Q4H PRN #60 tablet 02/24/21 06/06/21 Rx (acetaminophen)] insulin glargine [Lantus U-100 6 unit SUBCUT HS #10 ml 02/24/21 06/06/21 Rx Insulin] blood sugar diagnostic See Rx Instructions .ROUTE 03/18/21 06/06/21 Rx .COMPLEX #300 ea Lantus Solostar U-100 Insulin 50 unit SUBCUT QAM 06/06/21 06/06/21 History clopidogrel 75 mg PO QAM 06/06/21 06/06/21 History lorazepam 2 mg PO HS 06/06/21 06/06/21 History metolazone 5 mg PO QAM 06/06/21 06/06/21 History potassium chloride 10 meq PO EVERY OTHER DAY 06/06/21 06/06/21 History Laboratory Tests 06/19/21 06/19/21 06/19/21 05:44 16:19 21:29 WBC RBC Hgb Hct MCV MCH MCHC RDW Plt Count MPV PT INR APTT Sodium Potassium Chloride Carbon Dioxide Anion Gap BUN Creatinine Estim Creat Clear Calc Estimated GFR Glucose POC Capillary Glucose 168 mg/dl H mg/dl 214 mg/dl H mg/dl (65-105) (65-105) Calcium Phosphorus Magnesium Albumin Hepatitis A IgM Ab Negative (Negative) Hep Bs Antigen Negative (Negative) Hep Bs Antibody Negative Hep B Core IgM Ab Negative (Negative) Hepatitis C Ab Screen Negative (Negative) 06/20/21 06/20/21 06/20/21 05:17 05:17 05:17 WBC 6.2 K/mm3 K/mm3 (4.5-10.0) RBC 2.52 M/mm3 L M/mm3 (4.2-5.4) Hgb 7.7 g/dL L g/dL (12.0-15.0) Hct 25.2 % L % (37.0-47.0) MCV 100.0 fl fl (80-100) MCH 30.6 pg pg (26-34) MCHC 30.6 g/dl L g/dl (32-36) RDW 13.7 % % (11.5-14.5) Plt Count 189 k/mm3 k/mm3 (150-375) MPV 10.8 fl H fl (7.4-10.4) PT 16.4 Seconds H Seconds (11.1-14.7) INR 1.3 APTT 32.6 SECONDS SECONDS (22.3-36.8) Sodium 134 mmol/L L mmol/L (137-145) Potassium 3.3 mmol/L L mmol/L (3.4-5.0) Chloride 94 mmol/L L mmol/L (98-107) Carbon Dioxide 28 mmol/L mmol/L (22-30) Anion Gap 12 mmol/L mmol/L (8-16) BUN 84 mg/dL H mg/dL (7-17) Creatinine 5.40 mg/dL H mg/dL (0.7-1.0) Estim Creat Clear Calc 10 ml/min ml/min Estimated GFR 8 L (59 - ) Glucose 184 mg/dL H mg/dL (65-110) POC Capillary Glucose Calcium 6.7 mg/dL L mg/dL
--- NOTE | 2021-06-20 13:02 | PM.IMPN ---
Progress Note: A&P Assessment and Plan (1) RAKAN (acute kidney injury): Code(s): N17.9 - Acute kidney failure, unspecified Status: Acute Assessment and Plan: Baseline creatinine mostly runs in the 2 range. Creatinine was 2.4 on admission but she was fluid overloaded. Creatinine climbed to 3.2 with diuresis then climbed daily to 5.0 today. Intravascular dehydration? progression of CKD? Preload dependent due to her severe Pulmonary HTN? Renal ultrasound 06/10/21 was unrevealing. She remains on Metolazone and Bumex IV. Plans for HD with catheter being placed today. Plavix and Eliquis on hold. Appreciate GenSurg and Nephrology input. (2) Atrial fibrillation with rapid ventricular response: Code(s): I48.91 - Unspecified atrial fibrillation Status: Acute Assessment and Plan: Patient with new diagnosis of atrial fibrillation. She was started on amiodarone and converted to normal sinus rhythm. She is also on Eliquis for stroke prophylaxis. Metoprolol was added. Echo showing grade 2 diastolic dysfunction with EF of 65-70%. Maintaining sinus rhythm for the most part. Continue to monitor on telemetry. Continue Amio. Hold Eliquis for HD catheter placement. Appreciate Cardiology input. (3) Pulmonary HTN: Code(s): I27.20 - Pulmonary hypertension, unspecified Status: Acute Assessment and Plan: Echo showing severe pulmonary hypertension (84 mmHg). ApneaLink 1/ with duration of the test was over 8 hours showing an AHI of 36 and a RI of 37. Patient started on O2 2 L nasal cannula at night and follow-up apnea link ordered but it was not accurate. Perfusion scan shows intermediate probability for PE. LE venous doppler negative for DVT. Started on NIV at night and with naps which she is tolerating at times. Will need at least 2L O2 at night if unable to have NIV. Appreciate pulmonary input. (4) Acute exacerbation of CHF (congestive heart failure): Qualifiers: Heart failure type: diastolic Qualified Code(s): I50.33 - Acute on chronic diastolic (congestive) heart failure Code(s): I50.9 - Heart failure, unspecified Status: Acute Assessment and Plan: Patient presents with SOB. CXR consistent with CHF exacerbation. BNP was 24K. I/O is inaccurate. She was diuresed with lasix IV. Echo showing EF 65% with Grade II diastolic dysfunction. Still very edematous and CXR 06/14 again showing CHF with no changed from admission. Lasix changed to Bumex IV; she is continued on metolazone. Plan for HD. HD to improve fluid status. Continue to monitor. (5) Chronic kidney disease, stage 4 (severe): Code(s): N18.4 - Chronic kidney disease, stage 4 (severe) Status: Acute Assessment and Plan: As above (6) Elevated troponin: Code(s): R77.8 - Other specified abnormalities of plasma proteins Status: Acute Assessment and Plan: Very mild bump 0.044 felt related to the new onset AFib with RVR consistent with type 2 related to demand ischemia and possibly from her CKD. Not felt patient had acute coronary syndrome. Appreciate cardiology input. Continue medical management. (7) Hypertension: Qualifiers: Hypertension type: primary hypertension Qualified Code(s): I10 - Essential (primary) hypertension Code(s): I10 - Essential (primary) hypertension Status: Acute Assessment and Plan: BP elevated on admission to 168/110 felt to have HTN emergency. BP overall has improved. Continue Hytrin, Norvasc and metoprolol. Adjust medications as needed. (8) Anemia: Code(s): D64.9 - Anemia, unspecified Status: Acute Assessment and Plan: Patient with chronic anemia. Hgb normally run 9-10 range last year. Here, hemoglobin mostly in the 7-8 range. Iron studies are consistent with iron deficiency anemia. B12 and folate levels normal. Stool guaiac remains uncollected. Continue iron replacement and Protonix (
[2021-06-20] MEDS: ceFAZolin 2 GM/D5W 50 ML 2 GM/50 ML BAG IVPB (13:08)
[2021-06-20] MEDS: LIDO 1%/EPINEPHRINE 1:100,000 50 ML VIAL 10 ML INFILTRATE (13:39)
[2021-06-20] MEDS: HEPARIN SODIUM, PORCINE 10,000 UNITS/10 ML VIAL 4000 UNITS IV PUSH (13:44)
--- NOTE | 2021-06-20 14:40 | W.PM.PROC2 ---
Procedure Note - Detailed Date of Procedure 06/20/21 Pre-op Diagnosis 1. End-stage renal disease with fluid overload and need for dialysis 2.new opnset afib with tvt,chf Post-op Diagnosis same Procedure Performed Ultrasound-guided placement of tunneled dialysis catheter. (right internal jugular approach). Surgeon Kenny Nathan MD Millinery Salesperson Jamil [email or web address] Anesthesia local (2% xylocaine with epinephrine) and other (GIVS) Indications The patient has end-stage renal disease with need for access for hemodialysis Findings Normal Vascular anatomy in the Rt. neck. Description of Procedure The patient was placed in the supine position on the operating table and after induction of adequate mask general anesthesia by the nurse chicken buyer, we carefully rotated the patient's head and tilted slightly to the left then prepping both sides of the neck and chest with chlorhexidine. After waiting 3 minutes I carefully draped the patient, and we performed a time-out confirming the patient's site of surgery. Because of the patients size, a 28 cm DuraFlow catheter was selected. Using the ultrasound probe we carefully examined the anatomy in the right neck and saved a image of this in the chart. I used ultrasound to identify the right jugular vein in the mid neck and this was cannulated under direct vision with an 18-gauge Arrow needle on a syringe. Good dark blood was aspirated, the J-guidewire was advanced through the needle and into the central venous system using the usual Seldinger technique. C-arm fluoroscopy was used to confirm that the wire was then through the central venous system and then we removed the needle and blue guide off the wire. Following this, we measured the DuraFlow catheter such that the tip would be just into the right atrium or in the distal superior vena cava. A hemostat was placed on the drapes over the chest to guide where we would place this. Then the catheter was measured back to the entry site of the J- wire in a curvilinear fashion and down to the patient's chest overlying the right clavicle. Local anesthetic was placed into 3 hernandez, the exit site and then 2 more on the patient's lateral neck such that a curvilinear path could be dissected through the subcutaneous tissues up to the insertion site on he patients right neck. Local anesthetic was infiltrated along the tract prior to tunneling. Incisions were made with a 15 blade knife at the exit site and the 2 counter incisions and then an 11 blade at the wire. The tunneling device was connected to the catheter and this was pulled through these incisions to make the subcutaneous tunnel a curvilinear course through the subcutaneous tissues to the insertion site. Then the wire was serially dilated with a 12, 14, and then a 16-Belarusian dilator over the pull away sheath. We watched the 16-Belarusian dilator and sheath go down into the central venous system with C-arm fluoroscopy and then removed the dilator wire after carefully covering the end of the catheter. I lost some blood, as we then inserted the catheter down into the central venous system. The catheter was held in place with a DeBakey forceps and then we carefully tore away the sheath leaving the catheter within the subcutaneous tissues and down into the jugular vein. Following this, C-arm fluoroscopy was used to examine the full course of the catheter. The tip was just into the right atrium and there was a good curvilinear course of the catheter in the neck down to the exit site over the right clavicle. Minimal bleeding was continuing, so we then went ahead and closed these incisions with some buried subcutaneous sutures of 4-0 Monocryl directly over the catheter at the insertion site and then buried subcutaneous sutures at each of the incisions except the exit site. 3-0 nylon was used to suture the catheter at its hub to the skin and an antibiotic disc was placed at the exit site. Tegaderm and a 2 X 2 gauze were applie
[2021-06-20 15:07] LABS: Glucose Point of Care 189 mg/dl (65-105)
[2021-06-20 17:20] LABS: Glucose Point of Care 174 mg/dl (65-105)
[2021-06-20] MEDS: SODIUM CHLORIDE 0.9% IV 1,000 ML 100 ML IV CONT (18:00)
--- NOTE | 2021-06-20 18:53 | P.PNNP_ITS ---
Progress Note: A&P Assessment and Plan (1) RAKAN (acute kidney injury): Code(s): N17.9 - Acute kidney failure, unspecified Status: Acute Assessment and Plan: * etiology not clear - perhaps just simple progression of disease(?) * evaluation to date: * renal ultrasound without any acute issues * urine electrolytes non-prerenal (but she is on diuretics) * making urine with diuretics but at the expense of her kidney function * possible mild uremic symptoms but no critical electrolytes at this time * HOWEVER, breathing still not at baseline, fluid on CXR, and significant swelling/edema present * s/p placement of HD catheter today * HD today and likely again on Thursday (2) Chronic kidney disease, stage 4 (severe): Code(s): N18.4 - Chronic kidney disease, stage 4 (severe) Status: Acute Assessment and Plan: * baseline creatinine runs ~ 2.4 - 2.7mg/dl * secondary to combination of HTN and diabetes * suspect HO maybe a contributing factor as well * on BiPAP at night (3) Acute exacerbation of CHF (congestive heart failure): Qualifiers: Heart failure type: diastolic Qualified Code(s): I50.33 - Acute on chronic diastolic (congestive) heart failure Code(s): I50.9 - Heart failure, unspecified Status: Acute Assessment and Plan: * most recent Echo noted * suspect more related to worsening renal failure than overt CHF * daily weights * follow I/Os * continue diuretics (since making some urine) * fluid removal with HD as tolerated (4) Atrial fibrillation with rapid ventricular response: Code(s): I48.91 - Unspecified atrial fibrillation Status: Acute Assessment and Plan: * rate control strategy * on anticoagulation (5) Uncontrolled hypertension: Code(s): I10 - Essential (primary) hypertension Status: Chronic Assessment and Plan: * reasonable control at this time * continues current medications (6) Insulin dependent type 2 diabetes mellitus: Code(s): E11.9 - Type 2 diabetes mellitus without complications; 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 Subjective Date/time seen: 06/20/21 18:53 Patient is s/p tunneled HD catheter placement earlier today and tolerated procedure reasonably well; tolerating first dialysis treatment at the time of my visit (seen on HD at ~ 6:40PM); breathing appears stable but still has issues with ARRIAGA and orthopnea; tolerating BiPAP therapy at night; no acute distress voiced currently. Exam Narrative: General: WD/WN female in NAD Heart: normal S1 and S2; no rub Lungs: decreased at the bases Abdomen: soft, nontender, nondistended, positive bowel sounds Extremities: no cyanosis or clubbing; 2+ edema Skin: warm and intact Objective Data Vital Signs Vital Signs: Vital Signs Temp Pulse Resp BP Pulse Ox 06/20/21 18:00 36.1 C L 58 L 20 127/45 L 98 06/20/21 17:30 36.1 C L 59 L 20 148/34 H 99 06/20/21 17:00 35.9 C L 57 L 24 H 149/38 H 96 06/20/21 16:49 93 06/20/21 16:42 35.9 C L 55 L 24 H 138/37 L 96 06/20/21 16:41 58 L 06/20/21 15:55 57 L 25 H 125/51 L 92 06/20/21 15:40 56 L 29 H 129/48 L 95 06/20/21 15:25 56 L 25 H 126/45 L 93 06/20/21 15:1
--- NOTE | 2021-06-20 18:53 | PM.PNNEP ---
Progress Note: A&P Assessment and Plan (1) RAKAN (acute kidney injury): Code(s): N17.9 - Acute kidney failure, unspecified Status: Acute Assessment and Plan: etiology not clear - perhaps just simple progression of disease(?) evaluation to date: renal ultrasound without any acute issues urine electrolytes non-prerenal (but she is on diuretics) making urine with diuretics but at the expense of her kidney function possible mild uremic symptoms but no critical electrolytes at this time HOWEVER, breathing still not at baseline, fluid on CXR, and significant swelling/edema present s/p placement of HD catheter today HD today and likely again on Thursday (2) Chronic kidney disease, stage 4 (severe): Code(s): N18.4 - Chronic kidney disease, stage 4 (severe) Status: Acute Assessment and Plan: baseline creatinine runs ~ 2.4 - 2.7mg/dl secondary to combination of HTN and diabetes suspect HO maybe a contributing factor as well on BiPAP at night (3) Acute exacerbation of CHF (congestive heart failure): Qualifiers: Heart failure type: diastolic Qualified Code(s): I50.33 - Acute on chronic diastolic (congestive) heart failure Code(s): I50.9 - Heart failure, unspecified Status: Acute Assessment and Plan: most recent Echo noted suspect more related to worsening renal failure than overt CHF daily weights follow I/Os continue diuretics (since making some urine) fluid removal with HD as tolerated (4) Atrial fibrillation with rapid ventricular response: Code(s): I48.91 - Unspecified atrial fibrillation Status: Acute Assessment and Plan: rate control strategy on anticoagulation (5) Uncontrolled hypertension: Code(s): I10 - Essential (primary) hypertension Status: Chronic Assessment and Plan: reasonable control at this time continues current medications (6) Insulin dependent type 2 diabetes mellitus: Code(s): E11.9 - Type 2 diabetes mellitus without complications; Z79.4 - custodial (current) use of insulin Status: Chronic Assessment and Plan: follow accuchecks glycemic control Will continue to follow. Subjective Date/time seen: 06/20/21 18:53 Patient is s/p tunneled HD catheter placement earlier today and tolerated procedure reasonably well; tolerating first dialysis treatment at the time of my visit (seen on HD at ~ 6:40PM); breathing appears stable but still has issues with ARRIAGA and orthopnea; tolerating BiPAP therapy at night; no acute distress voiced currently. Exam Narrative: General: WD/WN female in NAD Heart: normal S1 and S2; no rub Lungs: decreased at the bases Abdomen: soft, nontender, nondistended, positive bowel sounds Extremities: no cyanosis or clubbing; 2+ edema Skin: warm and intact Objective Data Vital Signs Vital Signs: Vital Signs Temp Pulse Resp BP Pulse Ox 06/20/21 18:00 36.1 C L 58 L 20 127/45 L 98 06/20/21 17:30 36.1 C L 59 L 20 148/34 H 99 06/20/21 17:00 35.9 C L 57 L 24 H 149/38 H 96 06/20/21 16:49 93 06/20/21 16:42 35.9 C L 55 L 24 H 138/37 L 96 06/20/21 16:41 58 L 06/20/21 15:55 57 L 25 H 125/51 L 92 06/20/21 15:40 56 L 29 H 129/48 L 95 06/20/21 15:25 56 L 25 H 126/45 L 93 06/20/21 15:10 56 L 29 H 126/45 L 100 06/20/21 14:55 54 L 25 H 138/43 L 100 06/20/21 14:40 55 L 25 H 104/72 100 06/20/21 14:24 36.3 C L 57 L 35 H 154/38 H 100 06/20/21 12:10 36.4 C 57 L 20 146/46 H 96 06/20/21 12:01 56 L 06/20/21 08:30 24 H 06/20/21 08:27 56 L 06/20/21 08:26 56 L 06/20/21 08:03 51 L 06/20/21 06:00 36.4 C 57 L 18 146/70 H 96 06/20/21 04:00 57 L 06/20/21 01:45 68 22 H 96 06/20/21 00:00 56 L 06/19/21 23:00 68 22 H 96 06/19/21 22:00 36.4 C L 58 L 16 143/44 H 97 06/19/21 21:30 63 06/19/21 20:
[2021-06-20] MEDS: EPOETIN ALFA-EPBX 10,000 UNITS/ML VIAL 10000 UNITS IV PUSH (20:06)
[2021-06-20] MEDS: INSULIN GLARGINE (*BKC) 100 UNITS/ML 6 UNITS SUB-Q (21:57)
[2021-06-20] MEDS: LORazepam (*CRX) 1 MG TABLET 2 MG PO (21:57)
[2021-06-20] MEDS: SENNA/DOCUSATE SODIUM TABLET 2 TAB PO (21:57)
[2021-06-20 22:32] LABS: Glucose Point of Care 231 mg/dl (65-105)
[2021-06-21] VITALS (15 sets, daily range): BP systolic 112–148; BP diastolic 40–56; PULSE 52–92; RESP 16–24; TEMP 36.1–36.6; O2SAT 94–100
--- NOTE | 2021-06-21 02:50 | PCRCNOTE ---
Patient removed BiPAP from herself, said she didn't want to wear it anymore tonight. Overall, patient was on BiPAP approximately 5 hours.
[2021-06-21 05:51] LABS: Hematocrit 26.6 % (37.0-47.0); Hemoglobin 8.2 g/dL (12.0-15.0); Mean Corpuscular HGB Conc 30.8 g/dl (32-36); Mean Corpuscular Hemoglobin 30.6 pg (26-34); Mean Corpuscular Volume 99.3 fl (80-100); Mean Platelet Volume 10.7 fl (7.4-10.4); Platelet Count Result 187 k/mm3 (150-375); Red Blood Count 2.68 M/mm3 (4.2-5.4); Red Cell Distribution Width 13.9 % (11.5-14.5); White Blood Count 8.5 K/mm3 (4.5-10.0)
[2021-06-21 06:25] LABS: Albumin Level 3.4 g/dL (3.5-5.1); Anion Gap 10 mmol/L (8-16); Blood Urea Nitrogen 57 mg/dL (7-17); Calcium 6.9 mg/dL (8.4-10.2); Carbon Dioxide 28 mmol/L (22-30); Chloride 98 mmol/L (98-107); Estimated CRCL calculation 15 ml/min; Estimated Glomerular Filt Rate 12; Glucose 193 mg/dL (65-110); Magnesium 2.4 mg/dL (1.6-2.3); Phosphorus 4.4 mg/dL (2.5-4.5); Potassium 3.2 mmol/L (3.4-5.0); Sodium 136 mmol/L (137-145)
[2021-06-21 08:04] LABS: Glucose Point of Care 187 mg/dl (65-105)
[2021-06-21] MEDS: TERAZOSIN HCL 1 MG CAPSULE 2 MG PO ×2 (08:05→16:49)
[2021-06-21] MEDS: METOPROLOL TARTRATE 25 MG TABLET PO ×2 (08:05→21:23)
[2021-06-21] MEDS: metOLazone 5 MG TABLET PO (08:05)
[2021-06-21] MEDS: acetaZOLAMIDE TAB 250 MG TABLET 500 MG PO ×2 (08:05→16:49)
[2021-06-21] MEDS: amLODIPine BESYLATE 5 MG TABLET 10 MG PO (08:05)
[2021-06-21] MEDS: INSULIN GLARGINE (*BKC) 100 UNITS/ML 15 UNITS SUB-Q (08:07)
[2021-06-21] MEDS: PANTOPRAZOLE 40 MG TABLET PO (08:07)
[2021-06-21] MEDS: EUCERIN CREAM 120 GM JAR 1 APPLIC TOPICAL (08:08)
[2021-06-21] MEDS: ENOXAPARIN 30 MG/0.3 ML SYRINGE SUB-Q (08:08)
[2021-06-21] MEDS: BUMETANIDE INJ 1 MG/4 ML VIAL IV PUSH ×2 (08:08→16:49)
[2021-06-21] MEDS: AMIODARONE HCL 200 MG TABLET PO (08:08)
[2021-06-21] MEDS: FERROUS SULFATE 324 MG TABLET PO ×2 (08:08→16:49)
[2021-06-21] MEDS: HYDROcodone/acetaminophen (*CRX) 5-325 MG TABLET 1 TAB PO ×2 (08:11→16:53)
--- NOTE | 2021-06-21 11:02 | WPDANESPN ---
Anes - Prog Note Post-Op Date/Time: 06/21/21 11:02 Cardiovascular status: normal Respiratory status: normal Airway patency: baseline Mental status: baseline Post-Op hydration status: normal Vital Signs: Last Vital Signs Temp 36.6 C 06/21/21 06:03 Pulse 61 06/21/21 08:08 Resp 18 06/21/21 06:03 BP 148/45 H 06/21/21 06:03 Pulse Ox 94 06/21/21 08:00 Pain Score (VAS): 0 I/O: Intake & Output 06/20/21 06/21/21 06/21/21 23:59 07:59 15:59 Intake Total 290 220 300 Output Total 1700 0 Balance -1410 220 300 Laboratory Tests 06/21/21 05:42 06/21/21 05:42 06/20/21 06/20/21 06/20/21 11:40 12:26 15:04 WBC RBC Hgb Hct MCV MCH MCHC RDW Plt Count MPV Sodium Potassium Chloride Carbon Dioxide Anion Gap BUN Creatinine Estim Creat Clear Calc Estimated GFR Glucose POC Capillary Glucose 174 H 178 H 189 H Calcium Phosphorus Magnesium Albumin 06/20/21 06/20/21 06/21/21 17:04 21:56 05:42 WBC 8.5 RBC 2.68 L Hgb 8.2 L Hct 26.6 L MCV 99.3 MCH 30.6 MCHC 30.8 L RDW 13.9 Plt Count 187 MPV 10.7 H Sodium Potassium Chloride Carbon Dioxide Anion Gap BUN Creatinine Estim Creat Clear Calc Estimated GFR Glucose POC Capillary Glucose 174 H 231 H Calcium Phosphorus Magnesium Albumin 06/21/21 06/21/21 05:42 07:43 WBC RBC Hgb Hct MCV MCH MCHC RDW Plt Count MPV Sodium 136 L Potassium 3.2 L Chloride 98 Carbon Dioxide 28 Anion Gap 10 BUN 57 H D Creatinine 3.70 H Estim Creat Clear Calc 15 Estimated GFR 12 L Glucose 193 H POC Capillary Glucose 187 H Calcium 6.9 L Phosphorus 4.4 Magnesium 2.4 H Albumin 3.4 L Post-procedural complaints: none Patient Feedback: Patient satisfied with anesthetic care.
--- NOTE | 2021-06-21 11:02 | PM.PNCARD ---
Progress Note: A&P Assessment and Plan (1) Atrial fibrillation with rapid ventricular response: Code(s): I48.91 - Unspecified atrial fibrillation Status: Acute Assessment and Plan: New onset paroxysmal atrial fibrillation. -She presented to the emergency department in sinus rhythm and subsequently went into atrial fibrillation with rapid ventricular response. Had paroxysmal atrial fibrillation, now on amiodarone and has maintained NSR/sinus bradycardia since 06/18/2021. Continue oral amiodarone at 200 mg p.o. daily. Anticoagulation with low-dose apixaban to be resumed when okay with primary team. (2) Combined systolic and diastolic congestive heart failure: Qualifiers: Heart failure chronicity: acute on chronic Qualified Code(s): I50.43 - Acute on chronic combined systolic (congestive) and diastolic (congestive) heart failure Code(s): I50.40 - Unspecified combined systolic (congestive) and diastolic (congestive) heart failure Status: Acute Assessment and Plan: CHF with preserved ejection fraction, with volume overload precipitated by renal failure. Monitor renal function electrolytes Continue current diuretic regimen...creatinine has worsened. Temporary dialysis catheter has been placed. Management as per Nephrology. Daily weights Accurate I&O Compression stockings, keep legs elevated as much as possible during the day (3) Pulmonary HTN: Code(s): I27.20 - Pulmonary hypertension, unspecified Status: Acute Assessment and Plan: Apnea link suggestive of severe HO. Empiric CPAP while hospitalized. She will need outpatient sleep study. (4) Chronic kidney disease, stage 4 (severe): Code(s): N18.4 - Chronic kidney disease, stage 4 (severe) Status: Acute Assessment and Plan: Renal function has worsened. Followed by nephrology. Anticipating renal replacement therapy. (5) Uncontrolled hypertension: Code(s): I10 - Essential (primary) hypertension Status: Chronic Assessment and Plan: Continue current antihypertensives with amlodipine, metoprolol, terazosin. (6) Elevated troponin: Code(s): R77.8 - Other specified abnormalities of plasma proteins Status: Acute Assessment and Plan: Nonischemic myocardial injury in the setting of CHF, renal failure. Subjective Date/time seen: 06/21/21 11:02 Interval history: 80yo female with CKD, CHF, DM and HTN here for SOB and found to have new-onset AFib. Date of service 06/15/2021: Patient was sitting in the chair. She reported improvement in her shortness of breath. Denied any chest pain. On telemetry, patient has been in sinus rhythm/sinus bradycardia. Her renal function has worsened. Date of service 06/16/2021-patient was sitting up in the chair and undergoing physical therapy at the time of evaluation. Denied any resting shortness of breath or chest pain. On telemetry, patient has been in sinus rhythm. Renal function has worsened. Date of service 06/17/2021: She feels about the same today. Still becoming short of breath with very minimal activity. On 1 L of oxygen per nasal cannula. Denies any chest pain, palpitations Date of service 06/18/2021: Feeling a little bit better this morning. She is on room air , does have some conversational dyspnea back in atrial fibrillation but she denies any palpitations, chest pain, shortness of breath. Date of service 06/19/2021: Feels better today, sitting up in a chair. ARRIAGA with activity and orthopneic. Making some urine. Telemetry shows that she has maintained sinus rhythm since yesterday. Creatinine up to 5 today. Date of service 06/20/2021: Doing OK, ARRIAGA w/ activity and has weak legs. Getting tunneled dialysis catheter placed today. Creat up to 5.4. Tele: NSR Date of service 06/21/2021-patient complains of discomfort in the neck area at the site of temporary dialysis catheter. Denies kelli
[2021-06-21 11:37] LABS: Glucose Point of Care 272 mg/dl (65-105)
--- NOTE | 2021-06-21 11:39 | P.PNNP_ITS ---
Progress Note: A&P Assessment and Plan (1) RAKAN (acute kidney injury): Code(s): N17.9 - Acute kidney failure, unspecified Status: Acute Assessment and Plan: * etiology not clear - perhaps just simple progression of disease(?) * evaluation to date: * renal ultrasound without any acute issues * urine electrolytes non-prerenal (but she is on diuretics) * making urine with diuretics but at the expense of her kidney function * possible mild uremic symptoms but no critical electrolytes at this time * HOWEVER, breathing still not at baseline, fluid on CXR, and significant swelling/edema present * s/p placement of HD catheter (on 06/20/21) * HD yesterday and likely again on Thursday/tomorrow (2) Chronic kidney disease, stage 4 (severe): Code(s): N18.4 - Chronic kidney disease, stage 4 (severe) Status: Acute Assessment and Plan: * baseline creatinine runs ~ 2.4 - 2.7mg/dl * secondary to combination of HTN and diabetes * suspect HO maybe a contributing factor as well * on BiPAP at night (3) Acute exacerbation of CHF (congestive heart failure): Qualifiers: Heart failure type: diastolic Qualified Code(s): I50.33 - Acute on chronic diastolic (congestive) heart failure Code(s): I50.9 - Heart failure, unspecified Status: Acute Assessment and Plan: * most recent Echo noted * suspect more related to worsening renal failure than overt CHF * daily weights * follow I/Os * continue diuretics (since making some urine previously) * fluid removal with HD as tolerated (4) Atrial fibrillation with rapid ventricular response: Code(s): I48.91 - Unspecified atrial fibrillation Status: Acute Assessment and Plan: * rate control strategy * on anticoagulation (5) Uncontrolled hypertension: Code(s): I10 - Essential (primary) hypertension Status: Chronic Assessment and Plan: * reasonable control at this time * continues current medications (6) Insulin dependent type 2 diabetes mellitus: Code(s): E11.9 - Type 2 diabetes mellitus without complications; 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 Subjective Date/time seen: 06/21/21 11:39 Tolerated HD catheter placement and first dialysis treatment yesterday without any issues or problems; denies any complaints of chest pain or shortness of breath; still has some issues with ARRIAGA and orthopnea at times; major issue is that discomfort at insertion site of dialysis catheter placement; minimal urine output overnight. Exam Narrative: General: WD/WN female in NAD Heart: normal S1 and S2; no rub Lungs: decreased at the bases Abdomen: soft, nontender, nondistended, positive bowel sounds Extremities: no cyanosis or clubbing; 2+ edema Skin: no rash or nodules Objective Data Vital Signs Vital Signs: Vital Signs Temp Pulse Resp BP Pulse Ox 06/21/21 08:08 61 06/21/21 08:05 61 06/21/21 08:00 94 06/21/21 06:03 36.6 C 57 L 18 148/45 H 94 06/21/21 04:00 54 L 06/21/21 01:11 36.5 C 56 L 20 141/40 H 94 06/21/21 00:00 53 L 06/20/21 22:30 68 18 96 06/20/21 21:57 62 06/20/21 21:56 36.6 C 63 20 145/44 H 96 06/20/21 21:35 36.4 C L
--- NOTE | 2021-06-21 11:39 | PM.PNNEP ---
Progress Note: A&P Assessment and Plan (1) RAKAN (acute kidney injury): Code(s): N17.9 - Acute kidney failure, unspecified Status: Acute Assessment and Plan: etiology not clear - perhaps just simple progression of disease(?) evaluation to date: renal ultrasound without any acute issues urine electrolytes non-prerenal (but she is on diuretics) making urine with diuretics but at the expense of her kidney function possible mild uremic symptoms but no critical electrolytes at this time HOWEVER, breathing still not at baseline, fluid on CXR, and significant swelling/edema present s/p placement of HD catheter (on 06/20/21) HD yesterday and likely again on Thursday/tomorrow (2) Chronic kidney disease, stage 4 (severe): Code(s): N18.4 - Chronic kidney disease, stage 4 (severe) Status: Acute Assessment and Plan: baseline creatinine runs ~ 2.4 - 2.7mg/dl secondary to combination of HTN and diabetes suspect HO maybe a contributing factor as well on BiPAP at night (3) Acute exacerbation of CHF (congestive heart failure): Qualifiers: Heart failure type: diastolic Qualified Code(s): I50.33 - Acute on chronic diastolic (congestive) heart failure Code(s): I50.9 - Heart failure, unspecified Status: Acute Assessment and Plan: most recent Echo noted suspect more related to worsening renal failure than overt CHF daily weights follow I/Os continue diuretics (since making some urine previously) fluid removal with HD as tolerated (4) Atrial fibrillation with rapid ventricular response: Code(s): I48.91 - Unspecified atrial fibrillation Status: Acute Assessment and Plan: rate control strategy on anticoagulation (5) Uncontrolled hypertension: Code(s): I10 - Essential (primary) hypertension Status: Chronic Assessment and Plan: reasonable control at this time continues current medications (6) Insulin dependent type 2 diabetes mellitus: Code(s): E11.9 - Type 2 diabetes mellitus without complications; Z79.4 - group home (current) use of insulin Status: Chronic Assessment and Plan: follow accuchecks glycemic control Will continue to follow. Subjective Date/time seen: 06/21/21 11:39 Tolerated HD catheter placement and first dialysis treatment yesterday without any issues or problems; denies any complaints of chest pain or shortness of breath; still has some issues with ARRIAGA and orthopnea at times; major issue is that discomfort at insertion site of dialysis catheter placement; minimal urine output overnight. Exam Narrative: General: WD/WN female in NAD Heart: normal S1 and S2; no rub Lungs: decreased at the bases Abdomen: soft, nontender, nondistended, positive bowel sounds Extremities: no cyanosis or clubbing; 2+ edema Skin: no rash or nodules Objective Data Vital Signs Vital Signs: Vital Signs Temp Pulse Resp BP Pulse Ox 06/21/21 08:08 61 06/21/21 08:05 61 06/21/21 08:00 94 06/21/21 06:03 36.6 C 57 L 18 148/45 H 94 06/21/21 04:00 54 L 06/21/21 01:11 36.5 C 56 L 20 141/40 H 94 06/21/21 00:00 53 L 06/20/21 22:30 68 18 96 06/20/21 21:57 62 06/20/21 21:56 36.6 C 63 20 145/44 H 96 06/20/21 21:35 36.4 C L 61 18 163/64 H 06/20/21 21:25 60 166/64 H 06/20/21 21:15 60 151/52 H 06/20/21 21:00 59 L 155/53 H 06/20/21 20:45 60 151/60 H 06/20/21 20:30 60 150/60 H 06/20/21 20:15 80 149/54 H 06/20/21 20:00 61 142/55 H 96 06/20/21 19:45 60 144/62 H 06/20/21 19:30 60 154/62 H 06/20/21 19:15 60 149/60 H 06/20/21 19:05 60 146/50 H 06/20/21 18:55 36.4 C 61 20 141/58 H 06/20/21 18:00 36.1 C L 58 L 20 127/45 L 98 06/20/21 17:30 36.1 C L 59 L 20 148/34 H 99 06/20/21 17:00 35.9 C L 57 L 24 H 149/38 H 96 06/20/21 16:49 93 /
[2021-06-21] MEDS: INSULIN ASPART (*BKC) 100 UNITS/ML SUB-Q ×2 (11:40→16:48)
--- NOTE | 2021-06-21 12:20 | PM.IMPN ---
Progress Note: A&P Assessment and Plan (1) RAKAN (acute kidney injury): Code(s): N17.9 - Acute kidney failure, unspecified Status: Acute Assessment and Plan: Baseline creatinine mostly runs in the 2 range. Creatinine was 2.4 on admission but she was fluid overloaded. Creatinine climbed to over 5.0. Intravascular dehydration? progression of CKD? Preload dependent due to her severe Pulmonary HTN? Renal ultrasound 06/10/21 was unrevealing. She remains on Metolazone and Bumex IV. Decision was made to proceed with HD and patient agreed. Tunneled catheter placed 06/20/21 and she tolerated the procedure well. Tolerated HD well last. Resume Eliquis tonight and Plavix tomorrow per GenSurg instructions. Appreciate GenSurg and Nephrology input. Patient is being set up for SNF. She will also need a location for HD. Discussed with child day care provider. Discharge when okay with others and discharge plan arranged. (2) Atrial fibrillation with rapid ventricular response: Code(s): I48.91 - Unspecified atrial fibrillation Status: Acute Assessment and Plan: Patient with new diagnosis of atrial fibrillation. She was started on amiodarone and converted to normal sinus rhythm. She is also on Eliquis for stroke prophylaxis. Metoprolol was added. Echo showing grade 2 diastolic dysfunction with EF of 65-70%. ashli stopped. Continue Amio. Eliquis held for catheter placement and this can be resumed tonight. Appreciate Cardiology input. (3) Pulmonary HTN: Code(s): I27.20 - Pulmonary hypertension, unspecified Status: Acute Assessment and Plan: Echo showing severe pulmonary hypertension (84 mmHg). ApneaLink 06/12 with duration of the test was over 8 hours showing an AHI of 36 and a RI of 37. Patient started on O2 2 L nasal cannula at night and follow-up apnea link ordered but it was not accurate. Perfusion scan shows intermediate probability for PE. LE venous doppler negative for DVT. Started on NIV at night and with naps which she is tolerating at times. Will need at least 2L O2 at night if unable to have NIV. Appreciate pulmonary input. (4) Acute exacerbation of CHF (congestive heart failure): Qualifiers: Heart failure type: diastolic Qualified Code(s): I50.33 - Acute on chronic diastolic (congestive) heart failure Code(s): I50.9 - Heart failure, unspecified Status: Acute Assessment and Plan: Patient presents with SOB. CXR consistent with CHF exacerbation. BNP was 24K. I/O is inaccurate. She was diuresed with lasix IV. Echo showing EF 65% with Grade II diastolic dysfunction. Repeat CXR showing no change so Lasix changed to Bumex IV; she is continued on metolazone. Still very edematous and CXR 06/20 showing cardiomegaly and pulmonary vascular congestion. Tunneled catheter placed and HD performed yesterday wit removal of 1.5L. Continue to use HD to improve fluid status. Continue to monitor. (5) Chronic kidney disease, stage 4 (severe): Code(s): N18.4 - Chronic kidney disease, stage 4 (severe) Status: Acute Assessment and Plan: As above (6) Elevated troponin: Code(s): R77.8 - Other specified abnormalities of plasma proteins Status: Acute Assessment and Plan: Very mild bump 0.044 felt related to the new onset AFib with RVR consistent with type 2 related to demand ischemia and possibly from her CKD. Not felt patient had acute coronary syndrome. Appreciate cardiology input. Continue medical management. (7) Hypertension: Qualifiers: Hypertension type: primary hypertension Qualified Code(s): I10 - Essential (primary) hypertension Code(s): I10 - Essential (primary) hypertension Status: Acute Assessment and Plan: BP elevated on admission to 168/110 felt to have HTN emergency. BP overall has improved. Continue Hytrin, Norvasc and metoprolol. Adjust medications as needed. (8) Anemia: Code(s): D64.9
[2021-06-21 16:18] LABS: Glucose Point of Care 256 mg/dl (65-105)
[2021-06-21] MEDS: LORazepam (*CRX) 1 MG TABLET 2 MG PO (21:22)
[2021-06-21] MEDS: SENNA/DOCUSATE SODIUM TABLET 2 TAB PO (21:22)
[2021-06-21] MEDS: INSULIN GLARGINE (*BKC) 100 UNITS/ML 6 UNITS SUB-Q (21:23)
[2021-06-21] MEDS: APIXABAN 2.5 MG TABLET PO (21:24)
[2021-06-21 21:35] LABS: Glucose Point of Care 225 mg/dl (65-105)
[2021-06-22] VITALS (21 sets, daily range): BP systolic 118–149; BP diastolic 36–67; PULSE 48–114; RESP 16–28; TEMP 35.7–37; O2SAT 95–100
[2021-06-22 05:04] LABS: Hepatitis B Core Ab Total Nonreactive (Nonreactive)
[2021-06-22] MEDS: HYDROcodone/acetaminophen (*CRX) 5-325 MG TABLET 1 TAB PO ×2 (05:47→10:20)
[2021-06-22 06:02] LABS: Hematocrit 27.5 % (37.0-47.0); Hemoglobin 8.4 g/dL (12.0-15.0); Mean Corpuscular HGB Conc 30.5 g/dl (32-36); Mean Corpuscular Hemoglobin 30.9 pg (26-34); Mean Corpuscular Volume 101.1 fl (80-100); Mean Platelet Volume 11.2 fl (7.4-10.4); Platelet Count Result 195 k/mm3 (150-375); Red Blood Count 2.72 M/mm3 (4.2-5.4); Red Cell Distribution Width 14.3 % (11.5-14.5)
[2021-06-22 06:14] LABS: Albumin Level 3.2 g/dL (3.5-5.1); Anion Gap 12 mmol/L (8-16); Blood Urea Nitrogen 58 mg/dL (7-17); Calcium 6.8 mg/dL (8.4-10.2); Carbon Dioxide 27 mmol/L (22-30); Chloride 95 mmol/L (98-107); Estimated CRCL calculation 13 ml/min; Estimated Glomerular Filt Rate 10; Glucose 185 mg/dL (65-110); Phosphorus 4.7 mg/dL (2.5-4.5); Potassium 2.9 mmol/L (3.4-5.0); Sodium 134 mmol/L (137-145)
[2021-06-22] MEDS: AMIODARONE HCL 200 MG TABLET PO (07:58)
[2021-06-22] MEDS: CLOPIDOGREL BISULFATE 75 MG TABLET PO (07:59)
[2021-06-22] MEDS: amLODIPine BESYLATE 5 MG TABLET 10 MG PO (07:59)
[2021-06-22] MEDS: METOPROLOL TARTRATE 25 MG TABLET PO ×2 (07:59→21:23)
[2021-06-22] MEDS: PANTOPRAZOLE 40 MG TABLET PO (07:59)
[2021-06-22] MEDS: FERROUS SULFATE 324 MG TABLET PO ×2 (07:59→16:29)
[2021-06-22] MEDS: TERAZOSIN HCL 1 MG CAPSULE 2 MG PO ×2 (07:59→16:29)
[2021-06-22] MEDS: metOLazone 5 MG TABLET PO (08:00)
[2021-06-22] MEDS: APIXABAN 2.5 MG TABLET PO ×2 (08:00→21:24)
[2021-06-22] MEDS: BUMETANIDE INJ 1 MG/4 ML VIAL IV PUSH ×2 (08:00→16:28)
[2021-06-22] MEDS: acetaZOLAMIDE TAB 250 MG TABLET 500 MG PO ×2 (08:00→16:29)
[2021-06-22] MEDS: EUCERIN CREAM 120 GM JAR 1 APPLIC TOPICAL (08:01)
[2021-06-22] MEDS: INSULIN GLARGINE (*BKC) 100 UNITS/ML 15 UNITS SUB-Q (08:04)
[2021-06-22 08:22] LABS: Glucose Point of Care 175 mg/dl (65-105)
--- NOTE | 2021-06-22 08:42 | P.PNNP_ITS ---
Progress Note: A&P Assessment and Plan (1) RAKAN (acute kidney injury): Code(s): N17.9 - Acute kidney failure, unspecified Status: Acute Assessment and Plan: * etiology not clear - perhaps just simple progression of disease(?) * evaluation to date: * renal ultrasound without any acute issues * urine electrolytes non-prerenal (but she is on diuretics) * had dialysis and will get another treatment today. * Remove more fluid today. * To go to [facility] for her dialysis since at [place] is full. (2) Chronic kidney disease, stage 4 (severe): Code(s): N18.4 - Chronic kidney disease, stage 4 (severe) Status: Acute Assessment and Plan: * baseline creatinine runs ~ 2.4 - 2.7mg/dl * secondary to combination of HTN and diabetes * suspect HO maybe a contributing factor as well * on BiPAP at night (3) Acute exacerbation of CHF (congestive heart failure): Qualifiers: Heart failure type: diastolic Qualified Code(s): I50.33 - Acute on chronic diastolic (congestive) heart failure Code(s): I50.9 - Heart failure, unspecified Status: Acute Assessment and Plan: * most recent Echo noted * Volume status better. * Life vest placed because of poor ejection fraction. (4) Atrial fibrillation with rapid ventricular response: Code(s): I48.91 - Unspecified atrial fibrillation Status: Acute Assessment and Plan: * rate control strategy * on anticoagulation (5) Uncontrolled hypertension: Code(s): I10 - Essential (primary) hypertension Status: Chronic Assessment and Plan: * Blood pressure doing well between 120 * continues current medications (6) Insulin dependent type 2 diabetes mellitus: Code(s): E11.9 - Type 2 diabetes mellitus without complications; Z79.4 - long-term (current) use of insulin Status: Chronic Assessment and Plan: * on Accu-Cheks and sliding-scale insulin Will continue to follow. Subjective Date/time seen: 06/22/21 08:42 Interval history: patient is feeling okay. She had her 2nd dialysis yesterday. Still swollen Exam Narrative: General: WD/WN female in NAD Heart: normal S1 and S2; no rub or gallop Lungs: decreased at the bases Abdomen: soft, nontender, nondistended, positive bowel sounds Extremities: no cyanosis or clubbing; 2+ edema Skin: no rash or nodules or subQ nodules Objective Data Vital Signs Vital Signs: Vital Signs - 24 hr 06/21/21 11:00 06/21/21 15:45 06/21/21 17:13 Temperature 36.4 C 36.1 C L Pulse Rate 52 L 56 L Respiratory Rate 24 H 20 Blood Pressure 118/48 L 128/56 L Pulse Oximetry 99 98 95 06/21/21 17:20 06/21/21 19:37 06/21/21 20:00 Temperature 36.1 C L 36.3 C L Pulse Rate 58 L 56 L Respiratory Rate 20 16 Blood Pressure 128/48 L 138/48 L Pulse Oximetry 100 99 99 06/21/21 21:23 06/21/21 23:35 06/22/21 03:48 Temperature 36.6 C 36.1 C L Pulse Rate 56 L 92 114 H Respiratory Rate 18 18 Blood Pressure 112/48 L 118/53 L Pulse Oximetry 98 99 06/22/21 07:58 06/22/21 07:59 Temperature Pulse Rate 96 96 Respiratory Rate Blood Pressure Pulse Oximetry
--- NOTE | 2021-06-22 08:42 | PM.PNNEP ---
Progress Note: A&P Assessment and Plan (1) RAKAN (acute kidney injury): Code(s): N17.9 - Acute kidney failure, unspecified Status: Acute Assessment and Plan: etiology not clear - perhaps just simple progression of disease(?) evaluation to date: renal ultrasound without any acute issues urine electrolytes non-prerenal (but she is on diuretics) had dialysis and will get another treatment today. Remove more fluid today. To go to [facility] for her dialysis since at [place] is full. (2) Chronic kidney disease, stage 4 (severe): Code(s): N18.4 - Chronic kidney disease, stage 4 (severe) Status: Acute Assessment and Plan: baseline creatinine runs ~ 2.4 - 2.7mg/dl secondary to combination of HTN and diabetes suspect HO maybe a contributing factor as well on BiPAP at night (3) Acute exacerbation of CHF (congestive heart failure): Qualifiers: Heart failure type: diastolic Qualified Code(s): I50.33 - Acute on chronic diastolic (congestive) heart failure Code(s): I50.9 - Heart failure, unspecified Status: Acute Assessment and Plan: most recent Echo noted Volume status better. Life vest placed because of poor ejection fraction. (4) Atrial fibrillation with rapid ventricular response: Code(s): I48.91 - Unspecified atrial fibrillation Status: Acute Assessment and Plan: rate control strategy on anticoagulation (5) Uncontrolled hypertension: Code(s): I10 - Essential (primary) hypertension Status: Chronic Assessment and Plan: Blood pressure doing well between 120 continues current medications (6) Insulin dependent type 2 diabetes mellitus: Code(s): E11.9 - Type 2 diabetes mellitus without complications; Z79.4 - medical terminologist (current) use of insulin Status: Chronic Assessment and Plan: on Accu-Cheks and sliding-scale insulin Will continue to follow. Subjective Date/time seen: 06/22/21 08:42 Interval history: patient is feeling okay. She had her 2nd dialysis yesterday. Still swollen Exam Narrative: General: WD/WN female in NAD Heart: normal S1 and S2; no rub or gallop Lungs: decreased at the bases Abdomen: soft, nontender, nondistended, positive bowel sounds Extremities: no cyanosis or clubbing; 2+ edema Skin: no rash or nodules or subQ nodules Objective Data Vital Signs Vital Signs: Vital Signs - 24 hr 06/21/21 11:00 06/21/21 15:45 06/21/21 17:13 Temperature 36.4 C 36.1 C L Pulse Rate 52 L 56 L Respiratory Rate 24 H 20 Blood Pressure 118/48 L 128/56 L Pulse Oximetry 99 98 95 06/21/21 17:20 06/21/21 19:37 06/21/21 20:00 Temperature 36.1 C L 36.3 C L Pulse Rate 58 L 56 L Respiratory Rate 20 16 Blood Pressure 128/48 L 138/48 L Pulse Oximetry 100 99 99 06/21/21 21:23 06/21/21 23:35 06/22/21 03:48 Temperature 36.6 C 36.1 C L Pulse Rate 56 L 92 114 H Respiratory Rate 18 18 Blood Pressure 112/48 L 118/53 L Pulse Oximetry 98 99 06/22/21 07:58 06/22/21 07:59 Temperature Pulse Rate 96 96 Respiratory Rate Blood Pressure Pulse Oximetry Intake/Output Intake/Output: Intake & Output 06/19/21 06/20/21 06/21/21 06/22/21 23:59 23:59 23:59 23:59 Intake Total 920 540 960 50 Output Total 400 1700 0 200 Balance 520 -1160 960 -150 Meds/Results Medications: Active Medications Generic Name Dose Route Start Last Admin Trade Name Freq PRN Reason Stop Dose Admin Acetaminophen 650 mg 06/06/21 17:27 Acetaminophen 325 Mg Tablet PO Q4H PRN Mild Pain (1-3) or Fever Acetaminophen 500 mg 06/20/21 16:26 Acetaminophen 500 Mg Tablet PO Q6H PRN Mild Pain (1-3) or Fever Hydrocodone Bitart/Acetaminophen 1 tab 06/20/21 16:26 06/22/21 05:47 Hydrocodone/Acetaminophen (*Crx) 5-325 Mg Tablet PO 1 tab Q4H PRN Administration Pain Rated 4-6 Acetazolamide 5
[2021-06-22] MEDS: POTASSIUM CHLORIDE 20 MEQ TABLET 40 MEQ PO (10:17)
[2021-06-22 11:19] LABS: Glucose Point of Care 245 mg/dl (65-105)
[2021-06-22] MEDS: INSULIN ASPART (*BKC) 100 UNITS/ML SUB-Q ×2 (11:56→16:21)
--- NOTE | 2021-06-22 12:24 | PM.IMPN ---
Progress Note: A&P Assessment and Plan (1) RAKAN (acute kidney injury): Code(s): N17.9 - Acute kidney failure, unspecified Status: Acute Assessment and Plan: Baseline creatinine mostly runs in the 2 range. Creatinine was 2.4 on admission but she was fluid overloaded. Creatinine climbed to over 5.0. Renal ultrasound 06/10/21 unremarkable Continuing p.o. acetazolamide and metolazone with Bumex IV. Patient agreed to HD. Tunneled catheter placed 06/20/21. Tolerated HD well. Apixaban and clopidogrel resumed Awaiting arrangements for [facility] facility and dialysis facility. (2) Atrial fibrillation with rapid ventricular response: Code(s): I48.91 - Unspecified atrial fibrillation Status: Acute Assessment and Plan: Patient with new diagnosis of atrial fibrillation. She was started on amiodarone and converted to normal sinus rhythm. She is also on Eliquis for stroke prophylaxis. Metoprolol was for rate control. Echo showing grade 2 diastolic dysfunction with EF of 65-70%. (3) Pulmonary HTN: Code(s): I27.20 - Pulmonary hypertension, unspecified Status: Acute Assessment and Plan: Echo showing severe pulmonary hypertension (84 mmHg). ApneaLink 06/12 with duration of the test was over 8 hours showing an AHI of 36 and a RI of 37. Patient started on O2 2 L nasal cannula at night and follow-up apnea link ordered but it was not accurate. Perfusion scan shows intermediate probability for PE. LE venous doppler negative for DVT. Started on NIV at night and with naps which she is tolerating at times. Will need at least 2L O2 at night if unable to have NIV. (4) Acute exacerbation of CHF (congestive heart failure): Qualifiers: Heart failure type: diastolic Qualified Code(s): I50.33 - Acute on chronic diastolic (congestive) heart failure Code(s): I50.9 - Heart failure, unspecified Status: Acute Assessment and Plan: Patient presents with SOB. CXR consistent with CHF exacerbation. BNP was 24K. I/O is inaccurate. She was diuresed with lasix IV. Echo showing EF 65% with Grade II diastolic dysfunction. Repeat CXR showing no change so Lasix changed to Bumex IV; she is continued on metolazone. Still very edematous and CXR 06/20 showing cardiomegaly and pulmonary vascular congestion. Tunneled catheter placed and HD performed. Continue HD to manage fluid balance. (5) Chronic kidney disease, stage 4 (severe): Code(s): N18.4 - Chronic kidney disease, stage 4 (severe) Status: Acute Assessment and Plan: As above (6) Elevated troponin: Code(s): R77.8 - Other specified abnormalities of plasma proteins Status: Acute Assessment and Plan: Very mild bump 0.044 felt related to the new onset AFib with RVR consistent with type 2 related to demand ischemia and possibly from her CKD. Not felt patient had acute coronary syndrome. Appreciate cardiology input. Continue medical management. (7) Hypertension: Qualifiers: Hypertension type: primary hypertension Qualified Code(s): I10 - Essential (primary) hypertension Code(s): I10 - Essential (primary) hypertension Status: Acute Assessment and Plan: BP elevated on admission to 168/110. BP improved since Continue current regimen (8) Anemia: Code(s): D64.9 - Anemia, unspecified Status: Acute Assessment and Plan: Patient with chronic anemia. Hgb normally run 9-10 range last year. Here, hemoglobin mostly in the 7-8 range and remaining stable. Iron studies are consistent with iron deficiency anemia. B12 and folate levels normal. Stool guaiac remains uncollected. Continue iron replacement and Protonix. (9) Insulin dependent type 2 diabetes mellitus: Code(s): E11.9 - Type 2 diabetes mellitus without complications; Z79.4 - custodial (current) use of insulin Status: Chronic Assessment and Plan: A1c
--- NOTE | 2021-06-22 13:34 | PCOTNOTE ---
The patient treatment was not able to be completed on 06/22/21 due to patient refusing due to pain and difficulty keeping her eyes open. Attempted to see twice this date. Will plan to continue treatment per plan of care
--- NOTE | 2021-06-22 14:58 | PCPTNOTE ---
Attempted to see patient for Physical Therapy, patient refused at this time stating she was in a lot of pain. Will attempt tomorrow per PT POC.
[2021-06-22 16:22] LABS: Glucose Point of Care 210 mg/dl (65-105)
[2021-06-22] MEDS: SODIUM CHLORIDE 0.9% IV 1,000 ML 100 ML IV CONT (17:45)
[2021-06-22] MEDS: LORazepam (*CRX) 0.5 MG TABLET PO (17:54)
[2021-06-22] MEDS: EPOETIN ALFA-EPBX 10,000 UNITS/ML VIAL 10000 UNITS IV PUSH (19:45)
[2021-06-22] MEDS: LORazepam (*CRX) 1 MG TABLET 2 MG PO (21:23)
[2021-06-22] MEDS: SENNA/DOCUSATE SODIUM TABLET 2 TAB PO (21:24)
[2021-06-22] MEDS: INSULIN GLARGINE (*BKC) 100 UNITS/ML 6 UNITS SUB-Q (21:28)
[2021-06-22 21:44] LABS: Glucose Point of Care 205 mg/dl (65-105)
[2021-06-23 03:26] VITALS: BP 131/36; PULSE 58; RESP 20; TEMP 36.2; O2SAT 94
[2021-06-23 05:30] LABS: Mean Platelet Volume 10.9 fl (7.4-10.4); Platelet Count Result 179 k/mm3 (150-375)
[2021-06-23 05:59] LABS: Albumin Level 3.2 g/dL (3.5-5.1); Anion Gap 11 mmol/L (8-16); Blood Urea Nitrogen 43 mg/dL (7-17); Calcium 7.2 mg/dL (8.4-10.2); Carbon Dioxide 28 mmol/L (22-30); Chloride 99 mmol/L (98-107); Estimated CRCL calculation 15 ml/min; Estimated Glomerular Filt Rate 13; Glucose 141 mg/dL (65-110); Phosphorus 3.7 mg/dL (2.5-4.5); Potassium 3.2 mmol/L (3.4-5.0); Sodium 138 mmol/L (137-145)
[2021-06-23 07:48] LABS: Glucose Point of Care 138 mg/dl (65-105)
[2021-06-23 08:00] VITALS: BP 146/40; PULSE 63
[2021-06-23] MEDS: INSULIN GLARGINE (*BKC) 100 UNITS/ML 15 UNITS SUB-Q (08:10)
[2021-06-23] MEDS: amLODIPine BESYLATE 5 MG TABLET 10 MG PO (08:11)
[2021-06-23] MEDS: CLOPIDOGREL BISULFATE 75 MG TABLET PO (08:11)
[2021-06-23] MEDS: acetaZOLAMIDE TAB 250 MG TABLET 500 MG PO ×2 (08:11→17:47)
[2021-06-23] MEDS: METOPROLOL TARTRATE 25 MG TABLET PO ×2 (08:11→20:56)
[2021-06-23] MEDS: TERAZOSIN HCL 1 MG CAPSULE 2 MG PO ×2 (08:11→17:48)
[2021-06-23] MEDS: FERROUS SULFATE 324 MG TABLET PO ×2 (08:11→17:48)
[2021-06-23] MEDS: AMIODARONE HCL 200 MG TABLET PO (08:12)
[2021-06-23] MEDS: BUMETANIDE INJ 1 MG/4 ML VIAL IV PUSH ×2 (08:12→17:49)
[2021-06-23] MEDS: APIXABAN 2.5 MG TABLET PO ×2 (08:12→20:56)
[2021-06-23] MEDS: metOLazone 5 MG TABLET PO (08:12)
[2021-06-23] MEDS: PANTOPRAZOLE 40 MG TABLET PO (08:12)
[2021-06-23] MEDS: EUCERIN CREAM 120 GM JAR 1 APPLIC TOPICAL (08:13)
--- NOTE | 2021-06-23 08:53 | PM.PNNEP ---
Progress Note: A&P Assessment and Plan (1) RAKAN (acute kidney injury): Code(s): N17.9 - Acute kidney failure, unspecified Status: Acute Assessment and Plan: most likely progression of chronic disease. (2) Chronic kidney disease, stage 4 (severe): Code(s): N18.4 - Chronic kidney disease, stage 4 (severe) Status: Acute Assessment and Plan: baseline creatinine runs ~ 2.4 - 2.7mg/dl secondary to combination of HTN , sleep apnea, and diabetes hemodialysis arrangements being made at [facility]. (3) Acute exacerbation of CHF (congestive heart failure): Qualifiers: Heart failure type: diastolic Qualified Code(s): I50.33 - Acute on chronic diastolic (congestive) heart failure Code(s): I50.9 - Heart failure, unspecified Status: Acute Assessment and Plan: most recent Echo noted Volume status better But there is still a long way to go Life vest placed because of poor ejection fraction. (4) Atrial fibrillation with rapid ventricular response: Code(s): I48.91 - Unspecified atrial fibrillation Status: Acute Assessment and Plan: rate control strategy on anticoagulation (5) Uncontrolled hypertension: Code(s): I10 - Essential (primary) hypertension Status: Chronic Assessment and Plan: Blood pressure doing well between 120 and 140 continues current medications (6) Insulin dependent type 2 diabetes mellitus: Code(s): E11.9 - Type 2 diabetes mellitus without complications; Z79.4 - ad terminal makeup operator (current) use of insulin Status: Chronic Assessment and Plan: on Accu-Cheks and sliding-scale insulin Will continue to follow. Subjective Date/time seen: 06/23/21 08:53 Interval history: patient is feeling okay. She had Dialysis yesterday. She did well and 2500cc was removed. Still swollen But better. Her catheter exit site is pressure steamer tender but is better. Exam Narrative: General: WD/WN female in NAD Heart: irregular rhythm; no rub Lungs: decreased at the bases Abdomen: BS+, nontender Extremities: no cyanosis or clubbing; 2+ edema Skin: no rash or nodules or subQ nodules Objective Data Vital Signs Vital Signs: Vital Signs - 24 hr 06/22/21 10:10 06/22/21 10:22 06/22/21 15:00 Temperature 36.3 C L 36.4 C Pulse Rate 48 L 84 Respiratory Rate 16 24 H Blood Pressure 118/52 L 122/64 Pulse Oximetry 96 100 95 06/22/21 17:40 06/22/21 18:20 06/22/21 18:24 Temperature 36.4 C 36.4 C L Pulse Rate 85 102 H 101 H Respiratory Rate 28 H 18 Blood Pressure 122/62 149/47 H 125/57 L Pulse Oximetry 98 06/22/21 18:45 06/22/21 19:00 06/22/21 19:15 Temperature Pulse Rate 107 H 88 111 H Respiratory Rate Blood Pressure 132/63 135/59 L 120/55 L Pulse Oximetry 06/22/21 19:30 06/22/21 19:45 06/22/21 20:00 Temperature Pulse Rate 104 H 104 H 107 H Respiratory Rate Blood Pressure 126/49 L 121/55 L 124/47 L Pulse Oximetry 06/22/21 20:24 06/22/21 20:35 06/22/21 21:14 Temperature 36.4 C 36.2 C L Pulse Rate 104 H 105 H 62 Respiratory Rate 16 20 Blood Pressure 128/67 134/56 L 124/39 L Pulse Oximetry 99 06/22/21 21:23 06/22/21 23:13 06/23/21 03:26 Temperature 36.6 C 36.2 C L Pulse Rate 105 H 62 58 L Respiratory Rate 20 20 Blood Pressure 125/36 L 131/36 L Pulse Oximetry 97 94 Intake/Output Intake/Output: Intake & Output 06/20/21 06/21/21 06/22/21 06/23/21 23:59 23:59 23:59 23:59 Intake Total 540 960 350 25 Output Total 1700 0 2700 Balance -1160 960 -2350 25 Meds/Results Medications: Active Medications Generic Name Dose Route Start Last Admin Trade Name Freq PRN Reason Stop Dose Admin Acetaminophen 650 mg 06/06/21 17:27 Acetaminophen 325 Mg Tablet PO Q4H PRN Mild Pain (1-3) or Fever Acetaminophen 500 mg 06/20/21 16:26 Acetaminophen 500 Mg Tablet PO Q6H PRN Mild Pain (1-3
[2021-06-23] MEDS: POTASSIUM CHLORIDE 20 MEQ TABLET PO (11:18)
[2021-06-23 11:36] LABS: Glucose Point of Care 199 mg/dl (65-105)
--- NOTE | 2021-06-23 12:25 | PM.IMPN ---
Progress Note: A&P Assessment and Plan (1) RAKAN (acute kidney injury): Code(s): N17.9 - Acute kidney failure, unspecified Status: Acute Assessment and Plan: Baseline creatinine mostly runs in the 2 range. Creatinine was 2.4 on admission but she was fluid overloaded. Creatinine climbed to over 5.0. Renal ultrasound 06/10/21 unremarkable Continuing p.o. acetazolamide and metolazone with Bumex IV. Patient agreed to HD. Tunneled catheter placed 06/20/21. Tolerated HD well. Apixaban and clopidogrel resumed 06/23 Creatinine 3.5, PO KCL for mild hypokalemia at 3.2 Awaiting arrangements for assisted facility and dialysis facility. (2) Atrial fibrillation with rapid ventricular response: Code(s): I48.91 - Unspecified atrial fibrillation Status: Acute Assessment and Plan: Patient with new diagnosis of atrial fibrillation. She was started on amiodarone and converted to normal sinus rhythm. She is also on apixaban for stroke prophylaxis. Metoprolol was for rate control. Echo showing grade 2 diastolic dysfunction with EF of 65-70%. (3) Pulmonary HTN: Code(s): I27.20 - Pulmonary hypertension, unspecified Status: Acute Assessment and Plan: Echo showing severe pulmonary hypertension (84 mmHg). ApneaLink 06/12 with duration of the test was over 8 hours showing an AHI of 36 and a RI of 37. Patient started on O2 2 L nasal cannula at night and follow-up apnea link ordered but it was not accurate. Perfusion scan shows intermediate probability for PE. LE venous doppler negative for DVT. Started on NIV at night and with naps which she is tolerating at times. Will need at least 2L O2 at night if unable to have NIV. (4) Acute exacerbation of CHF (congestive heart failure): Qualifiers: Heart failure type: diastolic Qualified Code(s): I50.33 - Acute on chronic diastolic (congestive) heart failure Code(s): I50.9 - Heart failure, unspecified Status: Acute Assessment and Plan: Patient presents with SOB. CXR consistent with CHF exacerbation. BNP was 24K. I/O is inaccurate. She was diuresed with lasix IV. Echo showing EF 65% with Grade II diastolic dysfunction. Repeat CXR showing no change so Lasix changed to Bumex IV; she is continued on metolazone. Still very edematous and CXR 06/20 showing cardiomegaly and pulmonary vascular congestion. Tunneled catheter placed and HD performed. Continue HD to manage fluid balance. (5) Chronic kidney disease, stage 4 (severe): Code(s): N18.4 - Chronic kidney disease, stage 4 (severe) Status: Acute Assessment and Plan: As above (6) Elevated troponin: Code(s): R77.8 - Other specified abnormalities of plasma proteins Status: Acute Assessment and Plan: Very mild bump 0.044 felt related to the new onset AFib with RVR consistent with type 2 related to demand ischemia and possibly from her CKD. Not felt patient had acute coronary syndrome. Appreciate cardiology input. Continue medical management. (7) Hypertension: Qualifiers: Hypertension type: primary hypertension Qualified Code(s): I10 - Essential (primary) hypertension Code(s): I10 - Essential (primary) hypertension Status: Acute Assessment and Plan: BP elevated on admission to 168/110. BP improved since, 06/23 reviewed and control adequate Continue current regimen (8) Anemia: Code(s): D64.9 - Anemia, unspecified Status: Acute Assessment and Plan: Patient with chronic anemia. Hgb normally run 9-10 range last year. Here, hemoglobin mostly in the 7-8 range and remaining stable. Iron studies are consistent with iron deficiency anemia. B12 and folate levels normal. Stool guaiac remains uncollected. Continue iron replacement and Protonix. (9) Insulin dependent type 2 diabetes mellitus: Code(s): E11.9 - Type 2 diabetes mellitus without complications; Z79.4
[2021-06-23 15:00] VITALS: BP 126/42; PULSE 59; RESP 24; TEMP 36.4; O2SAT 97
[2021-06-23 16:44] LABS: Glucose Point of Care 234 mg/dl (65-105)
--- NOTE | 2021-06-23 17:52 | PM.PNCARD ---
Progress Note: A&P Assessment and Plan (1) Atrial fibrillation with rapid ventricular response: Code(s): I48.91 - Unspecified atrial fibrillation Status: Acute Assessment and Plan: New onset paroxysmal atrial fibrillation. Had paroxysmal atrial fibrillation, now on amiodarone and has maintained NSR/sinus bradycardia since 06/18/2021. Continue oral amiodarone at 200 mg p.o. daily. Anticoagulation with low-dose apixaban (2) Combined systolic and diastolic congestive heart failure: Qualifiers: Heart failure chronicity: acute on chronic Qualified Code(s): I50.43 - Acute on chronic combined systolic (congestive) and diastolic (congestive) heart failure Code(s): I50.40 - Unspecified combined systolic (congestive) and diastolic (congestive) heart failure Status: Acute Assessment and Plan: CHF with preserved ejection fraction, with volume overload precipitated by renal failure. Monitor renal function electrolytes started on hemodialysis for volume control. Daily weights (3) Pulmonary HTN: Code(s): I27.20 - Pulmonary hypertension, unspecified Status: Acute Assessment and Plan: Apnea link suggestive of severe HO. Empiric CPAP while hospitalized. She will need outpatient sleep study. (4) Chronic kidney disease, stage 4 (severe): Code(s): N18.4 - Chronic kidney disease, stage 4 (severe) Status: Acute Assessment and Plan: Renal function has worsened. Started on dialysis. (5) Uncontrolled hypertension: Code(s): I10 - Essential (primary) hypertension Status: Chronic Assessment and Plan: Continue current antihypertensives with amlodipine, metoprolol, terazosin. Improved. (6) Elevated troponin: Code(s): R77.8 - Other specified abnormalities of plasma proteins Status: Acute Assessment and Plan: Nonischemic myocardial injury in the setting of CHF, renal failure. (7) History of stroke: Code(s): Z86.73 - Personal history of transient ischemic attack (TIA), and cerebral infarction without residual deficits Status: Acute Assessment and Plan: also on Plavix for history of stroke. Subjective Date/time seen: 06/23/21 17:52 Interval history: 80yo female with CKD, CHF, DM and HTN here for SOB and found to have new-onset AFib. Date of service 06/15/2021: Patient was sitting in the chair. She reported improvement in her shortness of breath. Denied any chest pain. On telemetry, patient has been in sinus rhythm/sinus bradycardia. Her renal function has worsened. Date of service 06/16/2021-patient was sitting up in the chair and undergoing physical therapy at the time of evaluation. Denied any resting shortness of breath or chest pain. On telemetry, patient has been in sinus rhythm. Renal function has worsened. Date of service 06/17/2021: She feels about the same today. Still becoming short of breath with very minimal activity. On 1 L of oxygen per nasal cannula. Denies any chest pain, palpitations Date of service 06/18/2021: Feeling a little bit better this morning. She is on room air , does have some conversational dyspnea back in atrial fibrillation but she denies any palpitations, chest pain, shortness of breath. Date of service 06/19/2021: Feels better today, sitting up in a chair. ARRIAGA with activity and orthopneic. Making some urine. Telemetry shows that she has maintained sinus rhythm since yesterday. Creatinine up to 5 today. Date of service 06/20/2021: Doing OK, ARRIAGA w/ activity and has weak legs. Getting tunneled dialysis catheter placed today. Creat up to 5.4. Tele: NSR Date of service 06/21/2021-patient complains of discomfort in the neck area at the site of temporary dialysis catheter. Denies chest pain or shortness of breath at rest. On telemetry, she has been in sinus bradycardia with heart rate in 50s. Date of service 06/23/2021: Patient w
[2021-06-23] MEDS: INSULIN ASPART (*BKC) 100 UNITS/ML SUB-Q (17:55)
[2021-06-23] MEDS: HYDROcodone/acetaminophen (*CRX) 5-325 MG TABLET 1 TAB PO (19:38)
[2021-06-23 19:47] VITALS: BP 119/60; PULSE 115; RESP 17; TEMP 36.6; O2SAT 99
[2021-06-23] MEDS: INSULIN GLARGINE (*BKC) 100 UNITS/ML 6 UNITS SUB-Q (20:55)
[2021-06-23 20:56] VITALS: PULSE 115
[2021-06-23] MEDS: SENNA/DOCUSATE SODIUM TABLET 2 TAB PO (20:56)
[2021-06-23] MEDS: LORazepam (*CRX) 1 MG TABLET 2 MG PO (20:56)
[2021-06-23 21:20] LABS: Glucose Point of Care 225 mg/dl (65-105)
[2021-06-23 23:30] VITALS: BP 105/58; PULSE 87; RESP 20; TEMP 36.4; O2SAT 97
[2021-06-24] VITALS (19 sets, daily range): BP systolic 106–148; BP diastolic 45–76; PULSE 81–112; RESP 18–20; TEMP 36.3–37; O2SAT 96–97
[2021-06-24 05:32] LABS: Hematocrit 29.2 % (37.0-47.0); Hemoglobin 8.7 g/dL (12.0-15.0); Mean Corpuscular HGB Conc 29.8 g/dl (32-36); Mean Corpuscular Hemoglobin 30.3 pg (26-34); Mean Corpuscular Volume 101.7 fl (80-100); Mean Platelet Volume 10.9 fl (7.4-10.4); Platelet Count Result 187 k/mm3 (150-375); Red Blood Count 2.87 M/mm3 (4.2-5.4)
[2021-06-24 05:49] LABS: Albumin Level 3.1 g/dL (3.5-5.1); Anion Gap 9 mmol/L (8-16); Blood Urea Nitrogen 48 mg/dL (7-17); Calcium 7.2 mg/dL (8.4-10.2); Carbon Dioxide 28 mmol/L (22-30); Chloride 98 mmol/L (98-107); Estimated CRCL calculation 14 ml/min; Estimated Glomerular Filt Rate 11; Glucose 170 mg/dL (65-110); Phosphorus 4.1 mg/dL (2.5-4.5); Potassium 3.4 mmol/L (3.4-5.0); Sodium 135 mmol/L (137-145)
[2021-06-24 08:01] LABS: Glucose Point of Care 166 mg/dl (65-105)
[2021-06-24] MEDS: acetaZOLAMIDE TAB 250 MG TABLET 500 MG PO ×2 (08:30→17:40)
[2021-06-24] MEDS: CLOPIDOGREL BISULFATE 75 MG TABLET PO (08:31)
[2021-06-24] MEDS: TERAZOSIN HCL 1 MG CAPSULE 2 MG PO ×2 (08:31→17:40)
[2021-06-24] MEDS: amLODIPine BESYLATE 5 MG TABLET 10 MG PO (08:31)
[2021-06-24] MEDS: FERROUS SULFATE 324 MG TABLET PO ×2 (08:31→17:40)
[2021-06-24] MEDS: PANTOPRAZOLE 40 MG TABLET PO (08:31)
[2021-06-24] MEDS: metOLazone 5 MG TABLET PO (08:31)
[2021-06-24] MEDS: METOPROLOL TARTRATE 25 MG TABLET PO (08:31)
[2021-06-24] MEDS: AMIODARONE HCL 200 MG TABLET PO (08:31)
[2021-06-24] MEDS: APIXABAN 2.5 MG TABLET PO (08:31)
[2021-06-24] MEDS: INSULIN GLARGINE (*BKC) 100 UNITS/ML 15 UNITS SUB-Q (08:32)
[2021-06-24] MEDS: BUMETANIDE INJ 1 MG/4 ML VIAL IV PUSH ×2 (08:32→17:40)
[2021-06-24] MEDS: EUCERIN CREAM 120 GM JAR 1 APPLIC TOPICAL (08:32)
[2021-06-24] MEDS: HYDROcodone/acetaminophen (*CRX) 5-325 MG TABLET 1 TAB PO (08:54)
--- NOTE | 2021-06-24 10:52 | PCPTNOTE ---
The patient treatment was not able to be completed at this time due to patient out of room for dialysis. Will plan to continue treatment per plan of care.
[2021-06-24] MEDS: EPOETIN ALFA-EPBX 10,000 UNITS/ML VIAL 10000 UNITS IV PUSH (11:49)
--- NOTE | 2021-06-24 13:40 | PM.DS ---
DS: Admitting Diagnosis Discharge Date 06/24/21 Admitting Diagnosis Dyspnea on exertion DS: Discharge Diagnosis Discharge Diagnosis (1) RAKAN (acute kidney injury): Code(s): N17.9 - Acute kidney failure, unspecified Status: Acute Assessment and Plan: Baseline creatinine mostly runs in the 2 range. Creatinine was 2.4 on admission but she was fluid overloaded. Creatinine climbed to over 5.0. Renal ultrasound 06/10/21 was unrevealing. She remains on Metolazone and Bumex IV. Decision was made to proceed with HD and patient agreed. Tunneled catheter placed 06/20/21 and she tolerated the procedure well. Tolerated HD well. Appreciate GenSurg and Nephrology input. Discussed with nephrology and diuretics adjusted per his recommendations. Discussed with Cardiology. (2) Atrial fibrillation with rapid ventricular response: Code(s): I48.91 - Unspecified atrial fibrillation Status: Acute Assessment and Plan: Patient with new diagnosis of atrial fibrillation. She was started on amiodarone and converted to normal sinus rhythm. She was also started on Eliquis for stroke prophylaxis. Metoprolol was added. Echo showing grade 2 diastolic dysfunction with EF of 65-70%. Appreciate Cardiology input. (3) Pulmonary HTN: Code(s): I27.20 - Pulmonary hypertension, unspecified Status: Acute Assessment and Plan: Echo showing severe pulmonary hypertension (84 mmHg). ApneaLink / with duration of the test was over 8 hours showing an AHI of 36 and a RI of 37. Patient started on O2 2 L nasal cannula at night and follow-up apnea link ordered but it was not accurate. Perfusion scan shows intermediate probability for PE. LE venous doppler negative for DVT. Started on NIV at night and with naps which she is tolerating at times. Will need at least 2L O2 at night if unable to have NIV. Appreciate pulmonary input. (4) Acute exacerbation of CHF (congestive heart failure): Qualifiers: Heart failure type: diastolic Qualified Code(s): I50.33 - Acute on chronic diastolic (congestive) heart failure Code(s): I50.9 - Heart failure, unspecified Status: Acute Assessment and Plan: Patient presents with SOB. CXR consistent with CHF exacerbation. BNP was 24K. She was diuresed with lasix IV. Echo showing EF 65% with Grade II diastolic dysfunction. Repeat CXR showing no change so Lasix changed to Bumex IV. Still very edematous and CXR 06/20 showing cardiomegaly and pulmonary vascular congestion. Tunneled catheter placed and HD performed which she tolerated this well. HD to improve fluid status. (5) Chronic kidney disease, stage 4 (severe): Code(s): N18.4 - Chronic kidney disease, stage 4 (severe) Status: Acute Assessment and Plan: As above (6) Elevated troponin: Code(s): R77.8 - Other specified abnormalities of plasma proteins Status: Acute Assessment and Plan: Very mild increase of Troponin to 0.044 felt related to the new onset AFib with RVR consistent with type 2 related to demand ischemia and possibly from her CKD. Not felt patient had acute coronary syndrome. Appreciate cardiology input. We continued medical management. (7) Hypertension: Qualifiers: Hypertension type: primary hypertension Qualified Code(s): I10 - Essential (primary) hypertension Code(s): I10 - Essential (primary) hypertension Status: Acute Assessment and Plan: BP elevated on admission to 168/110 felt to have HTN emergency. BP overall has improved. We continued Hytrin, Norvasc and metoprolol. (8) Anemia: Code(s): D64.9 - Anemia, unspecified Status: Acute Assessment and Plan: Patient with chronic anemia. Hgb normally run 9-10 range last year. Here, hemoglobin mostly in the 7-8 range and remaining stable. Iron studies are consistent with iron deficiency anemia. B12 and folate levels normal. Stool guaiac remain
--- NOTE | 2021-06-24 14:21 | PCPTNOTE ---
Patient refused treatment this session due to being too tired from dialysis and needs to rest. Will continue with PT per POC.
[2021-06-24 15:51] LABS: EDCOVIDSCREEN Negative (Negative)
[2021-06-24 16:49] LABS: Glucose Point of Care 228 mg/dl (65-105)
[2021-06-24] MEDS: INSULIN ASPART (*BKC) 100 UNITS/ML SUB-Q (17:39)
== END 2021-06-24 18:41 | DRG 280 ==
LOC: ANHED 11:01 → ANHIMU 15:33 → ANH2MED 06-19 08:09 → ANHIMU 06-25 10:57
PROVIDERS: Internal Medicine; Internal Medicine Nephrology; Internal Medicine Pulmonary Disease; Nurse Practitioner; Student in an Organized Health Care Education/Training Program; Surgery; Admitting Provider Internal Medicine; Emergency Provider Family Medicine; PCP Internal Medicine; Visit Provider Internal Medicine
PROC: 0JH63XZ Insertion of Tunneled Vascular Access Device into Chest Subcutaneous Tissue and Fascia, Percutaneous Approach (ICD-10-PCS; CPT 36908; principal; 2021-06-20 13:00)
DX: I13.2 Hypertensive heart and chronic kidney disease with heart failure and with stage 5 chronic kidney disease, or end stage renal disease (principal); I50.33 Acute on chronic diastolic (congestive) heart failure; I21.A1 Myocardial infarction type 2; N25.81 Secondary hyperparathyroidism of renal origin; I16.1 Hypertensive emergency; Z68.43 Body mass index [BMI] 50.0-59.9, adult; N18.5 Chronic kidney disease, stage 5; N17.9 Acute kidney failure, unspecified; I69.351 Hemiplegia and hemiparesis following cerebral infarction affecting right dominant side; Z20.822 Contact with and (suspected) exposure to COVID-19; I48.0 Paroxysmal atrial fibrillation; D63.1 Anemia in chronic kidney disease; F41.9 Anxiety disorder, unspecified; M19.90 Unspecified osteoarthritis, unspecified site; I69.320 Aphasia following cerebral infarction; E11.22 Type 2 diabetes mellitus with diabetic chronic kidney disease; E11.319 Type 2 diabetes mellitus with unspecified diabetic retinopathy without macular edema; G25.0 Essential tremor; K21.9 Gastro-esophageal reflux disease without esophagitis; K44.9 Diaphragmatic hernia without obstruction or gangrene; Z79.4 Long term (current) use of insulin; E55.9 Vitamin D deficiency, unspecified; Z87.891 Personal history of nicotine dependence; R77.8 Other specified abnormalities of plasma proteins; G47.33 Obstructive sleep apnea (adult) (pediatric); I27.20 Pulmonary hypertension, unspecified; I50.22 Chronic systolic (congestive) heart failure
CPT/HCPCS: 36415; 36600; 71045; 71046; 76775; 76937; 77001; 78580; 80048; 80053; 80061; 80069; 80074; 82306; 82375; 82550; 82570; 82607; 82728; 82746; 82805; 82948; 83036; 83050; 83540; 83550; 83735; 83880; 84156; 84300; 84439; 84443; 84484; 85025; 85027; 85049; 85380; 85610; 85730; 86704; 86706; 86850; 86900; 86901; 87426; 93005; 93970; 93971; 94660; 94762; 96365; 96375; 97110; 97116; 97161; 97165; 97530; 97535; 99285; A9270; A9540; C1750; C8929; C9803; G0257; J0282; J0610; J0690; J1644; J1650; J1815; J1940; J2060; J2704; J7030; J7040; Q5105; Q9957

== ENCOUNTER 2021-07-10 08:38 | Inpatient (IN) | payer MEDICARE, SELFPAY ==
[2021-07-10] VITALS (33 sets, daily range): BP systolic 70–139; BP diastolic 35–102; PULSE 79–108; RESP 14–40; TEMP 36.2–36.9; O2SAT 92–100; BMI 47.5
--- NOTE | ~2021-07-10 | CT_ITS ---
EXAMINATION: CT pelvis wo con DATE: 07/10/2021 11:15 INDICATION: Sacral ulcer TECHNIQUE: High resolution computed tomography (CT) of the pelvis was performed without intravenous c ontrast. Additional sagittal and coronal reconstructions were performed. Automated exposure control a nd iterative reconstruction technique were employed. The dose-length product was 941.25 mGy-cm. COMPARISON: None FINDINGS: Visualized inferior pole of the right kidney is normal. There are couple sigmoid diverticula without adjacent inflammatory change to suggest diverticulitis. Visualized bowels are otherwise unremarkable. Small amount of gas and a Lopes catheter within the decompressed bladder. Anteverted uterus and bila teral adnexa are unremarkable. There appears to be a relatively shallow sacral decubitus ulcer overly ing the distal coccyx. No underlying abscess is seen however there is extensive gas tracking througho ut the soft tissues anteriorly from the ulceration along both sides of the inferior gluteal cleft and subcutaneous perineal tissues. On the right this to the deep subcutaneous fat along the anterior mar gin of the right pubic body. On the right side there also appears to be extension of gas along side t he rectum crossing the inferior fascia of the urogenital diaphragm into the deeper fat at the ischial rectal fossa. Small fat-containing umbilical hernia. Severe lower lumbar spondylosis. No definitive cortical erosion at the coccyx to suggest osteomyelitis. IMPRESSION: 1. Shallow sacral decubitus ulcer overlying the coccyx with extensive soft tissue gas tracking throug h the more anterior bilateral peroneal subcutaneous fat and with deeper perirectal extension on the r ight into the fat of the right ischial rectal fossa. Findings are concerning for necrotizing fasciiti s. No abscess. Dr. Stiles discussed these findings with Dr. Neal at 11:18 AM. Reviewed, dictated and finalized at location A. DENTIAL PROGRAM DIRECTOR IMPRESSION: 1. Shallow sacral decubitus ulcer overlying the coccyx with extensive soft tiss ue gas tracking through the more anterior bilateral peroneal subcutaneous fat a nd with deeper perirectal extension on the right into the fat of the right isch ial rectal fossa. Findings are concerning for necrotizing fasciitis. No abscess . Dr. Stiles discussed these findings with Dr. Neal at 11:18 AM.
--- NOTE | ~2021-07-10 | XR_ITS ---
EXAMINATION: XR chest 1V portable DATE: 07/12/2021 06:11 INDICATION: Respiratory failure. TECHNIQUE: A single frontal view of the chest was obtained. COMPARISON: Chest single view 07/11/2021, chest CT 07/10/2021 FINDINGS: There are airspace opacities in all lung zones bilaterally with a central predominance. No pleural effusion or pneumothorax. Cardiomegaly is noted. The endotracheal tube tip is 3.7 cm above th e james. A right internal jugular central venous catheter is seen with tip at the superior cavoatria l junction. The nasogastric tube tip is in the stomach. IMPRESSION: 1. Diffuse lung disease with worsening on the right, consistent with pneumonia without or with superi mposed pulmonary edema. 2. Cardiomegaly. Reviewed, dictated and finalized at location E. CCO CLASSER IMPRESSION: 1. Diffuse lung disease with worsening on the right, consistent with pneumonia without or with superimposed pulmonary edema. 2. Cardiomegaly.
--- NOTE | ~2021-07-10 | CT_ITS ---
EXAMINATION: CT diagnostic chest wo con DATE: 07/10/2021 12:14 INDICATION: sob. COVID positive. Hypoxia. TECHNIQUE: Computed tomography (CT) of the chest was performed without intravenous contrast. Addition al 3D reconstructions utilizing coronal maximum intensity projection (MIP) were performed. Automated exposure control and iterative reconstruction technique were employed. The dose-length product was 87 1.05 mGy-cm. COMPARISON: None FINDINGS: There are scattered patchy groundglass opacities and centrilobular nodules of varying sizes the small er with tree-in-bud pattern throughout all lobes of both lungs which relatively spare the periphery o f the lungs. The distribution as well as the centrilobular nodules would favor more typical community -acquired pneumonia over COVID pneumonia. No pulmonary edema, pleural effusion or pneumothorax. Endot song tube tip 3.6 cm above level of the james. Mild cardiomegaly. No pericardial effusion. Athero sclerotic coronary artery calcification. Aortic valve and dense mitral annular calcification. There i s likely reactive mild mediastinal and bilateral hilar lymphadenopathy. Thoracic aorta is normal in c aliber. Multiple splenic and a few hepatic calcifications consistent with old granulomatous disease. There appears to be some liver surface nodularity which could be seen with cirrhosis. There are bridg ing osteophytes at multiple levels in the spine, consistent with diffuse idiopathic skeletal hyperost osis (DISH). Large bore tunneled right internal jugular central venous catheter with distal tip at th e superior cavoatrial junction. IMPRESSION: 1. Diffuse bilateral lung disease with appearance and distribution favoring extremity acquired rather than COVID pneumonia. 2. Mild cardiac Megaly. 3. Suggestion of subtle liver surface nodularity which could be seen with cirrhosis. Reviewed, dictated and finalized at location A. NT DEVELOPMENT COORDINATOR IMPRESSION: 1. Diffuse bilateral lung disease with appearance and distribution favoring ext remity acquired rather than COVID pneumonia. 2. Mild cardiac Megaly. 3. Suggestion of subtle liver surface nodularity which could be seen with cirrh osis.
--- NOTE | ~2021-07-10 | XR_ITS ---
EXAMINATION: XR chest 1V portable DATE: 07/10/2021 09:17 INDICATION: Shortness of breath. TECHNIQUE: A single frontal view of the chest was obtained. COMPARISON: Chest single view 06/20/2021 FINDINGS: The patient is rotated to her left. There are airspace opacities in the perihilar regions. No pleural effusion or pneumothorax. Cardiomegaly is noted. A right internal jugular central venous c atheter is seen with tip at the superior cavoatrial junction. IMPRESSION: 1. Airspace opacities in the perihilar regions, likely mild pulmonary edema. 2. Cardiomegaly. Reviewed, dictated and finalized at location E. GER OF CARE
--- NOTE | ~2021-07-10 | XR_ITS ---
EXAMINATION: XR abdomen NG/feed tube rechec EXAM DATE: 07/10/2021 16:56 INDICATION: Reinsertion of OG tube. TECHNIQUE: Frontal projection(s) of the abdomen for interpretation. There is no prior study for sue dimas. FINDINGS: Feeding tube is in expected position. There is some transverse colonic gas. No upper abdom inal dilated small bowel. Small amount of retrocardiac airspace disease, correlate with recent chest x-ray. IMPRESSION: Feeding tube in position. Reviewed, dictated and finalized at location G. BLAST OR SHOTBLAST EQUIPMENT TENDER IMPRESSION: Feeding tube in position.
--- NOTE | ~2021-07-10 | XR_ITS ---
EXAMINATION: XR chest 1V portable DATE: 07/11/2021 09:33 INDICATION: Respiratory failure. ISO precautions. TECHNIQUE: frontal view of the chest was obtained. COMPARISON: Chest radiograph and CT dated 07/10/2021 FINDINGS: Endotracheal tube tip 3.2 cm above the james. Large-bore dual-lumen likely tunneled right internal j ugular central venous catheter with distal tip near the superior cavoatrial junction. Nasogastric tub e extends below the left hemidiaphragm with distal tip collimated off the study. Patient is rotated slightly towards the left. Subtle perihilar and lower lung predominant airspace op acities. No pleural effusion or pneumothorax. The cardiomediastinal silhouette is normal. IMPRESSION: 1. Persistent subtle bilateral perihilar and lower lung predominant airspace opacities with appearanc e on prior CT favoring pneumonia over pulmonary edema. Reviewed, dictated and finalized at location A. AULIC AUTO JACK MECHANIC IMPRESSION: 1. Persistent subtle bilateral perihilar and lower lung predominant airspace op acities with appearance on prior CT favoring pneumonia over pulmonary edema.
--- NOTE | ~2021-07-10 | CT_ITS ---
EXAMINATION: CT brain wo con DATE: 07/10/2021 11:15 INDICATION: Altered mental status. TECHNIQUE: Computed tomography (CT) of the head was performed without intravenous contrast. The mA wa s adjusted according to patient size. Iterative reconstruction technique was employed. The dose-lengt h product was 605.33 mGy-cm. COMPARISON: None FINDINGS: There are scattered areas of low attenuation in the cerebral white matter. There is an old infarct in right parietal lobe. There is an old infarct involving left frontal temporal parietal ariel on and posterior left insula. There is no intracranial hemorrhage, acute infarction, or abnormal intr acranial mass lesion. The ventricles are normal in size. There is mild mucosal thickening in the para nasal sinuses. There are likely changes of ocular lens replacement surgeries. There is a right mastoi d effusion. IMPRESSION: 1. 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 2. Old infarct involving left frontal temporal parietal region and posterior left insula. 3. Extensive nonspecific cerebral white matter disease, which likely represents chronic small vessel ischemic disease. Reviewed, dictated and finalized at location E. UATE ADVISOR IMPRESSION: 1. 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 2. Old infarct involving left frontal temporal parietal region and posterior le ft insula. 3. Extensive nonspecific cerebral white matter disease, which likely represents chronic small vessel ischemic disease.
--- NOTE | 2021-07-10 08:46 | ECG_ITS ---
Measurements Intervals [place] Rate: 108 P: [place]: 0 QRS: -31 QRSD: 106 T: 79 QT: 345 QTc: 463 Interpretive Statements ATRIAL FIBRILLATION WITH RAPID VENTRICULAR RESPONSE LEFT AXIS DEVIATION DELAYED PRECORDIAL R/S TRANSITION BORDERLINE ST-T WAVE ABNORMALITY- HIGH LATERAL LEADS ABNORMAL ECG Electronically Signed On 07-10-2021 8:56:16 DIAL MARKER by Bert Spence D.O.
--- NOTE | 2021-07-10 09:07 | ED.GENADULT ---
HPI - General Adult General Chief complaint: Shortness of Breath/Dyspnea Stated complaint: Resp distress Time Seen by Provider: 07/10/21 08:41 Source: patient and RN notes reviewed History of Present Illness HPI narrative: Patient is a 80 y/o female sent from [place] for SOB. Her SOB was noted by staff today. EMS reports that her pulse ox was 80% on 3L and she was placed NRB. She is in apparent distress and unable to provide any history. Related Data Home Medications Medication Instructions Recorded Confirmed fluticasone propionate 50 1 spray INTRANASAL DAILY PRN g 09/20/20 06/06/21 mcg/actuation nasal spray,suspension clopidogrel 75 mg PO QAM 06/06/21 06/06/21 Allergies Allergy/AdvReac Type Severity Reaction Status Date / Time adhesive tape Allergy Mild Blister Verified 07/10/21 10:22 iohexol Allergy Unknown Vomiting Verified 07/10/21 10:22 [From contrast - CT, X-RAY] morphine AdvReac Intermediate Vomiting Verified 07/10/21 10:22 Review of Systems Review of Systems: ROS unobtainable: Yes unobtainable due to mental status [facility] Past Medical History Medical History Anemia in chronic kidney disease Anxiety Arthritis Atrial fibrillation Cerebrovascular accident With mild right-sided weakness and expressive aphasia. Chronic kidney disease, stage 4 (severe) Combined systolic and diastolic congestive heart failure Echocardiogram in 03/27/2018 showed moderate global LV systolic dysfunction with a measured EF of 33%, grade 2 diastolic dysfunction, moderate RV hypokinesis, and severe pulmonary hypertension (65 mmHg). Diabetic retinopathy Essential tremor Gastroesophageal reflux disease Hiatal hernia Hypertension Insulin dependent type 2 diabetes mellitus Hemoglobin A1c was 9.1% in 05/2020. Secondary hyperparathyroidism Vitamin D deficiency Surgical History Surgical History History of appendectomy History of cataract extraction History of cholecystectomy History of left knee replacement History of tonsillectomy Status post LASIK surgery Family History Family History Mother Family history of diabetes mellitus in first degree relative Diabetes mellitus Sibling Family history of diabetes mellitus in first degree relative Diabetes mellitus Father Family history of heart disease in male family member before age 55 Patient's father is Family history of cardiovascular disease Social History Social History Social History: Surrogate decision maker: Josep Moralez, son. Code status: Full code. She Lived with son and [id number] in [place], has at personal helper, Soha. She [facility] in a [facility]. 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 Smoking packs per day: 2 Smoking cigarettes per day: 40.0 Years smoked: 4 Smoking pack-years: 8.00 Smoking status: Former smoker Tobacco type: cigarettes Second hand tobacco smoke exposure: No Smoking end date: 06/08/79 Alcohol intake: current Drinks per week: 1 Substance use: never Additional living arrangements comments: The patient lives in [place]. Additional occupation/education comments: Retired. Spiritual care concerns: No Exam Const: General: well developed and in distress Orientation/consciousness: lethargic HENMT: Head: normocephalic Ears: external ears normal General nose exam: Normal external nose present Eyes: General: appearance normal, both eyes and all related structures Conjunctivae: conjunctivae normal Neck: Neck: normal visual inspection and full ROM Chest: Chest palpation & inspection: normal inspection of the chest and no tenderness Resp: Effort & In
[2021-07-10 09:09] LABS: Alveolar/Arterial O2 Gradient 499.4 mmHg; Base Excess ABG 0.2 mEq/l (+/-2.0); Fractional Inspired Oxygen 100 %; HCO3 ABG 30.5 mEq/l (22.0-26.0); Oxygen Content ABG 13.4 %vol (16.0-22.0); Oxygen Saturation ABG 97.1 % (95.0-100.0); Oxyhemoglobin 96.4 % THb (90.0-100.0); PO2 ABG 123.3 mmHg (80.0-100.0); PO2 FiO2 Ratio Arterial Blood 1.23 %; Total Hemoglobin 9.7 g/dL (12.0-18.0)
[2021-07-10 09:10] LABS: PCO2 ABG 90.3 mmHg (35.0-45.0); Site Drawn RIGHT RADIAL; pH ABG 7.146 (7.350-7.450)
[2021-07-10 09:11] LABS: Device NON-REBREATHER MASK; Modified Allen's Test Pass
[2021-07-10 09:17] LABS: Hematocrit 31.3 % (37.0-47.0); Hemoglobin 9.1 g/dL (12.0-15.0); Mean Corpuscular HGB Conc 29.1 g/dl (32-36); Mean Corpuscular Hemoglobin 30.1 pg (26-34); Mean Corpuscular Volume 103.6 fl (80-100); Mean Platelet Volume 10.6 fl (7.4-10.4); Platelet Count Result 286 k/mm3 (150-375); Red Blood Count 3.02 M/mm3 (4.2-5.4); Red Cell Distribution Width 16.3 % (11.5-14.5); White Blood Count 39.8 K/mm3 (4.5-10.0)
--- NOTE | 2021-07-10 09:27 | PC.NURSE ---
pts end tital co2 16. respirations 41. shallow. labored. room prepped for intubation. edp and resp at bedside.
--- NOTE | 2021-07-10 09:31 | PC.NURSE ---
etomidate 20 mg given ivp 7.5 placed 22 at lip. positive color change on end tital co2 detector equal chest rise breath signs noted bilat
[2021-07-10 09:36] LABS: INR 2.7; Prothrombin Time 28.1 Seconds (11.1-14.7)
[2021-07-10 09:37] LABS: Partial Thromboplastin Time 36.8 SECONDS (22.3-36.8)
[2021-07-10 09:38] LABS: Alanine Aminotransferase 13 U/L (4-35); Alkaline Phosphatase 169 U/L (38-126); Anion Gap 11 mmol/L (8-16); Aspartate Amino Transferase 20 U/L (14-36); Bilirubin,Total 1.1 mg/dL (0.2-1.3); Blood Urea Nitrogen 45 mg/dL (7-17); Calcium 8.3 mg/dL (8.4-10.2); Carbon Dioxide 26 mmol/L (22-30); Chloride 96 mmol/L (98-107); Estimated Glomerular Filt Rate 11; Glucose 232 mg/dL (65-110); Sodium 133 mmol/L (137-145)
[2021-07-10 09:49] LABS: Troponin I < 0.012 ng/mL (0.000-0.034)
[2021-07-10 09:52] LABS: Band Neutrophils Percent 13 % (0-6); Lymphocytes Absolute Manual 0.39 K/mm3 (1.1-4.5); Monocytes Absolute Manual 1.59 K/mm3 (0.1-0.90); Monocytes Percent Manual 4 % (3-9); Neutrophils Absolute Manual 37.81 K/mm3 (1.7-7.2); Neutrophils Percent Manual 82 % (46-73); Platelet Estimate Adequate (Adequate); Total Cells Counted 100
[2021-07-10 09:53] LABS: Acanthocytes 1+ (NORMAL); Anisocytosis 1+ (NORMAL); Ovalocytes 1+ (NORMAL)
[2021-07-10] MEDS: SODIUM CHLORIDE 0.9% IV 1,000 ML 999 ML IV CONT ×2 (09:53→18:35)
--- NOTE | 2021-07-10 09:53 | PC.NURSE ---
bp 70/35. ns iniated wide open. pt tolerating vent well
[2021-07-10 09:56] LABS: SARS-CoV-2 RNA PCR Positive
--- NOTE | 2021-07-10 10:21 | PC.NURSE ---
pts son yamil contacted at [phone] and made aware of pts condition and plan of care.
[2021-07-10 10:54] LABS: Alveolar/Arterial O2 Gradient 258.9 mmHg; Base Excess ABG -0.6 mEq/l (+/-2.0); Fractional Inspired Oxygen 100 %; HCO3 ABG 26.9 mEq/l (22.0-26.0); Methemoglobin ABG 0.3 %THb (0-1.5); Oxygen Content ABG 13.4 %vol (16.0-22.0); Oxygen Saturation ABG 99.8 % (95.0-100.0); Oxyhemoglobin 98.2 % THb (90.0-100.0); PO2 ABG 393.1 mmHg (80.0-100.0); PO2 FiO2 Ratio Arterial Blood 3.93 %; Reduced Hemoglobin 0.5 %THb (0-5.0); Total Hemoglobin 8.9 g/dL (12.0-18.0)
[2021-07-10 10:55] LABS: Device VENTILATOR; Modified Allen's Test Pass; Site Drawn RIGHT RADIAL; pH ABG 7.262 (7.350-7.450)
[2021-07-10 10:56] LABS: Arterial Blood Gas PEEP 5 cmH2O; Arterial Blood Gas Tidal Volume 400 ml; Arterial Blood Gas Vent Mode CMV; Arterial Blood Gas Ventilator rate 14 /MIN
[2021-07-10 11:24] LABS: Erythrocyte Sedimentation Rate > 40 mm/hr (0-20)
[2021-07-10 11:31] LABS: Lactic Acid Reflex 1.8 mmol/L (0.7-2.1)
[2021-07-10 11:55] LABS: CRP 34.1 mg/dL (<1.0)
--- NOTE | 2021-07-10 12:31 | PM.IMHP ---
H&P: HPI History of Present Illness Date/Time: 07/10/21 12:31 this is an 80-year-old who has chronic renal failure in a temporary dialysis catheter as well as congestive heart failure. The patient received a tunneled catheter on 06/20/2021 and she was tolerating dialysis. She was also found to have severe pulmonary hypertension. She has grade 2 diastolic dysfunction. The patient had hemodialysis to improve her fluid status. The patient was then discharged to [facility] unit [facility]. Today the patient was brought to the emergency room via ambulance due to shortness of breath that was noted by staff. Her pulse oximeter was reading 80% on 3 L. Then she was placed on a non-rebreather. The patient was in apparent distress and was unable to provide a history for the emergency room. The patient was intubated placed on a ventilator. She is positive for COVID-19 and unvaccinated according to her son. Chest x-ray was read as airspace opacities in the perihilar regions likely mild pulmonary edema. Cardiomegaly. Head CT was read as old infarct involving right parietal lobe. Old infarct involving left frontal temp oral parietal region and posterior left insula. Extensive nonspecific cerebral white matter disease, which likely represents chronic vessel ischemic disease. Pelvis CT was read as the following1. Shallow sacral decubitus ulcer overlying the coccyx with extensive soft tissue gas tracking through the more anterior bilateral peroneal subcutaneous fat and with deeper perirectal extension on the right into the fat of the right ischial rectal fossa. Findings are concerning for necrotizing fasciitis. No abscess. Chest CT was read as the following1. Diffuse bilateral lung disease with appearance and distribution favoring extremity acquired rather than COVID pneumonia. 2. Mild cardiac Megaly. 3. Suggestion of subtle liver surface nodularity which could be seen with cirrhosis. Patient's white count was noted to be 39.8. Her H&H is 9.1 and 31.3 which is her baseline for her H&H. The initial ABGs pH was 7.262, CO2 was 61.0, PO2 was 393 0.1 and bicarb was 26.9. Repeat ABGs after intubation pH 7.375 CO2 was 44, and PO2 62.7. Troponins are negative x2. Her C reactive protein is 34.1. Urine appears to be infectious. The patient was given vanco, Decadron, vancomycin, and 1 L of IV fluids. The patient is being admitted to inpatient services into ICU on the date of service of 07/10/21. Chief Complaint: Respiratory distress Review of Systems Review of Systems: All systems reviewed & are unremarkable except as noted in HPI and below ROS unobtainable: Yes unobtainable due to endotracheal tube Constitutional: Constitutional: Reports as per HPI and Reports no additional constitutional complaints Eyes: Eyes: Reports as per HPI and Reports no additional eye complaints ENT: Reports system reviewed and no additional complaints, except as documented and Reports Normal hearing present Cardiovascular: Cardiovascular: Reports no additional cardiovascular complaints Respiratory: Respiratory: Reports no additional respiratory complaints and Reports no additional respiratory complaints Gastrointestinal: Gastrointestinal: Reports as per HPI and Reports no additional gastrointestinal complaints Musculoskeletal: Musculoskeletal: Reports no additional musculoskeletal complaints Integumentary/Breasts: Skin/Breast: Reports system reviewed and no additional complaints, except as docu and Reports as per HPI Neurologic: Reports system reviewed and no additional complaints, except as documented, Reports as per HPI and Reports Normal hearing present Psychiatric: Psychiatric: Reports no additional psychiatric complaints and Reports as per HPI Endocrine: Endocrine: Reports no additional endocrine complaints Hematologic/Lymphatic: Hematologic/Lymphatic: Reports no additional hematologic/lymphatic complaints Allergic/Immunologic: Allergic/Immunologic: Reports no additional al
--- NOTE | 2021-07-10 12:45 | PC.NURSE ---
pt son updated about pts condition and need for surgery. aware of road conditions and difficulty on transferring pt. son states will look for pts will. does believe pt has do not intubate order.
--- NOTE | 2021-07-10 12:59 | WPDCNINT ---
Assessment and Plan Assessment and plan (1) Sepsis: Code(s): A41.9 - Sepsis, unspecified organism Status: Acute Assessment and Plan: Secondary to necrotizing fasciitis of decubitus ulcer and possible pneumonia Blood and sputum culture Empiric vanc and Zosyn Patient received 500 cc normal saline bolus. Will give 1 additional L She may need Vasopressors to maintain map Her lactic acid level was normal (2) Necrotizing fasciitis: Code(s): M72.6 - Necrotizing fasciitis Status: Acute Assessment and Plan: General surgery consulted in ER and patient may need to go to OR for debridement [employer] (3) Acute respiratory failure with hypoxia: Code(s): J96.01 - Acute respiratory failure with hypoxia Status: Acute Assessment and Plan: Acute respiratory failure Secondary to congestive heart failure and possible pneumonia ABG reviewed and increase respiratory rate on the ventilator to 20 Repeat ABG in 1 hour Chest x-ray and CT Chest reviewed (4) COVID-19: Code(s): U07.1 - COVID-19 Status: Acute Assessment and Plan: SARS-CoV-2 PCR positive Patient is in Airborne, Droplet and Contact Isolation Continue dexamethasone Not a candidate for remdesivir due to renal failure Patient has a mixed respiratory failure and CT chest does not suggest finding consistent with COVID 19 pneumonia (5) Pneumonia: Code(s): J18.9 - Pneumonia, unspecified organism Status: Acute (6) Atrial fibrillation with rapid ventricular response: Code(s): I48.91 - Unspecified atrial fibrillation Status: Acute Assessment and Plan: continue p.o. amiodarone May need infusion if goes into RVR Hold apixaban at this time (7) Acute exacerbation of CHF (congestive heart failure): Qualifiers: Heart failure type: diastolic Qualified Code(s): I50.33 - Acute on chronic diastolic (congestive) heart failure Code(s): I50.9 - Heart failure, unspecified Status: Acute Assessment and Plan: Cautious IV fluid Hemodialysis to remove fluid when hemodynamically stable Echo / Summary 1. Left ventricular chamber dimension is normal. 2. Left ventricular systolic function is normal, estimated at 65-70%. 3. There is moderately increased left ventricular wall thickness. 4. The left ventricular diastolic function is grade II diastolic dysfunction. 5. Right ventricular chamber dimension is mildly enlarged. 6. Left atrial chamber dimension is severely enlarged. 7. Right atrial chamber dimension is moderately enlarged. 8. There is mild mitral valve stenosis. 9. There is mild mitral valve regurgitation. 10. There is mild tricuspid valve regurgitation. 11. Severe pulmonary hypertension, estimated pulmonary arterial systolic pressure is 84 mmHg. 12. 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
[2021-07-10 13:41] LABS: Add Urine Microscopic? YES; Appearance Urine Cloudy (Clear); Bacteria Urine 1+ /hpf; Bilirubin Urine Negative (Negative); Blood Urine Negative (Negative); Color Urine Amber (Yellow); Glucose Urine UA Negative (Negative); Ketones Urine Negative (Negative); Leukocyte Esterase Ur 1+ LEU/UL (Negative); Mucus Urine Rare /lpf; Nitrate Urine Negative (Negative); Protein Urine 2+ mg/dL (Negative); Specific Grav Ur 1.013 (1.001-1.035); Squamous Epithelial Cell Urine Many /hpf (Few); Urobilinogen Urine Negative mg/dL (<2.0); WBC Urine >75 /hpf
[2021-07-10 13:53] LABS: Troponin I < 0.012 ng/mL (0.000-0.034)
[2021-07-10 14:07] LABS: Alveolar/Arterial O2 Gradient 171.9 mmHg; Base Excess ABG -0.1 mEq/l (+/-2.0); Fractional Inspired Oxygen 40 %; HCO3 ABG 25.2 mEq/l (22.0-26.0); Oxygen Saturation ABG 91.4 % (95.0-100.0); Oxyhemoglobin 91.3 % THb (90.0-100.0); PO2 ABG 62.7 mmHg (80.0-100.0); PO2 FiO2 Ratio Arterial Blood 1.57 %; Total Hemoglobin 9.3 g/dL (12.0-18.0); pH ABG 7.375 (7.350-7.450)
[2021-07-10 14:08] LABS: Arterial Blood Gas PEEP 5 cmH2O; Arterial Blood Gas Tidal Volume 400 ml; Arterial Blood Gas Vent Mode CMV; Arterial Blood Gas Ventilator rate 20 /MIN; Device VENTILATOR; Modified Allen's Test Pass; Site Drawn RIGHT RADIAL
--- NOTE | 2021-07-10 14:45 | PC.NURSE ---
dr wood at bedside for wound debridement.
[2021-07-10] MEDS: fentaNYL CITRATE INJ (*CRX) 100 MCG/2 ML VIAL 50 MCG IV PUSH ×3 (15:14→23:59)
--- NOTE | 2021-07-10 15:21 | PM.CNNEP ---
Assessment and Plan Assessment and plan (1) Chronic kidney disease, stage 4 (severe): Code(s): N18.4 - Chronic kidney disease, stage 4 (severe) Status: Acute Assessment and Plan: The patient has chronic kidney disease stage 4. This is due to diabetes and hypertension. Her baseline creatinine runs around 2.5. (2) RAKAN (acute kidney injury): Code(s): N17.9 - Acute kidney failure, unspecified Status: Acute Assessment and Plan: She has acute kidney injury. It is not clear yet whether this is going to work her or not. Her underlying kidney disease was substantial and she may not recover from this. She just received dialysis yesterday. Her electrolytes are okay. Her volume status is always in excess but has gradually been getting better. At this point her blood pressure is somewhat soft she was just debride and she is probably septic so I am not going to do dialysis today. We can wait till tomorrow if she is stable enough to proceed. (3) Necrotizing fasciitis: Code(s): M72.6 - Necrotizing fasciitis Status: Acute Assessment and Plan: The patient has a very large decubitus ulcer on the buttocks. This has been debrided but more needs to be done. She is on Plavix and Eliquis unfortunately so this obviate her getting this done today . She has had enough debridement to but things drain so hopefully she will not be septic. Her lactic acid is normal and her blood pressure is not extremely low. She has had cultures of the wound, urine, and blood to help guide therapy. She is on vancomycin and Zosyn. discussed at length with Dr. Bryant and with Dr Nathan. (4) COVID-19: Code(s): U07.1 - COVID-19 Status: Acute Assessment and Plan: The patient has new onset COVID-19. She had been swabbed in the hospital in this was negative. it is hard to know how much of her illness is from this verses the decubitus ulcer etc. She is on dexamethasone. With all of the above going on her prognosis is very poor. (5) Atrial fibrillation: Code(s): I48.91 - Unspecified atrial fibrillation Status: Chronic Assessment and Plan: Her heart rate is 90. She is still in atrial fibrillation. (6) Hypertension: Qualifiers: Hypertension type: primary hypertension Qualified Code(s): I10 - Essential (primary) hypertension Code(s): I10 - Essential (primary) hypertension Status: Acute Assessment and Plan: Her blood pressure is a bit soft. Hold antihypertensives. (7) Secondary hyperparathyroidism: Code(s): N25.81 - Secondary hyperparathyroidism of renal origin Status: Acute Assessment and Plan: Will check a phosphorus in the morning (8) Anemia in chronic kidney disease: Qualifiers: Chronic kidney disease stage: stage 4 (severe) Qualified Code(s): N18.4 - Chronic kidney disease, stage 4 (severe); D63.1 - Anemia in chronic kidney disease Code(s): N18.9 - Chronic kidney disease, unspecified; D63.1 - Anemia in chronic kidney disease Status: Acute Assessment and Plan: will have her on Epogen (9) CHF with left ventricular diastolic dysfunction, NYHA class 1: Code(s): I50.30 - Unspecified diastolic (congestive) heart failure Status: Acute Assessment and Plan: she is getting supportive care. (10) Insulin dependent type 2 diabetes mellitus: Code(s): E11.9 - Type 2 diabetes mellitus without complications; Z79.4 - residential (current) use of insulin Status: Chronic Assessment and Plan: On Accu-Cheks and sliding-scale insulin History of Present Illness Reason for Consult Consult date: 07/10/21 Chief Complaint Chief complaint: Acute respiratory failure/covid pneumonia/sepsis/s History of Present Illness Narrative: Waleska Loza is an unfortunate 80-year-old lady who has multiple medical problems who has chronic kidney
--- NOTE | 2021-07-10 16:00 | PC.NURSE ---
16 fr og placed 65 at lip. spontaneous return of bile.
--- NOTE | 2021-07-10 16:30 | ADMGEN ---
This patient, Waleska Tes, was admitted to Intensive Care Unit-4. Patient/family oriented to hospital policies and general routines including ID bracelet, bed and alarms, visiting hours, pain management, procedures, bathroom and other care routines, personal items, smoking policy, room service/diet, and visiting hours. Information on how to activate the Rapid Response Team has been discussed. Patient/Family are encouraged to report perceived risks to care and to ask questions if they do not understand what they are told or what they should do.
--- NOTE | 2021-07-10 16:32 | PM.CNGS ---
Assessment and Plan Assessment and plan (1) Necrotizing fasciitis of pelvic region and thigh: Onset Date: Unknown Code(s): M72.6 - Necrotizing fasciitis Status: Acute Assessment and Plan: most likely between now and when she last left [facility]. I have evaluated the patient's sacral decubitus and apparent fasciitis in the ED. She has necrotic skin subcutaneous tissue and probably fascia. It is wide open and draining. ( This is probably why her lactic acid is not elevated) some necrotic areas were able to be debrided at bedside (see operative note) this extends and is continuous with a approximately 10 x 3 cm area of black necrotic skin and subcu tissue along her high right posterior right thigh this was also to be able to be opened and was actually already open and draining in the ED. for now because she is on Eliquis and Plavix she is not a candidate to be taken to the operating room in view of her multiple organ failure and poor prognosis. We could give her Kcentra to try to reverse her anticoagulation what this would put her at increased risk for clots and she has already had heart disease and previous strokes. I have had a thorough discussion with her son Josep Moralez regarding her poor prognosis. She has at least 3 systems that are failing including heart, pulmonary, renal, and now probably skin. She also apparently is unvaccinated and now has COVID-19. The likelihood that she will be able to survive this is quite low. He is reviewing her will and states that she has altered her wishes back and forth several times recently He will be considering whether not to make her comfort care sometime tomorrow. I have discussed her case with Dr. Reza our engineering illustrator and for now we will put her on IV antibiotics, support her, and will change the dressings again tomorrow as I have already debrided as much as reasonable and packed these with Surgicel and 4 x 4 gauze. I believe her situation is probably futile care. (2) Decubitus ulcer of back, unstageable: Onset Date: Unknown Code(s): L89.100 - Pressure ulcer of unspecified part of back, unstageable Status: Acute Assessment and Plan: Patient has a large 17 x 7 x 8 cm area of black necrotic skin and subcu tissue that is draining and open in the sacral-coccygeal area. Bedside debridement was completed of any necrotic area where it would not bleed. There was only minor bleeding on the far left side of the wound which was controlled with pressure and then Surgicel applied to it and a 4 x 4 dressing applied then covered with a large shaped Mepilex. This will need further debridement if the patient wants everything done. However, because her INR is up at 2.1 which should not even be up at all when she is on Eliquis she is not a good candidate for immediate surgical intervention. Will repeat coags tomorrow and will await her to be 36-48 hours after her Eliquis which was 5:00 p.m. on 07/09/2021 according to [facility] communication. Our ED nurses called them to find out last doses. (3) Atrial fibrillation: Onset Date: Unknown Code(s): I48.91 - Unspecified atrial fibrillation Status: Chronic Assessment and Plan: Did have RVR during her last admission. Cardiology consult may be galarza if patient is not may comfort care in the next 24 hours. Patient will need to be off her anticoagulation in order to be considered for surgery for debridement of her wound and fasciitis and eventually possible diverting colostomy. (4) Sepsis: Onset Date: Unknown Code(s): A41.9 - Sepsis, unspecified organism Status: Acute Assessment and Plan: Several pop possible sources including bacterial pneumonia or the fasciitis noted above (5) ESRD (end stage renal disease): Code(s): N18.6 - End stage renal disease Status: Acute Assessment and Plan: see Nephrology note. D/W Dr. Pemberton. He agrees that in h
[2021-07-10 16:42] LABS: Glucose Point of Care 244 mg/dl (65-105)
[2021-07-10] MEDS: INSULIN ASPART (*BKC) 100 UNITS/ML SUB-Q ×3 (18:35→23:38)
[2021-07-10 20:00] LABS: Troponin I < 0.012 ng/mL (0.000-0.034)
[2021-07-10 20:04] LABS: Glucose Point of Care 233 mg/dl (65-105)
--- NOTE | 2021-07-10 21:55 | W.PM.PROC2 ---
Procedure Note - Detailed Date of Procedure 07/10/21 Pre-op Diagnosis 1. Unstageable necrotic large sacrococcygeal decubitus ulcer 2. Fasciitis and skin necrosis right buttock and upper right thigh 3. Acute respiratory failure/covid pneumonia/sepsis/s Post-op Diagnosis same Procedure Performed Excision of skin and subcutaneous tissue sacral coccygeal area Excision of skin and subcutaneous tissue right posterior thigh Surgeon Kenny Nathan MD Aircraft Instrument Tester 3 ER nurses Anesthesia none Indications patient is a chronically ill 80-year-old morbidly obese white female with diabetes, renal failure, diastolic heart failure, and pulmonary hypertension who went to the retirement. She caught COVID, she moved to a different retirement. Probably did move well and now has a large necrotic sacrococcygeal necrotic ulcer this appears to have allowed Parres thorpe then tunneling into her right buttock and posterior right thigh. CT suggests possible fasciitis but patient is on anticoagulation that is not easily reversible in view of her previous CVA with clots to brain. Findings A 17 by 8 x 7 cm area of necrosis of the skin subcutaneous tissues and perhaps more) unstageable sacrococcygeal decubitus There is also a 10 x 3 cm area obviously necrotic skin and subcutaneous tissue with infection along her high posterior right thigh. Description of Procedure The patient was placed in the Left lateral decubitus position. 1 nurse cell turn protected her airway since she was intubated. Another nurse help gomez over onto her left side another nurse helped elevate buttock thigh folds. After a surgical time out confirming patient and procedure the patient was prepped in the usual fashion. Local anesthetic was administered subcutaneously. The lesion measured On the sacrococcygeal area 17 x 8 on the right side by 7 on this left side it crosses the midline goes down within 3 cm of the posterior anal opening and is unstageable as there is palpable bone underneath it but because of her anticoagulation I was unable to debride down to any healthy tissue.. An elliptical incision was made around the lesion in only areas that I thought would not bleed. Multiple pieces dark dry skin and underlying black or wadsworth necrotic subcutaneous tissue was removed in excisional manner.. I dissected down to the deep subcutaneous tissues and then completely excised the lesion. Bleeding , which was minimal, was controlled with pressure and then applying Surgicel and dry 4x4s to the area similarly I unroof the 10 x 3 cm area described both above on the bed of posterior right thigh skin and underlying necrotic mushy wadsworth tissue was removed. Culture was taken from this site and sent for aerobic anaerobic and Gram stain. His she was on blood thinner a could adequately debride this area by did use my finger with sterile glove on it to carefully break up any areas of adhesions or pockets of infection both inferiorly and superiorly. Patient tolerated this fairly well. Implants none Estimated Blood Loss 6 Drains No Packing Yes ( Surgicel and dry 4x4s) Pathology none sent Complications No immediate complications Condition critical Disposition ICU
[2021-07-10 23:50] LABS: Glucose Point of Care 216 mg/dl (65-105)
[2021-07-11] VITALS (21 sets, daily range): BP systolic 84–117; BP diastolic 43–88; PULSE 84–118; RESP 20–22; TEMP 36.5–36.8; O2SAT 89–100
[2021-07-11] MEDS: fentaNYL CITRATE INJ (*CRX) 100 MCG/2 ML VIAL 50 MCG IV PUSH ×2 (04:01→07:56)
[2021-07-11 04:09] LABS: Glucose Point of Care 177 mg/dl (65-105)
[2021-07-11 05:03] LABS: Alveolar/Arterial O2 Gradient 178.8 mmHg; Base Excess ABG -3.8 mEq/l (+/-2.0); Carboxyhemoglobin 0.3 % THb (0-2.0); Fractional Inspired Oxygen 40 %; HCO3 ABG 20.3 mEq/l (22.0-26.0); Methemoglobin ABG 0.3 %THb (0-1.5); Oxygen Content ABG 13.5 %vol (16.0-22.0); Oxygen Saturation ABG 93.9 % (95.0-100.0); PCO2 ABG 33.3 mmHg (35.0-45.0); PO2 ABG 68.1 mmHg (80.0-100.0); Reduced Hemoglobin 6.4 %THb (0-5.0); Total Hemoglobin 10.3 g/dL (12.0-18.0); pH ABG 7.402 (7.350-7.450)
[2021-07-11 05:05] LABS: Arterial Blood Gas PEEP 5 cmH2O; Arterial Blood Gas Tidal Volume 400 ml; Arterial Blood Gas Vent Mode CMV; Arterial Blood Gas Ventilator rate 20 /MIN; Device VENTILATOR; Modified Allen's Test Pass; Site Drawn LEFT RADIAL
[2021-07-11 07:35] LABS: Glucose Point of Care 203 mg/dl (65-105)
[2021-07-11] MEDS: LORazepam INJ (*CRX) 2 MG/ML VIAL IV PUSH (07:57)
[2021-07-11] MEDS: AMIODARONE HCL 200 MG TABLET PO (08:13)
[2021-07-11] MEDS: PANTOPRAZOLE SODIUM IV 40 MG VIAL IV PUSH (08:14)
[2021-07-11 08:41] LABS: Hemoglobin 7.9 g/dL (12.0-15.0); Mean Corpuscular HGB Conc 31.6 g/dl (32-36); Mean Corpuscular Hemoglobin 29.6 pg (26-34); Mean Corpuscular Volume 93.6 fl (80-100); Platelet Count Result 270 k/mm3 (150-375); Red Blood Count 2.67 M/mm3 (4.2-5.4); Red Cell Distribution Width 16.2 % (11.5-14.5); White Blood Count 24.8 K/mm3 (4.5-10.0)
[2021-07-11] MEDS: INSULIN ASPART (*BKC) 100 UNITS/ML SUB-Q ×3 (08:44→21:04)
[2021-07-11 09:05] LABS: Lactic Acid Reflex 1.8 mmol/L (0.7-2.1)
[2021-07-11 09:13] LABS: Anisocytosis 2+ (NORMAL); Band Neutrophils Percent 7 % (0-6); Lymphocytes Absolute Manual 0.49 K/mm3 (1.1-4.5); Monocytes Absolute Manual 0.49 K/mm3 (0.1-0.90); Monocytes Percent Manual 2 % (3-9); Neutrophils Percent Manual 89 % (46-73); Platelet Estimate Adequate (Adequate); Total Cells Counted 100
[2021-07-11 09:31] LABS: INR 2.3; Prothrombin Time 24.6 Seconds (11.1-14.7)
[2021-07-11 09:32] LABS: Partial Thromboplastin Time 34.5 SECONDS (22.3-36.8)
[2021-07-11 09:34] LABS: Thyroid Stimulating Hormone Reflex 0.288 uIU/mL (0.465-4.68)
--- NOTE | 2021-07-11 09:48 | PM.PNGS ---
Progress Note: A&P Assessment and Plan (1) Necrotizing fasciitis of pelvic region and thigh: Onset Date: ~07/10/21 Code(s): M72.6 - Necrotizing fasciitis Status: Acute Assessment and Plan: Diagnosed by CT and exam. Patient has necrotic skin subcutaneous tissue and possibly fascia on the right buttock and extending into the right posterior thigh. If family wanted everything done patient should probably go to the OR today now that she is about 36 hours after her last dose of Xarelto. She would have some bleeding risk in view of being on Plavix but all necrotic tissue could be excised. However, I suspect this care would be futile in view of her multiple organ failure and COVID pneumonia. (2) Decubitus ulcer of back, unstageable: Onset Date: Unknown Code(s): L89.100 - Pressure ulcer of unspecified part of back, unstageable Status: Acute Assessment and Plan: We suspected is developed over the last 2 weeks since she was hospitalized in mid June and did not have this that I know of. Clean dressings reapplied today in case if patient's family decides to do more than comfort care. Once comfort care is instituted I believe we could avoid changing these dressings and keeping her comfortable with anti-anxiolytics and pain medication. Hopefully family will be allowed come in to be with her. (3) Acute respiratory failure with hypoxia and hypercapnia: Code(s): J96.01 - Acute respiratory failure with hypoxia; J96.02 - Acute respiratory failure with hypercapnia Status: Acute (4) Sepsis: Qualifiers: Sepsis acute organ dysfunction status: unspecified Sepsis type: sepsis due to unspecified organism Qualified Code(s): A41.9 - Sepsis, unspecified organism Code(s): A41.9 - Sepsis, unspecified organism Status: Acute (5) Pneumonia due to COVID-19 virus: Code(s): U07.1 - COVID-19; J12.82 - Pneumonia due to coronavirus disease 2019 Status: Acute (6) Atrial fibrillation: Onset Date: Unknown Code(s): I48.91 - Unspecified atrial fibrillation Status: Chronic (7) ESRD (end stage renal disease): Code(s): N18.6 - End stage renal disease Status: Acute Additional Plan This will be tented depend on family's wishes or what they feel the patient would went want. Should they decide to keep her a full code and want everything done will need to make arrangements to take her to the OR for urgent debridement of fasciitis. Time Spent With Patient Time with patient: 15 - 25 minutes Subjective Subjective Date/Time Seen: 07/11/21 08:48 Patient is intubated and on a ventilator in ICU bed 4. Nurse reports that patient's [id number] called to check on the patient during the night and that family is thinking of making her comfort care only. I did talk to her son Josep baez yesterday in the evening after I saw the patient in the ED. he was planning on reading her will and in view of multiple organ failure consider making her comfort care. Review of Systems Review of Systems: ROS unobtainable: Yes unobtainable due to endotracheal tube and unobtainable due to medical condition Exam Narrative: Exam limited to the wounds. Patient on a ventilator in ICU. Patient seen with Dyan NAPIER from wound care. We turned the patient to the left and examined the large sacral decubitus it still black it is open and draining and this was packed with 4 x 4 gauze after applying Santyl ointment. Dressing was covered with a large sacral Mepilex Also, examined was the right posterior thigh necrotic wound that is about 10 cm x 3 cm in size. Old packing was removed new Santyl and 4x4s applied covered with Mepilex. this wound extends both superiorly and inferiorly there is some redness of the skin in those areas and I suspect that it tunnel significantly and there was signs on CT yesterday of possible fasciitis. Objective Data Vital Signs Vital Sig
[2021-07-11 10:19] LABS: Free T4 Free Thyroxine Reflex 1.77 ng/dL (0.78-2.19)
[2021-07-11 10:20] LABS: Alanine Aminotransferase 12 U/L (4-35); Albumin Level 2.4 g/dL (3.5-5.1); Alkaline Phosphatase 106 U/L (38-126); Anion Gap 9 mmol/L (8-16); Aspartate Amino Transferase 15 U/L (14-36); Bilirubin,Total 1.1 mg/dL (0.2-1.3); Blood Urea Nitrogen 58 mg/dL (7-17); CRP 31.1 mg/dL (<1.0); Calcium 8.1 mg/dL (8.4-10.2); Carbon Dioxide 25 mmol/L (22-30); Chloride 97 mmol/L (98-107); Estimated CRCL calculation 12 ml/min; Estimated Glomerular Filt Rate 10; Glucose 218 mg/dL (65-110); Lactate Dehydrogenase 391 U/L (313-618); Magnesium 2.1 mg/dL (1.6-2.3); Phosphorus 2.7 mg/dL (2.5-4.5); Potassium 3.4 mmol/L (3.4-5.0); Sodium 131 mmol/L (137-145)
[2021-07-11 11:08] LABS: Total Triiodothyronine (T3) 0.48 NG/ML (0.97-1.69)
[2021-07-11] MEDS: COLLAGENASE OINT 30 GM TUBE 1 APPLIC TOPICAL (11:14)
[2021-07-11 11:49] LABS: Glucose Point of Care 191 mg/dl (65-105)
--- NOTE | 2021-07-11 12:40 | PM.PNNEP ---
Progress Note: A&P Assessment and Plan (1) Chronic kidney disease, stage 4 (severe): Code(s): N18.4 - Chronic kidney disease, stage 4 (severe) Status: Acute Assessment and Plan: The patient has chronic kidney disease stage 4. This is due to diabetes and hypertension. Her baseline creatinine runs around 2.5. (2) RAKAN (acute kidney injury): Code(s): N17.9 - Acute kidney failure, unspecified Status: Acute Assessment and Plan: She has acute kidney injury. It is not clear yet whether this is going to work her or not. Her underlying kidney disease was substantial and she may not recover from this. she is due for dialysis today. However her blood pressure is borderline low and her labs are okay. Family discussions are ongoing with regards to aggressiveness of care so I will hold off on dialysis today. (3) Necrotizing fasciitis: Code(s): M72.6 - Necrotizing fasciitis Status: Deleted Assessment and Plan: The patient has a very large decubitus ulcer on the buttocks. This has been partially debrided. urine and wound cultures are all pending g positive cocci are growing in the blood cultures. on antibiotics Discussions on aggressiveness of care will determine how we proceed with this. discussed at length with Dr. Reza and with Dr Nathan. (4) COVID-19: Code(s): U07.1 - COVID-19 Status: Acute Assessment and Plan: The patient has new onset COVID-19. She had been swabbed in the hospital in this was negative. it is hard to know how much of her illness is from this verses the decubitus ulcer etc. She is on respiratory isolation. She is on dexamethasone. With all of the above going on her prognosis is very poor. (5) Atrial fibrillation: Onset Date: Unknown Code(s): I48.91 - Unspecified atrial fibrillation Status: Chronic Assessment and Plan: Her heart rate is 90. She is still in atrial fibrillation. (6) Hypertension: Qualifiers: Hypertension type: primary hypertension Qualified Code(s): I10 - Essential (primary) hypertension Code(s): I10 - Essential (primary) hypertension Status: Acute Assessment and Plan: Her blood pressure is a bit soft. Hold antihypertensives. (7) Secondary hyperparathyroidism: Code(s): N25.81 - Secondary hyperparathyroidism of renal origin Status: Acute Assessment and Plan: Will check a phosphorus in the morning (8) Anemia in chronic kidney disease: Qualifiers: Chronic kidney disease stage: stage 4 (severe) Qualified Code(s): N18.4 - Chronic kidney disease, stage 4 (severe); D63.1 - Anemia in chronic kidney disease Code(s): N18.9 - Chronic kidney disease, unspecified; D63.1 - Anemia in chronic kidney disease Status: Acute Assessment and Plan: will have her on Epogen (9) CHF with left ventricular diastolic dysfunction, NYHA class 1: Code(s): I50.30 - Unspecified diastolic (congestive) heart failure Status: Acute Assessment and Plan: she is getting supportive care. (10) Insulin dependent type 2 diabetes mellitus: Code(s): E11.9 - Type 2 diabetes mellitus without complications; Z79.4 - long term care administrator (current) use of insulin Status: Chronic Assessment and Plan: On Accu-Cheks and sliding-scale insulin Subjective Date/time seen: 07/11/21 12:40 Interval history: patient is sedated. She is on the ventilator. She looks comfortable. She cannot give a history or review of systems because of her medical condition Review of Systems Cardiovascular: Cardiovascular: Reports no additional cardiovascular complaints Respiratory: Respiratory: Reports no additional respiratory complaints Gastrointestinal: Gastrointestinal: Reports no additional gastrointestinal complaints Genitourinary: Genitourinary: Reports no additional female sonido
--- NOTE | 2021-07-11 14:25 | WPDINTPN ---
Progress Note: A&P Assessment and Plan (1) Sepsis: Onset Date: Unknown Code(s): A41.9 - Sepsis, unspecified organism Status: Deleted Assessment and Plan: Secondary to necrotizing fasciitis of decubitus ulcer and possible pneumonia Blood wound and sputum culture Empiric vanc and Zosyn Patient received conservative IV fluid bolus yesterday on admission for hemodialysis She has not needed Vasopressors till now Her lactic acid level was normal (2) Necrotizing fasciitis: Code(s): M72.6 - Necrotizing fasciitis Status: Deleted Assessment and Plan: General surgery consulted in ER and underwent bedside debridement yesterday in ED -see below for management Broad Spectrum antibiotics as above (3) Acute respiratory failure with hypoxia: Code(s): J96.01 - Acute respiratory failure with hypoxia Status: Acute Assessment and Plan: Acute respiratory failure Secondary to congestive heart failure and possible pneumonia ABG reviewed and chest x-ray reviewed Chest CT IMPRESSION: 1. Diffuse bilateral lung disease with appearance and distribution favoring extremity acquired rather than COVID pneumonia. 2. Mild cardiac Megaly. 3. Suggestion of subtle liver surface nodularity which could be seen with cirrhosis. (4) COVID-19: Code(s): U07.1 - COVID-19 Status: Acute Assessment and Plan: SARS-CoV-2 PCR positive Patient is in Airborne, Droplet and Contact Isolation Continue dexamethasone Not a candidate for remdesivir due to renal failure Patient has a mixed respiratory failure and CT chest does not suggest finding consistent with COVID 19 pneumonia (5) Pneumonia: Code(s): J18.9 - Pneumonia, unspecified organism Status: Acute Assessment and Plan: See above (6) Atrial fibrillation with rapid ventricular response: Code(s): I48.91 - Unspecified atrial fibrillation Status: Acute Assessment and Plan: continue p.o. amiodarone Ventricular rate is controlled apixaban is on hold at this time for potential surgery (7) Acute exacerbation of CHF (congestive heart failure): Qualifiers: Heart failure type: diastolic Qualified Code(s): I50.33 - Acute on chronic diastolic (congestive) heart failure Code(s): I50.9 - Heart failure, unspecified Status: Acute Assessment and Plan: Received cautious amount of IV fluid bolus Hemodialysis to remove fluid when hemodynamically stable Echo / Summary 1. Left ventricular chamber dimension is normal. 2. Left ventricular systolic function is normal, estimated at 65-70%. 3. There is moderately increased left ventricular wall thickness. 4. The left ventricular diastolic function is grade II diastolic dysfunction. 5. Right ventricular chamber dimension is mildly enlarged. 6. Left atrial chamber dimension is severely enlarged. 7. Right atrial chamber dimension is moderately enlarged. 8. There is mild mitral valve stenosis. 9. There is mild mitral valve regurgitation. 10. There is mild tricuspid valve regurgitation. 11. Severe pulmonary hypertension, estimated pulmonary arterial systolic pressure is 84 mmHg. 12. Dilated inferior vena cava with <50% collapse upon inspiration consistent with elevated right atrial pressure, 10 mmHg (8) Diabetes mellitus with diabetic autonomic neuropathy, with long-term current use of insulin: Qualifiers: Diabetes mellitus type: type 2 Qualified Code(s): E11.43 - Type 2 diabetes mellitus with diabetic autonomic (poly)neuropathy; Z79.4 - long term care administrator (current) use of insulin Code(s): E11.43 - Type 2 diabetes mellitus with diabetic autonomic (poly)neuropathy; Z79.4 - long term care administrator (current) use of insulin Status: Acute Assessment and Plan: SSI (9) ESRD (end stage renal disease): Code(s): N18.6 - End stage renal disease Status: Acute Assessment and Plan: Consult nephrology for
--- NOTE | 2021-07-11 16:39 | PM.IMPN ---
Progress Note: A&P Assessment and Plan (1) Acute respiratory failure with hypoxia: Code(s): J96.01 - Acute respiratory failure with hypoxia Status: Acute (2) Necrotizing fasciitis of pelvic region and thigh: Onset Date: ~07/10/21 Code(s): M72.6 - Necrotizing fasciitis Status: Acute (3) Pneumonia due to COVID-19 virus: Code(s): U07.1 - COVID-19; J12.82 - Pneumonia due to coronavirus disease 2019 Status: Acute (4) Atrial fibrillation with rapid ventricular response: Code(s): I48.91 - Unspecified atrial fibrillation Status: Acute (5) Acute exacerbation of CHF (congestive heart failure): Qualifiers: Heart failure type: diastolic Qualified Code(s): I50.33 - Acute on chronic diastolic (congestive) heart failure Code(s): I50.9 - Heart failure, unspecified Status: Acute (6) Diabetes mellitus with diabetic autonomic neuropathy, with long-term current use of insulin: Qualifiers: Diabetes mellitus type: type 2 Qualified Code(s): E11.43 - Type 2 diabetes mellitus with diabetic autonomic (poly)neuropathy; Z79.4 - termite control servicer (current) use of insulin Code(s): E11.43 - Type 2 diabetes mellitus with diabetic autonomic (poly)neuropathy; Z79.4 - termite control servicer (current) use of insulin Status: Acute (7) ESRD (end stage renal disease): Code(s): N18.6 - End stage renal disease Status: Acute (8) Decubitus ulcer of back, unstageable: Onset Date: Unknown Code(s): L89.100 - Pressure ulcer of unspecified part of back, unstageable Status: Acute Additional Plan Patient presents with shortness of breath and found to have sepsis. Sepsis secondary to necrotizing fasciitis of a decubitus ulcer. Is concerned she has fasciitis of the right buttock extending into the right posterior thigh. She was hospitalized in early June found have acute kidney injury that worsened to the point she needed dialysis which was arranged. She did develop respiratory failure on presentation here and currently on mechanical ventilation. She is COVID positive. CT of the chest shows diffuse bilateral lung disease consistent with COVID pneumonia. She remains on Zosyn and vancomycin for her fasciitis and sepsis. Was also started on steroids for with COVID pneumonia. Because of his has discussed with the family about options including hospice and comfort measures. Patient is currently a DNR now. Family has decided not to proceed with surgery. Plan for family to come in to proceed with palliative extubation and hospice care. Continue supportive care at this time. Subjective Date/time seen: 07/11/21 16:39 Interval history: 80yo female with CHF, ESRD on HD and DM here for SOB. Patient recently diagnosed with COVID. Patient is intubated and sedated at this time. Maintenance Porter has spoken withthe family about the severity of her wound with other signifincat co-morbidities and family plans to come in for possible terminal wean off MV. Exam Narrative: AF 98.0 97/71 104 20 98% MV Gen - intubated on mechanical ventilation HEENT - ETT and OGT secured Chest - coarse BS anteriorly, nml RR. HD catheter in her right upper chest. CV - irregular with tele showing PACs and sinus arrythmias Abd - soft, obese - Lopes secured draining stiven colored urine Ext - bilateral pitting edema Neuro - resting comfortably Skin - sacral area not visualized. Objective Data Vital Signs Vital Signs: Vital Signs - 24 hr 07/10/21 18:00 07/10/21 20:00 07/10/21 21:58 Temperature 98.4 F 98.1 F Pulse Rate 94 93 79 Respiratory Rate 21 H 21 H Blood Pressure 101/52 L 113/58 L Pulse Oximetry 99 99 98 07/10/21 22:00 07/11/21 00:00 07/11/21 02:00 Temperature 98.1 F 97.9 F 98 F Pulse Rate 96 94 96 Respiratory Rate 20 22 H 22 H Blood Pressure 91/42 L 106/51 L 109/59 L Pulse Oximetry 97 92 93 07/11/21 02:34 07/11/21 04:00 07/11/21 04:40 Temperature 97
[2021-07-11 17:18] LABS: Glucose Point of Care 209 mg/dl (65-105)
[2021-07-11] MEDS: SENNA/DOCUSATE SODIUM TABLET 2 TAB PO (20:54)
[2021-07-11] MEDS: EUCERIN CREAM 120 GM JAR 1 APPLIC TOPICAL (20:55)
[2021-07-11 21:27] LABS: Glucose Point of Care 216 mg/dl (65-105)
[2021-07-12] VITALS (13 sets, daily range): BP systolic 78–123; BP diastolic 45–98; PULSE 98–122; RESP 20–22; TEMP 36.5–36.6; O2SAT 78–100
[2021-07-12 00:29] LABS: Glucose Point of Care 197 mg/dl (65-105)
[2021-07-12] MEDS: fentaNYL CITRATE INJ (*CRX) 100 MCG/2 ML VIAL 50 MCG IV PUSH ×3 (01:28→08:37)
[2021-07-12] MEDS: LORazepam INJ (*CRX) 2 MG/ML VIAL IV PUSH ×5 (01:29→13:38)
[2021-07-12 04:34] LABS: Alanine Aminotransferase 13 U/L (4-35); Albumin Level 2.5 g/dL (3.5-5.1); Alkaline Phosphatase 94 U/L (38-126); Anion Gap 9 mmol/L (8-16); Aspartate Amino Transferase 22 U/L (14-36); Bilirubin,Total 1.3 mg/dL (0.2-1.3); Blood Urea Nitrogen 78 mg/dL (7-17); Calcium 8.2 mg/dL (8.4-10.2); Carbon Dioxide 23 mmol/L (22-30); Chloride 98 mmol/L (98-107); Estimated CRCL calculation 12 ml/min; Estimated Glomerular Filt Rate 10; Glucose 235 mg/dL (65-110); Magnesium 2.2 mg/dL (1.6-2.3); Phosphorus 2.9 mg/dL (2.5-4.5); Potassium 3.9 mmol/L (3.4-5.0); Sodium 130 mmol/L (137-145)
[2021-07-12] MEDS: INSULIN ASPART (*BKC) 100 UNITS/ML SUB-Q (04:53)
[2021-07-12 05:00] LABS: Alveolar/Arterial O2 Gradient 13.6 mmHg; Base Excess ABG -2.8 mEq/l (+/-2.0); Carboxyhemoglobin 0.1 % THb (0-2.0); Fractional Inspired Oxygen 40 %; HCO3 ABG 21.3 mEq/l (22.0-26.0); Methemoglobin ABG 0.1 %THb (0-1.5); Oxygen Content ABG 12.3 %vol (16.0-22.0); Oxygen Saturation ABG 99.5 % (95.0-100.0); Oxyhemoglobin 98.8 % THb (90.0-100.0); PCO2 ABG 33.9 mmHg (35.0-45.0); PO2 ABG 232.6 mmHg (80.0-100.0); PO2 FiO2 Ratio Arterial Blood 5.82 %; Total Hemoglobin 8.4 g/dL (12.0-18.0); pH ABG 7.417 (7.350-7.450)
[2021-07-12 05:01] LABS: Arterial Blood Gas PEEP 5 cmH2O; Arterial Blood Gas Tidal Volume 400 ml; Arterial Blood Gas Vent Mode CMV; Arterial Blood Gas Ventilator rate 20 /MIN; Device VENTILATOR; Modified Allen's Test Unable to perform; Site Drawn RIGHT RADIAL
[2021-07-12 07:42] LABS: Glucose Point of Care 218 mg/dl (65-105)
[2021-07-12] MEDS: PANTOPRAZOLE SODIUM IV 40 MG VIAL IV PUSH (08:26)
[2021-07-12] MEDS: AMIODARONE HCL 200 MG TABLET PO (08:27)
--- NOTE | 2021-07-12 10:08 | PM.PNNEP ---
Progress Note: A&P Assessment and Plan (1) Chronic kidney disease, stage 4 (severe): Code(s): N18.4 - Chronic kidney disease, stage 4 (severe) Status: Acute Assessment and Plan: The patient has chronic kidney disease stage 4. This is due to diabetes and hypertension. Her baseline creatinine runs around 2.5. (2) RAKAN (acute kidney injury): Code(s): N17.9 - Acute kidney failure, unspecified Status: Acute Assessment and Plan: She has acute kidney injury. This may or may not be reversible, I suspect that is not going to recover. Discussed with Dr. Reza. Family has decided on comfort measures. They are going to visit her later today. (3) Necrotizing fasciitis: Code(s): M72.6 - Necrotizing fasciitis Status: Deleted Assessment and Plan: The patient has a very large decubitus ulcer on the buttocks. This has been partially debrided. urine and wound cultures are all pending g positive cocci are growing in the blood cultures. on antibiotics In view of this, her age, her COVID-19, end-stage renal disease and at best chronic kidney disease, comfort measures seems very appropriate. (4) COVID-19: Code(s): U07.1 - COVID-19 Status: Acute Assessment and Plan: The patient has new onset COVID-19. She had been swabbed in the hospital in this was negative. it is hard to know how much of her illness is from this verses the decubitus ulcer etc. She is on respiratory isolation. She is on dexamethasone. With all of the above going on her prognosis is very poor. (5) Atrial fibrillation: Onset Date: Unknown Code(s): I48.91 - Unspecified atrial fibrillation Status: Chronic Assessment and Plan: Her heart rate is 90. She is still in atrial fibrillation. (6) Hypertension: Qualifiers: Hypertension type: primary hypertension Qualified Code(s): I10 - Essential (primary) hypertension Code(s): I10 - Essential (primary) hypertension Status: Acute Assessment and Plan: Her blood pressure is a bit soft. Hold antihypertensives. (7) Secondary hyperparathyroidism: Code(s): N25.81 - Secondary hyperparathyroidism of renal origin Status: Acute Assessment and Plan: Will check a phosphorus in the morning (8) Anemia in chronic kidney disease: Qualifiers: Chronic kidney disease stage: stage 4 (severe) Qualified Code(s): N18.4 - Chronic kidney disease, stage 4 (severe); D63.1 - Anemia in chronic kidney disease Code(s): N18.9 - Chronic kidney disease, unspecified; D63.1 - Anemia in chronic kidney disease Status: Acute Assessment and Plan: will have her on Epogen (9) CHF with left ventricular diastolic dysfunction, NYHA class 1: Code(s): I50.30 - Unspecified diastolic (congestive) heart failure Status: Acute Assessment and Plan: she is getting supportive care. (10) Insulin dependent type 2 diabetes mellitus: Code(s): E11.9 - Type 2 diabetes mellitus without complications; Z79.4 - intermediate (current) use of insulin Status: Chronic Assessment and Plan: On Accu-Cheks and sliding-scale insulin Subjective Date/time seen: 07/12/21 10:08 Interval history: patient is sedated. She is on the ventilator. When I yell her name she raised her eyebrows but that is about it. She cannot give a history or review of systems because of her medical condition Exam Narrative: WDWN female on the ventilator in NAD skin no rash head ncat lungs course and symmetric bilateral breath sounds cor reg no rub or gallop abd BS+ nontender and soft ext 1 to 2+ bilateral chronic and stable edema. Objective Data Vital Signs Vital Signs: Vital Signs - 24 hr 07/11/21 11:40 07/11/21 12:00 07/11/21 14:00 Temperature 36.6 C Pulse Rate 103 H 90 104 H Respiratory Rate 20 20 Blood Pressure 105/43
--- NOTE | 2021-07-12 11:33 | WPDINTPN ---
Progress Note: A&P Assessment and Plan (1) Sepsis: Onset Date: Unknown Code(s): A41.9 - Sepsis, unspecified organism Status: Deleted Assessment and Plan: Secondary to necrotizing fasciitis of decubitus ulcer and possible pneumonia Blood wound and sputum culture Empiric vanc and Zosyn Patient received conservative IV fluid bolus on admission due to renal failure hemodialysis She has not needed Vasopressors till now Her lactic acid level was normal (2) Necrotizing fasciitis: Code(s): M72.6 - Necrotizing fasciitis Status: Deleted Assessment and Plan: General surgery consulted in ER and underwent bedside debridement 2/2 in ED -see below for management Broad Spectrum antibiotics as above (3) Acute respiratory failure with hypoxia: Code(s): J96.01 - Acute respiratory failure with hypoxia Status: Acute Assessment and Plan: Acute respiratory failure Secondary to congestive heart failure and possible pneumonia ABG reviewed and chest x-ray reviewed Chest CT IMPRESSION: 1. Diffuse bilateral lung disease with appearance and distribution favoring extremity acquired rather than COVID pneumonia. 2. Mild cardiac Megaly. 3. Suggestion of subtle liver surface nodularity which could be seen with cirrhosis. (4) COVID-19: Code(s): U07.1 - COVID-19 Status: Acute Assessment and Plan: SARS-CoV-2 PCR positive Patient is in Airborne, Droplet and Contact Isolation Continue dexamethasone Not a candidate for remdesivir due to renal failure Patient has a mixed respiratory failure and CT chest does not suggest finding consistent with COVID 19 pneumonia (5) Pneumonia: Code(s): J18.9 - Pneumonia, unspecified organism Status: Acute Assessment and Plan: See above (6) Atrial fibrillation with rapid ventricular response: Code(s): I48.91 - Unspecified atrial fibrillation Status: Acute Assessment and Plan: continue p.o. amiodarone Ventricular rate is controlled apixaban is on hold at this time for potential surgery (7) Acute exacerbation of CHF (congestive heart failure): Qualifiers: Heart failure type: diastolic Qualified Code(s): I50.33 - Acute on chronic diastolic (congestive) heart failure Code(s): I50.9 - Heart failure, unspecified Status: Acute Assessment and Plan: Received cautious amount of IV fluid bolus Echo 06/10 Summary 1. Left ventricular chamber dimension is normal. 2. Left ventricular systolic function is normal, estimated at 65-70%. 3. There is moderately increased left ventricular wall thickness. 4. The left ventricular diastolic function is grade II diastolic dysfunction. 5. Right ventricular chamber dimension is mildly enlarged. 6. Left atrial chamber dimension is severely enlarged. 7. Right atrial chamber dimension is moderately enlarged. 8. There is mild mitral valve stenosis. 9. There is mild mitral valve regurgitation. 10. There is mild tricuspid valve regurgitation. 11. Severe pulmonary hypertension, estimated pulmonary arterial systolic pressure is 84 mmHg. 12. 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 no plan for hemodialysis session at t
--- NOTE | 2021-07-12 13:04 | P.PNCROSS_ITS ---
Event Note Event Note Event Note: Family Meeting I met with patient's son and [id number] in presence of patient's nurse Arminda and respiratory care specialist Lexis. they had earlier decided to proceed with palliative extubation and comfort care/ hospice for the patient considering her advanced directive and current medical condition. I again explained them the process of extubation and how t we will discontinue discontinue all medical therapy and institute comfort measures only. I explained them that we will use opioids, anxiolytics and other agents on as needed basis to promote comfort and discontinue all medical therapy, lab testing and invasive monitoring. She will eventually pass away. Patient's son asked that if patient is awake and alert and wants to change her code status once extubated. I explained them that if patient, post extubation, is awake, alert and understands her current medical condition and implications of her decisions then yes she can change her code status and goals of care but that would be unlikely.
[2021-07-12] MEDS: MORPHINE SULFATE INJ (*CRX) 10 MG/ML AMP 5 MG IV PUSH (13:15)
[2021-07-12] MEDS: MORPHINE SULFATE (*CRX) 2 MG/ML INJ 4 MG IV PUSH (13:39)
--- NOTE | 2021-07-12 14:53 | PM.IMPN ---
Progress Note: A&P Assessment and Plan (1) Sepsis: Onset Date: Unknown Code(s): A41.9 - Sepsis, unspecified organism Status: Deleted (2) Acute respiratory failure with hypoxia: Code(s): J96.01 - Acute respiratory failure with hypoxia Status: Acute (3) Necrotizing fasciitis of pelvic region and thigh: Onset Date: ~07/10/21 Code(s): M72.6 - Necrotizing fasciitis Status: Acute (4) Pneumonia due to COVID-19 virus: Code(s): U07.1 - COVID-19; J12.82 - Pneumonia due to coronavirus disease 2019 Status: Acute (5) Atrial fibrillation with rapid ventricular response: Code(s): I48.91 - Unspecified atrial fibrillation Status: Acute (6) Acute exacerbation of CHF (congestive heart failure): Qualifiers: Heart failure type: diastolic Qualified Code(s): I50.33 - Acute on chronic diastolic (congestive) heart failure Code(s): I50.9 - Heart failure, unspecified Status: Acute (7) Diabetes mellitus with diabetic autonomic neuropathy, with long-term current use of insulin: Qualifiers: Diabetes mellitus type: type 2 Qualified Code(s): E11.43 - Type 2 diabetes mellitus with diabetic autonomic (poly)neuropathy; Z79.4 - medical terminologist (current) use of insulin Code(s): E11.43 - Type 2 diabetes mellitus with diabetic autonomic (poly)neuropathy; Z79.4 - medical terminologist (current) use of insulin Status: Acute (8) ESRD (end stage renal disease): Code(s): N18.6 - End stage renal disease Status: Acute (9) Decubitus ulcer of back, unstageable: Onset Date: Unknown Code(s): L89.100 - Pressure ulcer of unspecified part of back, unstageable Status: Acute Additional Plan Patient presents with shortness of breath and found to have sepsis. Sepsis secondary to necrotizing fasciitis of a decubitus ulcer. Is concerned she has fasciitis of the right buttock extending into the right posterior thigh. She was hospitalized in early June found have acute kidney injury that worsened to the point she needed dialysis which was arranged. She did develop respiratory failure on presentation here and currently on mechanical ventilation. She is COVID positive. CT of the chest shows diffuse bilateral lung disease consistent with COVID pneumonia. She remains on Zosyn and vancomycin for her fasciitis and sepsis. Was also started on steroids for with COVID pneumonia. Because of his has discussed with the family about options including hospice and comfort measures. Patient is currently a DNR now. Family has decided not to proceed with surgery. Plan for family to come in to proceed with palliative extubation and hospice care. Continue supportive care at this time. 07/12/21 -- Spoke with nurse. Plan is for family to come in later today for terminal wean. Continue comfort measures. Subjective Date/time seen: 07/12/21 14:53 Interval history: 80yo female with CHF, ESRD on HD and DM here for SOB. Patient recently diagnosed with COVID. Patient is intubated. Plan for family to come in for possible terminal wean off MV. Review of Systems Review of Systems: ROS unobtainable: Yes unobtainable due to endotracheal tube Exam Narrative: AF 97.64 112 20 99% MV Gen - intubated on mechanical ventilation HEENT - ETT and OGT secured Chest - coarse BS anteriorly CV - irregular Abd - soft, obese - Lopes secured draining stiven colored urine Ext - bilateral pitting edema Neuro - resting comfortably Skin - sacral area not visualized. Objective Data Vital Signs Vital Signs: Vital Signs - 24 hr 07/11/21 16:00 07/11/21 17:18 07/11/21 18:00 Temperature 98.1 F Pulse Rate 95 100 114 H Respiratory Rate 20 20 Blood Pressure 98/46 L 84/47 L Pulse Oximetry 99 98 100 07/11/21 20:00 07/11/21 20:16 07/11/21 22:00 Temperature 98.2 F 98.1 F Pulse Rate 102 H 101 H 109 H Respiratory Rate 20 20 Blood Pressure 96/58 L 117
--- NOTE | 2021-07-12 15:24 | P.DN_ITS ---
Discharge Summary Date and Time Date of : 07/12/21 Time of : 14:47 Provider Pronounced By: Maya Fernandez RN and Sofiya Mina RN Probable Cause of Probable Cause of : Sepsis from necrotizing fasciitis Summary Hospital Course: Patient presented with shortness of breath and found to have sepsis secondary to necrotizing fasciitis of a decubitus ulcer. Imaging concerning for fasciitis of the right buttock extending into the right posterior thigh. She did develop respiratory failure on presentation here and placed on mechanical ventilation. She was COVID positive. CT of the chest shows diffuse bilateral lung disease consistent with COVID pneumonia. She was started on Zosyn and vancomycin for her fasciitis and sepsis. Long discussion with the family about options including hospice and comfort measures. The family did not want to proceed with surgery debridement and felt she should be kept comfortable. Patient was made DNR. Family came in to see the patient and they decided to proceed with palliative extubation and hospice care. Patient was made comfortable and extubated. She a short time later. Additional Data Confirmation of as documented by pronouncing clinician: Pupillary Reflex, Palpable Pulses, Response to Stimuli, Heart Tones and Breath Sounds Name of Provider Notified: Dr. Griggs Time Provider Notified: 15:28 Provider Requests Autopsy: No Family Requests Autopsy: No Video Recorder Mechanic Notified: Yes Date [facility] Notified of : 07/12/21 Time [facility] Notified of : 15:22
== END 2021-07-12 14:47 | disposition expired | DRG 853 ==
LOC: ANHED 09:22 → ANHICU 14:27
PROVIDERS: Internal Medicine; Nurse Practitioner; Admitting Provider Internal Medicine; Emergency Provider Emergency Medicine; PCP Internal Medicine; Visit Provider Internal Medicine
DX: A41.9 Sepsis, unspecified organism (principal); M72.6 Necrotizing fasciitis; U07.1 COVID-19; J96.01 Acute respiratory failure with hypoxia; J96.02 Acute respiratory failure with hypercapnia; J12.82 Pneumonia due to coronavirus disease 2019; I50.33 Acute on chronic diastolic (congestive) heart failure; N18.6 End stage renal disease; N25.81 Secondary hyperparathyroidism of renal origin; N39.0 Urinary tract infection, site not specified; I13.2 Hypertensive heart and chronic kidney disease with heart failure and with stage 5 chronic kidney disease, or end stage renal disease; I27.20 Pulmonary hypertension, unspecified; L89.150 Pressure ulcer of sacral region, unstageable; Z99.2 Dependence on renal dialysis; Z51.5 Encounter for palliative care; Z66 Do not resuscitate; E11.43 Type 2 diabetes mellitus with diabetic autonomic (poly)neuropathy; E11.319 Type 2 diabetes mellitus with unspecified diabetic retinopathy without macular edema; E11.22 Type 2 diabetes mellitus with diabetic chronic kidney disease; D63.1 Anemia in chronic kidney disease; N25.0 Renal osteodystrophy; E55.9 Vitamin D deficiency, unspecified; I48.91 Unspecified atrial fibrillation; K21.9 Gastro-esophageal reflux disease without esophagitis; K44.9 Diaphragmatic hernia without obstruction or gangrene; Z79.01 Long term (current) use of anticoagulants; Z79.4 Long term (current) use of insulin; Z87.891 Personal history of nicotine dependence; Z98.49 Cataract extraction status, unspecified eye; Z86.73 Personal history of transient ischemic attack (TIA), and cerebral infarction without residual deficits
CPT/HCPCS: 36415; 36600; 70450; 71045; 71250; 72192; 74018; 80053; 81001; 82375; 82728; 82805; 82948; 83050; 83605; 83615; 83735; 84100; 84439; 84443; 84480; 84484; 85025; 85610; 85652; 85730; 86140; 86900; 86901; 87040; 87070; 87075; 87077; 87086; 87147; 87181; 87186; 87205; 93005; 94003; 96365; 96375; 99285; A9270; C9113; C9803; J1100; J1815; J2060; J2270; J2543; J3010; J3370; J7030; U0003; U0005